=== PATIENT | female | born 1960 | race Caucasian/White ===

== ENCOUNTER 2017-11-23 16:48 | Emergency (ER) | payer MEDICAID, SELFPAY ==
[2017-11-23 17:01] VITALS: BP 103/70; PULSE 101; RESP 16; TEMP 36.7
--- NOTE | 2017-11-23 17:49 | DI.RPTCT_ITS ---
SYMPTOM/DIAGNOSIS: DIFFUSE ABDOMINAL PAIN. BRIGHT RED BLOOD PER RECTUM CT ABDOMEN AND PELVIS: Comparison is made with 29 Jan 2016. Images were performed through the lung bases through the ischial tuberosities without IV and after oral contrast. The oral contrast is seen within the stomach and small bowel. The distal ileum and colon are not opacified. There is no evidence of obstruction. Numerous diverticula are noted in the lower descending and sigmoid colon. There is no evidence of diverticulitis. There is a moderate quantity of stool. The lung bases are clear. The heart size is normal. The liver, spleen, pancreas, kidneys and adrenals are unremarkable without IV contrast. The patient is status post cholecystectomy. There is no biliary dilatation. The bladder appears normal. The patient is status post hysterectomy. Degenerative disc changes are seen greatest at L3-4 and L4-5. There is a small fatty containing umbilical hernia. The aorta is normal in diameter. IMPRESSION: Diverticulosis. No evidence of diverticulitis or other acute abnormality.
--- NOTE | 2017-11-23 17:49 | ED.GENADUL ---
Disposition Clinical Impression: Rectal bleeding Disposition: HOME Condition: Fair Instructions: Rectal Bleeding (ED) Additional Instructions: Encourage hydration. Continue with medication as previously prescribed. Please keep upcoming appointment with primary care. I have asked our home health care coordinator help facilitate follow-up with general surgery for reevaluation. If you develop increased pain, fever/chills, fainting, weakness, change in bowel habits, had increased blood per rectum or the new/worsening symptoms please seek care urgently once again. You had a palpable internal hemorrhoid, bleeding may be coming from the source. Referrals: Antonietta Fay MD [ [facility]FF [facility]YSICIAN] - Medical Decision Making - Lab Data Laboratory Tests 11/23/17 11/23/17 11/23/17 18:00 18:00 18:00 WBC 10.02 RBC 4.29 Hgb 12.5 Hct 37.1 MCV 86.5 MCH 29.1 MCHC 33.7 RDW 15.0 H Plt Count 523 H MPV 10.4 Immature Gran % 0.2 Neutrophils % 52.9 Lymphocytes % 36.3 Monocytes % 7.6 Eosinophils % 2.5 Basophils % 0.5 Absolute Neutrophils 5.30 Absolute Lymphocytes 3.64 H Absolute Monocytes 0.76 H Absolute Eosinophils 0.25 Absolute Basophils 0.05 PT 10.5 INR 1.1 APTT 23.7 Sodium 141 Potassium 3.6 Chloride 103 Carbon Dioxide 25.4 Anion Gap 12.6 H BUN 23 H Creatinine 1.02 Estimated GFR/1.73 m2 55.47 Glucose 111 H Calcium 8.4 L Magnesium 1.1 L Total Bilirubin 0.3 AST 15 ALT 17 Alkaline Phosphatase 101 Troponin I < 0.02 Total Protein 7.1 Albumin 3.5 Lipase 156 Results reviewed for labs ordered during visit: Yes - Radiology Data Radiology results: report reviewed CT reviewed by radiologist. They advised patient is status post cholecystectomy. No ductal dilation. Liver is unremarkable. Pancreas is unremarkable no ductal dilation. Spleen is unremarkable, no splenomegaly. Adrenals are unremarkable no mass. Kidneys and ureters are unremarkable, no obstructing stones, no hydronephrosis. Diverticulosis of the descending and sigmoid colon. No diverticulitis. No colitis. No obstruction. No findings to suggest acute appendicitis. Bladder is unremarkable no stones. Reproductive is unremarkable as visualized. Intraperitoneal space is unremarkable, no free air, no significant fluid collection. Degenerative spondylosis of the lumbar spine. No acute fracture. No dislocation. Soft tissues are unremarkable. No abdominal aortic aneurysm. No enlarged lymph nodes. Advise overall no acute findings. - Medical Decision Making Patient presents today with chief complaint of bright red blood per rectum. Patient does have a long history of GI upset. Had recent EGD. Reports that she has a follow-up appointment with primary care this week. Does not follow GI regularly. Abdominal pain is fairly diffuse, worse in the right lower quadrant. Patient is status post appendectomy. No palpable mass. Patient does have bright red blood per rectum on JUDD. She does have a small external hemorrhoid but is still not appear thrombosed and is not actively bleeding. Patient has a palpable small internal hemorrhoid as well. Patient is tachycardic at heart rate of 101. Will obtain laboratory evaluation as well as imaging of the abdomen. Laboratory evaluation without significant abnormality. Hemoglobin and hematocrit are stable at 12.5 and 37.1 respectively. Platelet count is elevated at 523 but this is typical for the patient. Coagulation studies are normal. Creatinine is 1.02 which is improved from patient's baseline. Lipase is within normal limits. Troponin is less than 0.02. I discussed these findings with the patient. She is feeling much improved after a liter bolus. CT pending. CT will be obtained with oral contrast is recurrent we are unable to obtain imaging with IV contrast. CT scan reviewed by radiologist. They do note diverticulosis but no signs of diverticulitis. No acute abnormalities. I discussed this with the patient. She reports that overall she is feeling much improved. Her vital signs are improved with a heart rate of 80, blood pressure is 124/79. Her pain is improved with no needed intervention. Patient appears much more calm than when she initially presented. Patient reports that she was having large amount of anxiety around her rectal bleeding. In questioning her bright red blood per rectum may be associated with internal hemorrhoids. At this point, patient appears quite stable, nontoxic, improving. She is not anemic. I do not believe that this is a brisk upper GI bleed with these symptoms. Patient was given strict return precautions but is requesting discharge at this time. I have asked that she follow up with general surgery this week. I have asked her care according to help facilitate this follow-up. Patient reports that it has been over 10 years since her last colonoscopy. She will continue with medications as previously prescribed. Please seek care urgently once again if she develops new or worsening symptoms. All other questions and concerns were addressed and she is in agreement with this plan. History of Present Illness - General Chief complaint: GI Bleed Stated complaint: GI BLEED Time Seen by Provider: 11/23/17 16:50 Source: patient, family, RN notes reviewed Mode of arrival: ambulatory Limitations: no limitations - History of Present Illness Initial comments: Patient is a 57-year-old female presenting today with chief complaint of diffuse abdominal pain and rectal bleeding. She is a history of hypertension, hypokalemia, rectocele, pancolonic diverticulitis and fibromyalgia. She underwent an EGD 1 month ago at which time she was diagnosed with chronic gastritis. EGD was completed as the patient was having chronic nausea/vomiting as well as weight loss. Patient is on daily Imodium, Zofran, simethicone. States she has chronic abdominal pain but this pain today is much worse than typical. States the pain is severe burning. States that she noted a small amount of blood on the toilet paper yesterday. However, having a bowel movement today she reports that she had a large amount of bright red blood in the toilet. 6. Unusual for her and she has not had something like this historically. Reports that she has been feeling lightheaded particularly when standing. Describes being presyncopal when standing and needing to sit down. Denies any rash. Denies any bleeding. Has not been using anti-inflammatories. Patient is not anticoagulated. Denies any external hemorrhoids. Denies any rectal pain. Patient is status post cholecystectomy, appendectomy, hysterectomy and tubal ligation. - Related Data Venlafaxine HCl [Venlafaxine HCl ER] 150 mg PO BID #90 tab-cap 06/24/12 Vitamin B Complex [B Complex] 1 each PO DAILY tab 05/12/14 Naloxone HCl [Narcan Nasal [place]] 4 mg NS PRN #2 spray 12/13/16 SUMAtriptan [Imitrex] 20 mg NS ONCE #1 box 12/13/16 Hydrochlorothiazide [Hydrodiuril] 25 mg PO DAILY #90 tab-cap 02/20/17 Omeprazole 40 mg PO BID #180 capsule. 02/21/17 Diphenoxylate HCl/Atropine [Diphenoxylate-Atrop 2.5-0.025] 1 - 2 each PO QID #30 tab-cap 03/14/17 Estrogens,Conjugated Vag. Cr. [Premarin Vaginal Cream] 0 VG weekly #30 g 03/14/17 Butalbital/Acetamin./Caffeine [Fioricet] 1 tab-cap PO Q4H PRN #50 tab-cap 03/27/17 Cholecalciferol (Vitamin D3) [Vitamin D3] 50,000 unit PO once weekly #8 cap 05/28/17 DiphenhydrAMINE [Benadryl] 25 - 50 mg PO PRN PRN 10/28/17 Loperamide [Imodium] 2 mg PO PRN PRN 10/28/17 Gabapentin 100 mg PO HS #30 cap 11/07/17 Nystatin 1 tsp PO QID #120 ml 11/07/17 Ondansetron HCl 4 mg PO Q8H PRN #30 tab-cap 11/07/17 OxyCODONE [Roxicodone] 10 mg PO TID PRN #80 tab-cap 11/07/17 Sucralfate 1 g PO QID #120 tab-cap 11/07/17 Allergies Allergy/AdvReac Type Severity Reaction Status Date / Time cephalexin monohydrate Allergy Severe Hives, Unverified 11/23/17 17:13 [From Keflex] rash and swelling Penicillins Allergy Intermediate SKIN RASH; Unverified 11/23/17 17:13 VOMITING vancomycin Allergy Intermediate Unverified 11/23/17 17:13 cyclobenzaprine AdvReac Severe Lethargy Unverified 11/23/17 17:13 and confusion fentanyl AdvReac Severe pt states Unverified 11/23/17 17:13 she passes out methadone AdvReac Severe HALLUCINATIONS Unverified 11/23/17 17:13 OUT OF LIFE promethazine AdvReac Severe dystonic Unverified 11/23/17 17:13 reaction amitriptyline AdvReac Intermediate CONFUSION Unverified 11/23/17 17:13 azithromycin AdvReac Intermediate Psychosis Unverified 11/23/17 17:13 lithium AdvReac Intermediate GI bleed Unverified 11/23/17 17:13 nortriptyline AdvReac Intermediate INSOMNIA Unverified 10/31/17 11:27 pregabalin AdvReac FACIAL Unverified 10/31/17 11:27 NUMBNESS Review of Systems Constitutional: see HPI, weakness. denies: chills, fever Eyes: denies: vision change Respiratory: no symptoms reported. denies: cough, shortness of breath Cardiovascular: denies: chest pain, palpitations, dyspnea on exertion Gastrointestinal: as per HPI Genitourinary: denies: urgency, dysuria, frequency, hematuria Musculoskeletal: denies: back pain Skin: denies: rash, lesions Neurological: denies: headache Past Medical History - Past Medical History Medical history: fibromyalgia, hypertension Hypokalemia, chronic pain, pancolonic diverticulitis, rectocele, fibromyalgia Surgical history: appendectomy, cholecystectomy, EGD, bilateral tubal ligation, hysterectomy - Social History Alcohol use: none Living Situation: lives with family General Exam - General Limitations: no limitations General appearance: alert, in no apparent distress (Patient appears slightly anxious), anxious - Eye Eye exam: Present: normal apperance (No pallor) - ENT ENT exam: Present: normal exam, mucous membranes moist - Respiratory Respiratory exam: Present: normal lung sounds bilaterally. Absent: respiratory distress - Cardiovascular Cardiovascular Exam: Present: regular rate, normal rhythm, normal heart sounds - GI/Abdominal GI/Abdominal exam: Present: soft, tenderness (Diffuse discomfort currently worse in the right lower quadrant.), normal bowel sounds. Absent: distended, guarding, rebound, rigid, organomegaly, mass, pulsatile mass, hernia - Rectal Rectal exam: Present: normal rectal tone, heme (+) stool, bloody stool, hemorrhoids (Small hemorrhoid is visualized. He does not appear thrombosed. No active bleeding from the hemorrhoid.). Absent: fecal impaction, tenderness - Back Exam Back exam: Absent: CVA tenderness (R), CVA tenderness (L) - Neurological Exam Neurological exam: Present: alert, normal gait - Psychiatric Psychiatric exam: Present: anxious, flat affect - Skin Skin exam: Present: warm, dry, normal color (Patient appears pale) Course Vital Signs - 24 hr 11/23/17 17:01 Temperature 36.7 C Pulse 101 H Respiratory 16 Rate Blood Pressure 103/70
[2017-11-23] MEDS: Breeza Beverage 473 ML BTL PO ×2 (18:11→18:12)
[2017-11-23] MEDS: Omnipaque 350 MG/ML 50 ML BTL PO (18:11)
[2017-11-23] MEDS: Ondansetron 4 MG/2 ML VIAL IVP (18:22)
[2017-11-23] MEDS: Normal Saline 1,000 ML 1000 ML IV (18:22)
[2017-11-23 18:31] LABS: Abs Immature Grans 0.02 k/cumm (0.0-0.09); Absolute Basophil Count 0.05 k/cumm (0.0-0.2); Absolute Eosinophil Count 0.25 k/cumm (0.0-0.7); Absolute Lymphocyte Count 3.64 k/cumm (1.2-3.4); Absolute Monocyte Count 0.76 k/cumm (0.11-0.7); Basophils % 0.5; Eosinophils % 2.5; HCT 37.1 % (36.0-46.0); HGB 12.5 g/dL (12.0-15.5); Immature Grans % 0.2; Lymphocytes % 36.3; Mean Corp. HGB Concentration 33.7 g/dL (32.0-36.0); Mean Corpuscular Hemoglobin 29.1 pg (27.0-33.0); Mean Corpuscular Volume 86.5 fL (80-95); Mean Platelet Volume 10.4 fL (8.0-11.0); Monocytes % 7.6; Neutrophils % 52.9; Platelet Count 523 x1000/uL (130-400); RBC 4.29 m/cumm (4.00-5.20); White Blood Cell Count 10.02 k/cumm (4.4-10.8)
[2017-11-23 18:41] LABS: INR 1.1 (1.0-3.5); PTT Activated 23.7 sec (21.0-31.4); Prothrombin Time 10.5 sec (9.3-10.8)
[2017-11-23 18:45] LABS: ALT 17 U/L (12-78); AST 15 U/L (15-37); Albumin 3.5 g/dL (3.4-5.0); Alkaline Phosphatase 101 U/L (46-116); Anion Gap 12.6 mmol/L (3-11); BUN 23 mg/dL (7-18); Bilirubin, Total 0.3 mg/dL (0.2-1.0); CO2 25.4 mmol/L (21.0-32.0); CREATININE 1.02 mg/dL (0.55-1.02); Calcium 8.4 mg/dL (8.5-10.1); Chloride 103 mmol/L (98-107); Estimated GFR 55.47 (mL/min/1.73m2); Glucose 111 mg/dL (70-100); Lipase 156 U/L (73-393); Magnesium 1.1 mg/dL (1.8-2.4); Potassium 3.6 mmol/L (3.5-5.1); Sodium 141 mmol/L (136-145); Total Protein 7.1 g/dL (6.4-8.2)
[2017-11-23 18:53] LABS: Troponin I < 0.02 ng/mL (0.00-0.06)
--- NOTE | 2017-11-23 19:23 | NUR.NOTE ---
Nursing Note: Pt to CT scan.
--- NOTE | 2017-11-23 19:43 | DI.VRAD_ITS ---
EXAM: CT Abdomen and Pelvis Without Intravenous Contrast CLINICAL HISTORY: 57 years old, female; Pain; Abdominal pain; Other: Diffuse; Patient HX: Bright red blood per rectum. ; Additional info: Prior abdominal surgeries: . Appendectomy. Cholecystectomy. Tubal ligation TECHNIQUE: Axial computed tomography images of the abdomen and pelvis without intravenous contrast. All CT scans at this facility use at least one of these dose optimization techniques: automated exposure control; mA and/or kV adjustment per patient size (includes targeted exams where dose is matched to clinical indication); or iterative reconstruction. Coronal and sagittal reformatted images were created and reviewed. COMPARISON: CT - CHEST ABD PELVIS WITH CONTRAST 2016-01-29 22:03 FINDINGS: Lung bases: Unremarkable. No mass. No consolidation. ABDOMEN: Liver: Unremarkable. Gallbladder and bile ducts: Status post cholecystectomy. No ductal dilation. Pancreas: Unremarkable. No ductal dilation. Spleen: Unremarkable. No splenomegaly. Adrenals: Unremarkable. No mass. Kidneys and ureters: Unremarkable. No obstructing stones. No hydronephrosis. Stomach and bowel: Diverticulosis of the descending and sigmoid colon. No diverticulitis. No colitis. No obstruction. PELVIS: Appendix: No findings to suggest acute appendicitis. Bladder: Unremarkable. No stones. Reproductive: Unremarkable as visualized. ABDOMEN and PELVIS: Intraperitoneal space: Unremarkable. No free air. No significant fluid collection. Bones/joints: Degenerative spondylosis of the lumbar spine. No acute fracture. No dislocation. Soft tissues: Unremarkable. Vasculature: Unremarkable. No abdominal aortic aneurysm. Lymph nodes: Unremarkable. No enlarged lymph nodes. IMPRESSION: No acute findings. Dictated and Authenticated by: Reyes Leigh MD. Ordering:KORTNEY WASHBURN MD
[2017-11-23 20:16] VITALS: BP 124/79; PULSE 80; RESP 18; TEMP 36.7; O2SAT 98
--- NOTE | 2017-11-23 20:18 | NUR.NOTE ---
Nursing Note: Pt expresses feeling grateful for her care today and that all her interactions were very positive.
--- NOTE | 2017-11-24 08:43 | CMPROGNOTE_ITS ---
Care Management Progress Note 11/24-Caridad GARCIA requested assistance with a general surgery f/u within one week for rectal bleeding. Referral faxed to [facility] surgical associates this am.
--- NOTE | 2017-11-24 08:43 | PDOC.ERCMPRO ---
Care Management Progress Note 11/24-Caridad GARCIA requested assistance with a general surgery f/u within one week for rectal bleeding. Referral faxed to [facility] surgical associates this am.
== END 2017-11-23 20:20 | disposition home or self-care (01) ==
PROVIDERS: Physician Assistant; Emergency Provider Physician Assistant; PCP Family Medicine
DX: K62.5 Hemorrhage of anus and rectum (principal); R10.9 Unspecified abdominal pain; I10 Essential (primary) hypertension
CPT/HCPCS: 80053; 83690; 96374; 99285; 74176; 83735; 84484; 85025; 85610; 85730; 99284; J2405; Q9967

== ENCOUNTER → 2017-12-07 10:51 | Outpatient (REF) | payer MEDICAID, SELFPAY ==
[2017-12-08 12:11] LABS: Campylobacter PCR SEE COMMENTS; Salmonella PCR SEE COMMENTS; Shiga Toxin PCR SEE COMMENTS; Shigella/Enteroinvasive Ecoli SEE COMMENTS
== END ==
LOC: LBN 10:51
PROVIDERS: PCP Family Medicine; Visit Provider Surgery
DX: R19.7 Diarrhea, unspecified (principal); K62.5 Hemorrhage of anus and rectum
CPT/HCPCS: 87505; 87177; 87324

== ENCOUNTER 2017-12-23 08:27 | Day surgery (SDC) | payer MEDICAID, SELFPAY ==
[2017-12-23 09:09] VITALS: BP 135/83; PULSE 98; RESP 16; TEMP 36; O2SAT 98
[2017-12-23] MEDS: Lactated Ringers 1,000 ML 30 ML IV (09:15)
--- NOTE | 2017-12-23 11:15 | W.PM.DSUDISC ---
Discharge Plan Disposition Patient Disposition: HOME Condition: Good Discharge Details Reason For Visit: RECTAL BLEEDING Attending Provider: Baron Garcia Primary Care Provider: Daniel Garber Home Meds and New Rx's Prescriptions: Continue venlafaxine 150 MG capsule,extended release 24hr 150 mg PO BID Qty: 90 RF: 4 sumatriptan [Imitrex] 20 MG spray,non-aerosol 20 mg NS ONCE Qty: 1 RF: 5 naloxone [Narcan] 4 MG spray,non-aerosol 4 mg NS PRN Qty: 2 RF: 0 hydrochlorothiazide 25 MG tablet 25 mg PO DAILY Qty: 90 RF: 4 omeprazole 40 MG capsule,delayed release(DR/EC) 40 mg PO BID Qty: 180 RF: 4 diphenoxylate-atropine 1 EACH tablet 1 - 2 ea PO QID Qty: 30 RF: 1 conjugated estrogens [Premarin] 30 GM cream VG weekly Qty: 30 RF: 3 [id number] 1 EACH tablet 1 tab-cap PO Q4H PRN Qty: 50 RF: 1 nystatin 1 EACH powder 1 tsp PO QID Qty: 120 RF: 1 ondansetron HCl 4 MG tablet 4 mg PO Q8H PRN Qty: 30 RF: 3 gabapentin 300 MG capsule 300 mg PO HS Qty: 30 RF: 3 topiramate 50 MG tablet 50 mg PO BID Qty: 60 RF: 3 oxycodone 10 MG tablet 10 mg PO TID PRNQty: 90 RF: 0 loperamide 2 MG capsule 2 mg PO PRN PRNRF: 0 diphenhydramine HCl 25 MG capsule 25 - 50 mg PO PRN PRNRF: 0 clonazepam [Klonopin] 0.5 mg Tablet 0.5 mg PO BID PRNRF: 0 Discharge Instructions Instructions: Colonoscopy (DC) Activity:: Activity as Tolerated Diet:: resume regular diet Discharge Orders Discharge Orders: Discharge Order (Routine); Ordered 12/23/17 Ordered By: Baron Garcia Discharge Data Discharge Comment: Make an appointment to discussed treatment of hemorrhoids DS: Diagnosis Discharge Diagnosis (1) Diverticulosis: Status: Chronic (2) Grade II hemorrhoids: Status: Chronic
[2017-12-23 11:46] VITALS: BP 128/63; PULSE 80; RESP 16; TEMP 36.8; O2SAT 94
--- NOTE | 2017-12-23 13:10 | W.PM.OP ---
Date of service: 12/23/17 Time of Service: 11:00 Operative Note Date of procedure: 12/23/17 Pre-op diagnosis: Rectal bleeding Post-op diagnosis: other (1. Mild sigmoid diverticulosis 2. Grade 2 hemorrhoids) Procedure: Colonoscopy to the cecum Surgeon: Baron Garcia Anesthesia: MAC (Heavy Machinery Operator: Truong Zepeda CRNA, ASA 3 Mallampati class II) Estimated blood loss (mL): 0 Pathology: none sent Patient was transported to: same day Patient's condition: stable Indications: 57 y/o female well known to me from prior encounters now presents for rectal bleeding. She started to have episode of rectal bleeding about a week ago. Sudden onset, with diarrhea. Has had continued rectal bleeding, minimal since, continues to have diarrhea. She does have some lower abdominal pain associated with this and some rectal pain. She denies any sick contacts. He was recommended she undergo colonoscopy to confirm source of bleeding is hemorrhoids, and rule out occult malignancy or diverticular bleed. The procedure is reviewed with her, and the risks discussed. All her questions were answered to her satisfaction Findings: In examining the colon from cecum to anus, the patient was noted to have some mild sigmoid diverticulosis and grade 2 hemorrhoids Procedure Description: The patient was seen in the day surgery waiting area. Her identification was confirmed, and procedure check. She was then brought to the procedure room. Monitoring for telemetry, blood pressure, oxygen saturation, and end tidal CO2 monitoring were applied. An appropriate time out was performed to confirm, identification, allergies, medication, procedure, was performed. Sedation was titrated for affect by the IMPREGNATING HELPER; Once adequate sedation was achieved, I performed a inspection of the external perineum, and a digitial rectal examination. No significant external abnormalities were noted. On digital rectal examination, there was no blood, no masses, good rectal tone. I advanced the colonoscope from the anus to the cecum under direct visualization. The cecum was identified by the ileal-cecal valve, and the appendiceal orifice. The scope was then withdrawn in circumferential manner from the cecum to the rectum. In withdrawing the scope through the colon, the patient was noted to have some mild sigmoid diverticulosis but no other abnormalities. Scope was then withdrawn in the rectum and retroflexed. No abnormalities of the rectal mucosa were noted, but the patient does have significant grade 2 hemorrhoids which are most likely cause of her rectal bleeding The scope was then withdrawn, terminating the procedure. There were no complications during the procedure, and the patient tolerated the procedure well. She was returned to the day surgery recovery area in good condition. Plan: We will discuss with patient examination under anesthesia of the anus and rectum for hemorrhoidal banding versus excision. She should have a repeat colonoscopy in 10 years for colorectal cancer screening.
--- NOTE | 2017-12-23 13:19 | ROE_ITS ---
Date of service: 12/23/17 Time of Service: 11:00 Operative Note Date of procedure: 12/23/17 Pre-op diagnosis: Rectal bleeding Post-op diagnosis: other (1. Mild sigmoid diverticulosis 2. Grade 2 hemorrhoids) Procedure: Colonoscopy to the cecum Surgeon: Baron Garcia Anesthesia: MAC (Ruling Technician: Truong Zepeda CRNA, ASA 3 Mallampati class II) Estimated blood loss (mL): 0 Pathology: none sent Patient was transported to: same day Patient's condition: stable Indications: 57 y/o female well known to me from prior encounters now presents for rectal bleeding. She started to have episode of rectal bleeding about a week ago. Sudden onset, with diarrhea. Has had continued rectal bleeding, minimal since, continues to have diarrhea. She does have some lower abdominal pain associated with this and some rectal pain. She denies any sick contacts. He was recommended she undergo colonoscopy to confirm source of bleeding is hemorrhoids, and rule out occult malignancy or diverticular bleed. The procedure is reviewed with her, and the risks discussed. All her questions were answered to her satisfaction Findings: In examining the colon from cecum to anus, the patient was noted to have some mild sigmoid diverticulosis and grade 2 hemorrhoids Procedure Description: The patient was seen in the day surgery waiting area. Her identification was confirmed, and procedure check. She was then brought to the procedure room. Monitoring for telemetry, blood pressure, oxygen saturation , and end tidal CO2 monitoring were applied. An appropriate time out was performed to confirm, identification, allergies, medication, procedure, was performed. Sedation was titrated for affect by the CLERICAL STOCK INSPECTOR; Once adequate sedation was achieved, I performed a inspection of the external perineum, and a digitial rectal examination. No significant external abnormalities were noted. On digital rectal examination, there was no blood, no masses, good rectal tone. I advanced the colonoscope from the anus to the cecum under direct visualization. The cecum was identified by the ileal-cecal valve, and the appendiceal orifice. The scope was then withdrawn in circumferential manner from the cecum to the rectum. In withdrawing the scope through the colon, the patient was noted to have some mild sigmoid diverticulosis but no other abnormalities. Scope was then withdrawn in the rectum and retroflexed. No abnormalities of the rectal mucosa were noted, but the patient does have significant grade 2 hemorrhoids which are most likely cause of her rectal bleeding The scope was then withdrawn, terminating the procedure. There were no complications during the procedure, and the patient tolerated the procedure well. She was returned to the day surgery recovery area in good condition. Plan: We will discuss with patient examination under anesthesia of the anus and rectum for hemorrhoidal banding versus excision. She should have a repeat colonoscopy in 10 years for colorectal cancer screening.
== END 2017-12-23 12:21 | disposition home or self-care (01) ==
PROVIDERS: PCP Family Medicine; Visit Provider Surgery
PROC: 0DJD8ZZ Inspection of Lower Intestinal Tract, Via Natural or Artificial Opening Endoscopic (ICD-10-PCS; CPT 45378; principal; 2017-12-23 10:30)
DX: K62.5 Hemorrhage of anus and rectum (principal); K57.30 Diverticulosis of large intestine without perforation or abscess without bleeding; K64.1 Second degree hemorrhoids; I10 Essential (primary) hypertension
CPT/HCPCS: 45378

== ENCOUNTER 2018-02-10 06:12 | Day surgery (SDC) | payer MEDICAID, SELFPAY ==
[2018-02-10 06:30] VITALS: BP 123/76; PULSE 81; RESP 16; TEMP 36; O2SAT 98
[2018-02-10] MEDS: Lactated Ringers 1,000 ML 30 ML IV (06:46)
[2018-02-10] MEDS: Bupivacaine 0.5% Pres-Free 30 ML VIAL (07:54)
[2018-02-10 08:36] VITALS: BP 118/81; PULSE 71; RESP 16; TEMP 35.4; O2SAT 100
--- NOTE | 2018-02-10 18:23 | ROE_ITS ---
Date of service: 02/10/18 Time of Service: 07:30 Operative Note DATE OF PROCEDURE: 02/10/18 PRE-OP DIAGNOSIS: 1. Bleeding hemorrhoids.2. Constipation POST-OP DIAGNOSIS: other (1. Bleeding hemorrhoids 2. Rectocele) PROCEDURE: 1. Examination under anesthesia of the vagina, rectum, anus 2. Hemorrhoid banding multiple hemorrhoidal columns SURGEON: Baron Garcia WEB ANALYTICS DEVELOPER: Lesley Wright ANESTHESIA: MAC (Timoteo Blankenship CRNA; ASA 3 Mallampati class III) and local (1.3 % Exparel, 0.5% Marcaine plain, and 20 cc of preservative-free saline, mixed) ESTIMATED BLOOD LOSS: 1 PATHOLOGY: none sent COMPLICATIONS: None Patient was transported to: same day Patient's condition: stable Indications: 57-year-old woman who presents for 2 reasons she continues to have intermittent rectal bleeding usually small amounts seen on the tissue. She also has a sensation of incomplete emptying unless she presses on the perineum to assist in evacuation of stool. She is concerned that there is a rectocele. Recent colonoscopy for rectal bleeding demonstrated mild diverticulosis and grade 2 hemorrhoids. It was felt that the hemorrhoids were the cause of her bleeding as they had stigmata of recent bleeding seen on the examination. It was recommended that she undergo examination of the vagina, rectum, and anus by speculum exam and anoscopy, to evaluate for rectocele and perform potential hemorrhoid banding. Findings: In performing the speculum exam along with digital rectal exam of the rectum, the patient was confirmed to have a rectocele present. Examination of the anus and rectum demonstrated engorgement of all 3 hemorrhoidal columns which were subsequently banded. Procedure Description: The patient was brought to the operating room, and positioned supine. Monitoring for O2 saturation, telemetry, blood pressure, and end-tidal CO2 were applied. An appropriate timeout was taken reviewing the patient's identification, allergies, medications, and procedure. Sedation was titrated for effect by the ALLYSSA, and once adequate sedation was reached the patient was positioned in dorsal lithotomy in order to perform examination of the vagina, rectum, and anus. I started with the speculum exam of the vagina. The patient is status post hysterectomy. The speculum was inserted and opened up to expose the posterior vaginal wall; meanwhile, I performed digital examination of the vaginal rectal septum through the rectum. Rectovaginal septum easily created a bulge into the vagina consistent with a rectocele. Speculum was then removed. I then performed anoscopic examination of the anus and rectum using a disposable lighted anoscope. The anus and distal rectum were inspected 360 degrees. I noted significant engorgement of all 3 hemorrhoidal columns:the left lateral, right anterior, and right posterior columns. I then proceeded to band all 3 columns using a suction banding instrument. A single para bands was placed on each column with good effect in reducing the redundant hemorrhoidal tissue. I then circumferentially injected local around the anal mucosa. There are no complications during the procedure. The patient was awakened in the operating room, and brought to the day surgery recovery area in good condition. Plan: We will discuss with patient potential rectocele repair or referral for second opinion. Patient may also need further banding if continues to have bleeding versus more formal hemorrhoidectomy.
--- NOTE | 2018-02-10 18:54 | W.PM.DSUDISC ---
Discharge Plan Disposition Patient Disposition: HOME Condition: Good Discharge Details Attending Provider: Baron Garcia Primary Care Provider: Daniel Garber Home Meds and New Rx's Prescriptions: Continue sumatriptan [Imitrex] 20 mg/actuation spray,non-aerosol 20 mg NS ONCE Qty: 1 RF: 5 hydrochlorothiazide 25 mg tablet 25 mg PO DAILY Qty: 90 RF: 4 qslqftpmoy-faikhxfydbmrk-mirx 50-325-40 mg tablet 1 tab PO Q4H PRN Qty: 50 RF: 1 ropinirole 0.25 mg tablet 0.25 mg PO TID Qty: 30 RF: 2 oxycodone 10 mg tablet 10 mg PO TID PRN (Reason: pain) Qty: 90 RF: 0 venlafaxine 150 MG capsule,extended release 24hr 150 mg PO BID Qty: 90 RF: 4 naloxone [Narcan] 4 MG spray,non-aerosol 4 mg NS PRN Qty: 2 RF: 0 diphenoxylate-atropine 1 EACH tablet 1 - 2 ea PO QID Qty: 30 RF: 1 conjugated estrogens [Premarin] 30 GM cream 1 vg VG weekly Qty: 30 RF: 3 ondansetron HCl 4 MG tablet 4 mg PO Q8H PRN Qty: 30 RF: 3 gabapentin 300 MG capsule 300 mg PO HS Qty: 30 RF: 3 omeprazole 40 mg capsule,delayed release(DR/EC) 40 mg PO DAILY Qty: 180 RF: 4 ranitidine HCl 150 mg tablet 150 mg PO DAILY Qty: 90 RF: 3 loperamide 2 MG capsule 2 mg PO PRN PRNRF: 0 diphenhydramine HCl 25 MG capsule 25 - 50 mg PO PRN PRNRF: 0 clonazepam [Klonopin] 0.5 mg Tablet 0.5 mg PO BID PRNRF: 0 topiramate 50 MG tablet 100 mg PO BID RF: 0 nystatin 1 EACH powder 1 tsp PO QID PRNRF: 0 Discharge Instructions Instructions: Rubber Band Ligation (DC) Stand Alone Forms: DSU Post op Instructions, Carmelo Gomez (DSU) Activity:: Activity as Tolerated Shower/Bathe:: 24 hours Diet:: As Tolerated Discharge Orders Discharge Orders: Discharge Order (Routine); Ordered 02/10/18 Ordered By: Baron Garcia Discharge Data Discharge Date/Time-TO BE ENTERED AT DEPARTURE: 02/10/18 09:23 Discharge Comment: NO ISSUES DS: Diagnosis Discharge Diagnosis (1) Rectocele: Status: Acute Asessment and Plan: EUA under anesthesia of vagina including rectovaginal fistula performed Operative Note DATE OF PROCEDURE: 02/10/18 PRE-OP DIAGNOSIS: 1. Bleeding hemorrhoids.2. Constipation POST-OP DIAGNOSIS: other (1. Bleeding hemorrhoids 2. Rectocele) PROCEDURE: 1. Examination under anesthesia of the vagina, rectum, anus 2. Hemorrhoid banding multiple hemorrhoidal columns SURGEON: Baron Garcia FACILITY MAINTENANCE TECHNICIAN: Lesley Wright ANESTHESIA: MAC (Timoteo Blankenship CRNA; ASA 3 Mallampati class III) and local (1.3% Exparel, 0.5% Marcaine plain, and 20 cc of preservative-free saline, mixed) ESTIMATED BLOOD LOSS: 1 PATHOLOGY: none sent COMPLICATIONS: None Patient was transported to: same day Patient's condition: stable Indications: 57-year-old woman who presents for 2 reasons she continues to have intermittent rectal bleeding usually small amounts seen on the tissue. She also has a sensation of incomplete emptying unless she presses on the perineum to assist in evacuation of stool. She is concerned that there is a rectocele. Recent colonoscopy for rectal bleeding demonstrated mild diverticulosis and grade 2 hemorrhoids. It was felt that the hemorrhoids were the cause of her bleeding as they had stigmata of recent bleeding seen on the examination. It was recommended that she undergo examination of the vagina, rectum, and anus by speculum exam and anoscopy, to evaluate for rectocele and perform potential hemorrhoid banding. Findings: In performing the speculum exam along with digital rectal exam of the rectum, the patient was confirmed to have a rectocele present. Examination of the anus and rectum demonstrated engorgement of all 3 hemorrhoidal columns which were subsequently banded. Procedure Description: The patient was brought to the operating room, and positioned supine. Monitoring for O2 saturation, telemetry, blood pressure, and end-tidal CO2 were applied. An appropriate timeout was taken reviewing the patient's identification, allergies, medications, and procedure. Sedation was titrated for effect by the INJECTION MAINTENANCE TECHNICIAN, and once adequate sedation was reached the patient was positioned in dorsal lithotomy in order to perform examination of the vagina, rectum, and anus. I started with the speculum exam of the vagina. The patient is status post hysterectomy. The speculum was inserted and opened up to expose the posterior vaginal wall; meanwhile, I performed digital examination of the vaginal rectal septum through the rectum. Rectovaginal septum easily created a bulge into the vagina consistent with a rectocele. Speculum was then removed. I then performed anoscopic examination of the anus and rectum using a disposable lighted anoscope. The anus and distal rectum were inspected 360 degrees. I noted significant engorgement of all 3 hemorrhoidal columns:the left lateral, right anterior, and right posterior columns. I then proceeded to band all 3 columns using a suction banding instrument. A single para bands was placed on each column with good effect in reducing the redundant hemorrhoidal tissue. I then circumferentially injected local around the anal mucosa. There are no complications during the procedure. The patient was awakened in the operating room, and brought to the day surgery recovery area in good condition. Plan: We will discuss with patient potential rectocele repair or referral for second opinion. Patient may also need further banding if continues to have bleeding versus more formal hemorrhoidectomy. (2) Grade II hemorrhoids: Status: Chronic Asessment and Plan: EUA under anesthesia performed of anus and rectum, with hemorrhoid banding, see rectocele for procedure findings, results.
--- NOTE | 2018-02-10 18:57 | PDOC.DSDIS_ITS ---
Discharge Plan Disposition Patient Disposition: HOME Condition: Good Discharge Details Attending Provider: Baron Garcia Primary Care Provider: Daniel Garber Home Meds and New Rx's Prescriptions: Continue sumatriptan [Imitrex] 20 mg/actuation spray,non-aerosol 20 mg NS ONCE Qty: 1 RF: 5 hydrochlorothiazide 25 mg tablet 25 mg PO DAILY Qty: 90 RF: 4 mxdwjbyzql-wipbtirvhfabm-hqaa 50-325-40 mg tablet 1 tab PO Q4H PRN Qty: 50 RF: 1 ropinirole 0.25 mg tablet 0.25 mg PO TID Qty: 30 RF: 2 oxycodone 10 mg tablet 10 mg PO TID PRN (Reason: pain) Qty: 90 RF: 0 venlafaxine 150 MG capsule,extended release 24hr 150 mg PO BID Qty: 90 RF: 4 naloxone [Narcan] 4 MG spray,non-aerosol 4 mg NS PRN Qty: 2 RF: 0 diphenoxylate-atropine 1 EACH tablet 1 - 2 ea PO QID Qty: 30 RF: 1 conjugated estrogens [Premarin] 30 GM cream 1 vg VG weekly Qty: 30 RF: 3 ondansetron HCl 4 MG tablet 4 mg PO Q8H PRN Qty: 30 RF: 3 gabapentin 300 MG capsule 300 mg PO HS Qty: 30 RF: 3 omeprazole 40 mg capsule,delayed release(DR/EC) 40 mg PO DAILY Qty: 180 RF: 4 ranitidine HCl 150 mg tablet 150 mg PO DAILY Qty: 90 RF: 3 loperamide 2 MG capsule 2 mg PO PRN PRNRF: 0 diphenhydramine HCl 25 MG capsule 25 - 50 mg PO PRN PRNRF: 0 clonazepam [Klonopin] 0.5 mg Tablet 0.5 mg PO BID PRNRF: 0 topiramate 50 MG tablet 100 mg PO BID RF: 0 nystatin 1 EACH powder 1 tsp PO QID PRNRF: 0 Discharge Instructions Instructions: Rubber Band Ligation (DC) Stand Alone Forms: DSU Post op Instructions, Carmelo Gomez (DSU) Activity:: Activity as Tolerated Shower/Bathe:: 24 hours Diet:: As Tolerated Discharge Orders Discharge Orders: Discharge Order (Routine); Ordered 02/10/18 Ordered By: Baron Garcia Discharge Data Discharge Date/Time-TO BE ENTERED AT DEPARTURE: 02/10/18 09:23 Discharge Comment: NO ISSUES DS: Diagnosis Discharge Diagnosis (1) Rectocele: Status: Acute Asessment and Plan: EUA under anesthesia of vagina including rectovaginal fistula performed Operative Note DATE OF PROCEDURE: 02/10/18 PRE-OP DIAGNOSIS: 1. Bleeding hemorrhoids.2. Constipation POST-OP DIAGNOSIS: other (1. Bleeding hemorrhoids 2. Rectocele) PROCEDURE: 1. Examination under anesthesia of the vagina, rectum, anus 2. Hemorrhoid banding multiple hemorrhoidal columns SURGEON: Baron Garcia PULP ROLLER: Lesley Wright ANESTHESIA: MAC (Timoteo Blankenship CRNA; ASA 3 Mallampati class III) and local (1.3 % Exparel, 0.5% Marcaine plain, and 20 cc of preservative-free saline, mixed) ESTIMATED BLOOD LOSS: 1 PATHOLOGY: none sent COMPLICATIONS: None Patient was transported to: same day Patient's condition: stable Indications: 57-year-old woman who presents for 2 reasons she continues to have intermittent rectal bleeding usually small amounts seen on the tissue. She also has a sensation of incomplete emptying unless she presses on the perineum to assist in evacuation of stool. She is concerned that there is a rectocele. Recent colonoscopy for rectal bleeding demonstrated mild diverticulosis and grade 2 hemorrhoids. It was felt that the hemorrhoids were the cause of her bleeding as they had stigmata of recent bleeding seen on the examination. It was recommended that she undergo examination of the vagina, rectum, and anus by speculum exam and anoscopy, to evaluate for rectocele and perform potential hemorrhoid banding. Findings: In performing the speculum exam along with digital rectal exam of the rectum, the patient was confirmed to have a rectocele present. Examination of the anus and rectum demonstrated engorgement of all 3 hemorrhoidal columns which were subsequently banded. Procedure Description: The patient was brought to the operating room, and positioned supine. Monitoring for O2 saturation, telemetry, blood pressure, and end-tidal CO2 were applied. An appropriate timeout was taken reviewing the patient's identification, allergies, medications, and procedure. Sedation was titrated for effect by the PAPER BUNDLER, and once adequate sedation was reached the patient was positioned in dorsal lithotomy in order to perform examination of the vagina, rectum, and anus. I started with the speculum exam of the vagina. The patient is status post hysterectomy. The speculum was inserted and opened up to expose the posterior vaginal wall; meanwhile, I performed digital examination of the vaginal rectal septum through the rectum. Rectovaginal septum easily created a bulge into the vagina consistent with a rectocele. Speculum was then removed. I then performed anoscopic examination of the anus and rectum using a disposable lighted anoscope. The anus and distal rectum were inspected 360 degrees. I noted significant engorgement of all 3 hemorrhoidal columns:the left lateral, right anterior, and right posterior columns. I then proceeded to band all 3 columns using a suction banding instrument. A single para bands was placed on each column with good effect in reducing the redundant hemorrhoidal tissue. I then circumferentially injected local around the anal mucosa. There are no complications during the procedure. The patient was awakened in the operating room, and brought to the day surgery recovery area in good condition. Plan: We will discuss with patient potential rectocele repair or referral for second opinion. Patient may also need further banding if continues to have bleeding versus more formal hemorrhoidectomy. (2) Grade II hemorrhoids: Status: Chronic Asessment and Plan: EUA under anesthesia performed of anus and rectum, with hemorrhoid banding, see rectocele for procedure findings, results.
== END 2018-02-10 09:23 | disposition home or self-care (01) ==
PROVIDERS: PCP Family Medicine; Visit Provider Surgery
PROC: (CPT 45990; principal; 2018-02-10 07:30)
PROC: (CPT 45990; 2018-02-10 07:30)
DX: K62.5 Hemorrhage of anus and rectum (principal); K64.1 Second degree hemorrhoids; Z90.710 Acquired absence of both cervix and uterus
CPT/HCPCS: 45990; 46221; J2405

== ENCOUNTER 2018-04-01 10:14 | Outpatient (CLI) | payer MEDICAID, SELFPAY ==
--- NOTE | 2018-04-01 14:44 | DI.CT_ITS ---
SYMPTOMS/DIAGNOSIS: HEADACHE, R51 CRANIAL CT: A noncontrast enhanced examination was performed. There is moderate cortical frontal atrophy. There is no mass, or hemorrhage or area of edema or findings to suggest an acute territorial infarct. The ventricles are normal. The slade- white matter differentiation in the frontoparietal region is well maintained. There is no evidence of a skull fracture and the bony calvarium appears normal. The paranasal sinuses as demonstrated are intact. There is no evidence of a mastoid effusion. SUMMARY: Negative noncontrast enhanced cranial CT. If there is further specific clinical question regarding the status of this patient, then further evaluation with an MRI would be appropriate.
== END 2018-04-01 10:34 ==
PROVIDERS: PCP Family Medicine; Visit Provider Family Medicine
DX: R51 Headache (principal)
CPT/HCPCS: 70450

== ENCOUNTER 2018-04-28 10:51 | Outpatient (CLI) | payer MEDICAID, SELFPAY ==
[2018-04-28 12:11] LABS: HCT 40.6 % (36.0-46.0); HGB 13.3 g/dL (12.0-15.5); Mean Corp. HGB Concentration 32.8 g/dL (32.0-36.0); Mean Corpuscular Hemoglobin 27.8 pg (27.0-33.0); Mean Corpuscular Volume 84.9 fL (80-95); Platelet Count 496 x1000/uL (130-400); RBC 4.78 m/cumm (4.00-5.20); White Blood Cell Count 9.25 k/cumm (4.4-10.8)
[2018-04-28 13:22] LABS: ALT 19 U/L (12-78); AST 16 U/L (15-37); Albumin 3.7 g/dL (3.4-5.0); Alkaline Phosphatase 125 U/L (46-116); Anion Gap 10.6 mmol/L (3-11); BUN 17 mg/dL (7-18); Bilirubin, Total 0.3 mg/dL (0.2-1.0); CO2 30.4 mmol/L (21.0-32.0); CREATININE 1.05 mg/dL (0.55-1.02); Calcium 9.2 mg/dL (8.5-10.1); Chloride 100 mmol/L (98-107); Estimated GFR 53.46 (mL/min/1.73m2); Glucose 108 mg/dL (70-100); Sodium 141 mmol/L (136-145); Total Protein 7.1 g/dL (6.4-8.2)
== END 2018-04-28 11:11 ==
PROVIDERS: PCP Family Medicine; Visit Provider Obstetrics & Gynecology Gynecology
DX: N81.6 Rectocele (principal); G89.29 Other chronic pain; I10 Essential (primary) hypertension; Z01.818 Encounter for other preprocedural examination
CPT/HCPCS: 36415; 80053; 85027; 86850; 86900; 86901

== ENCOUNTER 2018-05-06 10:40 | Inpatient (IN) | payer MEDICAID, SELFPAY ==
--- NOTE | 2018-04-28 13:27 | W.PM.HP.N ---
Assessment and Plan (1) Rectocele: Current visit: Yes Status: Acute R/B/A for treatment cystocele reviewed including observation, pessary and surgical correction patient would prefer definitive treatment rectocele repair risks surgery including bleeding infection, possible injury bowel, bladder, blood vessels, permanent nerve damage risk of general anesthesia and reviewed with the patient Plan posterior colporraphy Review of Systems Review of Systems All systems reviewed & are unremarkable except as noted in HPI and below PFSH Medical History Grade II hemorrhoids (Chronic) Diverticulosis (Chronic) Anxiety Bipolar 1 disorder Chronic pain disorder Fibromyalgia Hypertension Migraine Spinal stenosis Surgical History H/O hemorrhoidectomy (Acute 02/10/18) History of colonoscopy (Chronic 12/23/17) Abdominal hysterectomy Bilateral salpingectomy with oophorectomy Cholecystectomy (06/14/10) Colonoscopy - MAC (2013) EGD - MAC (~2013) EGD - MAC (10/31/17) Tonsillectomy and adenoidectomy Family History Mother Diabetes Personal history of malignant neoplasm Father Diabetes Essential hypertension Sister Diabetes Personal history of malignant neoplasm Grandfather Essential hypertension Heart disease Stroke Grandmother Diabetes Essential hypertension Social History Smoking/Tobacco Use Status: Never History History 5 Para 4 Hx # Term Pregnancies Multiple births Hx # Pregnancies Ectopic pregnancies AB induced Hx Number of Living Children 4 AB spontaneous 1 Meds Home Medications Medication Instructions Recorded Confirmed Type venlafaxine 150 mg PO BID #90 tab-cap 06/24/12 04/28/18 History Narcan 4 mg NS PRN #2 spray 12/13/16 04/28/18 History Premarin 1 vg VG weekly #30 g 03/14/17 04/28/18 History diphenhydramine HCl 25 - 50 mg PO PRN PRN 10/28/17 04/28/18 History loperamide 2 mg PO PRN PRN 10/28/17 04/28/18 History ondansetron HCl 4 mg PO Q8H PRN #30 tab-cap 11/07/17 04/28/18 Rx urllqcpskg-vboculenvmkzz-zatnnigx 1 tab PO Q4H PRN #50 tab-cap 01/08/18 04/28/18 Rx 50 mg-325 mg-40 mg tablet hydrochlorothiazide 25 mg tablet 25 mg PO DAILY #90 tab-cap 01/08/18 04/28/18 Rx sumatriptan 20 mg/actuation nasal 20 mg NS ONCE #1 box 01/08/18 04/28/18 Rx spray omeprazole 40 mg capsule,delayed 40 mg PO DAILY #180 cap 01/12/18 04/28/18 Rx release nystatin 1 tsp PO QID PRN 02/06/18 04/28/18 History topiramate 100 mg PO BID 02/06/18 04/28/18 History oxycodone 10 mg tablet 10 mg PO TID PRN #90 tab-cap NS 04/17/18 04/28/18 Rx MDD 30 wpfwqevsntgo-fhdqxknr-oiqnap 1 tab PO DAILY 04/28/18 04/28/18 History [Multivitamin 50 Plus] ranitidine HCl 150 mg PO HS 04/28/18 04/28/18 History Allergies Allergy/AdvReac Type Severity Reaction Status Date / Time cephalexin monohydrate Allergy Severe Hives, Verified 04/28/18 12:55 [From Keflex] rash and swelling Penicillins Allergy Intermediate SKIN RASH; Verified 04/28/18 12:55 VOMITING vancomycin Allergy Intermediate RED FACE Verified 04/28/18 12:55 cyclobenzaprine AdvReac Severe Lethargy Verified 04/28/18 12:55 and confusion fentanyl AdvReac Severe pt states Verified 04/28/18 12:55 she passes out methadone AdvReac Severe HALLUCINATIONS Verified 04/28/18 12:55 OUT OF LIFE promethazine AdvReac Severe dystonic Verified 04/28/18 12:55 reaction amitriptyline AdvReac Intermediate CONFUSION Verified 04/28/18 11:10 azithromycin AdvReac Intermediate Psychosis Verified 04/28/18 11:10 lithium AdvReac Intermediate GI bleed Verified 04/28/18 11:10 nortriptyline AdvReac Intermediate INSOMNIA Verified 04/28/18 11:10 pregabalin AdvReac FACIAL Verified 04/28/18 11:10 NUMBNESS Exam Const General: cooperative and frail appearing Nutritional Appearance: underweight Orientation: alert and awake [facility] Head: normal to inspection Ears: hearing grossly normal bilaterally Teeth and gingiva: poor dentition Chest Chest: normal inspection of the chest Resp Effort & Inspection: normal respiratory effort Auscultation: clear to auscultation bilaterally Cardio Palpation: normal PMI Rate: regular rate and bradycardic GI Inspection: normal to inspection Percussion: normal to percussion External Female Exam: external appearance normal Speculum Exam - Vagina: normal appearance of the vagina Speculum Exam - Cervix: cervix absent Bimanual Exam- Vagina & Uterus: uterus absent and other (4the degree rectocele minimal cystoele) Bimanual Exam- Adnexa, other: normal adnexae
--- NOTE | 2018-04-28 13:34 | HPE_ITS ---
Assessment and Plan (1) Rectocele: Current visit: Yes Status: Acute R/B/A for treatment cystocele reviewed including observation, pessary and surgical correction patient would prefer definitive treatment rectocele repair risks surgery including bleeding infection, possible injury bowel, bladder, blood vessels, permanent nerve damage risk of general anesthesia and reviewed with the patient Plan posterior colporraphy Review of Systems Review of Systems All systems reviewed & are unremarkable except as noted in HPI and below PFSH Medical History Grade II hemorrhoids (Chronic) Diverticulosis (Chronic) Anxiety Bipolar 1 disorder Chronic pain disorder Fibromyalgia Hypertension Migraine Spinal stenosis Surgical History H/O hemorrhoidectomy (Acute 02/10/18) History of colonoscopy (Chronic 12/23/17) Abdominal hysterectomy Bilateral salpingectomy with oophorectomy Cholecystectomy (06/14/10) Colonoscopy - MAC (2013) EGD - MAC (~2013) EGD - MAC (10/31/17) Tonsillectomy and adenoidectomy Family History Mother Diabetes Personal history of malignant neoplasm Father Diabetes Essential hypertension Sister Diabetes Personal history of malignant neoplasm Grandfather Essential hypertension Heart disease Stroke Grandmother Diabetes Essential hypertension Social History Smoking/Tobacco Use Status: Never History History 5 Para 4 Hx # Term Pregnancies Multiple births Hx # Pregnancies Ectopic pregnancies AB induced Hx Number of Living Children 4 AB spontaneous 1 Meds Home Medications Medication Instructions Recorded Confirmed Type venlafaxine 150 mg PO BID #90 tab-cap 06/24/12 04/28/18 History Narcan 4 mg NS PRN #2 spray 12/13/16 04/28/18 History Premarin 1 vg VG weekly #30 g 03/14/17 04/28/18 History diphenhydramine HCl 25 - 50 mg PO PRN PRN 10/28/17 04/28/18 History loperamide 2 mg PO PRN PRN 10/28/17 04/28/18 History ondansetron HCl 4 mg PO Q8H PRN #30 tab-cap 11/07/17 04/28/18 Rx vttcmirnlk-atwriekydupgl-movjjjdb 1 tab PO Q4H PRN #50 tab-cap 01/08/18 04/28/18 Rx 50 mg-325 mg-40 mg tablet hydrochlorothiazide 25 mg tablet 25 mg PO DAILY #90 tab-cap 01/08/18 04/28/18 Rx sumatriptan 20 mg/actuation nasal 20 mg NS ONCE #1 box 01/08/18 04/28/18 Rx spray omeprazole 40 mg capsule,delayed 40 mg PO DAILY #180 cap 01/12/18 04/28/18 Rx release nystatin 1 tsp PO QID PRN 02/06/18 04/28/18 History topiramate 100 mg PO BID 02/06/18 04/28/18 History oxycodone 10 mg tablet 10 mg PO TID PRN #90 tab-cap NS 04/17/18 04/28/18 Rx MDD 30 fyyjnmcodmrw-xmfesqem-qkypgf 1 tab PO DAILY 04/28/18 04/28/18 History [Multivitamin 50 Plus] ranitidine HCl 150 mg PO HS 04/28/18 04/28/18 History Allergies Allergy/AdvReac Type Severity Reaction Status Date / Time cephalexin monohydrate Allergy Severe Hives, Verified 04/28/18 12:55 [From Keflex] rash and swelling Penicillins Allergy Intermediate SKIN RASH; Verified 04/28/18 12:55 VOMITING vancomycin Allergy Intermediate RED FACE Verified 04/28/18 12:55 cyclobenzaprine AdvReac Severe Lethargy Verified 04/28/18 12:55 and confusion fentanyl AdvReac Severe pt states Verified 04/28/18 12:55 she passes out methadone AdvReac Severe HALLUCINATIONS Verified 04/28/18 12:55 OUT OF LIFE promethazine AdvReac Severe dystonic Verified 04/28/18 12:55 reaction amitriptyline AdvReac Intermediate CONFUSION Verified 04/28/18 11:10 azithromycin AdvReac Intermediate Psychosis Verified 04/28/18 11:10 lithium AdvReac Intermediate GI bleed Verified 04/28/18 11:10 nortriptyline AdvReac Intermediate INSOMNIA Verified 04/28/18 11:10 pregabalin AdvReac FACIAL Verified 04/28/18 11:10 NUMBNESS Exam Const General: cooperative and frail appearing Nutritional Appearance: underweight Orientation: alert and awake [facility] Head: normal to inspection Ears: hearing grossly normal bilaterally Teeth and gingiva: poor dentition Chest Chest: normal inspection of the chest Resp Effort & Inspection: normal respiratory effort Auscultation: clear to auscultation bilaterally Cardio Palpation: normal PMI Rate: regular rate and bradycardic GI Inspection: normal to inspection Percussion: normal to percussion External Female Exam: external appearance normal Speculum Exam - Vagina: normal appearance of the vagina Speculum Exam - Cervix: cervix absent Bimanual Exam- Vagina & Uterus: uterus absent and other (4the degree rectocele minimal cystoele) Bimanual Exam- Adnexa, other: normal adnexae
[2018-05-06] VITALS (17 sets, daily range): BP systolic 82–125; BP diastolic 45–89; PULSE 83–91; RESP 12–18; TEMP 35.7–37.3; O2SAT 94–98
[2018-05-06] MEDS: Lactated Ringers 1,000 ML 125 ML IV ×3 (07:12→18:40)
[2018-05-06] MEDS: Scopolamine 1 MG/3 DAYS PATCH TD (07:27)
[2018-05-06] MEDS: MetroNIDAZOLE 500 MG/100 ML BAG 100 MG IVPB (07:41)
[2018-05-06] MEDS: Bupivacaine 0.25% Pres-Free 30 ML VIAL (08:28)
--- NOTE | 2018-05-06 12:44 | ROE_ITS ---
REPORT OF OPERATIVE PROCEDURE DATE OF PROCEDURE May 06, 2018 PREOPERATIVE DIAGNOSES Cystocele second degree. Fourth degree rectocele. POSTOPERATIVE DIAGNOSES Cystocele second degree. Fourth degree rectocele. PROCEDURE Anterior and posterior colporrhaphy. SURGEON Isabel Cottrell M.D. [employer] TECHNICIAN Chelsey Walker M.D. ANESTHESIA General, plus pudendal block with Exparel and 0.25% Marcaine 20 ml with 10 ml per side. Also, 1% lido emory with Epi in the anterior and posterior vagina. COMPLICATIONS None. ESTIMATED BLOOD LOSS Less than 50 cc. FLUIDS 700 cc of LR. FINDINGS Second-degree cystocele and fourth-degree rectocele. DESCRIPTION OF PROCEDURE The patient was taken to the Operating Room, where she was then placed on the Operating Table in the dorsal supine position. A general anesthesia was induced without difficulty. She was then placed in a dorsal lithotomy position, prepped and draped in the normal sterile fashion. A formal timeout proce dure was then performed with all surgical personnel present, confirming patient and procedure. A Fole y catheter was then placed. A pudendal block was then performed by first feeling the left ischial spi ne and injecting 10 cc of the Exparel mixed with 0.25% Marcaine just medial to the ischial spine. Att ention was turned to the other side and again, the right ischial spine was palpated and the pudendal block of 10 cc of Exparel with 0.25% Marcaine was placed medial to the ischial spine. The posterior w eighted speculum was placed. A cystocele was appreciated, it was grasped at its most distal aspect wi th Allis clamps bilaterally on the lateral aspect of the posterior anterior vagina. A subcutaneous injection of 1% lidocaine with Epi was performed along the entire horizontal length of the anterior vaginal epithelium to the level of approximately 3 millimeters from the urethral openin g. A transverse incision was made along the posterior aspect horizontally. The midline vaginal epithe lium was undermined with the Metzenbaum scissors and incised vertically to the level of 3 millimeters below the urethral opening. The bladder was then dissected off the vaginal epithelium to the level o f the defect until the paravesicular fascia was identified bilaterally. The paravesicular fascia was then reapproximated with #2-0 Vicryl in interrupted fashion until the entire defect was closed. The v aginal mucosa was trimmed bilaterally, then closed with #0-Vicryl in a running fashion. Attention was then turned to the rectocele repair. The curved [place] was then placed anteriorly to ex pose the entire rectocele defect. Using Allis clamps the hymenal remnants were grasped bilaterally. A subcutaneous injection of 1% lidocaine with epinephrine was then made vertically along the entire mi dline of the posterior epithelium. The posterior fourchette was incised in a V-like fashion and the v aginal epithelium was undermined using the Metzenbaum scissors, and incised to the level above the fa scial defect. The tissue was dissected well away from the posterior vagina bilaterally, identifying t he fascial defect bilaterally, which was then reapproximated using #2-0 Vicryl in interrupted fashion , reapproximating the posterior fascial defect. There was one area of fascial defect after closing that required additional support with #2-0 Vicryl, 2 interrupted sutures. A rectal exam was then performed, and the tissue was intact. The surgeon vivek ged her gloves. The vaginal epithelium was trimmed and then closed with #0-Vicryl in a running fashio n. The perineal body was reapproximated in a similar fashion as the episiotomy. The skin was closed s ubcuticularly, and the hymenal ring was reinforced and the #0-Vicryl was tied. A second rectal exam w as performed, and all tissue was intact. The Cook was left in situ. a Kerlix vaginal pack was placed and it was impregnated with Premarin vaginal cream and left in situ. The patient was awakened and ta corrie to the Recovery in stable condition. Sponge, lap, needle and instrument counts were correct x2.
--- NOTE | 2018-05-06 13:00 | NUR.NOTE ---
Admitted to room 306 via stretcher from PACU. IV of LR infusing via L periph line in L antecubital space. Pt alert oriented, SCD's in place bilat. Cook cath patent, pt C/O sore abdomen, obey pad in place with vag. packing. IV of LR swithced to R periph site in R forearm. C/o of L antecubital site being very sore. Site without redness or selling.Nursing Note:
[2018-05-06] MEDS: Ketorolac 30 MG/ML VIAL IVP ×2 (13:38→20:04)
[2018-05-06] MEDS: oxyCODONE 5 mg/Acetaminophen 325 mg TAB 1 TAB PO (15:37)
--- NOTE | 2018-05-06 17:10 | NUR.NOTE ---
patient fitted for CPAP by Respiratory Therapy Nursing Note:
[2018-05-06] MEDS: oxyCODONE 5 MG TAB PO (17:53)
[2018-05-06] MEDS: Topiramate 100 MG TAB PO (20:05)
[2018-05-06] MEDS: Normal Saline Flush 10 ML SYR IV (20:05)
[2018-05-06] MEDS: Venlafaxine 75 MG TAB 150 MG PO (20:05)
[2018-05-06] MEDS: Docusate Sodium 100 MG CAP PO (20:05)
[2018-05-07] MEDS: Butalbital/Acetaminophen/Caffeine 50/325/40 TAB PO
[2018-05-07] MEDS: Ketorolac 30 MG/ML VIAL IVP ×3 (01:55→13:16)
[2018-05-07] MEDS: Lactated Ringers 1,000 ML 125 ML IV ×2 (01:56→11:07)
[2018-05-07] MEDS: oxyCODONE 5 MG TAB 10 MG PO ×2 (03:20→12:35)
[2018-05-07 03:29] VITALS: BP 106/61; PULSE 76; RESP 16; TEMP 36.8; O2SAT 96
[2018-05-07 07:55] VITALS: BP 105/60; PULSE 64; RESP 16; TEMP 36.8; O2SAT 94
[2018-05-07] MEDS: Docusate Sodium 100 MG CAP PO (08:03)
[2018-05-07] MEDS: Triamterene 37.5/HCTZ 25 CAP PO (08:04)
[2018-05-07] MEDS: Omeprazole 20 MG CAPCR 40 MG PO (08:04)
[2018-05-07] MEDS: Venlafaxine 75 MG TAB 150 MG PO (08:05)
[2018-05-07] MEDS: Topiramate 100 MG TAB PO (08:05)
[2018-05-07] MEDS: Normal Saline Flush 10 ML SYR IV ×2 (08:06→13:17)
[2018-05-07 08:33] VITALS: RESP 12; O2SAT 94
--- NOTE | 2018-05-07 13:01 | W.PM.DS.N ---
Date of service: 05/07/18 Time of Service: 13:01 DS: Diagnosis Discharge Diagnosis (1) Rectocele: Status: Acute (2) Cystocele and rectocele with incomplete uterovaginal prolapse: Status: Acute Discharge Plan Disposition Patient Disposition: HOME Condition: Fair Discharge Details Reason For Visit: ANTERIOR POSTERIOR COL[PORRAPHY Admit Date/Time: 05/06/18 10:40 Admit Provider: Isabel Cottrell Attending Provider: Isabel Cottrell Primary Care Provider: Daniel Garber [facility] Course Hospital Course: Patient was admitted the morning of surgery and underwent the an anterior and posterior colporrhaphy without complications. She had minimal blood loss. Her postop course was complicated by anxiety, headache and insomnia. Patient was treated with Fioricet for the headache and dosed every 6 hours with ketorolac IV. She was continued on her usual medication regime for pain. On the morning of discharge she was tolerating a regular diet Cook catheter was discontinued and the patient will void prior to discharge to home. Vaginal packing was removed was noted to have dark red blood present no bright red bleeding noted. Home Meds and New Rx's Prescriptions: No Action sumatriptan [Imitrex] 20 mg/actuation spray,non-aerosol 20 mg NS ONCE Qty: 1 RF: 5 hydrochlorothiazide 25 mg tablet 25 mg PO DAILY Qty: 90 RF: 4 oxycodone 10 mg tablet 10 mg PO TID PRN MDD 30 Qty: 90 RF: 0 venlafaxine 150 MG capsule,extended release 24hr 150 mg PO BID Qty: 90 RF: 4 Narcan 4 MG spray,non-aerosol 4 mg NS PRN Qty: 2 RF: 0 Premarin 30 GM cream 1 vg VG weekly Qty: 30 RF: 3 ondansetron HCl 4 MG tablet 4 mg PO Q8H PRN Qty: 30 RF: 3 omeprazole 40 mg capsule,delayed release(DR/EC) 40 mg PO DAILY Qty: 180 RF: 4 loperamide 2 MG capsule 2 mg PO PRN PRNRF: 0 diphenhydramine HCl 25 MG capsule 25 - 50 mg PO PRN PRNRF: 0 topiramate 50 MG tablet 100 mg PO BID RF: 0 nystatin 1 EACH powder 1 tsp PO QID PRNRF: 0 Multivitamin 50 Plus Tablet 1 tab PO DAILY RF: 0 clonazepam [Klonopin] 0.5 mg Tablet 0.5 mg PO TID RF: 0 Discharge Instructions Additional Instructions: Postoperative Instructions Outpatient Gynecology Because there will be medication in your system for the next 24 hours, you may feel a little sleepy. Your coordination will be affected. Therefore: Do not drive or operate dangerous equipment for 24 hours. Do not drink alcoholic beverages for 24 hours (not even beer). Plan to go home and rest for the day. Rest, drink liquids and eat lightly for the rest of the day. Do not plan to return to normal activity for two full days. Some women require 5-7 days to feel 100 percent. Arrange to have someone stay with you for the rest of the day. You should arrange for early childhood aide classroom on the day of surgery. If you have incisions, remove the bandage in 24 hours. You may have a sore throat or hoarseness after surgery. This usually lasts a short time and is relieved by drinking liquids. If hoarseness persists longer than 24 hours, please contact the anesthesia department by calling the hospital. Take Tylenol or Advil for cramping. If that does not work, you may be too active so try cutting back on your activities. You may use up to 3 Advil every (4) four to (6) six hours. Use the prescription medication in between doses of Advil if needed. You should be able to urinate as usual following the surgery. You may spot for a week after surgery. you need a follow-up appointment (4) four to (6) six weeks following surgery. Please call the office for an appointment. You had any vaginal procedure you may not use tampons, have intercourse or until you have seen Dr. Cottrell for a postop visit. You may take a shower but no bathing until your postop visit with Dr. Cottrell. Please report any of the following conditions or any questions regarding your condition to your doctor and the Day Surgery Unit: Increased drainage or foul smelling drainage. Temperature of 101 F or above. Excessive pain. If you are unable to contact your doctor, contact the hospital at [phone]. Continue all your regular medications unless directed otherwise. Revised 09/18/10 Activity:: Activity as Tolerated Equipment/Supplies:: No Equipment Needed Diet:: As Tolerated Discharge Orders Discharge Orders: Discharge Order (Routine); Ordered 05/07/18 Ordered By: Chelsey Walker Exam Const General: no acute distress and frail appearing Orientation: alert, awake and oriented x3 Resp Effort & Inspection: normal respiratory effort Auscultation: clear to auscultation bilaterally Cardio Palpation: normal PMI Rate: regular rate Rhythm: regular rhythm Heart Sounds: S1 normal and S2 normal GI Inspection: normal to inspection Other: Vaginal pack removed with a small amount of dark red drainage present on the gauze. Patient tolerated procedure well Extrem General: normal to inspection and full ROM Psych Mental Status: mental status grossly normal (Patient expressed strong desire to be discharged home.) Mood: congruent mood Affect: normal affect Attitude: cooperative Thought Process: normal Thought Content: normal Insight: insight good Judgment: judgment good Other: Patient will not receive additional narcotics. She was dosed with Toradol IV prior to discharge and has been given her 10 mg oxycodone dose 3 times daily while hospitalized postop. She is concerned that she to wait until tomorrow at 10:00 when she can refill her usual oxycodone prescription. I recommended that she limit her activity while at home to prevent additional discomfort. DS: Data Vitals/I&O Vitals and I&O: Vital Signs Temperature 98.2 F 05/07/18 07:55 Temperature Source Oral 05/07/18 07:55 Pulse 64 05/07/18 07:55 Pulse Rhythm Regular 05/07/18 07:55 Respiratory Rate 12 05/07/18 08:33 Respiratory Effort Non-Labored 05/07/18 07:55 Respiratory Depth Normal 05/07/18 07:55 Respiratory Pattern Normal 05/07/18 07:55 Blood Pressure 105/60 05/07/18 07:55 Pulse Oximetry 94 L 05/07/18 08:33 Respiratory End-tidal CO2 39 05/06/18 11:45 Oxygen Delivery Method Room Air 05/07/18 08:33 Oxygen Flow Rate 0 05/07/18 08:33 Pain Level 9 05/07/18 12:35 Comment 05/07/18 07:55 Intake & Output 05/06/18 05/07/18 05/07/18 23:59 11:59 23:59 Intake Total 2033.75 / 3022.931 1908.333 / 1908.333 Output Total 500 / 700 1475 / 1671 196 / 1671 Balance 1533.75 / 2322.931 433.333 / 237.333 -196 / 237.333 Intake: IV 893.75 / 1785.775 8881.333 / 1908.333 Oral 1140 / 1140 Output: Urine 500 / 700 1475 / 1671 196 / 1671 Other: Urine Color Yellow Yellow Yellow Urine Appearance Clear Clear Clear PFSH Medical History Restless leg syndrome (Chronic) Spinal stenosis (Acute) Rectocele (Acute 03/27/11) Primary fibromyalgia syndrome (Acute) Pancolonic diverticulosis (Acute 02/04/14) Migraine (Acute) Lumbago (Acute) Hypokalemia (Acute 03/11/12) Essential hypertension (Acute 02/22/13) Depressive disorder (Acute) Chronic pain syndrome (Acute 11/27/11) Anxiety (Acute) Grade II hemorrhoids (Chronic) Diverticulosis (Chronic) Anxiety Bipolar 1 disorder Chronic pain disorder Fibromyalgia Hypertension Migraine Spinal stenosis Surgical History H/O hemorrhoidectomy (Acute 02/10/18) History of colonoscopy (Chronic 12/23/17) Abdominal hysterectomy Bilateral salpingectomy with oophorectomy Cholecystectomy (06/14/10) Colonoscopy - MAC (2013) EGD - MAC (~2013) EGD - MAC (10/31/17) Tonsillectomy and adenoidectomy Family History Mother Diabetes Personal history of malignant neoplasm Father Diabetes Essential hypertension Sister Diabetes Personal history of malignant neoplasm Grandfather Essential hypertension Heart disease Stroke Grandmother Diabetes Essential hypertension Social History Smoking/Tobacco Use Status: Never History History 5 Para 4 Hx # Term Pregnancies Multiple births Hx # Pregnancies Ectopic pregnancies AB induced Hx Number of Living Children 4 AB spontaneous 1
--- NOTE | 2018-05-07 13:11 | DSE_ITS ---
Date of service: 05/07/18 Time of Service: 13:01 DS: Diagnosis Discharge Diagnosis (1) Rectocele: Status: Acute (2) Cystocele and rectocele with incomplete uterovaginal prolapse: Status: Acute Discharge Plan Disposition Patient Disposition: HOME Condition: Fair Discharge Details Reason For Visit: ANTERIOR POSTERIOR COL[PORRAPHY Admit Date/Time: 05/06/18 10:40 Admit Provider: Isabel Cottrell Attending Provider: Isabel Cottrell Primary Care Provider: Daniel Garber [facility] Course Hospital Course: Patient was admitted the morning of surgery and underwent the an anterior and posterior colporrhaphy without complications. She had minimal blood loss. Her postop course was complicated by anxiety, headache and insomnia. Patient was treated with Fioricet for the headache and dosed every 6 hours with ketorolac IV. She was continued on her usual medication regime for pain. On the morning of discharge she was tolerating a regular diet Cook catheter was discontinued and the patient will void prior to discharge to home. Vaginal packing was removed was noted to have dark red blood present no bright red bleeding noted. Home Meds and New Rx's Prescriptions: No Action sumatriptan [Imitrex] 20 mg/actuation spray,non-aerosol 20 mg NS ONCE Qty: 1 RF: 5 hydrochlorothiazide 25 mg tablet 25 mg PO DAILY Qty: 90 RF: 4 oxycodone 10 mg tablet 10 mg PO TID PRN MDD 30 Qty: 90 RF: 0 venlafaxine 150 MG capsule,extended release 24hr 150 mg PO BID Qty: 90 RF: 4 Narcan 4 MG spray,non-aerosol 4 mg NS PRN Qty: 2 RF: 0 Premarin 30 GM cream 1 vg VG weekly Qty: 30 RF: 3 ondansetron HCl 4 MG tablet 4 mg PO Q8H PRN Qty: 30 RF: 3 omeprazole 40 mg capsule,delayed release(DR/EC) 40 mg PO DAILY Qty: 180 RF: 4 loperamide 2 MG capsule 2 mg PO PRN PRNRF: 0 diphenhydramine HCl 25 MG capsule 25 - 50 mg PO PRN PRNRF: 0 topiramate 50 MG tablet 100 mg PO BID RF: 0 nystatin 1 EACH powder 1 tsp PO QID PRNRF: 0 Multivitamin 50 Plus Tablet 1 tab PO DAILY RF: 0 clonazepam [Klonopin] 0.5 mg Tablet 0.5 mg PO TID RF: 0 Discharge Instructions Additional Instructions: Postoperative Instructions Outpatient Gynecology * Because there will be medication in your system for the next 24 hours, you may feel a little sleepy. Your coordination will be affected. Therefore: Do not drive or operate dangerous equipment for 24 hours. Do not drink alcoholic beverages for 24 hours (not even beer). Plan to go home and rest for the day. * Rest, drink liquids and eat lightly for the rest of the day. Do not plan to return to normal activity for two full days. Some women require 5-7 days to feel 100 percent. * Arrange to have someone stay with you for the rest of the day. You should arrange for childcare administrator on the day of surgery. * If you have incisions, remove the bandage in 24 hours. * You may have a sore throat or hoarseness after surgery. This usually lasts a short time and is relieved by drinking liquids. If hoarseness persists longer than 24 hours, please contact the anesthesia department by calling the hospital. * Take Tylenol or Advil for cramping. If that does not work, you may be too active so try cutting back on your activities. You may use up to 3 Advil every (4) four to (6) six hours. Use the prescription medication in between doses of Advil if needed. * You should be able to urinate as usual following the surgery. * You may spot for a week after surgery. * * * * you need a follow-up appointment (4) four to (6) six weeks following surgery. Please call the office for an appointment. * You had any vaginal procedure you may not use tampons, have intercourse or until you have seen Dr. Cottrell for a postop visit. You may take a shower but no bathing until your postop visit with Dr. Cottrell. * Please report any of the following conditions or any questions regarding your condition to your doctor and the Day Surgery Unit: Increased drainage or foul smelling drainage. Temperature of 101 F or above. Excessive pain. * If you are unable to contact your doctor, contact the hospital at [phone]. * Continue all your regular medications unless directed otherwise. Revised 09/18/10 Activity:: Activity as Tolerated Equipment/Supplies:: No Equipment Needed Diet:: As Tolerated Discharge Orders Discharge Orders: Discharge Order (Routine); Ordered 05/07/18 Ordered By: Chelsey Walker Exam Const General: no acute distress and frail appearing Orientation: alert, awake and oriented x3 Resp Effort & Inspection: normal respiratory effort Auscultation: clear to auscultation bilaterally Cardio Palpation: normal PMI Rate: regular rate Rhythm: regular rhythm Heart Sounds: S1 normal and S2 normal GI Inspection: normal to inspection Other: Vaginal pack removed with a small amount of dark red drainage present on the gauze. Patient tolerated procedure well Extrem General: normal to inspection and full ROM Psych Mental Status: mental status grossly normal (Patient expressed strong desire to be discharged home.) Mood: congruent mood Affect: normal affect Attitude: cooperative Thought Process: normal Thought Content: normal Insight: insight good Judgment: judgment good Other: Patient will not receive additional narcotics. She was dosed with Toradol IV prior to discharge and has been given her 10 mg oxycodone dose 3 times daily while hospitalized postop. She is concerned that she to wait until tomorrow at 10:00 when she can refill her usual oxycodone prescription. I recommended that she limit her activity while at home to prevent additional discomfort. DS: Data Vitals/I&O Vitals and I&O: Vital Signs Temperature 98.2 F 05/07/18 07:55 Temperature Source Oral 05/07/18 07:55 Pulse 64 05/07/18 07:55 Pulse Rhythm Regular 05/07/18 07:55 Respiratory Rate 12 05/07/18 08:33 Respiratory Effort Non-Labored 05/07/18 07:55 Respiratory Depth Normal 05/07/18 07:55 Respiratory Pattern Normal 05/07/18 07:55 Blood Pressure 105/60 05/07/18 07:55 Pulse Oximetry 94 L 05/07/18 08:33 Respiratory End-tidal CO2 39 05/06/18 11:45 Oxygen Delivery Method Room Air 05/07/18 08:33 Oxygen Flow Rate 0 05/07/18 08:33 Pain Level 9 05/07/18 12:35 Comment 05/07/18 07:55 Intake & Output 05/06/18 05/07/18 05/07/18 23:59 11:59 23:59 Intake Total 2033.75 / 3022.931 1908.333 / 1908.333 Output Total 500 / 700 1475 / 1671 196 / 1671 Balance 1533.75 / 2322.931 433.333 / 237.333 -196 / 237.333 Intake: IV 893.75 / 0486.754 2183.333 / 1908.333 Oral 1140 / 1140 Output: Urine 500 / 700 1475 / 1671 196 / 1671 Other: Urine Color Yellow Yellow Yellow Urine Appearance Clear Clear Clear PFSH Medical History Restless leg syndrome (Chronic) Spinal stenosis (Acute) Rectocele (Acute 03/27/11) Primary fibromyalgia syndrome (Acute) Pancolonic diverticulosis (Acute 02/04/14) Migraine (Acute) Lumbago (Acute) Hypokalemia (Acute 03/11/12) Essential hypertension (Acute 02/22/13) Depressive disorder (Acute) Chronic pain syndrome (Acute 11/27/11) Anxiety (Acute) Grade II hemorrhoids (Chronic) Diverticulosis (Chronic) Anxiety Bipolar 1 disorder Chronic pain disorder Fibromyalgia Hypertension Migraine Spinal stenosis Surgical History H/O hemorrhoidectomy (Acute 02/10/18) History of colonoscopy (Chronic 12/23/17) Abdominal hysterectomy Bilateral salpingectomy with oophorectomy Cholecystectomy (06/14/10) Colonoscopy - MAC (2013) EGD - MAC (~2013) EGD - MAC (10/31/17) Tonsillectomy and adenoidectomy Family History Mother Diabetes Personal history of malignant neoplasm Father Diabetes Essential hypertension Sister Diabetes Personal history of malignant neoplasm Grandfather Essential hypertension Heart disease Stroke Grandmother Diabetes Essential hypertension Social History Smoking/Tobacco Use Status: Never History History 5 Para 4 Hx # Term Pregnancies Multiple births Hx # Pregnancies Ectopic pregnancies AB induced Hx Number of Living Children 4 AB spontaneous 1
[2018-05-07 13:45] VITALS: BP 109/64; PULSE 83; RESP 16; TEMP 36.7; O2SAT 95
--- NOTE | 2018-05-07 17:55 | W.PM.PROGNOT ---
Date of Service Date of service: 05/07/18 Time of Service: 17:55 Assessment and Plan (1) Cystocele and rectocele with incomplete uterovaginal prolapse: Current visit: No Status: Chronic Subjective Patient reports: still having pain (Has generalized discomfort no pain in the vagina. Headache has improved), tolerating a regular diet, flatus, afebrile and other (Cook catheter remains in place) Exam Const General: cooperative, no acute distress, ill appearing (Chronically ill) and well hydrated Nutritional Appearance: overweight Orientation: alert, awake and oriented x3 Resp Effort & Inspection: normal respiratory effort Auscultation: clear to auscultation bilaterally Cardio Rate: regular rate Rhythm: regular rhythm External Female Exam: external appearance normal and other Speculum Exam - Vagina: other (Vaginal packing removed without difficulty. Dark red blood on packing) Skin General skin exam: other (Pale) Rashes: no rashes Neuro Cognition: normal cognition Gait: normal gait Objective Objective Clinical Data: Vital Signs Temperature 98.1 F 05/07/18 13:45 Temperature Source Oral 05/07/18 13:45 Pulse 83 05/07/18 13:45 Pulse Rhythm Regular 05/07/18 07:55 Respiratory Rate 16 05/07/18 13:45 Respiratory Effort Non-Labored 05/07/18 07:55 Respiratory Depth Normal 05/07/18 07:55 Respiratory Pattern Normal 05/07/18 07:55 Blood Pressure 109/64 05/07/18 13:45 Pulse Oximetry 95 05/07/18 13:45 Respiratory End-tidal CO2 39 05/06/18 11:45 Oxygen Delivery Method Room Air 05/07/18 13:45 Oxygen Flow Rate 0 05/07/18 13:45 Pain Level 8 05/07/18 13:45 Comment 05/07/18 13:45 Intake & Output 05/06/18 05/07/18 05/07/18 23:59 11:59 23:59 Intake Total 2033.75 / 3022.931 1908.333 / 2104.333 196 / 2103.333 Output Total 500 / 700 1475 / 1771 296 / 1771 Balance 1533.75 / 2322.931 433.333 / 333.333 -100 / 333.333 Intake: IV 893.75 / 9443.352 6361.333 / 2104.333 196 / 2103.333 Oral 1140 / 1140 Output: Urine 500 / 700 1475 / 1771 296 / 1771 Other: Urine Color Yellow Yellow Yellow Urine Appearance Clear Clear Clear Urine Odor None Voiding Methods Toilet Procedures Abscess I/D Site: other (Vagina anterior and posterior colporrhaphy)
--- NOTE | 2018-05-07 18:01 | PGE_ITS ---
Date of Service Date of service: 05/07/18 Time of Service: 17:55 Assessment and Plan (1) Cystocele and rectocele with incomplete uterovaginal prolapse: Current visit: No Status: Chronic Subjective Patient reports: still having pain (Has generalized discomfort no pain in the vagina. Headache has improved), tolerating a regular diet, flatus, afebrile and other (Cook catheter remains in place) Exam Const General: cooperative, no acute distress, ill appearing (Chronically ill) and w ell hydrated Nutritional Appearance: overweight Orientation: alert, awake and oriented x3 Resp Effort & Inspection: normal respiratory effort Auscultation: clear to auscultation bilaterally Cardio Rate: regular rate Rhythm: regular rhythm External Female Exam: external appearance normal and other Speculum Exam - Vagina: other (Vaginal packing removed without difficulty. Dark red blood on packing) Skin General skin exam: other (Pale) Rashes: no rashes Neuro Cognition: normal cognition Gait: normal gait Objective Objective Clinical Data: Vital Signs Temperature 98.1 F 05/07/18 13:45 Temperature Source Oral 05/07/18 13:45 Pulse 83 05/07/18 13:45 Pulse Rhythm Regular 05/07/18 07:55 Respiratory Rate 16 05/07/18 13:45 Respiratory Effort Non-Labored 05/07/18 07:55 Respiratory Depth Normal 05/07/18 07:55 Respiratory Pattern Normal 05/07/18 07:55 Blood Pressure 109/64 05/07/18 13:45 Pulse Oximetry 95 05/07/18 13:45 Respiratory End-tidal CO2 39 05/06/18 11:45 Oxygen Delivery Method Room Air 05/07/18 13:45 Oxygen Flow Rate 0 05/07/18 13:45 Pain Level 8 05/07/18 13:45 Comment 05/07/18 13:45 Intake & Output 05/06/18 05/07/18 05/07/18 23:59 11:59 23:59 Intake Total 2033.75 / 3022.931 1908.333 / 2104.333 196 / 2103.333 Output Total 500 / 700 1475 / 1771 296 / 1771 Balance 1533.75 / 2322.931 433.333 / 333.333 -100 / 333.333 Intake: IV 893.75 / 8378.421 0031.333 / 2104.333 196 / 2103.333 Oral 1140 / 1140 Output: Urine 500 / 700 1475 / 1771 296 / 1771 Other: Urine Color Yellow Yellow Yellow Urine Appearance Clear Clear Clear Urine Odor None Voiding Methods Toilet Procedures Abscess I/D Site: other (Vagina anterior and posterior colporrhaphy)
== END 2018-05-07 13:55 | disposition home or self-care (01) | DRG 748 ==
LOC: OBS 11:33
PROVIDERS: Admitting Provider Obstetrics & Gynecology; PCP Family Medicine; Visit Provider Obstetrics & Gynecology
PROC: 0JQC0ZZ Repair Pelvic Region Subcutaneous Tissue and Fascia, Open Approach (ICD-10-PCS; CPT 57260; principal; 2018-05-06 07:30)
DX: N81.10 Cystocele, unspecified (principal); N81.6 Rectocele; I10 Essential (primary) hypertension; F31.9 Bipolar disorder, unspecified; R51 Headache; G47.00 Insomnia, unspecified; F41.9 Anxiety disorder, unspecified
CPT/HCPCS: 57260; 99231; NC; J1100; J1885; J2250; J2370; J2405

== ENCOUNTER 2018-06-09 09:00 | Outpatient (CLI) | payer MEDICAID, SELFPAY ==
--- NOTE | 2018-06-09 06:00 | DI.RAD_ITS ---
SYMPTOMS/DIAGNOSIS: LUMBAR SPONDYLOSIS, LUMBAR RADIOFREQUENCY ABLATION PAIN CLINIC: Fluoroscopy Time: 59 Fluoroscopy was utilized by Dr. Flanagan during the performance of a lumbar radiofrequency ablation. Please refer to the procedure report for complete details.
[2018-06-09 09:27] VITALS: BP 110/74; PULSE 92; RESP 24; TEMP 37.1; O2SAT 95
[2018-06-09] MEDS: Midazolam 2 MG/2 ML VIAL IVP ×2 (09:56→10:11)
[2018-06-09] MEDS: Lactated Ringers 1,000 ML 80 ML IV (09:58)
[2018-06-09 10:27] VITALS: BP 121/83; PULSE 88; RESP 22; O2SAT 96
[2018-06-09] MEDS: Lidocaine 2% Pres-Free 5 ML VIAL IJ (10:34)
[2018-06-09] MEDS: methylPREDNISolone ACETATE 40 MG/ML VIAL IJ (10:34)
[2018-06-09] MEDS: Bupivacaine 0.5% Pres-Free 30 ML VIAL IJ (10:35)
--- NOTE | 2018-06-09 10:36 | PDOC.PAIN_ITS ---
Pain Clinic Procedure Note Current Active Problems Problem Status Onset Spondylosis of lumbar region without myelopathy or radiculopathy Acute LUMBAR/SACRAL MEDIAL BRANCH RADIOFREQUENCY WITH THE [employer] MACHINE QUAN MURPHY has been referred to the Pain Management Center for radiofrequency treatment of chronic axial back pain. QUAN has had long standing back pain thought to be facet joint generated and which has been refractory to other therapies. Local anesthetic medial branch blocks or intra-articular facet joint injections resulted in QUAN reporting reduction of the usual axial component of pain for at least the duration of the local anesthetic effect. COMMENTS: >6 months of relief with her last RFA from October 2017 Patient was interviewed and the medical record reviewed. There were no medical, pharmacologic, radiographic or other structural contraindications to attempting fluoroscopically guided radiofrequency treatment. Risks and expected side effects as well as potential benefit of the procedure were reviewed and voiced concerns addressed. The printed consent form was signed and witnessed. Standard time-out procedure was performed. Patient was placed in the prone position on the fluoroscopy table and automated blood pressure cuff and pulse oximeter applied. The skin entry points for approaching the anatomic target points of the segmental medial branches of bilateral were identified with fluoroscopy and marked. Following thorough Chlorhexadine preparation of the skin and draping and 1% lidocaine infiltration of the skin entry points and subcutaneous tissues, a single 18 guage curved 10 cm 10mm active tip radiofrequency cannula was placed under fluoroscopic guidance along or across the anatomic course of each respective segmental medial branch. Each placement was stimulated at 50Hz and les then 0.5V for medial branch sensory localization and the at 2Hz and up to 3 times the sensory voltage without any evidence of distal myotomal stimulation. 1cc of 1% ;idocaine was injected at each site. At each placement a continuous mode radiofrequency treatment was done at 80 degrees C for 90secs. This radiofrequency treatment should result in the denervation of the bilateral L4-L5 and L5-S1 FACET JOINTS.~ A total of 4 facets were expected to be denervated from today's treatment. Vital signs were stable throughout the procedure and were as recorded in the docflowsheet by the nursing staff. If given, dosages of intravenous drugs for anxiolysis and analgesia were documented in the Medication Administration Record (MAR). Follow up plans and appointments were discussed. Post procedure instruction was given as documented in the nursing documentation and having met discharge criteria, QUAN was discharged from the Pain Management Center. COMMENTS: If she achieves at least 6 months of relief from this procedure and her pain returns, she can have it repeated without repeating the LMBBs. CC: Daniel Garber MD
== END 2018-06-09 09:20 ==
PROVIDERS: PCP Family Medicine; Visit Provider Preventive Medicine Occupational Medicine
DX: M47.816 Spondylosis without myelopathy or radiculopathy, lumbar region (principal)
CPT/HCPCS: 64635 ×2; 64636 ×2; 72100; J1030; J2250

== ENCOUNTER 2018-07-16 16:47 | Outpatient (REF) | payer MEDICAID, SELFPAY | END 2018-07-16 17:07 | LOC: NCHCN 16:47 | PROVIDERS: PCP Family Medicine; Visit Provider Obstetrics & Gynecology | DX: R30.0 Dysuria (principal) | CPT/HCPCS: 87086 ==

== ENCOUNTER 2018-09-24 11:22 | Outpatient (CLI) | payer MEDICAID, SELFPAY ==
--- NOTE | 2018-09-24 11:25 | DI.RAD_ITS ---
SYMPTOM/DIAGNOSIS: KNEE PAIN BILATERAL MERCHANT: Bilateral Merchant projections are provided and when compared with the previous study of 08/28/2016 again demonstrate a bilateral patellar tilt in this patient who is status post bilateral TKA.
== END 2018-09-24 11:42 ==
PROVIDERS: PCP Family Medicine; Visit Provider Physician Assistant
DX: M25.561 Pain in right knee (principal); M25.562 Pain in left knee; Z96.653 Presence of artificial knee joint, bilateral
CPT/HCPCS: 73565

== ENCOUNTER 2018-11-23 08:47 | Day surgery (SDC) | payer MEDICAID, SELFPAY ==
--- NOTE | 2018-11-20 10:23 | SUR.PREOP ---
11/19/18 1015 MD called to report patient allergy to PCN, Cephalexin as Ancef 2gm ordered for upcoming surgical procedure. Per MD will stay with Ancef 2gm do a trial dose in OR.
[2018-11-23] VITALS (11 sets, daily range): BP systolic 89–111; BP diastolic 45–77; PULSE 82–89; RESP 12–18; TEMP 36.2–37; O2SAT 93–99
[2018-11-23] MEDS: Lactated Ringers 1,000 ML 80 ML IV ×2 (09:32→13:05)
[2018-11-23] MEDS: ceFAZolin 2 GM/50 ML BAG IVPB (10:44)
--- NOTE | 2018-11-23 12:17 | W.PM.DSUDISC ---
Discharge Plan Disposition Patient Disposition: HOME Condition: Good Discharge Details Reason For Visit: Realign maltracking R patella Admit Date/Time: 11/23/18 08:47 Admit Provider: Humberto Bradshaw Attending Provider: Humberto Bradshaw Primary Care Provider: Daniel Garber Home Meds and New Rx's Prescriptions: New ibuprofen [IBU-200] 200 mg tablet 600 mg PO TID Qty: 90 RF: 2 oxycodone-acetaminophen 5-325 mg tablet 1 tab PO Q6H PRN (Reason: pain) Qty: 20 RF: 0 Continued sumatriptan [Imitrex] 20 mg/actuation spray,non-aerosol 20 mg NS ONCE Qty: 1 RF: 5 hydrochlorothiazide 25 mg tablet 25 mg PO DAILY Qty: 90 RF: 4 [id number] [Butalbital Compound W/Codeine] 40-58-216-40 mg capsule 1 cap PO Q4H PRN (Reason: headache) Qty: 50 RF: 2 Narcan 4 mg/actuation spray,non-aerosol 4 mg NS PRN Qty: 2 RF: 0 oxycodone 10 mg tablet 10 mg PO TID MDD 30 mg PRN (Reason: pain) Qty: 90 RF: 0 lorazepam 2 mg tablet 2 mg PO BID Qty: 14 RF: 0 tramadol 50 mg tablet 50 mg PO QID PRN (Reason: pain) Qty: 120 RF: 1 ondansetron HCl 4 MG tablet 4 mg PO Q8H PRN Qty: 30 RF: 3 omeprazole 40 mg capsule,delayed release(DR/EC) 40 mg PO DAILY Qty: 180 RF: 4 venlafaxine 150 mg capsule,extended release 24hr 150 mg PO TID Qty: 90 RF: 4 loperamide 2 MG capsule 2 mg PO PRN PRNRF: 0 diphenhydramine HCl 25 MG capsule 25 - 50 mg PO PRN PRNRF: 0 docusate sodium [Colace] 100 mg Capsule 100 mg PO DAILY RF: 0 Multivitamin 50 Plus Tablet 1 tab PO DAILY RF: 0 Discharge Instructions Additional Instructions: Crutches to walk. Only put as much weight on R leg as your pain allows. Elevate R leg when sitting. Use cryocuff on R knee 4 times/day for 1 hour each time. May remove dressings and knee immobilizer splint to shower after 72 hours. Outpatient physical therapy at [facility] on or Friday.(for rehab R knee post-patellar revision) Follow up with in 2 weeks. Take ibuprofen 600 mg 3 times/day as prescribed to reduce swelling and inflammation. Take oxycodone for breakthru pain, if needed. Referrals: Humberto Bradshaw MD [ [facility]FF [facility]YSICIAN] - (f/u in 2 weeks.) Activity:: Activity as Tolerated Equipment/Supplies:: Crutches Diet:: As Tolerated Discharge Orders Discharge Orders: Discharge Order (Routine); Ordered 11/23/18 Ordered By: Humberto Bradshaw DS: Diagnosis Discharge Diagnosis (1) Maltracking of right patella: Status: Chronic
[2018-11-23] MEDS: Bupivacaine LIPOSOME/PF 133 MG/10 ML VIAL IJ (12:36)
[2018-11-23] MEDS: HYDROmorphone 2 MG/ML VIAL IVP (13:30)
--- NOTE | 2018-11-23 15:47 | CMPROGNOTE_ITS ---
- If Service Date Differs Date of service: 11/23/18 Time of Service: 15:47 Care Management Progress Note CM met with patient at the request of day surgery to complete intake for a FWW. Pt agrees to obtain a walker through [facility] all paperwork was faxed to [employer] and the patient was provided a FWW.
--- NOTE | 2018-11-23 16:17 | ROE_ITS ---
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 POSTOPERATIVE DIAGNOSIS: Same. PROCEDURE: Revision of patellar component, right knee, and soft tissue realignment of the patella to correct maltracking. ANESTHESIA: General, plus a femoral nerve block, Timoteo Davis CRNA SURGEON: Humberto Bradshaw M.D. SUGAR PRESSER: Joanne Pereyra INDICATIONS: This is a 58-year-old white female who is status post previous right total knee replace ment in 2005. She has developed painful lateral tilt of her patella on her right total knee. She duncan d previously had lateral maltracking, which was corrected with soft tissue realignment in the past. This knee however has been very painful. It has not responded to conservative treatment, including b racing and injection. Patellar realignment was recommended with possible patellectomy or patellar co mponent revision, depending on the clinical situation at the time of surgery. The patient wished to proceed as soon as possible to alleviate her pain. PROCEDURE: The patient was taken to the Operating Room on 11/23/18. She was placed supine on the ope rating table and a general anesthetic was administered. A proximal tourniquet was applied to the rig ht upper thigh and the right lower extremity was prepped from toes to tourniquet and draped free in t he usual sterile fashion. Under proximal tourniquet control, an incision was made in line with her old anterior incisional scar from her total knee replacement. Full-thickness flaps were developed. I found visible, non-absorba ble FiberWire sutures from her previous soft tissue realignment of the patella. These sutures were c ut and removed. An incision was made medial parapatellar to about mid patellar tendon and distally a nd proximally I incised into the midline of the quad tendon approximately 3 to 4 cm. I was able to e vert the patella. The patellar component was definitely abnormal. After I debrided the soft tissue covering the component, it appeared to be loose. I then was easily able to remove the patellar compo nent with an osteotome and a mallet. Loose cement was then removed with curettes and a rongeur. The re was enough patellar bone so I could replant another patella. And I thought that I could actually change the rotation of the patellar component to help with patellar realignment. I cut the patella f reehand. I used the drill guide for the tri-pronged patella and drilled three new holes in the cheng la, avoiding two of the old holes from her previous tri-pronged patella. This allowed me to change t he old rotation of the patella into a more anatomic transverse orientation. I then performed a later al release off the patella with electrocautery. Peripheral osteophytes around the patella were excis ed with a rongeur. I was able to inspect the knee replacement and the tibial and femoral components appeared in good condition without loosening. I irrigated the knee with Betadine and saline solutio n. I then irrigated the patella with saline solution and mixed one batch of Gentamycin-impregnated m ethylmethacrylate in the vacuum mixer. The cement was then packed into the prepared patella. I didn 't attempt to fill the previous peg holes with anything other than methylmethacrylate. A new tri-pro nged patella, 32 mm, was then inserted and pressurized by using the patellar clamp. Excess cement wa s trimmed from the margins of the patellar component while the cement was still soft. Prior to beginning the cementation, I placed two drill holes in the proximal medial patella. They we re by at least a centimeter, and the drill holes went from into the inside, that is the art icular side of the patella, to the dorsal surface of the patella. I passed a #5 Fiber Tape starting from inside out and then from outside in on the second drill hole. This was then covered with cement and the patellar component once it was cemented in place. This Fiber Tape was then passed through t he medial capsule in a horizontal mattress fashion. I put those sutures fairly medial and this corre cted the patellar tilt nicely. I then put the knee through a range of motion and up to 90 degrees th ere was no sign of any patellar tilting through patellar tracking. The knee was flexed over soft goo ds. I completed the closure of the medial arthrotomy and incision in the quad tendon with interrupte d vdiqpv-cv-xpdwe sutures of #2 Fiber Wire. I then sutured the overlapping tissue from the medial ca psule and retinaculum to the dorsum of the patella in a odkvk-rhku-upvh fashion, reinforcing my media l suture line. I did this using interrupted jwprxl-bn-vvjir sutures of #1 Vicryl suture material. T he wound margins were infiltrated with 0.5% Marcaine with an epinephrine solution. There was an appr oximately 2-inch rent in the lateral capsule secondary to the lateral release, and I repaired this wi a running, interlocked #1 Vicryl suture. The subcu was approximated with interrupted #2-0 Vicryl sutures. The skin edges were approximated with skin gavi. Sterile dressings were applied of Xero form gauze, sterile gauze 4x4's, ABD pad and wrapped with 6-inch GLENN bandages. The patient's anesthe kendall was reversed without complications. At this point a femoral nerve block was performed to decrease postop pain. A knee immobilizer splint was placed over the dressings and the patient was discharged to the recovery room in good condition. The patient was later discharged home from the Day Surgery Unit when fully recovered from her general anesthesia. At that point she had excellent relief of pain from the femoral nerve block. She was g iven instructions to use a walker, weightbearing as tolerated to the right leg with the knee immobili zer in place. She is to elevate her right leg when sitting. She may remove her dressings and immobi lizer after 72 hours to shower. After showering she is to pat the gavi dry and place a light gauz e dressing over the gavi so they don't catch on her clothing. She is to continue to use the knee immobilizer to walk until she follows up with me in 2 weeks. She is to start outpatient physical the rapy on either 11/26 or 11/27/18 to begin range of motion of her right knee. She should go to [facility] for this. She was given a prescription for swelling and inflammation of ibuprofe n 600 mg p.o. t.i.d. for 30 days. She was given a prescription for breakthrough pain of Oxycodone APAP 5/325, one tablet every six hours, as needed, 20 tabs.
== END 2018-11-23 16:04 | disposition home or self-care (01) | DRG 488 ==
LOC: PDS 12:18 → MS 13:50 → PDS 11-25 11:20 → SUR 11-25 11:20
PROVIDERS: PCP Family Medicine; Visit Provider Orthopaedic Surgery
PROC: 0QRD0JZ Replacement of Right Patella with Synthetic Substitute, Open Approach (ICD-10-PCS; CPT 27422; principal; 2018-11-23 10:30)
DX: M22.8X1 Other disorders of patella, right knee (principal); T84.032A Mechanical loosening of internal right knee prosthetic joint, initial encounter; Z96.651 Presence of right artificial knee joint; M25.551 Pain in right hip; G89.18 Other acute postprocedural pain; I10 Essential (primary) hypertension
CPT/HCPCS: 27438; 76942; J0690; J1100; J1885; J2250; J2405; L1830

== ENCOUNTER 2018-12-31 10:17 | Outpatient (CLI) | payer MEDICAID, SELFPAY ==
[2018-12-31 12:14] VITALS: BP 119/81; PULSE 91; RESP 17; TEMP 37; O2SAT 95
[2018-12-31] MEDS: Midazolam 2 MG/2 ML VIAL IVP ×2 (12:42→12:48)
[2018-12-31] MEDS: Bupivacaine 0.5% Pres-Free 10 ML VIAL IJ (13:13)
[2018-12-31] MEDS: methylPREDNISolone ACETATE 40 MG/ML VIAL IJ (13:13)
[2018-12-31] MEDS: Lidocaine 2% Pres-Free 5 ML VIAL IJ (13:14)
[2018-12-31 13:15] VITALS: BP 132/90; PULSE 82; RESP 18; O2SAT 97
--- NOTE | 2018-12-31 13:18 | DI.RAD_ITS ---
EXAM: XR PAIN CLINIC LUMBAR SP 2V CLINICAL HISTORY: dx: Lumbar Spondylosis TECHNIQUE: Realtime digital imaging was performed. COMPARISON: None. FINDINGS: C-ARM FLUOROSCOPY WAS UTILIZED BY DR. KEITH. PLEASE SEE DR. KEITH'S PROCEDURE NOTE. HARD COPY SHOW NE EDLE PLACEMENT ADJACENT TO THE PEDICLES OF WHAT APPEAR TO BE L4, L5 AND S1 ON THE LEFT.
--- NOTE | 2018-12-31 13:20 | PDOC.PAIN ---
Pain Clinic Procedure Note Procedure Note Procedure Note: LUMBAR/SACRAL MEDIAL BRANCH RADIOFREQUENCY WITH THE COOLIEF MACHINE QUAN MURPHY has been referred to the [facility] for radiofrequency treatment of chronic axial back pain. QUAN has had long standing back pain thought to be facet joint generated and which has been refractory to other therapies. Local anesthetic medial branch blocks or intra-articular facet joint injections resulted in QUAN reporting reduction of the usual axial component of pain for at least the duration of the local anesthetic effect. COMMENTS: She had >6 months of relief with the last RFA. DX: Lumbosacral spondylosis without myelopathy Patient was interviewed and the medical record reviewed. There were no medical, pharmacologic, radiographic or other structural contraindications to attempting fluoroscopically guided radiofrequency treatment. Risks and expected side effects as well as potential benefit of the procedure were reviewed and voiced concerns addressed. The printed consent form was signed and witnessed. Standard time-out procedure was performed. Patient was placed in the prone position on the fluoroscopy table and automated blood pressure cuff and pulse oximeter applied. The skin entry points for approaching the anatomic target points of the segmental medial branches of bilateral L3-L5DR were identified with fluoroscopy and marked. Following thorough Chlorhexadine preparation of the skin and draping and 1% lidocaine infiltration of the skin entry points and subcutaneous tissues, a single 18 guage curved 10 cm 10mm active tip radiofrequency cannula was placed under fluoroscopic guidance along or across the anatomic course of each respective segmental medial branch. Each placement was stimulated at 50Hz and les then 0.5V for medial branch sensory localization. 1cc of 1% ;idocaine was injected at each site. At each placement a continuous mode radiofrequency treatment was done at 80 degrees C for 90secs. This radiofrequency treatment should result in the denervation of the bilateral L4-L5 and L5-S1 FACET JOINTS. A total of 4 facets were expected to be denervated from today's treatment. Vital signs were stable throughout the procedure and were as recorded in the docflowsheet by the nursing staff. If given, dosages of intravenous drugs for anxiolysis and analgesia were documented in the Medication Administration Record (MAR). Follow up plans and appointments were discussed. Post procedure instruction was given as documented in the nursing documentation and having met discharge criteria, QUAN was discharged from the Pain Management Center. COMMENTS: If she gets at least 6 months of relief, she can have this repeated without repeating the LMBBs. CC: Daniel Garber MD
== END 2018-12-31 10:37 ==
PROVIDERS: PCP Family Medicine; Visit Provider Preventive Medicine Occupational Medicine
DX: M47.817 Spondylosis without myelopathy or radiculopathy, lumbosacral region (principal)
CPT/HCPCS: 64635 ×2; 64636 ×2; 72100; J1030; J2250

== ENCOUNTER 2019-01-04 12:21 | Outpatient (CLI) | payer MEDICAID, SELFPAY ==
--- NOTE | 2019-01-04 11:30 | DI.RAD_ITS ---
EXAM: XR CHEST 2V PA LATERAL INDICATION: Rales right lower lobe R09.89. COMPARISON: LEFT RIBS TO INCLUDE CXR from 02/08/2014 TECHNIQUE: 2D digital imaging was performed. FINDINGS: The lungs are well expanded and free of infiltrate. There is no pleural effusion. The cardiovascular structures are intact. IMPRESSION: No evidence of acute cardiopulmonary disease.
== END 2019-01-04 12:41 ==
PROVIDERS: PCP Family Medicine; Visit Provider Family Medicine
DX: R09.89 Other specified symptoms and signs involving the circulatory and respiratory systems (principal)
CPT/HCPCS: 71046

== ENCOUNTER 2019-01-16 19:12 | Emergency (ER) | payer MEDICAID, SELFPAY ==
[2019-01-16 19:27] VITALS: BP 115/88; RESP 114; TEMP 36.3; O2SAT 97
--- NOTE | 2019-01-16 19:36 | DI.CT_ITS ---
EXAM: CT CHEST PE CTA CLINICAL HISTORY: Right-sided chest pain pleuritic, tachycardia. TECHNIQUE: CT angiography of the chest performed with 100 cc of Omnipaque 350 COMPARISON: ABD PELVIS WO CONTRAST from 11/23/2017 FINDINGS: No evidence of pulmonary embolic disease. Thoracic aorta is unremarkable. Lungs are hypoinflated but clear. Probable nondisplaced right 3rd rib fracture anteriorly. No evidence of pneumothorax or pleura l effusion. No mediastinal adenopathy or hematoma. Tracheobronchial tree appears intact. IMPRESSION: No evidence of pulmonary embolic disease. Probable nondisplaced right 3rd rib fracture anteriorly.
--- NOTE | 2019-01-16 19:37 | ED.GENADUL_ITS ---
Discharge Plan Disposition Patient Disposition: HOME Condition: Improving Discharge Details Chief Complaint: Chest Pain Clinical Impression: Right rib fracture Primary Care Provider: Daniel Garber ED Provider: Humberto Silva Home Meds and New Rx's Prescriptions: Continued sumatriptan [Imitrex] 20 mg/actuation spray,non-aerosol 20 mg NS ONCE Qty: 1 RF: 5 hydrochlorothiazide 25 mg tablet 25 mg PO DAILY Qty: 90 RF: 4 Narcan 4 mg/actuation spray,non-aerosol 4 mg NS PRN Qty: 2 RF: 0 oxycodone 10 mg tablet 10 mg PO TID MDD 30 mg PRN (Reason: pain) Qty: 90 RF: 0 ondansetron HCl 4 MG tablet 4 mg PO Q8H PRN Qty: 30 RF: 3 omeprazole 40 mg capsule,delayed release(DR/EC) 40 mg PO DAILY Qty: 180 RF: 4 venlafaxine 150 mg capsule,extended release 24hr 150 mg PO TID Qty: 90 RF: 4 loperamide 2 MG capsule 2 mg PO PRN PRNRF: 0 diphenhydramine HCl 25 MG capsule 25 - 50 mg PO PRN PRNRF: 0 docusate sodium [Colace] 100 mg Capsule 100 mg PO DAILY RF: 0 ibuprofen [IBU-200] 200 mg tablet 600 mg PO TID PRN (Reason: Pain) RF: 0 Multivitamin 50 Plus Tablet 1 tab PO DAILY RF: 0 No Action valacyclovir [Valtrex] 1 gram tablet 1,000 mg PO Q8H PRNRF: 0 czlupkc-spgeecpefh-PFG-caff [Butalbital Compound W/Codeine] 22-89-002-40 mg capsule 1 cap PO Q4H PRN (Reason: headache) Qty: 50 RF: 2 potassium chloride 10 mEq capsule, extended release 10 meq PO DAILY Qty: 90 RF: 3 tramadol 50 mg tablet 50 mg PO QID PRN (Reason: pain) Qty: 120 RF: 1 magnesium oxide 500 mg tablet 500 mg PO BID Qty: 180 RF: 0 lorazepam 2 mg tablet 2 mg PO BID PRN (Reason: Anxiety) RF: 0 Discharge Instructions Instructions: Rib Fracture (ED) Additional Instructions: Continue your regularly prescribed medications. May apply ice to area to reduce discomfort. Your potassium was low today and you may continue to supplement through increase potassium in the diet with leafy green vegetables, tree nuts such as cashews or almonds, strawberries and bananas. Return if you develop a fever, shortness of breath, or any other acute concerns Discharge Data Discharge Date/Time-TO BE ENTERED AT DEPARTURE: 01/17/19 00:50 Medical Decision Making <Ishan Noguera MD - Last Filed: 02/09/19 01:45> 19:40 --58-year-old female here with sudden onset of right-sided pleuritic chest pain about 2 hours prior to arrival. Patient tachycardic. Patient saturating well in no respiratory distress. Concern for pulmonary embolism versus muscular skeletal versus pneumothorax versus less likely ACS. ECG was reviewed and interpreted by me: Sinus rhythm, 98 bpm, normal axis, no STEMI, ST depressions noted V3 to V6 --these findings were present on prior EKG from 11/2015. Plan to obtain CT of the chest to assess for pulmonary embolism. Will check troponin. <Humberto Silva MD - Last Filed: 01/17/19 00:22> Received signout from Dr. Noguera, please see his note regarding details of the initial history, exam, plan of care. Patient more comfortable lying in bed, she does have right anterior proximal chest wall pain on palpation. CT scan of her chest revealed step-off of the right anterior third rib and she states that her 40 pound dog often jumps on her chest and she at home question whether if I broke a rib. Labs notable for normal troponin. Potassium low 2.7. Patient observed on a monitor, potassium supplemented, repeat troponin and potassium obtained. Potassium improved to 3.3. She may continue to supplement through her diet. Second troponin unremarkable. Her pain is reproducible at the site of the right third rib fracture. She is stable for discharge to home with outpatient management. HPI <Ishan Noguera MD - Last Filed: 02/09/19 01:45> General Mode of arrival: ambulatory . Date/Time Provider Initiated Documentation: 01/16/19 19:30 . Limitations to Documentation: no limitations . Information obtained by: patient . HPI Narrative: 58-year-old female with multiple medical problems presents with chief complaint of chest pain. Patient notes about 2 hours ago she had sudden onset of right-sided chest pain. Pain is worse with deep inspiration. Pain is severe. She has no associated shortness of breath. She does note some intermittent right leg pain and states that she had a revision of total knee replacement about 2 months ago. Patient denies recent long distance travel. No recent trauma. Related Data Home Medications Medication Instructions Recorded Confirmed diphenhydramine HCl 25 - 50 mg PO PRN PRN 10/28/17 01/20/19 loperamide 2 mg PO PRN PRN 10/28/17 01/20/19 ondansetron HCl 4 mg PO Q8H PRN #30 tab-cap 11/07/17 01/20/19 hydrochlorothiazide 25 mg tablet 25 mg PO DAILY #90 tab-cap 01/08/18 01/20/19 sumatriptan 20 mg/actuation nasal 20 mg NS ONCE #1 box 01/08/18 01/20/19 spray omeprazole 40 mg capsule,delayed 40 mg PO DAILY #180 cap 01/12/18 01/20/19 release Multivitamin 50 Plus 1 tab PO DAILY 04/28/18 01/20/19 naloxone 4 mg/actuation nasal spray 4 mg NS PRN #2 spray 11/03/18 01/20/19 venlafaxine 150 mg 150 mg PO TID #90 tab-cap 11/18/18 01/20/19 capsule,extended release 24 hr docusate sodium [Colace] 100 mg PO DAILY 11/20/18 01/20/19 oxycodone 10 mg tablet 10 mg PO TID PRN #90 tab MDD 30 mg 12/04/18 01/20/19 ibuprofen [IBU-200] 600 mg PO TID PRN 01/16/19 01/20/19 lorazepam 2 mg PO BID PRN 01/16/19 01/20/19 pjjyjkt-tojsqrqlgg-SKY-caffeine 30 1 cap PO Q4H PRN #50 cap 01/19/19 01/20/19 mg-50 mg-325 mg-40 mg capsule potassium chloride 10 mEq 10 meq PO DAILY #90 cap 01/19/19 capsule,extended release tramadol 50 mg tablet 50 mg PO QID PRN #120 tab 01/19/19 01/20/19 valacyclovir 1 gram tablet 1,000 mg PO Q8H PRN tab 01/20/19 magnesium oxide 500 mg tablet 500 mg PO BID #180 tab 01/22/19 Previous Rx's Medication Instructions Recorded ondansetron HCl 4 mg PO Q8H PRN #30 tab-cap 11/07/17 hydrochlorothiazide 25 mg tablet 25 mg PO DAILY #90 tab-cap 01/08/18 sumatriptan 20 mg/actuation nasal 20 mg NS ONCE #1 box 01/08/18 spray omeprazole 40 mg capsule,delayed 40 mg PO DAILY #180 cap 01/12/18 release naloxone 4 mg/actuation nasal spray 4 mg NS PRN #2 spray 11/03/18 oxycodone 10 mg tablet 10 mg PO TID PRN #90 tab MDD 30 mg 12/04/18 eaonaed-ughikxttfl-STP-caffeine 30 1 cap PO Q4H PRN #50 cap 01/19/19 mg-50 mg-325 mg-40 mg capsule potassium chloride 10 mEq 10 meq PO DAILY #90 cap 01/19/19 capsule,extended release tramadol 50 mg tablet 50 mg PO QID PRN #120 tab 01/19/19 magnesium oxide 500 mg tablet 500 mg PO BID #180 tab 01/22/19 Allergies Allergy/AdvReac Type Severity Reaction Status Date / Time cephalexin monohydrate Allergy Severe Hives, Verified 01/20/19 13:23 [From Keflex] rash and swelling Penicillins Allergy Intermediate SKIN RASH; Verified 01/20/19 13:23 VOMITING vancomycin Allergy Intermediate RED FACE Verified 01/20/19 13:23 cyclobenzaprine AdvReac Severe Lethargy Verified 01/20/19 13:23 and confusion fentanyl AdvReac Severe pt states Verified 01/20/19 13:23 she passes out methadone AdvReac Severe HALLUCINATIONS Verified 01/20/19 13:23 OUT OF LIFE promethazine AdvReac Severe dystonic Verified 01/20/19 13:23 reaction amitriptyline AdvReac Intermediate CONFUSION Verified 01/20/19 13:23 azithromycin AdvReac Intermediate Psychosis Verified 01/20/19 13:23 lithium AdvReac Intermediate GI bleed Verified 01/20/19 13:23 nortriptyline AdvReac Intermediate INSOMNIA Verified 01/20/19 13:23 pregabalin AdvReac FACIAL Verified 01/20/19 13:23 NUMBNESS General Stated Complaint: Chest Pain SETH: 2 Review of Systems <Ishan Noguera MD - Last Filed: 02/09/19 01:45> Review of Systems ROS Unobtainable: All systems reviewed & are unremarkable except as noted in HPI and below Constitutional Constitutional: Denies fever(s) Cardiovascular Cardiovascular: Reports chest pain and Denies dyspnea Respiratory Respiratory: Denies dyspnea PFS <Ishan Noguera MD - Last Filed: 02/09/19 01:45> Medical History Anxiety Anxiety (Chronic) Bipolar 1 disorder Chronic pain disorder Chronic pain syndrome (Chronic 11/27/11) 06/01/15~CONTROLLED SUBSTANCE AGREEMENT Cystocele and rectocele with incomplete uterovaginal prolapse (Chronic) 05/06/2018. A&P repair hysterectomy postop recovery going well advised to increase activity slowly small granuloma at vaginal cuff cauterized with silver nitrite Depressive disorder (Chronic) Essential hypertension (Chronic 02/22/13) Fibromyalgia Grade II hemorrhoids (Chronic) Hypertension Hypokalemia (Chronic 03/11/12) Lumbago (Chronic) Migraine Migraine (Chronic) Pancolonic diverticulosis (Chronic 02/04/14) Primary fibromyalgia syndrome (Chronic) Restless leg syndrome (Chronic) Spinal stenosis Spinal stenosis (Chronic) L4-5 Surgical History Abdominal hysterectomy Bilateral salpingectomy with oophorectomy Cholecystectomy (06/14/10) Colonoscopy - MAC (2013) EGD - MAC (~2013) EGD - MAC (10/31/17) H/O hemorrhoidectomy (Acute 02/10/18) Banding, Dr Garcia History of bilateral salpingo-oophorectomy (Inactive) History of colonoscopy (Chronic 12/23/17) Dr Garcia History of esophagogastroduodenoscopy (Inactive) History of knee replacement (Chronic) Bilateral History of repair of rectocele (Acute) Status post abdominal hysterectomy (Inactive) Status post adenoidectomy (Inactive) Status post cholecystectomy (Inactive) Status post tonsillectomy (Inactive) Tonsillectomy and adenoidectomy Family History Mother , 51 Diabetes Breast cancer Heart disease Father , 77 Diabetes Essential hypertension Alcohol abuse Heart disease Hyperlipidemia Sister Diabetes Cancer of neck Depression Paternal Grandfather , 85 Essential hypertension Heart disease Stroke Paternal Grandmother , 62 Diabetes Essential hypertension Stroke Maternal Grandfather , 82 No problems noted. Maternal Grandmother , 34 No problems noted. Sister Ovarian cancer Sister Alcohol abuse Depression Substance abuse Sister Throat cancer Depression Sister Alcohol abuse Depression Substance abuse Sister No problems noted. Son Alcohol abuse Substance abuse Daughter Depression Substance abuse Daughter Throat cancer Daughter Depression Substance abuse Social History Smoking/Tobacco Use Status: Never Alcohol Intake: never Drug use: Never Substance use type: does not use Caregiver/Support person: No Household members: significant other Housing: house Do you need help understanding health information?: Never Pets and animals: Yes Pets and animals: dog(s) Sexually active: Yes Do you think of yourself as: straight/heterosexual Current gender identity: female What is your relationship status?: living with partner How often do you talk on the phone with friends or family?: three or more times per week How often do you get together with friends or relatives?: once per week How often do you attend advent or sabianist services?: 4 or more times per year Do you belong to any clubs or organized social groups?: no Panel score (0-1 are the most socially isolated patients): 3 What type of physical activity do you participate in: walking and other Details: Eliptical, exercise bike Duration: 30-45 minutes/day Frequency: 3-4 times per week Catalina/Confucianist: Taoist Special catalina needs: No Seatbelt use: always Helmet use: Yes Drive intox or ride w/intox service parts driver: No Do you feel safe at home: Yes Do you feel safe in your relationship?: Yes History History 5 Para 4 Hx # Term Pregnancies Multiple births Hx # Pregnancies Ectopic pregnancies AB induced Hx Number of Living Children 4 AB spontaneous 1 Exam <Ishan Noguera MD - Last Filed: 02/09/19 01:45> Const General: cooperative and no acute distress HENMT Head: normocephalic Mouth: moist mucous membranes Eyes Conjunctivae: normal conjunctivae Sclera: normal sclerae Neck Neck: trachea midline and supple Resp Auscultation: clear to auscultation bilaterally, no rales, no rhonchi and no wheezes Cardio Jugular venous pressure: no JVD Rate: tachycardic Rhythm: regular rhythm GI Palpation: soft, not firm, no guarding, no masses, not rigid and nontender Skin General skin exam: no rashes or lesions noted Neuro General: alert, awake, oriented x3 and tone normal Extrem General: no calf tenderness and no edema Psych Appearance: grossly normal Mental Status: mental status grossly normal Course <Ishan Noguera MD - Last Filed: 02/09/19 01:45> Vital Signs Vital signs: Vital Signs Temperature 36.3 C L 01/16/19 19:27 Respiratory Rate 114 H 01/16/19 19:27 Blood Pressure 115/88 01/16/19 19:27 Pulse Oximetry 97 01/16/19 19:27 Temperature 36.3 C L 01/16/19 19:27 Temperature Source Skin 01/16/19 19:27 Respiratory Rate 114 H 01/16/19 19:27 Blood Pressure 115/88 01/16/19 19:27 Blood Pressure Position Sitting 01/16/19 19:27 Pulse Oximetry 97 01/16/19 19:27 Oxygen Delivery Method Room Air 01/16/19 19:27 Oxygen Flow Rate 0 01/16/19 19:27 Sign Out <Ishan Noguera MD - Last Filed: 02/09/19 01:45> Sign Out Data: Sign Out Comment: Follow-up CT chest and labs. Reassess patient for disposition. Last updated by Ishan Noguera MD at 01/16/19 20:20
[2019-01-16 19:56] VITALS: RESP 16
[2019-01-16 19:56] LABS: Abs Immature Grans 0.01 k/cumm (0.0-0.09); Absolute Basophil Count 0.03 k/cumm (0.0-0.2); Absolute Eosinophil Count 0.15 k/cumm (0.0-0.7); Absolute Lymphocyte Count 2.57 k/cumm (1.2-3.4); Absolute Monocyte Count 0.92 k/cumm (0.11-0.7); Absolute Neutrophil Count 6.57 k/cumm (1.2-6.7); Basophils % 0.3; Eosinophils % 1.5; HCT 45.1 % (36.0-46.0); HGB 15.1 g/dL (12.0-15.5); Immature Grans % 0.1; Lymphocytes % 25.1; Mean Corp. HGB Concentration 33.5 g/dL (32.0-36.0); Mean Corpuscular Volume 83.5 fL (80-95); Mean Platelet Volume 10.5 fL (8.0-11.0); Platelet Count 487 x1000/uL (130-400); RBC Distribution Width 15.4 % (11.7-14.6); White Blood Cell Count 10.25 k/cumm (4.4-10.8)
--- NOTE | 2019-01-16 20:02 | NUR.NOTE ---
Nursing Note: Reports several hours of sudden onset right sided chest pain with associated SOB, worse when lying down. LS diminished. Painful to touch. SR on monitor. #18 to RAC, labs drawn.
[2019-01-16 20:21] LABS: ALT 25 U/L (14-59); AST 25 U/L (15-37); Albumin 4.1 g/dL (3.4-5.0); Alkaline Phosphatase 110 U/L (46-116); Anion Gap 12.6 mmol/L (3-11); BUN 22 mg/dL (7-18); Bilirubin, Total 0.3 mg/dL (0.2-1.0); CO2 30.4 mmol/L (21.0-32.0); Calcium 9.4 mg/dL (8.5-10.1); Chloride 98 mmol/L (98-107); Estimated GFR 41.78 (mL/min/1.73m2); Glucose 125 mg/dL (70-100); Magnesium 1.5 mg/dL (1.8-2.4); Sodium 141 mmol/L (136-145); Total Protein 7.9 g/dL (6.4-8.2)
[2019-01-16 20:32] LABS: Potassium 2.7 mmol/L (3.5-5.1); Troponin I < 0.05 ng/mL (0.00-0.06)
[2019-01-16] MEDS: Omnipaque 350 MG/ML 100 ML BTL IJ (21:00)
[2019-01-16] MEDS: POTASSIUM CHLORIDE 20 MEQ/100 ML BAG 50 MEQ IVPB (21:01)
[2019-01-16] MEDS: Normal Saline 250 ML 500 ML IV (21:06)
--- NOTE | 2019-01-16 21:08 | DI.VRAD_ITS ---
PROCEDURE INFORMATION: Exam: CT Angiography Chest With Contrast Exam date and time: 01/16/2019 20:50 Clinical history: 58 years old, female; Pleuordynia; Patient HX: Right-sided chest pain pleuritic, tachycardia TECHNIQUE: Imaging protocol: Computed tomographic angiography of the chest with intravenous contrast. 3D rendering: MIP reconstructed images were created and reviewed. COMPARISON: CT CHEST ABD PELVIS WITH CONTRAST 01/29/2016 22:03 FINDINGS: Pulmonary arteries: No pulmonary emboli. Aorta: No aortic aneurysm. No aortic dissection. Thyroid: A left thyroid nodule may be present, partially seen. Follow-up as per institutional protocol. Lungs: Mild motion artifact in the lungs. No airspace consolidation. Scattered areas of microatelectasis are suggested. Pleural space: No pneumothorax. No pleural effusion. Heart: No cardiomegaly. No pericardial effusion. Lymph nodes: No enlarged lymph nodes. Bones/joints: Chronic left lateral rib fracture. Slight step-off in the anterior right third rib appears new. Chronic right lateral rib fracture. Soft tissues: No suspicious lesions. IMPRESSION: 1. No pulmonary emboli are seen. 2. Slight step-off in the anterior right third rib appears new, could reflect an acute nondisplaced fracture, please correlate with the location of tenderness. 3. Incidental findings as described. Dictated and Authenticated by: Misty Conley MD. Ordering:BRODERICK Olmstead MD
[2019-01-16 21:11] VITALS: BP 124/69; PULSE 84; RESP 16; O2SAT 98
[2019-01-16] MEDS: Potassium Chloride 20 MEQ TABCR PO (21:17)
[2019-01-16] MEDS: MAGNESIUM SULFATE 2 GM/50 ML BAG IVPB (23:05)
[2019-01-16 23:39] LABS: Potassium 3.3 mmol/L (3.5-5.1)
[2019-01-16 23:40] LABS: Troponin I < 0.05 ng/mL (0.00-0.06)
[2019-01-17 00:40] VITALS: BP 133/80; PULSE 95; RESP 16; TEMP 36.6; O2SAT 96
--- NOTE | 2019-01-17 00:48 | NUR.NOTE ---
Nursing Note: IV removed. discharge instructions reviewed with verbal understanding. aware to f/u with pcp as needed. ambulated to exit with steady gait.
== END 2019-01-17 00:50 | disposition home or self-care (01) ==
PROVIDERS: Student in an Organized Health Care Education/Training Program; Emergency Provider Emergency Medicine; PCP Family Medicine
DX: S22.31XA Fracture of one rib, right side, initial encounter for closed fracture (principal); X58.XXXA Exposure to other specified factors, initial encounter; I10 Essential (primary) hypertension
CPT/HCPCS: 36415; 71275; 80053; 93005; 96361; 96365; 96366; 96368; 99285; 83735; 84132; 84484; 85025; 93010; J3480; J3490

== ENCOUNTER 2019-01-20 14:22 | Outpatient (CLI) | payer MEDICAID, SELFPAY ==
[2019-01-20 14:53] LABS: Ammonia < 10 umol/L (11-32)
[2019-01-20 15:11] LABS: ALT 17 U/L (14-59); AST 16 U/L (15-37); Albumin 3.7 g/dL (3.4-5.0); Alkaline Phosphatase 104 U/L (46-116); Anion Gap 9.8 mmol/L (3-11); BUN 15 mg/dL (7-18); Bilirubin, Total 0.4 mg/dL (0.2-1.0); CO2 29.2 mmol/L (21.0-32.0); CREATININE 1.14 mg/dL (0.55-1.02); Calcium 8.7 mg/dL (8.5-10.1); Chloride 101 mmol/L (98-107); Estimated GFR 48.62 (mL/min/1.73m2); Glucose 109 mg/dL (70-100); Potassium 3.5 mmol/L (3.5-5.1); Sodium 140 mmol/L (136-145); Total Protein 7.3 g/dL (6.4-8.2)
[2019-01-20 16:26] LABS: Magnesium 1.5 mg/dL (1.8-2.4)
== END 2019-01-20 14:42 ==
PROVIDERS: PCP Family Medicine; Visit Provider Nurse Practitioner Family
DX: R41.9 Unspecified symptoms and signs involving cognitive functions and awareness (principal); E83.42 Hypomagnesemia
CPT/HCPCS: 36415; 80053; 82140; 83735

== ENCOUNTER 2019-03-16 10:27 | Outpatient (CLI) | payer MEDICAID, SELFPAY ==
--- NOTE | 2019-03-16 10:45 | DI.RAD_ITS ---
EXAM: XR KNEES MERCHANT ONLY INDICATION: pain. COMPARISON: XR KNEES MERCHANT ONLY from 09/24/2018 TECHNIQUE: 2D digital imaging was performed. FINDINGS: There is again seen bilateral patellar tilt. The findings appear stable on the right compared to the prior examination. On the left, there appears to be a more pronounced tilt. Note is again made of bilateral total knee replacements.
== END 2019-03-16 10:47 ==
PROVIDERS: PCP Family Medicine; Visit Provider Orthopaedic Surgery
DX: M22.8X1 Other disorders of patella, right knee (principal); M22.8X2 Other disorders of patella, left knee; Z96.653 Presence of artificial knee joint, bilateral
CPT/HCPCS: 73565

== ENCOUNTER 2019-05-18 11:47 | Outpatient (CLI) | payer MEDICAID, SELFPAY ==
[2019-05-18 13:28] LABS: TSH 3.22 uIU/mL (0.36-3.74)
== END 2019-05-18 12:07 ==
PROVIDERS: PCP Family Medicine; Visit Provider Nurse Practitioner
DX: E04.1 Nontoxic single thyroid nodule (principal); R22.9 Localized swelling, mass and lump, unspecified
CPT/HCPCS: 36415; 84443

== ENCOUNTER 2019-05-24 01:20 | Outpatient (CLI) | payer MEDICAID, SELFPAY ==
--- NOTE | 2019-05-24 14:26 | DI.US_ITS ---
EXAM: US THYROID CLINICAL HISTORY: THYROID NODULE/NECK MASS e04.1, r22.9 swelliing TECHNIQUE: Ultrasound performed using standard protocol. COMPARISON: HEAD AND CSPINE W/O CONTRAST from 12/11/2015 HEAD AND CSPINE W/O CONTRAST from 01/29/2016 FINDINGS: The palpable abnormality corresponds to a circumscribed, smoothly marginated nodule measuring 2.0 x 1 .4 x 2.2 cm toward the left side of the isthmus. It is partially cystic and partially solid. No ech ogenic foci are seen. A few scattered small colloid cysts are seen in each lobe. There is a 2.2 cent imeter lymph node in the left side of the neck, which maintains a central fatty hilum. IMPRESSION: Smoothly marginated nodule in the isthmus of the thyroid corresponds to the palpable abnormality. Th e lesion appears to be stable compared with a CT from 2016. The lesion is consistent with a TI-RADS category 2 lesion.
== END 2019-05-24 01:40 ==
PROVIDERS: PCP Family Medicine; Visit Provider Nurse Practitioner
DX: E04.1 Nontoxic single thyroid nodule (principal); R22.1 Localized swelling, mass and lump, neck; R59.0 Localized enlarged lymph nodes
CPT/HCPCS: 76536

== ENCOUNTER 2019-07-05 01:52 | Outpatient (CLI) | payer MEDICAID, SELFPAY ==
--- NOTE | 2019-07-05 | DI.US_ITS ---
EXAM: US NEEDLE LOCAL OTHER WO RAD CLINICAL HISTORY: THYROID NODULE, E04.1, FINE NEEDLE ASPIRATION TECHNIQUE: Ultrasound performed using standard protocol. COMPARISON: US THYROID from 05/24/2019 FINDINGS: Ultrasound guidance was provided for fine-needle aspiration of left thyroid mass, performed by RADHA Gonzalez. Hard copies confirm needle placement in the lesion in question. DATA REPOSITORY:
--- NOTE | 2019-07-05 07:45 | PAPNONF_PTH ---
PATIENT: Olamide Gillespie LOC: [facility] U#:[id number] AGE/SX: 59/F ROOM: RE07/05/[address]: RADHA Gonzalez : 1960 BED: DIS: 07/05/2019 SPEC #: [id number] RECD: 07/05/19 12:37 STATUS: MATTY REOrtiz #: [id number] BEBE: 07/05/19 07:[address]: Almas Araujo DEPT: [facility] Cytology RECD BY: Daniela Alex ENTERED: 07/05/19 12:38 SP TYPE: CLIFFORD RODRIGUEZ DR: Daniel Garber MD Tissues: 1 - BODY FLUID CYTO-FINE NEEDLE ASPIRATE-[facility] Procedures: BODY FLUID CYTO-FINE NEEDLE ASPIRATE-[facility] Comments: [id number]
== END 2019-07-05 02:12 ==
PROVIDERS: PCP Family Medicine; Visit Provider Physician Assistant
DX: D34 Benign neoplasm of thyroid gland (principal)
CPT/HCPCS: 10022; 76942; 88104

== ENCOUNTER 2019-08-06 03:08 | Outpatient (CLI) | payer MEDICAID, SELFPAY ==
--- NOTE | 2019-08-06 | DI.US_ITS ---
EXAM: US THYROID CLINICAL HISTORY: ? INCREASE IN SIZE OF THYROID NODULE, E04.1. TECHNIQUE: Ultrasound thyroid performed using standard protocol. COMPARISON: US THYROID from 05/24/2019 FINDINGS: ISTHMUS: 3 mm. To the left side of the isthmus, there is a circumscribed transversely oriented mixed cystic and solid lesion. There are no echogenic foci. It measures 2 x 1.3 x 2 cm, unchanged from t he previous exam. The appearance is unchanged. RIGHT LOBE: Size: 4.4 x 1.3 x 1.2 cm Echogenicity: Mildly heterogeneous. Vascularity: Normal. Nodules: 2 tiny cysts. LEFT LOBE: Size: 3.2 x 1.0 x 1.4 cm Echogenicity: Mildly heterogeneous. Vascularity: Normal. Nodules: 3 millimeter cyst IMPRESSION: Stable appearance of circumscribed nodule at the left side of the isthmus. TI-RADS category 2.. DATA REPOSITORY:
== END 2019-08-06 03:28 ==
PROVIDERS: PCP Family Medicine; Visit Provider Otolaryngology Otolaryngology/Facial Plastic Surgery
DX: E04.1 Nontoxic single thyroid nodule (principal)
CPT/HCPCS: 76536

== ENCOUNTER 2019-09-07 09:00 | Outpatient (CLI) | payer MEDICAID, SELFPAY ==
--- NOTE | 2019-09-07 09:19 | PDOC.PAIN_ITS ---
Pain Clinic Procedure Note Procedure Note Procedure Note: LUMBAR/SACRAL MEDIAL BRANCH RADIOFREQUENCY WITH THE COOLIEF MACHINE QUAN MURPHY has been referred to the [facility] for radiofrequency treatment of chronic axial back pain. QUAN has had long standing back pain thought to be facet joint generated and which has been refractory to other therapies. Local anesthetic medial branch blocks or intra- articular facet joint injections resulted in QUAN reporting reduction of the usual axial component of pain for at least the duration of the local anesthetic effect. COMMENTS: She achieved ~9 months of relief with the prior lumbar RFA. Last RFA was done by Dr Flanagan on 12/2018. Of note, patient has an allergy to Fentanyl which causes her to pass out. She tolerated previous lumbar RFAs with IV anxiolytic of 1mg of Versed. Pre-operative diagnosis: Lumbosacral spondylosis without myelopathy Post-operative diagnosis: same as above Patient was interviewed and the medical record reviewed. There were no medical, pharmacologic, radiographic or other structural contraindications to attempting fluoroscopically guided radiofrequency treatment. Risks and expected side effects as well as potential benefit of the procedure were reviewed and voiced concerns addressed. The printed consent form was signed and witnessed. Standard time-out procedure was performed. Patient was placed in the prone position on the fluoroscopy table and automated blood pressure cuff and pulse oximeter applied. The skin entry points for approaching the anatomic target points of the segmental medial branches of bilateral L3, L4, L5-DR, S1 were identified with fluoroscopy and marked. Following thorough Chlorhexadine preparation of the skin and draping and 1% lidocaine infiltration of the skin entry points and subcutaneous tissues, a single 17G, 100mm with 4mm active tip Coolief radiofrequency cannula was placed under fluoroscopic guidance along or across the anatomic course of each respective segmental medial branch. Each placement was stimulated at 50Hz and les then 0.5V for medial branch sensory localization. 1cc of 2% lidocaine was injected at each site prior to lesioning. At each placement a continuous mode radiofrequency treatment was done at 80 degrees C for 180secs. This radiofrequency treatment should result in the denervation of the bilateral L4-L5 and L5-S1 FACET JOINTS. A total of 4 facets were expected to be denervated from today's treatment. Vital signs were stable throughout the procedure and were as recorded in the docflowsheet by the nursing staff. If given, dosages of intravenous drugs for anxiolysis and analgesia were documented in the Medication Administration Record (MAR). Follow up plans and appointments were discussed. Post procedure instruction was given as documented in the nursing documentation and having met discharge criteria, QUAN was discharged from the [facility]. COMMENTS: If she gets at least 6 months of relief, she can have this repeated without repeating the LMBBs. Prior to today's procedure, patient stated that she forgot to take her prescribed Xanax and was feeling a bit more anxious this morning. patient received total of 1.5 mg of IV versed, tolerated procedure well, however, at the end of the procedure, she was observed to be sleepy. No lightheadedness, nausea upon completion of procedure. She was transferred to post-procedure area in a wheelchair. I personally performed the entire procedure. Esau Og MD Pain Management CC: Daniel Garber MD
[2019-09-07 09:20] VITALS: BP 98/67; PULSE 81; RESP 16; TEMP 36.6; O2SAT 97
[2019-09-07] MEDS: Lactated Ringers 1,000 ML 80 ML IV (09:43)
[2019-09-07] MEDS: Midazolam 2 MG/2 ML VIAL IVP ×2 (09:51→10:00)
[2019-09-07] MEDS: Lidocaine 1% Pres-Free 30 ML VIAL IJ (10:28)
[2019-09-07] MEDS: Bupivacaine 0.5% Pres-Free 10 ML VIAL IJ (10:28)
[2019-09-07] MEDS: Lidocaine 2% Pres-Free 5 ML VIAL IJ (10:29)
[2019-09-07 10:30] VITALS: BP 120/75; PULSE 78; RESP 17; O2SAT 97
[2019-09-07] MEDS: methylPREDNISolone ACETATE 40 MG/ML VIAL (10:30)
--- NOTE | 2019-09-07 10:30 | DI.RAD_ITS ---
EXAM: XR PAIN CLINIC LUMBAR SP 2V CLINICAL HISTORY: dx: Lumbar Spondylosis,LUMBAR RADIOFREQUENCY ABLATION TECHNIQUE: Fluoroscopy was provided for the referring physician for guidance with performing injecti on procedure. COMPARISON: No exams were available for comparison FINDINGS: Please see procedure note for details. FLUORO TIME: 70.4 seconds RADIATION DOSE DELIVERED:
== END 2019-09-07 09:20 ==
PROVIDERS: PCP Family Medicine; Visit Provider Internal Medicine
DX: M47.817 Spondylosis without myelopathy or radiculopathy, lumbosacral region (principal)
CPT/HCPCS: 64635; 64636; 72100; J1030; J2250

== ENCOUNTER 2019-11-02 07:38 | Outpatient (CLI) | payer MEDICAID, SELFPAY ==
[2019-11-07 09:55] LABS: SARS-CoV-2 RNA Undetected (Undetected); SARS-CoV-2 Specimen Source Nasopharynx
== END 2019-11-02 07:58 ==
PROVIDERS: PCP Family Medicine; Visit Provider Family Medicine
DX: R05 Cough (principal)
CPT/HCPCS: U0003

== ENCOUNTER 2019-11-29 00:42 | Outpatient (CLI) | payer MEDICAID, SELFPAY ==
--- NOTE | 2019-11-29 14:00 | DI.MRI_ITS ---
EXAM: MR LUMBAR SPINE WO CLINICAL HISTORY: LT LUMBAR RADICULOPATHY,LOW BACK PAIN RADIATING TO LT ANTEROLATERAL THIGH,. TECHNIQUE: Multiplanar multisequence MRI was performed. COMPARISON: MR MRI - LUMBAR SPINE WO CONTRAST from 09/03/2016 CR XR KNEES MERCHANT ONLY from 03/16/2019 FINDINGS: A hemangioma is seen in the L1 vertebral body. There is slight bulging of the L1 2 and L2-3 discs. At L3-4, there is loss of disc height, endplate osteophytes and broad-based disc bulging. Facet de generative changes and ligamentous hypertrophy are also seen. The findings are greater on the right side causing a mild degenerative scoliosis. There is a moderate degree of central canal stenosis as well as severe right neural foraminal narrowing. At L4-5, there is marked loss of disc height, endpl ate osteophytes and broad-based disc bulging. There is a general degenerative signal changes in the endplates. There are facet degenerative changes and ligamentous hypertrophy which combine to produce a moderate degree of central canal stenosis. There is moderate right and mild left neural foraminal narrowing. The L5-S1 disc is unremarkable. The conus medullaris appears normal. The aorta is norm al in diameter. IMPRESSION: Degenerative disc changes and facet degenerative changes cause moderate central canal stenosis at L3- 4 and L4-5 as well as bilateral neural foraminal narrowing, greater on the right. DATA REPOSITORY:
== END 2019-11-29 01:02 ==
PROVIDERS: PCP Family Medicine; Visit Provider Nurse Practitioner Family
DX: M47.26 Other spondylosis with radiculopathy, lumbar region (principal); M48.061 Spinal stenosis, lumbar region without neurogenic claudication
CPT/HCPCS: 72148

== ENCOUNTER 2020-01-07 12:52 | Emergency (ER) | payer MEDICAID, SELFPAY ==
[2020-01-07 12:56] VITALS: BP 152/100; PULSE 86; RESP 18; TEMP 37; O2SAT 98
[2020-01-07 13:05] VITALS: BP 134/90; PULSE 83; RESP 18; O2SAT 99
--- NOTE | 2020-01-07 13:15 | DI.CT_ITS ---
EXAM: CT CHEST/ABD/PEL W and CT lumbar spine recons CLINICAL HISTORY: trauma, fall from 6ft yesterday, bruising rt flank TECHNIQUE: Imaging Protocol: Axial computed tomography images with coronal and sagittal reformatted images were created and reviewed CONTRAST MATERIAL: Intravenous: Omnipaque 350 Contrast volume:100 mL Oral: No COMPARISON: CT CT CHEST PE CTA from 01/16/2019 FINDINGS: CHEST: Tracheobronchial tree: Patent where visualized. 1.6 cm cystic and solid mass in the midline anterior to the trachea at the level of the thyroid isthmus. Nonemergent thyroid ultrasound should be obtained for further evaluation. Mediastinum and Katt: No dominant adenopathy or fluid collection. Pulmonary parenchyma: Infiltrate in the right lung base posteriorly. Lungs are otherwise clear. No ar chitectural distortion. Pleura: No effusion or pneumothorax. Heart: The heart is not dilated. No coronary artery calcifications are seen. No significant pericardi al effusion. Aorta: Thoracic aorta non-dilated. Minimal atherosclerosis. Lymph nodes: Within normal limits. Bones:Acute mildly displaced fracture of the posterior right 11th rib. Degenerative changes in the sp ine. Soft tissues: Mild infiltration of the soft tissues of the posterior right back consistent with contu samuel. ABDOMEN: Liver: Fatty infiltration. No measurable mass. Portal, Superior Mesenteric, and Splenic Veins: Unremarkable. Gallbladder and Biliary Tract: Status post cholecystectomy. Pancreas: Normal density, no abnormal calcifications or inflammatory process. Spleen: Normal. Adrenals: No masses seen. Kidneys: Normal size, contour and axis. No radiodense stones or obstructive uropathy. No masses seen. Abdominal Aorta: Abdominal portion non-dilated. Bowel: No obstruction or bowel wall thickening. No evidence of appendicitis. Colonic diverticulosis b ut no evidence of acute diverticulitis. Peritoneal Cavity: No ascites, collection or mesenteric inflammatory response. Lymph Nodes: Within normal limits. Bones: Degenerative changes in the spine. Soft Tissues: Small fat containing umbilical hernia. PELVIS: Bladder: Symmetric distention, no gross wall thickening. Reproductive Organs: Status post hysterectomy. Lymph Nodes: Within normal limits. Bones: Degenerative changes in the spine. CT Recons lumbar spine: No acute fractures or subluxations. IMPRESSION: 1. No acute abnormality in the abdomen and pelvis. 2. Mildly displaced fracture involving the posterior aspect of the right 11th rib with contusion invo lving the posterior soft tissues. 3. A small infiltrate in the right lower lobe which may represent a pulmonary contusion. No evidence of pneumothorax or pleural effusion. 4. Findings were discussed with the emergency department on the date of the examination. 5. Unremarkable CT scan of the chest. RADIATION DOSE DELIVERED: Total DLP DATA REPOSITORY: All CT scans at this facility are submitted to the National Radiology Data Registry (NRDR) Dose Index Registry (DIR) with the [employer] ([employer]). RADIATION OPTIMIZATION: All CT scans at this facility use at least one of these dose optimization te chniques: automated exposure control; mA and/or kV adjustment per patient size (includes targeted exa ms where dose is matched to clinical indication); or iterative reconstruction.
--- NOTE | 2020-01-07 13:31 | W.ED.GENAD ---
Discharge Plan Disposition Patient Disposition: HOME Discharge Details Clinical Impression: Closed rib fracture, Contusion of right lung Primary Care Provider: Keshawn Pineda ED Provider: Ishan Noguera Home Meds and New Rx's Prescriptions: Continued tramadol 50 mg tablet 50 mg PO QID PRN (Reason: pain) Qty: 90 RF: 2 venlafaxine 150 mg capsule,extended release 24hr 150 mg PO TID Qty: 90 RF: 4 ondansetron HCl 4 mg tablet 4 mg PO Q8H PRN Qty: 30 RF: 3 sumatriptan [Imitrex] 20 mg/actuation spray,non-aerosol 20 mg NS ONCE Qty: 1 RF: 5 omeprazole 40 mg capsule,delayed release(DR/EC) 40 mg PO DAILY Qty: 180 RF: 4 hydrochlorothiazide 25 mg tablet 25 mg PO DAILY Qty: 90 RF: 4 magnesium oxide 500 mg tablet 500 mg PO BID Qty: 180 RF: 0 potassium chloride 10 mEq capsule, extended release 10 meq PO DAILY Qty: 90 RF: 3 isqefjb-lqjcckfjrw-TPQ-caff [Butalbital Compound W/Codeine] [id number] mg capsule 1 cap PO Q4H PRN (Reason: headache) Qty: 50 RF: 2 baclofen 10 mg tablet 10 mg PO TID PRN (Reason: muscle spasm) Qty: 30 RF: 1 loperamide 2 MG capsule 2 mg PO PRN PRNRF: 0 diphenhydramine HCl 25 MG capsule 25 - 50 mg PO PRN PRNRF: 0 docusate sodium [Colace] 100 mg Capsule 100 mg PO DAILY RF: 0 Multivitamin 50 Plus Tablet 1 tab PO DAILY RF: 0 Discharge Instructions Instructions: Rib Fracture (ED), Pulmonary Contusion (ED) Additional Instructions: Please use incentive spirometer every 2 hours while awake for the next 1 week. Use lidocaine patches -these are [id number]-mdzaohg, dose according to label. Please take ibuprofen over the counter. Take 600mg by mouth every 6 hours as needed for pain. Please take acetaminophen (tylenol) - 650mg every 6 hours by mouth as needed for pain. Please contact your primary care physician to arrange follow-up. Return to the ER for any worsening or new concerning symptoms. Referrals: Keshawn Pineda [Primary Care Provider] - Discharge Data Discharge Date/Time-TO BE ENTERED AT DEPARTURE: 01/07/20 16:01 Medical Decision Making 59-year-old female presents 1 day status post fall from 6 feet stepladder landing directly on a tub injuring her right flank. Patient has ecchymosis right lateral flank and is quite tender in the area. She also has some tenderness in her right lower abdomen. Consider acute traumatic intra-abdominal surgical process versus rib fracture. CT of the chest abdomen pelvis with lumbar spine reconstruction was interpreted by radiology: 1. No acute abnormality in the abdomen and pelvis. 2. Mildly displaced fracture involving the posterior aspect of the right 11th rib with contusion involving the posterior soft tissues. 3. A small infiltrate in the right lower lobe which may represent a pulmonary contusion. No evidence of pneumothorax or pleural effusion. 4. Findings were discussed with the emergency department on the date of the examination. 5. Unremarkable CT scan of the chest. Patient is saturating well no respiratory distress. Plan to optimize analgesia with lidocaine patch, ibuprofen and Tylenol. Will provide incentive spirometer. We will have her follow-up with her primary care physician. HPI General Mode of arrival: ambulatory. Date/Time Provider Initiated Documentation: 01/07/20 13:17. Limitations to Documentation: no limitations. Information obtained by: patient. HPI Narrative: 59-year-old female presents 1 day status post fall from 6 feet stepladder landing directly on a tub injuring her right flank with cc right flank pain. Pain is moderate and worse with movement and with deep inspiration. She has associated pain in her right lower abdomen. No fevers. No shortness of breath. Patient did not hit her head and did not lose consciousness. She has no neck pain. Related Data Home Medications Medication Instructions Recorded Confirmed diphenhydramine HCl 25 - 50 mg PO PRN PRN 10/28/17 01/07/20 loperamide 2 mg PO PRN PRN 10/28/17 01/07/20 Multivitamin 50 Plus 1 tab PO DAILY 04/28/18 01/07/20 venlafaxine 150 mg 150 mg PO TID #90 tab-cap 11/18/18 01/07/20 capsule,extended release 24 hr docusate sodium [Colace] 100 mg PO DAILY 11/20/18 01/07/20 ondansetron HCl 4 mg tablet 4 mg PO Q8H PRN #30 tab-cap 03/02/19 01/07/20 sumatriptan 20 mg/actuation nasal 20 mg NS ONCE #1 box 04/29/19 01/07/20 spray omeprazole 40 mg capsule,delayed 40 mg PO DAILY #180 cap 05/21/19 01/07/20 release hydrochlorothiazide 25 mg tablet 25 mg PO DAILY #90 tab-cap 09/20/19 01/07/20 magnesium oxide 500 mg tablet 500 mg PO BID #180 tab 09/28/19 01/07/20 potassium chloride 10 mEq 10 meq PO DAILY #90 cap 09/28/19 01/07/20 capsule,extended release cnamoaq-wtsawxxqed-HGW-caffeine 30 1 cap PO Q4H PRN #50 cap 10/04/19 01/07/20 mg-50 mg-325 mg-40 mg capsule baclofen 10 mg tablet 10 mg PO TID PRN #30 tab 10/29/19 01/07/20 tramadol 50 mg tablet 50 mg PO QID PRN #90 tab 12/10/19 01/07/20 Previous Rx's Medication Instructions Recorded ondansetron HCl 4 mg tablet 4 mg PO Q8H PRN #30 tab-cap 03/02/19 sumatriptan 20 mg/actuation nasal 20 mg NS ONCE #1 box 04/29/19 spray omeprazole 40 mg capsule,delayed 40 mg PO DAILY #180 cap 05/21/19 release hydrochlorothiazide 25 mg tablet 25 mg PO DAILY #90 tab-cap 09/20/19 magnesium oxide 500 mg tablet 500 mg PO BID #180 tab 09/28/19 potassium chloride 10 mEq 10 meq PO DAILY #90 cap 09/28/19 capsule,extended release zsttzgj-wnzxjofkmw-OXE-caffeine 30 1 cap PO Q4H PRN #50 cap 10/04/19 mg-50 mg-325 mg-40 mg capsule baclofen 10 mg tablet 10 mg PO TID PRN #30 tab 10/29/19 tramadol 50 mg tablet 50 mg PO QID PRN #90 tab 12/10/19 Allergies Allergy/AdvReac Type Severity Reaction Status Date / Time cephalexin monohydrate Allergy Severe Hives, Verified 01/07/20 13:06 [From Keflex] rash and swelling Penicillins Allergy Intermediate SKIN RASH; Verified 01/07/20 13:06 VOMITING vancomycin Allergy Intermediate RED FACE Verified 01/07/20 13:06 cyclobenzaprine AdvReac Severe Lethargy Verified 01/07/20 13:06 and confusion fentanyl AdvReac Severe pt states Verified 01/07/20 13:06 she passes out methadone AdvReac Severe HALLUCINATIONS Verified 01/07/20 13:06 OUT OF LIFE promethazine AdvReac Severe dystonic Verified 01/07/20 13:06 reaction amitriptyline AdvReac Intermediate CONFUSION Verified 01/07/20 13:06 azithromycin AdvReac Intermediate Psychosis Verified 01/07/20 13:06 lithium AdvReac Intermediate GI bleed Verified 01/07/20 13:06 nortriptyline AdvReac Intermediate INSOMNIA Verified 01/07/20 13:06 pregabalin AdvReac FACIAL Verified 01/07/20 13:06 NUMBNESS General Stated Complaint: FlankPain SETH: 3 Review of Systems All systems reviewed & are unremarkable except as noted in HPI and below Cardiovascular Cardiovascular: Denies chest pain Gastrointestinal Gastrointestinal: Reports abdominal pain (low right) [facility] Medical History Anxiety Anxiety Bipolar 1 disorder Chronic pain disorder Chronic pain syndrome (11/27/11) Cystocele and rectocele with incomplete uterovaginal prolapse 05/06/2018. A&P repair hysterectomy postop recovery going well advised to increase activity slowly small granuloma at vaginal cuff cauterized with silver nitrite Depressive disorder Essential hypertension (02/22/13) Fibromyalgia Grade II hemorrhoids Hypertension Hypokalemia (03/11/12) Lumbago Migraine Migraine Pancolonic diverticulosis (02/04/14) Primary fibromyalgia syndrome Restless leg syndrome Spinal stenosis Spinal stenosis L4-5 Surgical History Abdominal hysterectomy Bilateral salpingectomy with oophorectomy Cholecystectomy (06/14/10) Colonoscopy - MAC (2013) EGD - MAC (~2013) EGD - MAC (10/31/17) H/O hemorrhoidectomy (02/10/18) Banding, Dr Garcia History of bilateral salpingo-oophorectomy History of colonoscopy (12/23/17) Dr Garcia History of esophagogastroduodenoscopy History of knee replacement Bilateral History of repair of rectocele Status post abdominal hysterectomy Status post adenoidectomy Status post cholecystectomy Status post tonsillectomy Tonsillectomy and adenoidectomy Family History Mother , 51 Diabetes Breast cancer Heart disease Father , 77 Diabetes Essential hypertension Alcohol abuse Heart disease Hyperlipidemia Sister Diabetes Cancer of neck Depression Paternal Grandfather , 85 Essential hypertension Heart disease Stroke Paternal Grandmother , 62 Diabetes Essential hypertension Stroke Maternal Grandfather , 82 No problems noted. Maternal Grandmother , 34 No problems noted. Sister Ovarian cancer Sister Alcohol abuse Depression Substance abuse Sister Throat cancer Depression Sister Alcohol abuse Depression Substance abuse Sister No problems noted. Son Alcohol abuse Substance abuse Daughter Depression Substance abuse Daughter Throat cancer Daughter Depression Substance abuse Social History Smoking/Tobacco Use Status: Never Alcohol Intake: never Drug use: Never Substance use type: does not use Caregiver/Support person: No Household members: significant other Housing: house Do you need help understanding health information?: Never Pets and animals: Yes Pets and animals: dog(s) Sexually active: Yes Do you think of yourself as: straight/heterosexual Current gender identity: female What is your relationship status?: living with partner How often do you talk on the phone with friends or family?: three or more times per week How often do you get together with friends or relatives?: once per week How often do you attend synagogue or worship services?: 4 or more times per year Do you belong to any clubs or organized social groups?: no Panel score (0-1 are the most socially isolated patients): 3 What type of physical activity do you participate in: walking and other Details: Eliptical, exercise bike Duration: 30-45 minutes/day Frequency: 3-4 times per week Catalina/Sabianism: Yazidism Special catalina needs: No Seatbelt use: always Helmet use: Yes Drive intox or ride w/intox taxicab driver: No Do you feel safe at home: Yes Do you feel safe in your relationship?: Yes History History 5 Para 4 Hx # Term Pregnancies Multiple births Hx # Pregnancies Ectopic pregnancies AB induced Hx Number of Living Children 4 AB spontaneous 1 Exam Const General: cooperative and no acute distress HENMT Head: normocephalic and atraumatic Mouth: moist mucous membranes Eyes EOM: EOM intact bilaterally Neck Neck: trachea midline and supple Resp Auscultation: clear to auscultation bilaterally, no rales, no rhonchi and no wheezes Cardio Rate: regular rate and not tachycardic Rhythm: regular rhythm GI Palpation: soft, not firm, no guarding, no masses and not rigid Back/Spine/Pelvis Back: ecchymosis (right flank and low back) Cervical Spine: collar present and No cervical spinal tenderness Thoracic/Lumbar Spine: No thoracic spinal tenderness and lumbar spinal tenderness Skin General skin exam: no rashes or lesions noted Neuro General: patient alert, patient awake, patient oriented x3 and tone normal Extrem General: no edema Psych Appearance: grossly normal Mental Status: mental status grossly normal Speech and Movement: speech and movement normal Course Vital Signs Vital signs: Vital Signs Temperature 37 C 01/07/20 12:56 Pulse 86 01/07/20 12:56 Respiratory Rate 18 01/07/20 12:56 Blood Pressure 152/100 H 01/07/20 12:56 Pulse Oximetry 98 01/07/20 12:56 Temperature 37 C 01/07/20 12:56 Temperature Source Skin 01/07/20 12:56 Pulse 83 01/07/20 13:05 Respiratory Rate 18 01/07/20 13:05 Blood Pressure 134/90 01/07/20 13:05 Pulse Oximetry 99 01/07/20 13:05 Oxygen Delivery Method Room Air 01/07/20 13:05 Oxygen Flow Rate 0 01/07/20 13:05 Pain Level 9 01/07/20 12:56
[2020-01-07] MEDS: Lactated Ringers 1,000 ML 125 ML IV (13:45)
[2020-01-07] MEDS: Normal Saline Flush 10 ML SYR IVP (13:45)
[2020-01-07 14:00] LABS: Abs Immature Grans 0.04 10^3/uL (0.0-0.06); Absolute Basophil Count 0.05 10^3/uL (0.0-0.2); Absolute Eosinophil Count 0.01 10^3/uL (0.0-0.7); Absolute Lymphocyte Count 2.39 10^3/uL (1.2-3.4); Absolute Monocyte Count 0.68 10^3/uL (0.1-0.8); Absolute Neutrophil Count 5.17 10^3/uL (1.2-6.7); Basophils % 0.6; Eosinophils % 0.1; HCT 38.9 % (36.0-46.0); HGB 12.5 g/dL (11.2-15.7); Immature Grans % 0.5; Lymphocytes % 28.7; MCH 27.8 pg (27.0-33.0); MCHC 32.1 % (32.0-36.0); MCV 86.4 fL (80-95); MPV 9.5 fL (8.0-11.0); Monocytes % 8.2; Neutrophils % 61.9; Nucleated RBC 0 %; Platelet Count 377 10^3/uL (130-400); RDW 15.1 % (11.7-14.6); RDW-SD 47.8 fL; WBC 8.34 10^3/uL (4.4-10.8)
[2020-01-07 14:12] LABS: ALT 16 U/L (14-59); AST 14 U/L (15-37); Albumin 3.4 g/dL (3.4-5.0); Alkaline Phosphatase 111 U/L (46-116); Anion Gap 5.8 mmol/L (3-11); BUN 21 mg/dL (7-18); Bilirubin, Total 0.3 mg/dL (0.2-1.0); CO2 33.2 mmol/L (21.0-32.0); CREATININE 1.12 mg/dL (0.55-1.02); Calcium 8.7 mg/dL (8.5-10.1); Chloride 102 mmol/L (98-107); Estimated GFR 49.46 (mL/min/1.73m2); Glucose 76 mg/dL (74-106); Potassium 3.7 mmol/L (3.5-5.1); Sodium 141 mmol/L (136-145)
[2020-01-07] MEDS: Omnipaque 350 MG/ML 100 ML BTL IV (14:21)
[2020-01-07 15:08] VITALS: BP 110/67; PULSE 81; RESP 18; TEMP 36.9; O2SAT 98
[2020-01-07] MEDS: Lidocaine 5% Patch 1 PATCH TP (15:55)
== END 2020-01-07 16:01 | disposition home or self-care (01) ==
PROVIDERS: Emergency Provider Student in an Organized Health Care Education/Training Program; PCP Family Medicine
DX: S22.31XA Fracture of one rib, right side, initial encounter for closed fracture (principal); S27.321A Contusion of lung, unilateral, initial encounter; R10.31 Right lower quadrant pain; W10.8XXA Fall (on) (from) other stairs and steps, initial encounter; I10 Essential (primary) hypertension
CPT/HCPCS: 36415; 74177; 80053; 86850; 86900; 86901; 96360; 96361; 99285; 71260; 85025; J3490

== ENCOUNTER 2020-01-13 19:23 | Outpatient (CLI) | payer MEDICAID, SELFPAY ==
--- NOTE | 2020-01-13 19:42 | DI.RAD_ITS ---
EXAM: XR CHEST 2V PA LATERAL CLINICAL HISTORY: pain, fatigue TECHNIQUE: 2D digital imaging was performed. COMPARISON: CR XR CHEST 2V PA LATERAL from 01/04/2019 FINDINGS: MEDIASTINUM: Normal. HEART: Normal. PULMONARY VASCULATURE: Normal. LUNGS: Clear. PLEURAL SPACE: No pleural effusion or pneumothorax. BONE:Normal. OTHER FINDINGS:Normal. IMPRESSION: No acute pulmonary findings. DATA REPOSITORY: RADIATION DOSE DELIVERED:
== END 2020-01-13 19:43 ==
PROVIDERS: PCP Family Medicine; Visit Provider Physician Assistant
DX: R53.83 Other fatigue (principal); R07.89 Other chest pain; S27.321A Contusion of lung, unilateral, initial encounter; S22.31XA Fracture of one rib, right side, initial encounter for closed fracture
CPT/HCPCS: 71046

== ENCOUNTER 2020-02-23 11:19 | Outpatient (CLI) | payer MEDICAID, SELFPAY ==
--- NOTE | 2020-02-23 10:15 | DI.RAD_ITS ---
EXAM: XR KNEE LT 3V AP,LAT,BRENDA CLINICAL HISTORY: left knee pain. TECHNIQUE: 2D digital imaging was performed. COMPARISON: CR KNEES BILAT MERCHANT VIEW from 05/25/2015 CR XR KNEES MERCHANT ONLY from 09/24/2018 CR XR KNEES MERCHANT ONLY from 03/16/2019 CR XR KNEES MERCHANT ONLY from 03/16/2019 CR XR CHEST 2V PA LATERAL from 01/13/2020 FINDINGS: BONES: There are stable post operative changes present. No fracture or dislocation. There is persist ent lateral tilt of the patella. JOINTS: The joint spaces are well maintained. No joint effusion is present. SOFT TISSUE: Normal. IMPRESSION: Stable postoperative changes. DATA REPOSITORY: RADIATION DOSE DELIVERED:
== END 2020-02-23 11:39 ==
PROVIDERS: PCP Family Medicine; Referring Provider Family Medicine; Visit Provider Orthopaedic Surgery
DX: M25.562 Pain in left knee (principal)
CPT/HCPCS: 73562

== ENCOUNTER 2020-03-01 09:05 | Emergency (ER) | payer MEDICAID, SELFPAY ==
[2020-03-01] VITALS (43 sets, daily range): BP systolic 90–144; BP diastolic 55–87; PULSE 77–90; RESP 12–18; TEMP 36.6; O2SAT 94–99
--- NOTE | 2020-03-01 09:00 | RT.EKG_ITS ---
APPROVED REPORT Exam: Resting ECG Patient Location: E HR:83 bpm ECG Measurements Heart Rate 83 AXIS SD 165 P 52 QRSd 102 QRS -8 QT 395 T 71 QTc 464 Conclusion Sinus rhythm...normal P axis, V-rate 60- 99 no major change from prior 2018, no STEMI, non-diagnostic EKG
--- NOTE | 2020-03-01 09:00 | DI.CT_ITS ---
EXAM: CT HEAD WO CLINICAL HISTORY: Fall, Closed head injury. TECHNIQUE: Imaging Protocol: Axial computed tomography images with coronal and sagittal reformatted images were created and reviewed FINDINGS: Ventricles and Extra axial spaces: Normal in size and morphology for the patient's age. Hemorrhage: None. Cerebral parenchyma: No evidence of an acute territorial infarct. Midline shift: None. Brainstem/Cerebellum: Normal. Calvarium: Normal. Visualized Paranasal sinuses/Mastoids: Clear. Soft Tissues: Unremarkable. IMPRESSION: No acute intracranial process. Findings were discussed with the emergency department on the date of the examination. RADIATION DOSE DELIVERED: 722.15mGy.cm Total DLP DATA REPOSITORY: All CT scans at this facility are submitted to the National Radiology Data Registry (NRDR) Dose Index Registry (DIR) with the [employer] (A[employer]). RADIATION OPTIMIZATION: All CT scans at this facility use at least one of these dose optimization te chniques: automated exposure control; mA and/or kV adjustment per patient size (includes targeted exa ms where dose is matched to clinical indication); or iterative reconstruction.
--- NOTE | 2020-03-01 09:09 | W.ED.GENAD ---
Discharge Plan Disposition Patient Disposition: HOME Condition: Stable Discharge Details Clinical Impression: Dizziness, Fall Primary Care Provider: Keshawn Pineda ED Provider: Blank Paige Home Meds and New Rx's Prescriptions: Continued prednisone 5 mg tablet 5 mg PO BID Qty: 30 RF: 1 baclofen 10 mg tablet 5 - 10 mg PO TID Qty: 30 RF: 0 tramadol 50 mg tablet 50 mg PO QID PRN (Reason: pain) Qty: 90 RF: 5 alprazolam [Xanax] 2 mg tablet 2 mg PO BID RF: 0 alprazolam [Xanax] 0.5 mg tablet 0.5 mg PO DAILY RF: 0 venlafaxine 150 mg capsule,extended release 24hr 150 mg PO TID Qty: 90 RF: 4 ondansetron HCl 4 mg tablet 4 mg PO Q8H PRN Qty: 30 RF: 3 sumatriptan [Imitrex] 20 mg/actuation spray,non-aerosol 20 mg NS ONCE Qty: 1 RF: 5 omeprazole 40 mg capsule,delayed release(DR/EC) 40 mg PO DAILY Qty: 180 RF: 4 hydrochlorothiazide 25 mg tablet 25 mg PO DAILY Qty: 90 RF: 4 magnesium oxide 500 mg tablet 500 mg PO BID Qty: 180 RF: 0 potassium chloride 10 mEq capsule, extended release 10 meq PO DAILY Qty: 90 RF: 3 oiqfwzh-wsxxrtfawd-KQT-caff [Butalbital Compound W/Codeine] [id number] mg capsule 1 cap PO Q4H PRN (Reason: headache) Qty: 50 RF: 2 loperamide 2 MG capsule 2 mg PO PRN PRNRF: 0 diphenhydramine HCl 25 MG capsule 25 - 50 mg PO PRN PRNRF: 0 docusate sodium [Colace] 100 mg Capsule 100 mg PO DAILY RF: 0 Multivitamin 50 Plus Tablet 1 tab PO DAILY RF: 0 Discharge Instructions Instructions: Dizziness (ED), Fall Prevention (ED) Additional Instructions: Follow up with primary care provider in 3-5 days. Return to ED sooner if any worsening or concerns. Increase oral fluids. Please take Tylenol or Ibuprofen with food every 4-6 hours as needed for pain and swelling. Return for any worsening confusion, dizziness, falls. Today had a CT of your head, x-ray of your knee, and lab work which were all within normal limits. Referrals: Keshawn Pineda [Primary Care Provider] - Discharge Data Discharge Date/Time-TO BE ENTERED AT DEPARTURE: 03/01/20 14:14 Medical Decision Making 59-year-old female presents to the ER from the pain clinic after becoming dizzy, falling forward onto knees and hitting her head on the wall, No LOC. Patient is very disoriented upon arrival, slurred speech, appears very sleepy. When asked what happened this morning patient states that she could not reach the [place], and has been dizzy throughout the night. When asked if she remembers falling here she states that she does not remember. She reports that she thought she had to go to [facility] this morning. She did take her normal a.m. meds, did not eat breakfast which she states she never eats breakfast. Patient is a poor historian. BGL upon arrival is 155. 0924: Spoke with patient's Javan on the phone who states that she has not slept more than 2 hours in the last 72 hours due to being up all night with anxiety and worrying. Discussed plan of care and estimated length of stay with who verbalized understanding. EXAM: CT HEAD WO CLINICAL HISTORY: Fall, Closed head injury. TECHNIQUE: Imaging Protocol: Axial computed tomography images with coronal and sagittal reformatted images were created and reviewed FINDINGS: Ventricles and Extra axial spaces: Normal in size and morphology for the patient's age. Hemorrhage: None. Cerebral parenchyma: No evidence of an acute territorial infarct. Midline shift: None. Brainstem/Cerebellum: Normal. Calvarium: Normal. Visualized Paranasal sinuses/Mastoids: Clear. Soft Tissues: Unremarkable. IMPRESSION: No acute intracranial process. Findings were discussed with the emergency department on the date of the examination. EXAM: XR KNEE LT 3V AP,LAT,BRENDA CLINICAL HISTORY: Fall, R/O fracture. TECHNIQUE: 2D digital imaging was performed. COMPARISON: CR XR KNEE LT 3V AP,LAT,BRENDA from 02/23/2020 FINDINGS: BONES: There are stable post operative changes present. No fracture or dislocation. JOINTS: The joint spaces are well maintained. No joint effusion is present. SOFT TISSUE: Normal. IMPRESSION: Stable postoperative changes. 1208: Patient assisted up to the bedside commode for urine sample by balance staff staker, patient reported to get dizzy, and was noted to be very unsteady on her feet. When asked about the dizziness patient states that the room was spinning, she sitting there she states that it has stopped. She denies being lightheaded. 1226: Spoke again with Javan, patient's who states that she does get dizzy like this approximately 1 time a month. He does feel safe taking her home at this time. Patient was able to get dressed on her own prior to discharge patient discharged in the care of her . HPI General Mode of arrival: wheelchair (Stretcher). Date/Time Provider Initiated Documentation: 03/01/20 09:07. Limitations to Documentation: altered mental status. Information obtained by: patient and RN/MD. HPI Narrative: 59-year-old female presents to the ER from the pain clinic after becoming dizzy, falling forward onto knees and hitting her head on the wall, No LOC. Patient is very disoriented upon arrival, slurred speech, appears very sleepy. When asked what happened this morning patient states that she could not reach the [place], and has been dizzy throughout the night. When asked if she remembers falling here she states that she does not remember. She reports that she thought she had to go to [facility] this morning. She did take her normal a.m. meds, did not eat breakfast which she states she never eats breakfast. Patient is a poor historian. BGL upon arrival is 155. Related Data Home Medications Medication Instructions Recorded Confirmed diphenhydramine HCl 25 - 50 mg PO PRN PRN 10/28/17 03/01/20 loperamide 2 mg PO PRN PRN 10/28/17 03/01/20 Multivitamin 50 Plus 1 tab PO DAILY 04/28/18 03/01/20 venlafaxine 150 mg 150 mg PO TID #90 tab-cap 11/18/18 03/01/20 capsule,extended release 24 hr docusate sodium [Colace] 100 mg PO DAILY 11/20/18 03/01/20 ondansetron HCl 4 mg tablet 4 mg PO Q8H PRN #30 tab-cap 03/02/19 03/01/20 sumatriptan 20 mg/actuation nasal 20 mg NS ONCE #1 box 04/29/19 03/01/20 spray omeprazole 40 mg capsule,delayed 40 mg PO DAILY #180 cap 02/07/20 11/18/20 release hydrochlorothiazide 25 mg tablet 25 mg PO DAILY #90 tab-cap 09/20/19 03/01/20 magnesium oxide 500 mg tablet 500 mg PO BID #180 tab 09/28/19 03/01/20 potassium chloride 10 mEq 10 meq PO DAILY #90 cap 09/28/19 03/01/20 capsule,extended release xltdkvn-cbhiegcnok-KMJ-caffeine 30 1 cap PO Q4H PRN #50 cap 10/04/19 03/01/20 mg-50 mg-325 mg-40 mg capsule alprazolam 0.5 mg tablet 0.5 mg PO DAILY 01/10/20 03/01/20 alprazolam 2 mg tablet 2 mg PO BID 01/10/20 03/01/20 baclofen 10 mg tablet 5 - 10 mg PO TID #30 tab 02/22/20 03/01/20 tramadol 50 mg tablet 50 mg PO QID PRN #90 tab 02/22/20 03/01/20 prednisone 5 mg tablet 5 mg PO BID #30 tab 02/23/20 03/01/20 Previous Rx's Medication Instructions Recorded ondansetron HCl 4 mg tablet 4 mg PO Q8H PRN #30 tab-cap 03/02/19 sumatriptan 20 mg/actuation nasal 20 mg NS ONCE #1 box 04/29/19 spray omeprazole 40 mg capsule,delayed 40 mg PO DAILY #180 cap 05/21/19 release hydrochlorothiazide 25 mg tablet 25 mg PO DAILY #90 tab-cap 09/20/19 magnesium oxide 500 mg tablet 500 mg PO BID #180 tab 09/28/19 potassium chloride 10 mEq 10 meq PO DAILY #90 cap 09/28/19 capsule,extended release cfhlqnh-xuvuirnmhn-YKA-caffeine 30 1 cap PO Q4H PRN #50 cap 10/04/19 mg-50 mg-325 mg-40 mg capsule baclofen 10 mg tablet 5 - 10 mg PO TID #30 tab 02/22/20 tramadol 50 mg tablet 50 mg PO QID PRN #90 tab 02/22/20 prednisone 5 mg tablet 5 mg PO BID #30 tab 02/23/20 Allergies Allergy/AdvReac Type Severity Reaction Status Date / Time cephalexin monohydrate Allergy Severe Hives, Verified 03/01/20 09:20 [From Keflex] rash and swelling Penicillins Allergy Intermediate SKIN RASH; Verified 03/01/20 09:20 VOMITING vancomycin Allergy Intermediate RED FACE Verified 03/01/20 09:20 cyclobenzaprine AdvReac Severe Lethargy Verified 03/01/20 09:20 and confusion fentanyl AdvReac Severe pt states Verified 03/01/20 09:20 she passes out methadone AdvReac Severe HALLUCINATIONS Verified 03/01/20 09:20 OUT OF LIFE promethazine AdvReac Severe dystonic Verified 03/01/20 09:20 reaction amitriptyline AdvReac Intermediate CONFUSION Verified 03/01/20 09:20 azithromycin AdvReac Intermediate Psychosis Verified 03/01/20 09:20 lithium AdvReac Intermediate GI bleed Verified 03/01/20 09:20 nortriptyline AdvReac Intermediate INSOMNIA Verified 03/01/20 09:20 pregabalin AdvReac FACIAL Verified 03/01/20 09:20 NUMBNESS General SETH: 3 Review of Systems Narrative: Unobtainable due to mental status Constitutional Constitutional: Reports difficulty sleeping and Denies headache(s) Eyes Eyes: Denies change in vision and Denies diplopia ENT Ears, Nose, Mouth, and Throat: Reports vertigo, Reports dizziness, Denies headache(s) and Denies neck pain Cardiovascular Cardiovascular: Denies chest pain at rest, Denies chest pain with activity, Denies dyspnea and Denies orthopnea Respiratory Respiratory: Reports system reviewed and no additional complaints, except as documented and Denies dyspnea Gastrointestinal Gastrointestinal: Reports system reviewed and no additional complaints, except as documented Musculoskeletal Musculoskeletal: Denies neck pain Neurologic Neurologic: Reports vertigo, Reports dizziness and Denies headache(s) [facility] Medical History (Updated 03/01/20 @ 13:48 by Blank Paige) Anxiety Anxiety Bipolar 1 disorder Chronic pain disorder Chronic pain syndrome (11/27/11) Cystocele and rectocele with incomplete uterovaginal prolapse 05/06/2018. A&P repair hysterectomy postop recovery going well advised to increase activity slowly small granuloma at vaginal cuff cauterized with silver nitrite Depressive disorder Essential hypertension (02/22/13) Fibromyalgia Grade II hemorrhoids Hypertension Hypokalemia (03/11/12) Lumbago Migraine Migraine Pancolonic diverticulosis (02/04/14) Primary fibromyalgia syndrome Restless leg syndrome Spinal stenosis Spinal stenosis L4-5 Surgical History Abdominal hysterectomy Bilateral salpingectomy with oophorectomy Cholecystectomy (06/14/10) Colonoscopy - MAC (2013) EGD - MAC () EGD - MAC (10/31/17) H/O hemorrhoidectomy (02/10/18) Banding, Dr Garcia History of bilateral salpingo-oophorectomy History of colonoscopy (12/23/17) Dr Garcia History of esophagogastroduodenoscopy History of knee replacement Bilateral History of repair of rectocele Status post abdominal hysterectomy Status post adenoidectomy Status post cholecystectomy Status post tonsillectomy Tonsillectomy and adenoidectomy Family History Mother , 51 Diabetes Breast cancer Heart disease Father , 77 Diabetes Essential hypertension Alcohol abuse Heart disease Hyperlipidemia Sister Diabetes Cancer of neck Depression Paternal Grandfather , 85 Essential hypertension Heart disease Stroke Paternal Grandmother , 62 Diabetes Essential hypertension Stroke Maternal Grandfather , 82 No problems noted. Maternal Grandmother , 34 No problems noted. Sister Ovarian cancer Sister Alcohol abuse Depression Substance abuse Sister Throat cancer Depression Sister Alcohol abuse Depression Substance abuse Sister No problems noted. Son Alcohol abuse Substance abuse Daughter Depression Substance abuse Daughter Throat cancer Daughter Depression Substance abuse Social History Smoking/Tobacco Use Status: Never Smoking risk assessment performed?: Yes Alcohol Intake: never Drug use: Never Substance use type: does not use Caregiver/Support person: No Household members: significant other Housing: house Do you need help understanding health information?: Never Pets and animals: Yes Pets and animals: dog(s) Sexually active: Yes Do you think of yourself as: straight/heterosexual Current gender identity: female What is your relationship status?: living with partner How often do you talk on the phone with friends or family?: three or more times per week How often do you get together with friends or relatives?: once per week How often do you attend taoist or jewish services?: 4 or more times per year Do you belong to any clubs or organized social groups?: no Panel score (0-1 are the most socially isolated patients): 3 What type of physical activity do you participate in: walking and other Details: Eliptical, exercise bike Duration: 30-45 minutes/day Frequency: 3-4 times per week [place]/Mormon: Christian Special catalina needs: No Seatbelt use: always Helmet use: Yes Drive intox or ride w/intox otr company driver: No Do you feel safe at home: Yes Do you feel safe in your relationship?: Yes History History 5 Para 4 Hx # Term Pregnancies Multiple births Hx # Pregnancies Ectopic pregnancies AB induced Hx Number of Living Children 4 AB spontaneous 1 Exam Narrative Exam Narrative: Constitutional: Alert and oriented x3. Appears stated age. Normal body habitus. Head: Normocephalic, no trauma. Eyes: Pupils TODD, Red reflex noted, pupils equal bilaterally and sluggish, EOM's intact. Eyelids symmetrical without lesions, discharge, or swelling. ENT: Bilateral TM's WNL, External ear normal to inspection, no mastoid TTP, swelling, or erythema, Nasal turbinates WNL, no nasal discharge. Normal dentition, Posterior pharynx WNL, no exudate. Chest: RRR, Normal S1, S2, distal pulses intact. Resp: Lungs clear to auscultation bilaterally, no wheezes, rales, or rhonchi. Musculoskeletal: Normal gait, 2 out of 5 strength to all 4 extremities. Skin: No suspicious rashes or lesions. Capillary refill less than 2 sec. Neurologic: Cranial nerves II-XII intact. DTR's intact. No arm droop. No facial droop Hematologic/Lymphatic: No ecchymosis, no lymphadenopathy.
--- NOTE | 2020-03-01 09:15 | DI.RAD_ITS ---
EXAM: XR KNEE LT 3V AP,LAT,BRENDA CLINICAL HISTORY: Fall, R/O fracture. TECHNIQUE: 2D digital imaging was performed. COMPARISON: CR XR KNEE LT 3V AP,LAT,BRENDA from 02/23/2020 FINDINGS: BONES: There are stable post operative changes present. No fracture or dislocation. JOINTS: The joint spaces are well maintained. No joint effusion is present. SOFT TISSUE: Normal. IMPRESSION: Stable postoperative changes. DATA REPOSITORY: RADIATION DOSE DELIVERED:
[2020-03-01] MEDS: Normal Saline 1,000 ML 1000 ML IV (09:33)
[2020-03-01 09:34] LABS: Abs Immature Grans 0.02 10^3/uL (0.0-0.06); Absolute Basophil Count 0.05 10^3/uL (0.0-0.2); Absolute Eosinophil Count 0.03 10^3/uL (0.0-0.7); Absolute Lymphocyte Count 1.97 10^3/uL (1.2-3.4); Absolute Monocyte Count 0.61 10^3/uL (0.1-0.8); Absolute Neutrophil Count 4.66 10^3/uL (1.2-6.7); Basophils % 0.7; Eosinophils % 0.4; HCT 38.9 % (36.0-46.0); HGB 12.7 g/dL (11.2-15.7); Immature Grans % 0.3; Lactate 1.4 mmol/L (0.6-1.4); Lymphocytes % 26.8; MCH 27.9 pg (27.0-33.0); MCHC 32.6 % (32.0-36.0); MCV 85.5 fL (80-95); MPV 10.2 fL (8.0-11.0); Monocytes % 8.3; Neutrophils % 63.5; Nucleated RBC 0 %; Platelet Count 403 10^3/uL (130-400); RBC 4.55 10^6/uL (3.93-5.22); RDW-SD 46.9 fL; WBC 7.34 10^3/uL (4.4-10.8)
[2020-03-01 09:53] LABS: ALT 20 U/L (14-59); AST 18 U/L (15-37); Albumin 3.8 g/dL (3.4-5.0); Alkaline Phosphatase 123 U/L (46-116); Anion Gap 9.5 mmol/L (3-11); BUN 15 mg/dL (7-18); Bilirubin, Total 0.3 mg/dL (0.2-1.0); CO2 31.5 mmol/L (21.0-32.0); CREATININE 1.25 mg/dL (0.55-1.02); Calcium 8.6 mg/dL (8.5-10.1); Chloride 99 mmol/L (98-107); Estimated GFR 43.57 (mL/min/1.73m2); Glucose 94 mg/dL (74-106); Magnesium 1.7 mg/dL (1.8-2.4); Potassium 3.3 mmol/L (3.5-5.1); Sodium 140 mmol/L (136-145); Total Protein 7.5 g/dL (6.4-8.2)
[2020-03-01 09:54] LABS: Troponin I < 0.05 ng/mL (<0.06)
[2020-03-01] MEDS: MAGNESIUM SULFATE 1 GM/100 ML BAG IVPB (11:04)
[2020-03-01] MEDS: Normal Saline 250 ML IV (11:05)
[2020-03-01] MEDS: Potassium Chloride Liquid 20 MEQ PKT 40 MEQ PO (11:05)
[2020-03-01 13:24] LABS: Bilirubin Negative (Negative); Blood Negative (Negative); Clarity Clear (Clear); Glucose Negative (Negative); Ketones Negative (Negative); Leukocyte Esterase Negative (Negative); Nitrite Negative (Negative); Specific Gravity >= 1.030 (1.005-1.025); Urobilinogen 0.2 EU/dL (Up TO 0.2); pH 5.5 (5-8)
[2020-03-01 13:32] LABS: Troponin I < 0.05 ng/mL (<0.06)
[2020-03-01 13:39] LABS: *AMPHETAMINES SCREEN URINE Negative (Negative); *BARBITURATES SCREEN URINE Negative (Negative); *BENZODIAZEPINES SCREEN URINE Negative (Negative); Cannabinoids THC Negative (Negative); Cocaine Screen,Urine Negative (Negative); METHADONE URINE SCREEN Negative (Negative); OPIATES URINE SCREEN Negative (Negative)
[2020-03-01 13:40] LABS: Tricyclic Antidepressants POSITIVE (Negative)
== END 2020-03-01 14:14 | disposition home or self-care (01) ==
PROVIDERS: Emergency Provider Registered Nurse Emergency; PCP Family Medicine
DX: R42 Dizziness and giddiness (principal); R41.0 Disorientation, unspecified; R47.81 Slurred speech; R51.9 Headache, unspecified; W01.198A Fall on same level from slipping, tripping and stumbling with subsequent striking against other object, initial encounter; F41.8 Other specified anxiety disorders; Z72.820 Sleep deprivation; I10 Essential (primary) hypertension
CPT/HCPCS: 36415; 36416; 73562; 80053; 80307; 82962; 93005; 96361; 96365; 99285; 70450; 81003; 83605; 83735; 84484; 85025; 93010; J3475

== ENCOUNTER 2020-04-05 07:43 | Outpatient (CLI) | payer MEDICAID, SELFPAY ==
[2020-04-05 12:38] LABS: Abs Immature Grans 0.01 10^3/uL (0.0-0.06); Absolute Basophil Count 0.05 10^3/uL (0.0-0.2); Absolute Eosinophil Count 0.04 10^3/uL (0.0-0.7); Absolute Lymphocyte Count 1.99 10^3/uL (1.2-3.4); Absolute Monocyte Count 0.44 10^3/uL (0.1-0.8); Absolute Neutrophil Count 4.31 10^3/uL (1.2-6.7); Basophils % 0.7; Eosinophils % 0.6; HCT 43.8 % (36.0-46.0); HGB 14.2 g/dL (11.2-15.7); Immature Grans % 0.1; Lymphocytes % 29.1; MCH 27.8 pg (27.0-33.0); MCHC 32.4 % (32.0-36.0); MCV 85.9 fL (80-95); MPV 10.2 fL (8.0-11.0); Monocytes % 6.4; Neutrophils % 63.1; Nucleated RBC 0 %; Platelet Count 501 10^3/uL (130-400); RDW 14.3 % (11.7-14.6); RDW-SD 45.2 fL; WBC 6.84 10^3/uL (4.4-10.8)
[2020-04-05 13:23] LABS: ALT 32 U/L (14-59); AST 34 U/L (15-37); Albumin 3.9 g/dL (3.4-5.0); Alkaline Phosphatase 132 U/L (46-116); Anion Gap 8.1 mmol/L (3-11); BUN 18 mg/dL (7-18); Bilirubin, Total 0.3 mg/dL (0.2-1.0); CO2 28.9 mmol/L (21.0-32.0); CREATININE 1.25 mg/dL (0.55-1.02); Chloride 101 mmol/L (98-107); Estimated GFR 43.43 (mL/min/1.73m2); Glucose 129 mg/dL (74-106); Magnesium 1.7 mg/dL (1.8-2.4); Potassium 4.1 mmol/L (3.5-5.1); Sodium 138 mmol/L (136-145); TSH (W/Ref FT4) 2.21 uIU/mL (0.36-3.74); Total Protein 7.8 g/dL (6.4-8.2); Vitamin B12 348 pg/mL (193-986)
[2020-04-05 13:34] LABS: ESR 16 mm/hr (0-30)
== END 2020-04-05 08:03 ==
PROVIDERS: PCP Family Medicine; Visit Provider Family Medicine
DX: G62.9 Polyneuropathy, unspecified (principal); R27.0 Ataxia, unspecified; I10 Essential (primary) hypertension; R73.09 Other abnormal glucose
CPT/HCPCS: 36415; 80053; 85652; 70450; 82607; 83036; 83735; 84443; 85025

== ENCOUNTER 2020-04-05 07:58 | Outpatient (CLI) | payer MEDICAID, SELFPAY ==
--- NOTE | 2020-04-05 10:30 | DI.CT_ITS ---
EXAM: CT HEAD WO CLINICAL HISTORY: Ataxia, R27.0. TECHNIQUE: Imaging Protocol: Axial computed tomography images with coronal and sagittal reformatted images were created and reviewed COMPARISON: CT CT HEAD WO from 03/01/2020 FINDINGS: Ventricles and Extra axial spaces: Normal in size and morphology for the patient's age. Hemorrhage: None. Cerebral parenchyma: Normal. No acute territorial infarct. Midline shift: None. Brainstem/Cerebellum: Normal. Calvarium: Normal. Visualized Paranasal sinuses/Mastoids: Clear. Soft Tissues: Unremarkable. IMPRESSION: No acute intracranial process. RADIATION DOSE DELIVERED: 659.37mGy.cm Total DLP DATA REPOSITORY: All CT scans at this facility are submitted to the National Radiology Data Registry (NRDR) Dose Index Registry (DIR) with the [employer] (ACR). RADIATION OPTIMIZATION: All CT scans at this facility use at least one of these dose optimization te chniques: automated exposure control; mA and/or kV adjustment per patient size (includes targeted exa ms where dose is matched to clinical indication); or iterative reconstruction.
== END 2020-04-05 08:18 ==
PROVIDERS: PCP Family Medicine; Visit Provider Family Medicine
DX: R27.0 Ataxia, unspecified (principal)
CPT/HCPCS: 70450

== ENCOUNTER 2020-04-25 08:45 | Outpatient (CLI) | payer MEDICAID, SELFPAY ==
--- NOTE | 2020-04-25 06:00 | DI.RAD_ITS ---
EXAM: XR PAIN CLINIC SACRIOILIAC 2V CLINICAL HISTORY: DX: Sacroilliac Joint Dysfunction. TECHNIQUE: Fluoroscopy was provided for the referring physician for guidance with performing injecti on procedure. COMPARISON: No exams were available for comparison FINDINGS: Please see procedure note for details. Fluoro time: 28.4 sec, 8.75 mGy RADIATION DOSE DELIVERED:
[2020-04-25 09:04] VITALS: BP 116/84; PULSE 91; RESP 18; TEMP 36.5; O2SAT 97
[2020-04-25 09:34] VITALS: BP 132/92; PULSE 93; RESP 18; O2SAT 99
[2020-04-25] MEDS: Omnipaque 240 MG/ML 50 ML BTL IJ (09:43)
[2020-04-25] MEDS: methylPREDNISolone ACETATE 40 MG/ML VIAL IJ (09:43)
--- NOTE | 2020-04-25 10:31 | PDOC.PAIN_ITS ---
Pain Clinic Procedure Note Procedure Note Procedure Note: Date of procedure: April 25, 2020 INTRA-ARTICULAR RIGHT SI JOINT INJECTION QUAN MURPHY has been referred to the [facility] for intra- articular SI joint injection. COMMENTS: She was evaluated in our office on 03/22/20 DX: Sacroiliac joint dysfunction Patient was interviewed and the medical record reviewed. There were no medical, pharmacologic, radiographic or other structural contraindications to attempting fluoroscopically guided intra-articular SI joint injection. Risks and expected side effects as well as potential benefit of the procedure were reviewed and voiced concerns addressed. The printed consent form was signed and witnessed. Standard time-out procedure was performed. Patient was placed in the prone position on the fluoroscopy table and automated blood pressure cuff and pulse oximeter applied. The skin entry point for approaching right SI joint was identified under the most advantageous fluoroscopic view and marked. Following thorough Chlorhexadine preparation of the skin and draping and 1% lidocaine infiltration of the skin entry point and subcutaneous tissues, a 22 gauge spinal needle was placed under fluoroscopic guidance into right SI joint was identified under the most advantageous fluoroscopic view and marked. Intra-articular placement was confirmed by a clear arthrogram resulting from the injection of 0.5ml Omnipaque 240, 1ml 1% lidocaine, and 40mg Depomedrol were injected intra-articularily with an initial reproduction of a significant component of the usual pain. Vital signs were stable throughout the procedure and were as recorded in the docflowsheet by the nursing staff. If given, dosages of intravenous drugs for anxiolysis and analgesia were documented in MAR. Follow up plans and appointments were discussed with the patient. Post procedure instruction was given as documented in nursing documentation and having met discharge criteria, and was discharged from the [facility]. COMMENTS: If this procedure is found to be effective, she can have this up to 3 times per 12 months. If it is not effective, I would suggest repeating the lumbar RFA as she has had good success with this procedure in the past. Kike Flanagan DO, MPH Pain Management CC: Keshawn Pineda MD
== END 2020-04-25 09:05 ==
PROVIDERS: PCP Family Medicine; Visit Provider Preventive Medicine Occupational Medicine
DX: M53.3 Sacrococcygeal disorders, not elsewhere classified (principal)
CPT/HCPCS: 27096; 72200; J1030; Q9967

== ENCOUNTER 2020-06-09 17:48 | Outpatient (REF) | payer MEDICAID, SELFPAY ==
[2020-06-11 16:34] LABS: COVID-19 RT-PCR UVMMC Result Negative (Negative)
== END 2020-06-09 17:49 | disposition home or self-care (01) ==
LOC: LBN 17:48
PROVIDERS: PCP Family Medicine; Visit Provider Family Medicine
DX: Z20.822 Contact with and (suspected) exposure to COVID-19 (principal); J06.9 Acute upper respiratory infection, unspecified
CPT/HCPCS: U0003

== ENCOUNTER 2020-06-22 04:13 | Observation (INO) | payer MEDICAID, SELFPAY ==
[2020-06-22] VITALS (122 sets, daily range): BP systolic 46–126; BP diastolic 30–98; PULSE 66–143; RESP 10–25; TEMP 36.3–36.6; O2SAT 87–100
--- NOTE | 2020-06-22 04:15 | RT.EKG_ITS ---
APPROVED REPORT Exam: Resting ECG Patient Location: E HR:74 bpm ECG Measurements Heart Rate 74 AXIS OR 197 P 29 QRSd 114 QRS -10 QT 427 T 48 QTc 475 Conclusion Sinus rhythm...normal P axis, V-rate 60- 99 Nonspecific repol abnormality, diffuse leads...ST dep, T flat/neg, ant/lat/inf Physician: No stemi, minimal depressions in ant/lat leads, unchanged from prior ekg on 03/01/20
--- NOTE | 2020-06-22 04:23 | W.ED.GENAD ---
Discharge Plan Disposition Patient Disposition: STILL A PATIENT Condition: Stable Discharge Details Clinical Impression: AMS (altered mental status), Alkalosis, metabolic, Polypharmacy Primary Care Provider: Keshawn Pineda ED Provider: Paula Bonilla Home Meds and New Rx's Prescriptions: No Action tramadol 50 mg tablet 50 mg PO QID PRN (Reason: pain) Qty: 90 RF: 5 alprazolam [Xanax] 0.5 mg tablet 0.5 mg PO DAILY RF: 0 alprazolam [Xanax] 2 mg tablet 2 mg PO BID PRNRF: 0 venlafaxine 150 mg capsule,extended release 24hr 150 mg PO TID Qty: 90 RF: 4 sumatriptan [Imitrex] 20 mg/actuation spray,non-aerosol 20 mg NS ONCE Qty: 1 RF: 5 hydrochlorothiazide 25 mg tablet 25 mg PO DAILY Qty: 90 RF: 4 magnesium oxide 500 mg tablet 500 mg PO BID Qty: 180 RF: 0 potassium chloride 10 mEq capsule, extended release 10 meq PO DAILY Qty: 90 RF: 3 baclofen 10 mg tablet 5 - 10 mg PO TID Qty: 30 RF: 0 ondansetron HCl 4 mg tablet 4 mg PO Q8H PRN Qty: 30 RF: 3 qkeyybf-zpegopryoq-HFY-caff [Butalbital Compound W/Codeine] [id number] mg capsule 1 cap PO Q4H PRN (Reason: headache) Qty: 50 RF: 2 omeprazole 40 mg capsule,delayed release(DR/EC) 40 mg PO DAILY Qty: 90 RF: 4 loperamide 2 MG capsule 2 mg PO PRN PRNRF: 0 diphenhydramine HCl 25 MG capsule 25 - 50 mg PO PRN PRNRF: 0 docusate sodium [Colace] 100 mg Capsule 100 mg PO DAILY RF: 0 Multivitamin 50 Plus Tablet 1 tab PO DAILY RF: 0 zolpidem [Ambien] 10 mg Tablet 10 HS RF: 0 Medical Decision Making <Alex Dobbins DO - Last Filed: 06/22/20 07:43> This is a 60-year-old female with a past medical history of anxiety, bipolar, depression, chronic pain syndrome, fibromyalgia, hypertension, restless leg syndrome who presents this evening from the care bed for fall/confusion. Care rubbing bed operator states that for the last few days patient has been slightly more confused than baseline. This evening the patient fell out of bed however when EMS arrived the patient was able to get up off the floor without any difficulty. Currently the patient complains of pain in her right hip. She does know the year but does not know the month. Aside for this she has no other complaints. The care bed coordinator is concerned that perhaps she is getting medications during the evening which could be inhibiting her confusion. No other history at this time. No other modifying factors. Uncertain from both staff and patient whether or not she hit her head this evening when she fell. Exam demonstrates a slightly muted and slightly altered patient, no signs of significant trauma. Mild pain in the right greater trochanter and with logroll of the right leg. No evidence of trauma otherwise. Neurologic exam is limited secondary to noncompliance. No severe focal deficits are appreciated currently. Differential includes iatrogenic secondary to her medications, dehydration, mild infection, or intracranial etiology. Will evaluate for these life-threatening etiologies, monitor closely and reassess. 5:50 AM Laboratory work-up has returned and is certainly atypical. Patient has no white count bandemia or left shift. Platelets are slightly elevated. Electrolytes demonstrated a potassium of 3.1, and elevated bicarb, but no anion gap. Troponin normal, TSH normal, salicylates acetaminophen negative, alcohol unremarkable. Patient's VBG is unexpected. She demonstrates a respiratory acidosis with a metabolic alkalosis with an overall picture of an alkalotic state with a pH of 7.42. Uncertain as to the reason. She has no history of lung disease, her lung sounds demonstrate no wheezes rales or rhonchi. She has no history of asthma or COPD. I doubt a chronic retainer. I am concerned for an acute etiology causing the elevated bicarb level, additionally the elevated PCO2 clinically would appear more acute given her more somnolent and altered status. We will start BiPAP to drive the PCO2 down, will continue to monitor closely. Review of the patient's medical list looks like she is recently been started on Ambien, as well as currently being on tramadol, and alprazolam. Am concerned that perhaps polypharmacy may be a component of her symptoms. No beds are currently available at [facility] right now but may open up later in this morning. CT scan of the head is negative, CT of the hips is negative, we will continue to monitor. 6:17 AM Upon review of the patient's med list it does appear that for nighttime she is scheduled for alprazolam, Flexeril, Ambien, Effexor, baclofen, and codeine. I do suspect there is a component of polypharmacy that is causing her current symptoms. Patient remained stable here in the ED. 7:41 AM Chest x-ray results demonstrate vascular shadow versus infiltrate, however she has no cough, no shortness of breath, no white count no fever no chills. Symptoms appearing consistent with pneumonia. No indication for antibiotics at this time as I suspect this is actually an overcall and more of a vascular shadow as she does not demonstrate clinical evidence of pneumonia. Her PCO2 has notably decreased with the BiPAP, but her mental status is not changed. Thus I do not feel that hypercarbia is the cause of her altered mental status. I suspect it is still polypharmacy. Case will be signed out to my colleague Dr. Bonilla for continued observation here in the ER to see if she has improvement of her mental status versus potential admission if she does not have improvement. No beds are currently available at [facility] right now, but some should open up later today. FINDINGS: Bones/joints: AP and lateral views of the right femur are submitted. No acute femur fracture is seen. There is no dislocation of the hip joint. There is a right knee arthroplasty prosthesis. The patella is only demonstrated by a lateral view but appears grossly heterogeneous. Fragmentation of the patella is not confidently excluded although this may represent the postsurgical appearance. Soft tissues: No gross soft tissue abnormality is demonstrated. IMPRESSION: 1. No acute femur fracture demonstrated. No dislocation at the hip joint. 2. Patella only demonstrated by the lateral view but with a heterogeneous appearance. Fragmentation of the patella is not confidently excluded although this may represent the postprocedural appearance. Comparison with a prior lateral knee radiograph is recommended. Thank you for allowing us to participate in the care of your patient. Dictated and Authenticated by: Horace Maria MD 06/22/2020 5:57 AM Eastern Time ([place] & [place]) FINDINGS: Brain: No acute intracranial hemorrhage, mass-effect, midline shift, or extra-axial collection is seen. The slade white matter differentiation appears preserved. Cerebral ventricles: The ventricular system and basilar cisterns appear appropriate in size and configuration. Bones/joints: The bony calvarium appears intact. No depressed skull fracture is seen. There is hyperostosis frontalis interna. Paranasal sinuses: The paranasal sinuses appear well aerated. No air-fluid levels are seen. Mastoid air cells: The mastoid air cells appear well-aerated. Auditory system: The middle ear cavities appear clear. Orbital cavity: The globes and intraorbital structures appear grossly intact. Soft tissues: No gross focal scalp hematoma is seen. IMPRESSION: No acute intracranial hemorrhage or depressed skull fracture. Thank you for allowing us to participate in the care of your patient. Dictated and Authenticated by: Horace Maria MD 06/22/2020 5:42 AM Eastern Time ([place] & [place]) FINDINGS: Bones/joints: A single AP view of the pelvis reveals no acute fracture or dislocation. Within the limits of the exam, the proximal femurs appear intact bilaterally. Degenerative changes are noted at the pubic symphysis. Soft tissues: No gross soft tissue abnormality is demonstrated. Gastrointestinal tract: There is a small amount of retained fecal material in the right colon. The rectum is moderately distended with gas. IMPRESSION: No acute fracture or dislocation seen in the pelvis. Thank you for allowing us to participate in the care of your patient. Dictated and Authenticated by: Horace Maria MD 06/22/2020 5:48 AM Eastern Time ([place] & [place]) FINDINGS: Mildly limited due to positioning Lungs: Mild chronic interstitial prominence. Right infrahilar opacity versus overlying shadow Pleural spaces: No pleural effusion. No pneumothorax. Heart/Mediastinum: Grossly stable. Bones/joints: Grossly stable IMPRESSION: Right infrahilar opacity versus overlying vascular shadow. Correlate for right lower lobe pneumonia. Continued radiographic follow-up as clinically indicated Thank you for allowing us to participate in the care of your patient. Dictated and Authenticated by: Nolan Murphy MD 06/22/2020 6:40 AM Eastern Time ([place] & [place]) <Paula Bonilla DO - Last Filed: 06/22/20 15:24> 0800 --please see Dr. Dobbins's note for initial presentation, exam and plan. Case endorsed to continue to monitor patient mental status and if continues to improve, can discharged back to the care bed. Patient's ABG shows a mixed respiratory acidosis and metabolic alkalosis with a pH which is up trending from 7.42 to 7.47. Patient sleeping at bedside but arousable. She is oriented to person and place but not time. When asked about year she states May. She continues to fall asleep during evaluation but is able to be aroused. She does endorse that she fell last night and initially says she hit her head but then states she hit her hip. She still appears confused and somnolent. We will continue to monitor. Will give a bolus of IV fluids. Case discussed with Delilah and at the care bed. Patient was admitted there on June 16 from home for management of her depression. Discussed that patient is on multiple sedating medications. She has an appointment with the psych SAS ADMINISTRATOR today at 11:30 AM through zoom. If patient's mental status improves, can consider this zoom appointment at bedside here. Patient also has an appointment with her primary care provider at 3 PM today. If patient's mental status does not continue to improve, will admit for observation. 1100 --patient now more awake and alert. She spoke to her boyfriend over the phone here. We will plan for her to meet with her SAS ADMINISTRATOR over Zoom at 1130. Obtained a repeat VBG which appears much improved. pH, PCO2 and bicarb trending toward normal. She has no fever, normal white blood cell count, is hemodynamically stable, no meningeal signs and presentation not consistent with meningitis or other acute infectious process at this time. Patient reassessed and still very sleepy. Attempted to have her to eat a meal but she was unable to stay awake to eat this. We will plan for admission for observation. Case also discussed with patient's SAS ADMINISTRATOR Nicolasa. We were unable to make this zoom meeting happen due to technical issues. She was informed that we suspect her current condition may be due to polypharmacy. She will plan to speak to patient's primary care doctor to manage her medications and possibly make some changes. Case discussed with hospitalist accepts patient for admission. Medical Records Medical records reviewed: Yes I reviewed the patient's medical records. Imaging Data Radiologic Study: Radiologist's impression: XR LUMBAR SPINE COMPLETE CLINICAL HISTORY: s/p fall, midline tenderness, r/o fx. TECHNIQUE: 2D digital imaging was performed. COMPARISON: No exams were available for comparison FINDINGS: There is no acute fracture or subluxation in the lumbar spine. Moderate degenerative changes are present in the spine. No spondylolysis or spondylolisthesis is present. Surgical clips are seen in the right upper quadrant of the abdomen likely reflecting prior cholecystectomy. IMPRESSION: No acute fracture or subluxation in the lumbar spine. Lab Data Lab results reviewed: Yes I reviewed the patient's lab results. Labs: Laboratory Tests Range/Units 06/22/20 06/22/20 06/22/20 04:30 04:30 04:30 WBC (4.4-10.8) 10^3/uL RBC (3.93-5.22) 10^6/uL Hgb (11.2-15.7) g/dL Hct (36.0-46.0) % MCV (80-95) fL MCH (27.0-33.0) pg MCHC (32.0-36.0) % RDW (11.7-14.6) % Plt Count (130-400) 10^3/uL MPV (8.0-11.0) fL Immature Gran % Neutrophils % Lymphocytes % Monocytes % Eosinophils % Basophils % Nucleated RBC % % Absolute Neutrophils (1.2-6.7) 10^3/uL Absolute Lymphocytes (1.2-3.4) 10^3/uL Absolute Monocytes (0.1-0.8) 10^3/uL Absolute Eosinophils (0.0-0.7) 10^3/uL Absolute Basophils (0.0-0.2) 10^3/uL PT (9.3-11.0) sec INR (0.9-1.1) APTT (21.0-27.5) sec VBG pH (7.31-7.41) VBG pCO2 (41-51) mmHg VBG pO2 mmHg VBG HCO3 (23-28) mmol/L VBG Total CO2 (24-29) mmol/L VBG O2 Saturation % VBG Base Excess (-2-3) mmol/L Sodium (136-145) mmol/L 139 Potassium (3.5-5.1) mmol/L 3.1 L Chloride (98-107) mmol/L 95 L Carbon Dioxide (21.0-32.0) mmol/L 36.7 H Anion Gap (3-11) mmol/L 7.3 BUN (7-18) mg/dL 14 Creatinine (0.55-1.02) mg/dL 1.1 H Estimated GFR/1.73 m2 (mL/min/1.73m2) 50.33 Glucose (74-106) mg/dL 130 H Calcium (8.5-10.1) mg/dL 9.5 Magnesium (1.8-2.4) mg/dL Total Bilirubin (0.2-1.0) mg/dL 0.5 AST (15-37) U/L 28 ALT (14-59) U/L 34 Alkaline Phosphatase (46-116) U/L 120 H Ammonia (11-32) umol/L 11 Troponin I (<0.06) ng/mL < 0.05 Total Protein (6.4-8.2) g/dL 7.6 Albumin (3.4-5.0) g/dL 4.0 TSH (0.36-3.74) uIU/mL 3.54 Urine Color (Yellow) Urine Clarity (Clear) Urine pH (5-8) Ur Specific [place] (1.005-1.025) Urine Protein (Negative) mg/dL Urine Ketones (Negative) mg/dL Urine Blood (Negative) Urine Nitrite (Negative) Urine Bilirubin (Negative) Urine Urobilinogen (Up TO 0.2) EU/dL Ur Leukocyte Esterase (Negative) Urine Glucose (Negative) mg/dL Salicylates (<2.8) mg/dL < 2.8 Urine Opiates Screen (Negative) Urine Methadone Screen (Negative) Acetaminophen (10-30) ug/mL < 2 Ur Barbiturates Screen (Negative) Ur Tricyclics Screen (Negative) Ur Amphetamines Screen (Negative) U Benzodiazepines Scrn (Negative) Urine Cocaine Screen (Negative) Ur THC Screen (Negative) Ethyl Alcohol (<3) mg/dL < 3.0 COVID-19 Source SARS-CoV-2 (PCR) (Negative) Influenza Type A (PCR) (Negative) Influenza Type B (PCR) (Negative) RSV (PCR) (Negative) Range/Units 06/22/20 06/22/20 06/22/20 04:30 04:30 04:30 WBC (4.4-10.8) 10^3/uL 9.40 RBC (3.93-5.22) 10^6/uL 5.16 Hgb (11.2-15.7) g/dL 14.5 Hct (36.0-46.0) % 44.1 MCV (80-95) fL 85.5 MCH (27.0-33.0) pg 28.1 MCHC (32.0-36.0) % 32.9 RDW (11.7-14.6) % 15.1 H Plt Count (130-400) 10^3/uL 483 H MPV (8.0-11.0) fL 10.3 Immature Gran % 0.2 Neutrophils % 54.2 Lymphocytes % 34.1 Monocytes % 7.8 Eosinophils % 3.1 Basophils % 0.6 Nucleated RBC % % 0 Absolute Neutrophils (1.2-6.7) 10^3/uL 5.09 Absolute Lymphocytes (1.2-3.4) 10^3/uL 3.21 Absolute Monocytes (0.1-0.8) 10^3/uL 0.73 Absolute Eosinophils (0.0-0.7) 10^3/uL 0.29 Absolute Basophils (0.0-0.2) 10^3/uL 0.06 PT (9.3-11.0) sec 10.7 INR (0.9-1.1) 1.1 APTT (21.0-27.5) sec 25.4 VBG pH (7.31-7.41) 7.42 H VBG pCO2 (41-51) mmHg 61 H* VBG pO2 mmHg 28 VBG HCO3 (23-28) mmol/L 40 H VBG Total CO2 (24-29) mmol/L 36 H VBG O2 Saturation % 53 VBG Base Excess (-2-3) mmol/L > 15 H Sodium (136-145) mmol/L Potassium (3.5-5.1) mmol/L Chloride (98-107) mmol/L Carbon Dioxide (21.0-32.0) mmol/L Anion Gap (3-11) mmol/L BUN (7-18) mg/dL Creatinine (0.55-1.02) mg/dL Estimated GFR/1.73 m2 (mL/min/1.73m2) Glucose (74-106) mg/dL Calcium (8.5-10.1) mg/dL Magnesium (1.8-2.4) mg/dL Total Bilirubin (0.2-1.0) mg/dL AST (15-37) U/L ALT (14-59) U/L Alkaline Phosphatase (46-116) U/L Ammonia (11-32) umol/L Troponin I (<0.06) ng/mL Total Protein (6.4-8.2) g/dL Albumin (3.4-5.0) g/dL TSH (0.36-3.74) uIU/mL Urine Color (Yellow) Urine Clarity (Clear) Urine pH (5-8) Ur Specific [place] (1.005-1.025) Urine Protein (Negative) mg/dL Urine Ketones (Negative) mg/dL Urine Blood (Negative) Urine Nitrite (Negative) Urine Bilirubin (Negative) Urine Urobilinogen (Up TO 0.2) EU/dL Ur Leukocyte Esterase (Negative) Urine Glucose (Negative) mg/dL Salicylates (<2.8) mg/dL Urine Opiates Screen (Negative) Urine Methadone Screen (Negative) Acetaminophen (10-30) ug/mL Ur Barbiturates Screen (Negative) Ur Tricyclics Screen (Negative) Ur Amphetamines Screen (Negative) U Benzodiazepines Scrn (Negative) Urine Cocaine Screen (Negative) Ur THC Screen (Negative) Ethyl Alcohol (<3) mg/dL COVID-19 Source SARS-CoV-2 (PCR) (Negative) Influenza Type A (PCR) (Negative) Influenza Type B (PCR) (Negative) RSV (PCR) (Negative) Range/Units 06/22/20 06/22/20 06/22/20 04:30 05:55 06:30 WBC (4.4-10.8) 10^3/uL RBC (3.93-5.22) 10^6/uL Hgb (11.2-15.7) g/dL Hct (36.0-46.0) % MCV (80-95) fL MCH (27.0-33.0) pg MCHC (32.0-36.0) % RDW (11.7-14.6) % Plt Count (130-400) 10^3/uL MPV (8.0-11.0) fL Immature Gran % Neutrophils % Lymphocytes % Monocytes % Eosinophils % Basophils % Nucleated RBC % % Absolute Neutrophils (1.2-6.7) 10^3/uL Absolute Lymphocytes (1.2-3.4) 10^3/uL Absolute Monocytes (0.1-0.8) 10^3/uL Absolute Eosinophils (0.0-0.7) 10^3/uL Absolute Basophils (0.0-0.2) 10^3/uL PT (9.3-11.0) sec INR (0.9-1.1) APTT (21.0-27.5) sec VBG pH (7.31-7.41) VBG pCO2 (41-51) mmHg VBG pO2 mmHg VBG HCO3 (23-28) mmol/L VBG Total CO2 (24-29) mmol/L VBG O2 Saturation % VBG Base Excess (-2-3) mmol/L Sodium (136-145) mmol/L Potassium (3.5-5.1) mmol/L Chloride (98-107) mmol/L Carbon Dioxide (21.0-32.0) mmol/L Anion Gap (3-11) mmol/L BUN (7-18) mg/dL Creatinine (0.55-1.02) mg/dL Estimated GFR/1.73 m2 (mL/min/1.73m2) Glucose (74-106) mg/dL Calcium (8.5-10.1) mg/dL Magnesium (1.8-2.4) mg/dL 2.8 H Total Bilirubin (0.2-1.0) mg/dL AST (15-37) U/L ALT (14-59) U/L Alkaline Phosphatase (46-116) U/L Ammonia (11-32) umol/L Troponin I (<0.06) ng/mL Total Protein (6.4-8.2) g/dL Albumin (3.4-5.0) g/dL TSH (0.36-3.74) uIU/mL Urine Color (Yellow) Yellow Urine Clarity (Clear) Clear Urine pH (5-8) 7.5 Ur Specific [place] (1.005-1.025) 1.020 Urine Protein (Negative) mg/dL Negative Urine Ketones (Negative) mg/dL Negative Urine Blood (Negative) Negative Urine Nitrite (Negative) Negative Urine Bilirubin (Negative) Negative Urine Urobilinogen (Up TO 0.2) EU/dL 0.2 Ur Leukocyte Esterase (Negative) Negative Urine Glucose (Negative) mg/dL Negative Salicylates (<2.8) mg/dL Urine Opiates Screen (Negative) Urine Methadone Screen (Negative) Acetaminophen (10-30) ug/mL Ur Barbiturates Screen (Negative) Ur Tricyclics Screen (Negative) Ur Amphetamines Screen (Negative) U Benzodiazepines Scrn (Negative) Urine Cocaine Screen (Negative) Ur THC Screen (Negative) Ethyl Alcohol (<3) mg/dL COVID-19 Source Nasopharyx SARS-CoV-2 (PCR) (Negative) Negative Influenza Type A (PCR) (Negative) Negative Influenza Type B (PCR) (Negative) Negative RSV (PCR) (Negative) Negative Range/Units 06/22/20 06/22/20 06/22/20 06:30 06:45 11:02 WBC (4.4-10.8) 10^3/uL RBC (3.93-5.22) 10^6/uL Hgb (11.2-15.7) g/dL Hct (36.0-46.0) % MCV (80-95) fL MCH (27.0-33.0) pg MCHC (32.0-36.0) % RDW (11.7-14.6) % Plt Count (130-400) 10^3/uL MPV (8.0-11.0) fL Immature Gran % Neutrophils % Lymphocytes % Monocytes % Eosinophils % Basophils % Nucleated RBC % % Absolute Neutrophils (1.2-6.7) 10^3/uL Absolute Lymphocytes (1.2-3.4) 10^3/uL Absolute Monocytes (0.1-0.8) 10^3/uL Absolute Eosinophils (0.0-0.7) 10^3/uL Absolute Basophils (0.0-0.2) 10^3/uL PT (9.3-11.0) sec INR (0.9-1.1) APTT (21.0-27.5) sec VBG pH (7.31-7.41) 7.47 H 7.45 H VBG pCO2 (41-51) mmHg 56 H 53 H VBG pO2 mmHg 33 32 VBG HCO3 (23-28) mmol/L 41 H 37 H VBG Total CO2 (24-29) mmol/L 36 H 33 H VBG O2 Saturation % 64 63 VBG Base Excess (-2-3) mmol/L > 15 H 13 H Sodium (136-145) mmol/L Potassium (3.5-5.1) mmol/L Chloride (98-107) mmol/L Carbon Dioxide (21.0-32.0) mmol/L Anion Gap (3-11) mmol/L BUN (7-18) mg/dL Creatinine (0.55-1.02) mg/dL Estimated GFR/1.73 m2 (mL/min/1.73m2) Glucose (74-106) mg/dL Calcium (8.5-10.1) mg/dL Magnesium (1.8-2.4) mg/dL Total Bilirubin (0.2-1.0) mg/dL AST (15-37) U/L ALT (14-59) U/L Alkaline Phosphatase (46-116) U/L Ammonia (11-32) umol/L Troponin I (<0.06) ng/mL Total Protein (6.4-8.2) g/dL Albumin (3.4-5.0) g/dL TSH (0.36-3.74) uIU/mL Urine Color (Yellow) Urine Clarity (Clear) Urine pH (5-8) Ur Specific [place] (1.005-1.025) Urine Protein (Negative) mg/dL Urine Ketones (Negative) mg/dL Urine Blood (Negative) Urine Nitrite (Negative) Urine Bilirubin (Negative) Urine Urobilinogen (Up TO 0.2) EU/dL Ur Leukocyte Esterase (Negative) Urine Glucose (Negative) mg/dL Salicylates (<2.8) mg/dL Urine Opiates Screen (Negative) Negative Urine Methadone Screen (Negative) Negative Acetaminophen (10-30) ug/mL Ur Barbiturates Screen (Negative) Negative Ur Tricyclics Screen (Negative) Negative Ur Amphetamines Screen (Negative) Negative U Benzodiazepines Scrn (Negative) Positive A Urine Cocaine Screen (Negative) Negative Ur THC Screen (Negative) Negative Ethyl Alcohol (<3) mg/dL COVID-19 Source SARS-CoV-2 (PCR) (Negative) Influenza Type A (PCR) (Negative) Influenza Type B (PCR) (Negative) RSV (PCR) (Negative) HPI <Alex Dobbins DO - Last Filed: 06/22/20 07:43> General Date/Time Provider Initiated Documentation: 06/22/20 05:35. HPI Narrative: This is a 60-year-old female with a past medical history of anxiety, bipolar, depression, chronic pain syndrome, fibromyalgia, hypertension, restless leg syndrome who presents this evening from the care bed for fall/confusion. Care rubbing bed operator states that for the last few days patient has been slightly more confused than baseline. This evening the patient fell out of bed however when EMS arrived the patient was able to get up off the floor without any difficulty. Currently the patient complains of pain in her right hip. She does know the year but does not know the month. Aside for this she has no other complaints. The care bed coordinator is concerned that perhaps she is getting medications during the evening which could be inhibiting her confusion. No other history at this time. No other modifying factors. Uncertain from both staff and patient whether or not she hit her head this evening when she fell. Related Data Home Medications Medication Instructions Recorded Confirmed diphenhydramine HCl 25 - 50 mg PO PRN PRN 10/28/17 04/25/20 loperamide 2 mg PO PRN PRN 10/28/17 04/25/20 Multivitamin 50 Plus 1 tab PO DAILY 04/28/18 04/25/20 venlafaxine 150 mg 150 mg PO TID #90 tab-cap 11/18/18 04/25/20 capsule,extended release 24 hr docusate sodium [Colace] 100 mg PO DAILY 11/20/18 04/25/20 sumatriptan 20 mg/actuation nasal 20 mg NS ONCE #1 box 04/29/19 04/25/20 spray alprazolam 0.5 mg tablet 0.5 mg PO DAILY 01/10/20 04/25/20 tramadol 50 mg tablet 50 mg PO QID PRN #90 tab 02/22/20 04/25/20 hydrochlorothiazide 25 mg tablet 25 mg PO DAILY #90 tab-cap 05/22/20 magnesium oxide 500 mg tablet 500 mg PO BID #180 tab 05/22/20 potassium chloride 10 mEq 10 meq PO DAILY #90 cap 05/22/20 capsule,extended release baclofen 10 mg tablet 5 - 10 mg PO TID #30 tab 05/24/20 ondansetron HCl 4 mg tablet 4 mg PO Q8H PRN #30 tab-cap 05/24/20 twnnzoe-spfwoiqhwr-WBD-caffeine 30 1 cap PO Q4H PRN #50 cap 05/26/20 mg-50 mg-325 mg-40 mg capsule omeprazole 40 mg capsule,delayed 40 mg PO DAILY #90 cap 05/31/20 release alprazolam 2 mg tablet 2 mg PO BID PRN 06/09/20 zolpidem [Ambien] 10 HS 06/22/20 Previous Rx's Medication Instructions Recorded sumatriptan 20 mg/actuation nasal 20 mg NS ONCE #1 box 04/29/19 spray tramadol 50 mg tablet 50 mg PO QID PRN #90 tab 02/22/20 hydrochlorothiazide 25 mg tablet 25 mg PO DAILY #90 tab-cap 05/22/20 magnesium oxide 500 mg tablet 500 mg PO BID #180 tab 05/22/20 potassium chloride 10 mEq 10 meq PO DAILY #90 cap 05/22/20 capsule,extended release baclofen 10 mg tablet 5 - 10 mg PO TID #30 tab 05/24/20 ondansetron HCl 4 mg tablet 4 mg PO Q8H PRN #30 tab-cap 05/24/20 yjzlese-zuyjlaoutu-BOG-caffeine 30 1 cap PO Q4H PRN #50 cap 05/26/20 mg-50 mg-325 mg-40 mg capsule omeprazole 40 mg capsule,delayed 40 mg PO DAILY #90 cap 05/31/20 release Allergies Allergy/AdvReac Type Severity Reaction Status Date / Time cephalexin monohydrate Allergy Severe Hives, Verified 06/22/20 04:27 [From Keflex] rash and swelling Penicillins Allergy Intermediate SKIN RASH; Verified 06/22/20 04:27 VOMITING vancomycin Allergy Intermediate RED FACE Verified 06/22/20 04:27 cyclobenzaprine AdvReac Severe Lethargy Verified 06/22/20 04:27 and confusion fentanyl AdvReac Severe pt states Verified 06/22/20 04:27 she passes out methadone AdvReac Severe HALLUCINATIONS Verified 06/22/20 04:27 OUT OF LIFE promethazine AdvReac Severe dystonic Verified 06/22/20 04:27 reaction amitriptyline AdvReac Intermediate CONFUSION Verified 06/22/20 04:27 azithromycin AdvReac Intermediate Psychosis Verified 06/22/20 04:27 lithium AdvReac Intermediate GI bleed Verified 06/22/20 04:27 nortriptyline AdvReac Intermediate INSOMNIA Verified 06/22/20 04:27 imipramine AdvReac Verified 06/22/20 04:27 pregabalin AdvReac FACIAL Verified 06/22/20 04:27 NUMBNESS General SETH: 3 Review of Systems <Alex Dobbins DO - Last Filed: 06/22/20 07:43> All systems reviewed & are unremarkable except as noted in HPI and below PFSH <Alex Dobbins DO - Last Filed: 06/22/20 07:43> Medical History (Updated 06/22/20 @ 07:43 by Alex Dobbins DO) Anxiety Anxiety Bipolar 1 disorder Chronic pain disorder Chronic pain syndrome (11/27/11) Cystocele and rectocele with incomplete uterovaginal prolapse 05/06/2018. A&P repair hysterectomy postop recovery going well advised to increase activity slowly small granuloma at vaginal cuff cauterized with silver nitrite Depressive disorder Essential hypertension (02/22/13) Fibromyalgia Grade II hemorrhoids Hypertension Hypokalemia (03/11/12) Lumbago Migraine Migraine Pancolonic diverticulosis (02/04/14) Primary fibromyalgia syndrome Restless leg syndrome Spinal stenosis Spinal stenosis L4-5 Surgical History Abdominal hysterectomy Bilateral salpingectomy with oophorectomy Cholecystectomy (06/14/10) Colonoscopy - MAC (2013) EGD - MAC (~2013) EGD - MAC (10/31/17) H/O hemorrhoidectomy (02/10/18) Banding, Dr Garcia History of bilateral salpingo-oophorectomy History of colonoscopy (12/23/17) Dr Garcia History of esophagogastroduodenoscopy History of knee replacement Bilateral History of repair of rectocele Status post abdominal hysterectomy Status post adenoidectomy Status post cholecystectomy Status post tonsillectomy Tonsillectomy and adenoidectomy Family History Mother , 51 Diabetes Breast cancer Heart disease Father , 77 Diabetes Essential hypertension Alcohol abuse Heart disease Hyperlipidemia Sister Diabetes Cancer of neck Depression Paternal Grandfather , 85 Essential hypertension Heart disease Stroke Paternal Grandmother , 62 Diabetes Essential hypertension Stroke Maternal Grandfather , 82 No problems noted. Maternal Grandmother , 34 No problems noted. Sister Ovarian cancer Sister Alcohol abuse Depression Substance abuse Sister Throat cancer Depression Sister Alcohol abuse Depression Substance abuse Sister No problems noted. Son Alcohol abuse Substance abuse Daughter Depression Substance abuse Daughter Throat cancer Daughter Depression Substance abuse Social History Smoking/Tobacco Use Status: Never Smoking risk assessment performed?: Yes Alcohol Intake: never Drug use: Never Substance use type: does not use Caregiver/Support person: No Household members: significant other Housing: house Do you need help understanding health information?: Never Pets and animals: Yes Pets and animals: dog(s) Sexually active: Yes Do you think of yourself as: straight/heterosexual Current gender identity: female What is your relationship status?: living with partner How often do you talk on the phone with friends or family?: three or more times per week How often do you get together with friends or relatives?: once per week How often do you attend quaker or latter-day services?: 4 or more times per year Do you belong to any clubs or organized social groups?: no Panel score (0-1 are the most socially isolated patients): 3 What type of physical activity do you participate in: walking and other Details: Eliptical, exercise bike Duration: 30-45 minutes/day Frequency: 3-4 times per week Catalina/Oriental Orthodox: Faith Special catalina needs: No Seatbelt use: always Helmet use: Yes Drive intox or ride w/intox auto carrier driver: No Do you feel safe at home: Yes Do you feel safe in your relationship?: Yes History History 5 Para 4 Hx # Term Pregnancies Multiple births Hx # Pregnancies Ectopic pregnancies AB induced Hx Number of Living Children 4 AB spontaneous 1 Exam <Alex Dobbins DO - Last Filed: 06/22/20 07:43> Narrative Exam Narrative: 1.Const: Well-nourished, Well-developed, appearing stated age 2.Eyes: PERRL, no conjunctival injection, and symmetrical lids. 3.ENT: Atraumatic external nose and ears. Moist MM. Neck: Symmetric, trachea midline, No thyromegaly. There is no evidence of raccoon eyes, ruiz sign, CSF rhinorrhea, mastoid tenderness, cranial crepitus, hemotympanum, exophthalmos, or hyphema. Patient demonstrates intact dentition with no signs of tooth avulsion or fracture, no signs of jaw deformity, no evidence of a LeFort's fracture, with an intact palate, nose and orbital region. There is no evidence of a nasal septal hematoma. No proptosis. Jaw closes symmetrically. Airway is clear. 4.CVS: +S1/S2, No murmurs or gallops. Peripheral pulses 2+ and equal in all extremities. Brisk capillary refill in all extremities. 5.RESP: Unlabored respiratory effort. Clear to auscultation bilaterally. No wheezes rales or rhonchi 6.GI: Soft, Nontender/Nondistended, No hepatosplenomegaly. No guarding or rebound. 7.MSK: Normocephalic/Atraumatic, Extremities w/o deformity. No cyanosis or clubbing, Normal movement of all extremities, mild pain in the right hip is present with palpation over the greater trochanter. Mild pain with logroll. The patient is able to get up and pivot from the stretcher without difficulty though. No midline cervical lumbar thoracic tenderness. No evidence of trauma. 8.Skin: Warm, Dry. No rashes or lesions. 9.Neuro: sonoscope operator II-XII grossly intact. Sensation grossly intact,. Patient demonstrates good [id number] on the right, but does not respond to commands for the left. She moves all extremities well without difficulty. She is unwilling to cooperate with the rest of the neurologic assessment. 10.Psych: (AAO) x2. Slightly confused, she is aware of the year, but does not get the month correct. No slurring of speech but she does appear slightly muted. Sign Out <Alex Dobbins DO - Last Filed: 06/22/20 07:43> Sign Out Data: Sign Out Comment: Altered mental status, CT head negative. VBG demonstrates respiratory acidosis and metabolic alkalosis with an overall alkalotic picture. Suspect polypharmacy as the cause of her symptoms. Remaining in the ED for mentation improvement and/or admission bed availability. Last updated by Alex Dobbins DO at 06/22/20 06:24
[2020-06-22 04:40] LABS: HCO3 (Venous) 40 mmol/L (23-28); O2 Sat (Venous) 53 %; TCO2 (Venous) 36 mmol/L (24-29); pH (Venous) 7.42 (7.31-7.41); pO2 (Venous) 28 mmHg
[2020-06-22 04:42] LABS: Abs Immature Grans 0.02 10^3/uL (0.0-0.06); Absolute Basophil Count 0.06 10^3/uL (0.0-0.2); Absolute Eosinophil Count 0.29 10^3/uL (0.0-0.7); Absolute Lymphocyte Count 3.21 10^3/uL (1.2-3.4); Absolute Monocyte Count 0.73 10^3/uL (0.1-0.8); Absolute Neutrophil Count 5.09 10^3/uL (1.2-6.7); Basophils % 0.6; Eosinophils % 3.1; HCT 44.1 % (36.0-46.0); HGB 14.5 g/dL (11.2-15.7); Immature Grans % 0.2; Lymphocytes % 34.1; MCH 28.1 pg (27.0-33.0); MCHC 32.9 % (32.0-36.0); MCV 85.5 fL (80-95); MPV 10.3 fL (8.0-11.0); Monocytes % 7.8; Neutrophils % 54.2; Nucleated RBC 0 %; Platelet Count 483 10^3/uL (130-400); RBC 5.16 10^6/uL (3.93-5.22); RDW 15.1 % (11.7-14.6)
[2020-06-22 04:44] LABS: BE (Venous) > 15 mmol/L (-2-3)
[2020-06-22 04:46] LABS: pCO2 (Venous) 61 mmHg (41-51)
[2020-06-22 04:59] LABS: Ammonia 11 umol/L (11-32)
[2020-06-22 05:04] LABS: Salicylate < 2.8 mg/dL (<2.8)
[2020-06-22 05:05] LABS: Acetaminophen < 2 ug/mL (10-30)
[2020-06-22 05:17] LABS: INR 1.1 (0.9-1.1); PTT Activated 25.4 sec (21.0-27.5); Prothrombin Time 10.7 sec (9.3-11.0)
[2020-06-22 05:26] LABS: ALT 34 U/L (14-59); AST 28 U/L (15-37); Alkaline Phosphatase 120 U/L (46-116); Anion Gap 7.3 mmol/L (3-11); BUN 14 mg/dL (7-18); Bilirubin, Total 0.5 mg/dL (0.2-1.0); CO2 36.7 mmol/L (21.0-32.0); CREATININE 1.1 mg/dL (0.55-1.02); Calcium 9.5 mg/dL (8.5-10.1); Chloride 95 mmol/L (98-107); Estimated GFR 50.33 (mL/min/1.73m2); Glucose 130 mg/dL (74-106); Potassium 3.1 mmol/L (3.5-5.1); Sodium 139 mmol/L (136-145); TSH (W/Ref FT4) 3.54 uIU/mL (0.36-3.74); Total Protein 7.6 g/dL (6.4-8.2)
[2020-06-22 05:27] LABS: ETHANOL BLOOD < 3.0 mg/dL (<3); Troponin I < 0.05 ng/mL (<0.06)
--- NOTE | 2020-06-22 05:33 | DI.RAD_ITS ---
EXAM: XR PELVIS AP CLINICAL HISTORY: fall, right hip pain, r/o fx. TECHNIQUE: 2D digital imaging was performed. COMPARISON: No exams were available for comparison FINDINGS: BONES: No acute fracture is present. No bony destructive lesion is seen. JOINTS: No dislocation present. Mild degenerative changes are seen in the lower lumbar spine. Mild d egenerative changes are also seen in the hips bilaterally. SOFT TISSUE: Normal. IMPRESSION: No acute fracture or dislocation. DATA REPOSITORY: RADIATION DOSE DELIVERED:
--- NOTE | 2020-06-22 05:34 | DI.RAD_ITS ---
EXAM: XR FEMUR RT CLINICAL HISTORY: FALL, RIGHT HIP PAIN, R.O FX. TECHNIQUE: 2D digital imaging was performed. COMPARISON: No exams were available for comparison FINDINGS: BONES: No acute fracture is present. No bony destructive lesion is seen. The patient has a right tota l knee replacement which is incompletely imaged. There is some irregularity of the patella which may be postsurgical. If there is concern for patellar fracture, x-ray of the knee should be considered. SOFT TISSUE: Normal. IMPRESSION: No acute fracture of the right femur. Please see the above discussion for complete details. DATA REPOSITORY: RADIATION DOSE DELIVERED:
--- NOTE | 2020-06-22 05:35 | DI.CT_ITS ---
EXAM: CT HEAD WO CLINICAL HISTORY: altered, confused. TECHNIQUE: Imaging Protocol: Axial computed tomography images with coronal and sagittal reformatted images were created and reviewed COMPARISON: CT CT HEAD WO from 04/05/2020 FINDINGS: Ventricles and Extra axial spaces: Normal in size and morphology for the patient's age. Hemorrhage: None. Cerebral parenchyma: Normal. No acute territorial infarct. Midline shift: None. Brainstem/Cerebellum: Normal. Calvarium: Normal. Visualized Paranasal sinuses/Mastoids: Clear. Soft Tissues: Unremarkable. IMPRESSION: No acute intracranial process. RADIATION DOSE DELIVERED: 702.49mGy.cm Total DLP DATA REPOSITORY: All CT scans at this facility are submitted to the National Radiology Data Registry (NRDR) Dose Index Registry (DIR) with the [employer] (ACR). RADIATION OPTIMIZATION: All CT scans at this facility use at least one of these dose optimization te chniques: automated exposure control; mA and/or kV adjustment per patient size (includes targeted exa ms where dose is matched to clinical indication); or iterative reconstruction.
--- NOTE | 2020-06-22 05:42 | DI.VRAD_ITS ---
PROCEDURE INFORMATION: Exam: CT Head Without Contrast Exam date and time: 06/22/2020 4:21 AM Age: 60 years old Clinical indication: Injury or trauma; Fall; Blunt trauma (contusions or hematomas); Consciousness not specified; Injury date: 06/22/20; Injury details: Fell out of bed TECHNIQUE: Imaging protocol: Computed tomography of the head without contrast. Radiation optimization: All CT scans at this facility use at least one of these dose optimization techniques: automated exposure control; mA and/or kV adjustment per patient size (includes targeted exams where dose is matched to clinical indication); or iterative reconstruction. COMPARISON: CT HEAD WO 04/05/2020 11:55 AM FINDINGS: Brain: No acute intracranial hemorrhage, mass-effect, midline shift, or extra-axial collection is seen. The slade white matter differentiation appears preserved. Cerebral ventricles: The ventricular system and basilar cisterns appear appropriate in size and configuration. Bones/joints: The bony calvarium appears intact. No depressed skull fracture is seen. There is hyperostosis frontalis interna. Paranasal sinuses: The paranasal sinuses appear well aerated. No air-fluid levels are seen. Mastoid air cells: The mastoid air cells appear well-aerated. Auditory system: The middle ear cavities appear clear. Orbital cavity: The globes and intraorbital structures appear grossly intact. Soft tissues: No gross focal scalp hematoma is seen. IMPRESSION: No acute intracranial hemorrhage or depressed skull fracture. Dictated and Authenticated by: Horace Maria MD. Ordering:ADONIS Johnson MD
--- NOTE | 2020-06-22 05:48 | DI.VRAD_ITS ---
PROCEDURE INFORMATION: Exam: XR Pelvis Exam date and time: 06/22/2020 5:34 AM Age: 60 years old Clinical indication: Injury or trauma; Fall; Blunt trauma (contusions or hematomas); Injury date: 06/22/20; Injury details: Fell out of bed, right hip pain TECHNIQUE: Imaging protocol: XR pelvis. Views: 1 or 2 view. COMPARISON: CT CHEST/ABD/PEL W 01/07/2020 2:16 PM FINDINGS: Bones/joints: A single AP view of the pelvis reveals no acute fracture or dislocation. Within the limits of the exam, the proximal femurs appear intact bilaterally. Degenerative changes are noted at the pubic symphysis. Soft tissues: No gross soft tissue abnormality is demonstrated. Gastrointestinal tract: There is a small amount of retained fecal material in the right colon. The rectum is moderately distended with gas. IMPRESSION: No acute fracture or dislocation seen in the pelvis. Dictated and Authenticated by: Horace Maria MD. Ordering:ADONIS Johnson MD
[2020-06-22] MEDS: POTASSIUM CHLORIDE 20 MEQ/100 ML BAG 50 MEQ IVPB (05:57)
--- NOTE | 2020-06-22 05:57 | DI.VRAD_ITS ---
PROCEDURE INFORMATION: Exam: XR Right Femur Exam date and time: 06/22/2020 5:34 AM Age: 60 years old Clinical indication: Injury or trauma; Fall; Blunt trauma; Injury date: 06/22/20; Injury details: Fell out of bed, right hip pain; Prior surgery; Surgery type: Knee replacement TECHNIQUE: Imaging protocol: XR Right femur. Views: 2 views. COMPARISON: CR XR KNEES MERCHANT ONLY 03/16/2019 10:45 AM FINDINGS: Bones/joints: AP and lateral views of the right femur are submitted. No acute femur fracture is seen. There is no dislocation of the hip joint. There is a right knee arthroplasty prosthesis. The patella is only demonstrated by a lateral view but appears grossly heterogeneous. Fragmentation of the patella is not confidently excluded although this may represent the postsurgical appearance. Soft tissues: No gross soft tissue abnormality is demonstrated. IMPRESSION: 1. No acute femur fracture demonstrated. No dislocation at the hip joint. 2. Patella only demonstrated by the lateral view but with a heterogeneous appearance. Fragmentation of the patella is not confidently excluded although this may represent the postprocedural appearance. Comparison with a prior lateral knee radiograph is recommended. Dictated and Authenticated by: Horace Maria MD. Ordering:ADONIS Johnson MD
--- NOTE | 2020-06-22 06:15 | DI.RAD_ITS ---
EXAM: XR PORTABLE CHEST AP CLINICAL HISTORY: altered TECHNIQUE: 2D digital imaging was performed. COMPARISON: CR XR CHEST 2V PA LATERAL from 01/13/2020 FINDINGS: MEDIASTINUM: Normal. HEART: Normal. PULMONARY VASCULATURE: Normal. LUNGS: There is a right infrahilar opacity. This may represent superimposition of structures. Mass or infiltrate cannot be entirely excluded. PLEURAL SPACE: No pleural effusion or pneumothorax. BONE:Within normal limits for the patient's age. OTHER FINDINGS:Examination limited by patient positioning poor inspiration. IMPRESSION: 1. Limited examination due to patient positioning poor inspiration. 2. Question of a right infrahilar opacity versus artifact. A follow-up x-ray of the chest should be considered for re-evaluation. DATA REPOSITORY: RADIATION DOSE DELIVERED:
[2020-06-22 06:37] LABS: Bilirubin Negative (Negative); Blood Negative (Negative); Clarity Clear (Clear); Glucose Negative (Negative); Ketones Negative (Negative); Leukocyte Esterase Negative (Negative); Nitrite Negative (Negative); Urobilinogen 0.2 EU/dL (Up TO 0.2); pH 7.5 (5-8)
[2020-06-22 06:39] LABS: COVID-19 PCR Negative (Negative); Influenza A PCR Negative (Negative); Influenza B PCR Negative (Negative); RSV PCR Negative (Negative)
[2020-06-22 06:40] LABS: Magnesium 2.8 mg/dL (1.8-2.4)
--- NOTE | 2020-06-22 06:40 | DI.VRAD_ITS ---
PROCEDURE INFORMATION: Exam: XR Chest Exam date and time: 06/22/2020 5:49 AM Age: 60 years old Clinical indication: Other: Altered mental status TECHNIQUE: Imaging protocol: XR of the chest Views: 1 view. COMPARISON: CR XR CHEST 2V PA LATERAL 01/13/2020 7:35 PM FINDINGS: Mildly limited due to positioning Lungs: Mild chronic interstitial prominence. Right infrahilar opacity versus overlying shadow Pleural spaces: No pleural effusion. No pneumothorax. Heart/Mediastinum: Grossly stable. Bones/joints: Grossly stable IMPRESSION: Right infrahilar opacity versus overlying vascular shadow. Correlate for right lower lobe pneumonia. Continued radiographic follow-up as clinically indicated Dictated and Authenticated by: Nolan Murphy MD. Ordering:ADONIS Johnson MD
[2020-06-22 06:50] LABS: *AMPHETAMINES SCREEN URINE Negative (Negative); *BARBITURATES SCREEN URINE Negative (Negative); *BENZODIAZEPINES SCREEN URINE POSITIVE (Negative); Cannabinoids THC Negative (Negative); Cocaine Screen,Urine Negative (Negative); METHADONE URINE SCREEN Negative (Negative); OPIATES URINE SCREEN Negative (Negative)
[2020-06-22 06:51] LABS: Tricyclic Antidepressants Negative (Negative)
[2020-06-22 06:52] LABS: BE (Venous) > 15 mmol/L (-2-3); HCO3 (Venous) 41 mmol/L (23-28); O2 Sat (Venous) 64 %; TCO2 (Venous) 36 mmol/L (24-29); pCO2 (Venous) 56 mmHg (41-51); pH (Venous) 7.47 (7.31-7.41); pO2 (Venous) 33 mmHg
--- NOTE | 2020-06-22 07:34 | NUR.NOTE ---
taken boff bipap. is on room air.Nursing Note:
[2020-06-22] MEDS: Normal Saline 1,000 ML 1000 ML IV (09:25)
--- NOTE | 2020-06-22 09:30 | DI.RAD_ITS ---
EXAM: XR LUMBAR SPINE COMPLETE CLINICAL HISTORY: s/p fall, midline tenderness, r/o fx. TECHNIQUE: 2D digital imaging was performed. COMPARISON: No exams were available for comparison FINDINGS: There is no acute fracture or subluxation in the lumbar spine. Moderate degenerative changes are pre sent in the spine. No spondylolysis or spondylolisthesis is present. Surgical clips are seen in the right upper quadrant of the abdomen likely reflecting prior cholecystectomy. IMPRESSION: No acute fracture or subluxation in the lumbar spine. DATA REPOSITORY: RADIATION DOSE DELIVERED:
[2020-06-22 11:07] LABS: BE (Venous) 13 mmol/L (-2-3); HCO3 (Venous) 37 mmol/L (23-28); O2 Sat (Venous) 63 %; TCO2 (Venous) 33 mmol/L (24-29); pCO2 (Venous) 53 mmHg (41-51); pH (Venous) 7.45 (7.31-7.41); pO2 (Venous) 32 mmHg
--- NOTE | 2020-06-22 16:56 | W.PM.HP.N ---
Date of service: 06/22/20 Time of Service: 16:56 Assessment and Plan Assessment and plan (1) Metabolic encephalopathy: Status: Acute Assessment and plan: Most likely polypharmacy induced encephalopathy. It appears that she is progressively improving over the course of the day. Will observe overnight and plan for discharge to care [facility]. She needs a reduction in her sedating medications including elimination of benzodiazepines and Ambien and an adjustment in her antidepressants. Also she should not be on two different muscle relaxants. Furthermore she should not be taking tramadol for pain control along with SSRI medications and Imitrex. (2) Polypharmacy: Status: Acute Assessment and plan: As above (3) Status post fall: Status: Acute Assessment and plan: Pelvic and femur x-ray were negative. CT of her head was negative. We will monitor her for postconcussion. If her encephalopathy does not improve consider repeat CT scan in the a.m. If her mental status worsens during the night she should have another CT scan to rule out a subdural bleed. (4) Essential hypertension: Status: Chronic Assessment and plan: The only antihypertensive I can see she is taking his hydrochlorothiazide. At present time I am going to withhold her hydrochlorothiazide due to her metabolic alkalosis. (5) Depressive disorder: Status: Chronic Assessment and plan: Hold her antidepressants to her mental status clears up. (6) Chronic pain syndrome: Status: Chronic Assessment and plan: Hold any analgesics other than Tylenol (7) Restless leg syndrome: Status: Chronic Assessment and plan: Hold muscle relaxants History of Present Illness History of Present Illness Chief Complaint: Encephalopathy Narrative: 60-year-old female with past medical history of anxiety disorder, bipolar disorder, depression, chronic pain syndrome, fibromyalgia, hypertension, restless leg syndrome who presented to the [facility] because of confusion and a fall. 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 Upon presentation the ER she complained of right hip pain. Subsequent work-up showed that she had a respiratory acidosis with metabolic alkalosis. She has no history of chronic lung disease. She was maintained in the emergency department on BiPAP overnight to try and track down her PCO2. Review of her medications shows that she has multiple sedating medications that could have contributed to her confusional state. She had recently been prescribed Ambien but she was also receiving tramadol and alprazolam as well Flexeril and baclofen and codeine and Effexor. Chest x-ray was obtained as well as a CT scan of the head and pelvic x-ray and right femur x-ray. She was found to have no right femoral fracture and no dislocation of the hip. CT of the brain showed no acute intracranial hemorrhage or skull fracture. Pelvic x-ray showed no fracture. Chest x-ray showed right infrahilar opacity versus overlying shadow no pleural effusions no pneumothorax. ER staff and hope to allow enough time to her sedating medications wear off and she could go back to the care bed at [facility]. Patient was endorsed from the night ER staff to the day ER staff with patient was monitored down the ER because of lack of inpatient beds. Reportedly the patient was awake and more alert this morning and spoke with her boyfriend over the phone and she was supposed to meet with her advanced practice psychiatric nurse at 1130 this morning but that Zoom meeting was never able to be accomplished. She was also supposed to meet with her primary care provider at 3 PM. When she was reassessed this afternoon she was still found to be very sleepy therefore she was admitted overnight on observation status. Toxicology screen was negative for drugs of abuse with the exception of benzodiazepines which she is known to take. CBC was unremarkable. CMP demonstrated a low potassium level 3.1 with normal magnesium at 2.8 and normal renal and liver function tests. TSH was normal troponin was normal. Urinalysis was unremarkable. Patient did get a bolus of potassium 20 mEq IV to correct her hypokalemia. Patient is now admitted for observation overnight for resolution of her metabolic encephalopathy. Review of Systems Unobtainable due to mental status REPLACED BY [facility] Medical History (Updated 06/22/20 @ 18:23 by Castillo Wilcox) Anxiety Anxiety Bipolar 1 disorder Chronic pain disorder Chronic pain syndrome (11/27/11) Cystocele and rectocele with incomplete uterovaginal prolapse 05/06/2018. A&P repair hysterectomy postop recovery going well advised to increase activity slowly small granuloma at vaginal cuff cauterized with silver nitrite Depressive disorder Essential hypertension (11/11/13) Fibromyalgia Grade II hemorrhoids Hypertension Hypokalemia (03/11/12) Lumbago Migraine Migraine Pancolonic diverticulosis (02/04/14) Primary fibromyalgia syndrome Restless leg syndrome Spinal stenosis Spinal stenosis L4-5 Surgical History Abdominal hysterectomy Bilateral salpingectomy with oophorectomy Cholecystectomy (06/14/10) Colonoscopy - MAC (2013) EGD - MAC () EGD - MAC (10/31/17) H/O hemorrhoidectomy (02/10/18) Banding, Dr Garcia History of bilateral salpingo-oophorectomy History of colonoscopy (12/23/17) Dr Garcia History of esophagogastroduodenoscopy History of knee replacement Bilateral History of repair of rectocele Status post abdominal hysterectomy Status post adenoidectomy Status post cholecystectomy Status post tonsillectomy Tonsillectomy and adenoidectomy Family History Mother , 51 Diabetes Breast cancer Heart disease Father , 77 Diabetes Essential hypertension Alcohol abuse Heart disease Hyperlipidemia Sister Diabetes Cancer of neck Depression Paternal Grandfather , 85 Essential hypertension Heart disease Stroke Paternal Grandmother , 62 Diabetes Essential hypertension Stroke Maternal Grandfather , 82 No problems noted. Maternal Grandmother , 34 No problems noted. Sister Ovarian cancer Sister Alcohol abuse Depression Substance abuse Sister Throat cancer Depression Sister Alcohol abuse Depression Substance abuse Sister No problems noted. Son Alcohol abuse Substance abuse Daughter Depression Substance abuse Daughter Throat cancer Daughter Depression Substance abuse Social History Smoking/Tobacco Use Status: Never Smoking risk assessment performed?: Yes Alcohol Intake: never Drug use: Never Substance use type: does not use Caregiver/Support person: No Household members: significant other Housing: house Do you need help understanding health information?: Never Pets and animals: Yes Pets and animals: dog(s) Sexually active: Yes Do you think of yourself as: straight/heterosexual Current gender identity: female What is your relationship status?: living with partner How often do you talk on the phone with friends or family?: three or more times per week How often do you get together with friends or relatives?: once per week How often do you attend muslim or jewish services?: 4 or more times per year Do you belong to any clubs or organized social groups?: no Panel score (0-1 are the most socially isolated patients): 3 What type of physical activity do you participate in: walking and other Details: Eliptical, exercise bike Duration: 30-45 minutes/day Frequency: 3-4 times per week Catalina/Baptism: Roman Catholic Special catalina needs: No Seatbelt use: always Helmet use: Yes Drive intox or ride w/intox operator and truck driver: No Do you feel safe at home: Yes Do you feel safe in your relationship?: Yes History History 5 Para 4 Hx # Term Pregnancies Multiple births Hx # Pregnancies Ectopic pregnancies AB induced Hx Number of Living Children 4 AB spontaneous 1 Meds Home Medications and Allergies Allergies Allergy/AdvReac Type Severity Reaction Status Date / Time cephalexin monohydrate Allergy Severe Hives, Verified 06/22/20 04:27 [From Keflex] rash and swelling Penicillins Allergy Intermediate SKIN RASH; Verified 06/22/20 04:27 VOMITING vancomycin Allergy Intermediate RED FACE Verified 06/22/20 04:27 cyclobenzaprine AdvReac Severe Lethargy Verified 06/22/20 04:27 and confusion fentanyl AdvReac Severe pt states Verified 06/22/20 04:27 she passes out methadone AdvReac Severe HALLUCINATIONS Verified 06/22/20 04:27 OUT OF LIFE promethazine AdvReac Severe dystonic Verified 06/22/20 04:27 reaction amitriptyline AdvReac Intermediate CONFUSION Verified 06/22/20 04:27 azithromycin AdvReac Intermediate Psychosis Verified 06/22/20 04:27 lithium AdvReac Intermediate GI bleed Verified 06/22/20 04:27 nortriptyline AdvReac Intermediate INSOMNIA Verified 06/22/20 04:27 imipramine AdvReac Verified 06/22/20 04:27 pregabalin AdvReac FACIAL Verified 06/22/20 04:27 NUMBNESS Home Medications Medication Instructions Recorded Confirmed Type diphenhydramine HCl 25 - 50 mg PO PRN PRN 10/28/17 04/25/20 History loperamide 2 mg PO PRN PRN 10/28/17 04/25/20 History Multivitamin 50 Plus 1 tab PO DAILY 04/28/18 04/25/20 History venlafaxine 150 mg 150 mg PO TID #90 tab-cap 11/18/18 04/25/20 History capsule,extended release 24 hr docusate sodium [Colace] 100 mg PO DAILY 11/20/18 04/25/20 History sumatriptan 20 mg/actuation nasal 20 mg NS ONCE #1 box 04/29/19 04/25/20 Rx spray alprazolam 0.5 mg tablet 0.5 mg PO DAILY 01/10/20 04/25/20 History tramadol 50 mg tablet 50 mg PO QID PRN #90 tab 02/22/20 04/25/20 Rx hydrochlorothiazide 25 mg tablet 25 mg PO DAILY #90 tab-cap 05/22/20 Rx magnesium oxide 500 mg tablet 500 mg PO BID #180 tab 05/22/20 Rx potassium chloride 10 mEq 10 meq PO DAILY #90 cap 05/22/20 Rx capsule,extended release baclofen 10 mg tablet 5 - 10 mg PO TID #30 tab 05/24/20 Rx ondansetron HCl 4 mg tablet 4 mg PO Q8H PRN #30 tab-cap 05/24/20 Rx hxhxhaz-lkuraumkmo-QWY-caffeine 30 1 cap PO Q4H PRN #50 cap 05/26/20 Rx mg-50 mg-325 mg-40 mg capsule omeprazole 40 mg capsule,delayed 40 mg PO DAILY #90 cap 05/31/20 Rx release alprazolam 2 mg tablet 2 mg PO BID PRN 06/09/20 History zolpidem [Ambien] 10 HS 06/22/20 History Exam Narrative Exam Narrative: Middle-age female who is awake and answering questions but remains confused. When I asked her where we are at she recognize she is in the hospital but thinks it is [place]. When I asked her the month she initially said May but then corrected herself and said June. However when I asked her what year this is she again said May despite being given multiple chances to answer correctly. I asked her if she lives alone she says no she lives with her fianc? Jerome but she could not tell me his last name. HEENT I cannot find any evidence of scalp hematoma nor any step-off or soft tissue swelling. TMs are intact without signs of bleeding or posterior hematoma. Nares is moist no epistaxis. Oropharynx noninjected no exudates she is edentulous. Neck is supple normal range of motion and strength. No JVD. Normal carotid pulses. No bruits. No thyromegaly. No cervical adenopathy. Lungs with fine cellophane rales no rhonchi nor wheezing. Heart is regular rate and rhythm without appreciable murmur rub. Abdomen soft nontender no palpable masses no bruits Lower extremities reveal scars over both knees consistent with history of prior bilateral TKA. There is no calf tenderness or swelling or bruising. Pedal pulses are intact. Neuro exam grossly intact other than mild confusion. Fundi within normal limits pupils are dilated but respond to direct and consensual light. No facial asymmetry. Normal facial mimetic muscle movement. Normal range of motion in both upper and lower extremities. Sensory exam grossly intact to light touch. Babinski reflexes absent bilaterally. Toes were downgoing. DTRs grossly normal. Breast exam and genitalia and rectal exam deferred. Not clinically indicated. Results Labs Result diagrams: 06/22/20 04:30 06/22/20 04:30 Labs: Laboratory Results - last 24 hr 06/22/20 06/22/20 06/22/20 04:30 04:30 04:30 WBC RBC Hgb Hct MCV MCH MCHC RDW Plt Count MPV Immature Gran % Neutrophils % Lymphocytes % Monocytes % Eosinophils % Basophils % Nucleated RBC % Absolute Neutrophils Absolute Lymphocytes Absolute Monocytes Absolute Eosinophils Absolute Basophils PT INR APTT VBG pH VBG pCO2 VBG pO2 VBG HCO3 VBG Total CO2 VBG O2 Saturation VBG Base Excess Sodium 139 Potassium 3.1 L Chloride 95 L Carbon Dioxide 36.7 H Anion Gap 7.3 BUN 14 Creatinine 1.1 H Estimated GFR/1.73 m2 50.33 Glucose 130 H Calcium 9.5 Magnesium Total Bilirubin 0.5 AST 28 ALT 34 Alkaline Phosphatase 120 H Ammonia 11 Troponin I < 0.05 Total Protein 7.6 Albumin 4.0 TSH 3.54 Urine Color Urine Clarity Urine pH Ur Specific [place] Urine Protein Urine Ketones Urine Blood Urine Nitrite Urine Bilirubin Urine Urobilinogen Ur Leukocyte Esterase Urine Glucose Salicylates < 2.8 Urine Opiates Screen Urine Methadone Screen Acetaminophen < 2 Ur Barbiturates Screen Ur Tricyclics Screen Ur Amphetamines Screen U Benzodiazepines Scrn Urine Cocaine Screen Ur THC Screen Ethyl Alcohol < 3.0 COVID-19 Source SARS-CoV-2 (PCR) Influenza Type A (PCR) Influenza Type B (PCR) RSV (PCR) 06/22/20 06/22/20 06/22/20 04:30 04:30 04:30 WBC 9.40 RBC 5.16 Hgb 14.5 Hct 44.1 MCV 85.5 MCH 28.1 MCHC 32.9 RDW 15.1 H Plt Count 483 H MPV 10.3 Immature Gran % 0.2 Neutrophils % 54.2 Lymphocytes % 34.1 Monocytes % 7.8 Eosinophils % 3.1 Basophils % 0.6 Nucleated RBC % 0 Absolute Neutrophils 5.09 Absolute Lymphocytes 3.21 Absolute Monocytes 0.73 Absolute Eosinophils 0.29 Absolute Basophils 0.06 PT 10.7 INR 1.1 APTT 25.4 VBG pH 7.42 H VBG pCO2 61 H* VBG pO2 28 VBG HCO3 40 H VBG Total CO2 36 H VBG O2 Saturation 53 VBG Base Excess > 15 H Sodium Potassium Chloride Carbon Dioxide Anion Gap BUN Creatinine Estimated GFR/1.73 m2 Glucose Calcium Magnesium Total Bilirubin AST ALT Alkaline Phosphatase Ammonia Troponin I Total Protein Albumin TSH Urine Color Urine Clarity Urine pH Ur Specific [place] Urine Protein Urine Ketones Urine Blood Urine Nitrite Urine Bilirubin Urine Urobilinogen Ur Leukocyte Esterase Urine Glucose Salicylates Urine Opiates Screen Urine Methadone Screen Acetaminophen Ur Barbiturates Screen Ur Tricyclics Screen Ur Amphetamines Screen U Benzodiazepines Scrn Urine Cocaine Screen Ur THC Screen Ethyl Alcohol COVID-19 Source SARS-CoV-2 (PCR) Influenza Type A (PCR) Influenza Type B (PCR) RSV (PCR) 06/22/20 06/22/20 06/22/20 04:30 05:55 06:30 WBC RBC Hgb Hct MCV MCH MCHC RDW Plt Count MPV Immature Gran % Neutrophils % Lymphocytes % Monocytes % Eosinophils % Basophils % Nucleated RBC % Absolute Neutrophils Absolute Lymphocytes Absolute Monocytes Absolute Eosinophils Absolute Basophils PT INR APTT VBG pH VBG pCO2 VBG pO2 VBG HCO3 VBG Total CO2 VBG O2 Saturation VBG Base Excess Sodium Potassium Chloride Carbon Dioxide Anion Gap BUN Creatinine Estimated GFR/1.73 m2 Glucose Calcium Magnesium 2.8 H Total Bilirubin AST ALT Alkaline Phosphatase Ammonia Troponin I Total Protein Albumin TSH Urine Color Yellow Urine Clarity Clear Urine pH 7.5 Ur Specific [place] 1.020 Urine Protein Negative Urine Ketones Negative Urine Blood Negative Urine Nitrite Negative Urine Bilirubin Negative Urine Urobilinogen 0.2 Ur Leukocyte Esterase Negative Urine Glucose Negative Salicylates Urine Opiates Screen Urine Methadone Screen Acetaminophen Ur Barbiturates Screen Ur Tricyclics Screen Ur Amphetamines Screen U Benzodiazepines Scrn Urine Cocaine Screen Ur THC Screen Ethyl Alcohol COVID-19 Source Nasopharyx SARS-CoV-2 (PCR) Negative Influenza Type A (PCR) Negative Influenza Type B (PCR) Negative RSV (PCR) Negative 06/22/20 06/22/20 06/22/20 06:30 06:45 11:02 WBC RBC Hgb Hct MCV MCH MCHC RDW Plt Count MPV Immature Gran % Neutrophils % Lymphocytes % Monocytes % Eosinophils % Basophils % Nucleated RBC % Absolute Neutrophils Absolute Lymphocytes Absolute Monocytes Absolute Eosinophils Absolute Basophils PT INR APTT VBG pH 7.47 H 7.45 H VBG pCO2 56 H 53 H VBG pO2 33 32 VBG HCO3 41 H 37 H VBG Total CO2 36 H 33 H VBG O2 Saturation 64 63 VBG Base Excess > 15 H 13 H Sodium Potassium Chloride Carbon Dioxide Anion Gap BUN Creatinine Estimated GFR/1.73 m2 Glucose Calcium Magnesium Total Bilirubin AST ALT Alkaline Phosphatase Ammonia Troponin I Total Protein Albumin TSH Urine Color Urine Clarity Urine pH Ur Specific [place] Urine Protein Urine Ketones Urine Blood Urine Nitrite Urine Bilirubin Urine Urobilinogen Ur Leukocyte Esterase Urine Glucose Salicylates Urine Opiates Screen Negative Urine Methadone Screen Negative Acetaminophen Ur Barbiturates Screen Negative Ur Tricyclics Screen Negative Ur Amphetamines Screen Negative U Benzodiazepines Scrn Positive A Urine Cocaine Screen Negative Ur THC Screen Negative Ethyl Alcohol COVID-19 Source SARS-CoV-2 (PCR) Influenza Type A (PCR) Influenza Type B (PCR) RSV (PCR) Last Vital Signs Temp 36.3 C L 06/22/20 16:41 Pulse 77 06/22/20 16:41 Resp 16 06/22/20 16:41 BP 101/56 L 06/22/20 16:35 Pulse Ox 91 L 06/22/20 16:41 COVID-19 Screening Have you, or household traveled for leisure in last 14 days?: No Had IN PERSON contact w/suspected or confirmed C-19 person: No
[2020-06-22 18:26] LABS: BE (Venous) 12 mmol/L (-2-3); HCO3 (Venous) 35 mmol/L (23-28); O2 Sat (Venous) 96 %; TCO2 (Venous) 31 mmol/L (24-29); pCO2 (Venous) 43 mmHg (41-51); pH (Venous) 7.52 (7.31-7.41); pO2 (Venous) 79 mmHg
[2020-06-22 18:40] LABS: Anion Gap 6.9 mmol/L (3-11); BUN 13 mg/dL (7-18); CO2 33.1 mmol/L (21.0-32.0); Calcium 8.7 mg/dL (8.5-10.1); Chloride 100 mmol/L (98-107); Estimated GFR 56.18 (mL/min/1.73m2); Glucose 92 mg/dL (74-106); Sodium 140 mmol/L (136-145)
[2020-06-22 18:46] LABS: Potassium 2.8 mmol/L (3.5-5.1)
[2020-06-23] VITALS (19 sets, daily range): BP systolic 90–121; BP diastolic 57–79; PULSE 73–96; RESP 12–19; TEMP 36.3–36.7; O2SAT 88–100
[2020-06-23] MEDS: Potassium Chloride 20 MEQ TABCR 40 MEQ PO (01:14)
[2020-06-23] MEDS: Lactated Ringers 1,000 ML 333 ML IV (01:15)
[2020-06-23 06:59] LABS: Anion Gap 6.2 mmol/L (3-11); BUN 11 mg/dL (7-18); CO2 32.8 mmol/L (21.0-32.0); Calcium 8.6 mg/dL (8.5-10.1); Chloride 101 mmol/L (98-107); Estimated GFR 56.18 (mL/min/1.73m2); Glucose 91 mg/dL (74-106); Sodium 140 mmol/L (136-145)
[2020-06-23 07:08] LABS: Potassium 2.9 mmol/L (3.5-5.1)
--- NOTE | 2020-06-23 09:19 | INITIAL_ITS ---
- If Service Date Differs Date of service: 06/23/20 Time of Service: 09:19 Care Management Initial Assess REASON FOR HOSPITALIZATION:: Altered MS, somnolence, metabolic alkalosis, resp A PAST MEDICAL HISTORY/PAST SURGICAL HISTORY:: Anxiety. Anxiety. Bipolar 1 disorder. Chronic pain disorder. Chronic pain syndrome (11/27/11). Cystocele and rectocele with incomplete uterovaginal prolapse. 05/06/2018. A&P repair hysterectomy. postop recovery going well. advised to increase activity slowly. small granuloma at vaginal cuff cauterized with silver nitrite. Depressive disorder. Essential hypertension (02/22/13). Fibromyalgia. Grade II hemorrhoids. Hypertension. Hypokalemia (03/11/12). Lumbago. Migraine. Migraine. Pancolonic diverticulosis (02/04/14). Primary fibromyalgia syndrome. Restless leg syndrome. Spinal stenosis. Spinal stenosis. L4-5. Abdominal hysterectomy. Bilateral salpingectomy with oophorectomy. Cholecystectomy (06/14/10). Colonoscopy - MAC (2013). EGD - MAC (). EGD - MAC (10/31/17). H/O hemorrhoidectomy (02/10/18). Banding, Dr Garcia. History of bilateral salpingo-oophorectomy. History of colonoscopy (12/23/17). Dr Garcia. History of esophagogastroduodenoscopy. History of knee replacement. Bilateral. History of repair of rectocele. Status post abdominal hysterectomy. Status post adenoidectomy. Status post cholecystectomy. Status post tonsillectomy. Tonsillectomy and adenoidectomy PREVIOUS FUNCTIONAL STATUS/SOCIAL/FAMILY SUPPORTS:: Olamide resides in [place], [place] with her significant other, Javan. She reports relocating from the [facility] to be with Javan fifteen years ago. She reports Javan is ten years older than her and retired but unwilling to relocate. She would like to be closer to her family and grandchildren in the [facility], but enjoys facetiming with them. She is independent at baseline though shares she has been struggling recently and is currently staying at the [facility] care bed at her [facility] provider's recommendation. CURRENT FUNCTIONAL STATUS:: Olamide is weepy when first engages her; she quickly becomes more animated, and forthcoming with information. She reports wanting to return to the care bed when medically ready. ADVANCE DIRECTIVES:: None on file at [facility]. Has patient been provided with info about the portal/API?: Yes Did the patient sign up for the portal?: Yes (Previously ) CODE STATUS:: Full Code INSURANCE COVERAGE / FINANCIAL ISSUES:: Medicaid CURRENT HOME/COMMUNITY SERVICES/EQUIPMENT:: None currently. PRIMARY CARE PHYSICIAN:: Keshawn Pineda POTENTIAL DISCHARGE NEEDS:: Coordinated return to Care Bed-in care of [facility]. PATIENT/FAMILY EDUCATION NEEDS:: Review discharge instructions, discuss Ask Me Three. ANTICIPATED BARRIERS TO DISCHARGE:: None identified. TRANSPORTATION:: Via private vehicle with Care Bed staff. PLAN:: Olamide will return to the [facility] care bed when ready per MD. She will transport with Care Bed staff via private vehicle.
[2020-06-23] MEDS: Potassium Chloride Liquid 20 MEQ PKT 40 MEQ PO (09:40)
[2020-06-23] MEDS: POTASSIUM CHLORIDE 20 MEQ/100 ML BAG 50 MEQ IVPB ×2 (09:41→11:56)
--- NOTE | 2020-06-23 11:38 | NUR.NOTE ---
Pt. is refusing teds and SCD's because she is wanting to leave. Mary Note:
--- NOTE | 2020-06-23 11:47 | W.PM.PROGNOT ---
Date of Service Date of service: 06/23/20 Time of Service: 11:47 Assessment and Plan Assessment and plan (1) Metabolic encephalopathy: Status: Resolved Assessment and plan: Acute metabolic encephalopathy secondary to polypharmacy use. Now resolved. Her psychiatric nurse practitioner needs to coordinate with the patient's PCP so that the patient does not receive an overlap in medications. I think benzodiazepine should be used sparingly or not on this patient. And while the patient is on SSRI for depression she should not receive tramadol nor should she receive Imitrex. (2) Polypharmacy: Status: Acute Assessment and plan: As above (3) Status post fall: Status: Acute Assessment and plan: Pelvic and femur x-ray were negative. CT of her head was negative. Upon discharge patient will be given instructions regarding closed head injury. 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 Her encephalopathy is resolved. If she has signs of nausea or vomiting or severe headaches she should get a follow-up CT scan to rule out a subdural bleed. (4) Essential hypertension: Status: Chronic Assessment and plan: The only antihypertensive I can see she is taking his hydrochlorothiazide. At present time I am going to withhold her hydrochlorothiazide due to her metabolic alkalosis. (5) Depressive disorder: Status: Chronic Assessment and plan: Hold her antidepressants to her mental status clears up. Mental status is cleared up. I think before she returns home she should follow-up with her psychiatric nurse practitioner to have her medication list cleaned up and streamline. (6) Chronic pain syndrome: Status: Chronic Assessment and plan: Hold any analgesics other than Tylenol (7) Restless leg syndrome: Status: Chronic Assessment and plan: Hold muscle relaxants Subjective Subjective Interval history since last seen: Patient is back to her baseline she is awake alert answering questions appropriately. She is oriented to person place time and circumstance. She knows she is in the hospital in [facility] and knows the month and the year she was only off by the date by 1 day thinking it was June 24 rather June 23, 2020. She has no acute complaints no headaches no nausea or vomiting. Concern is her potassium was low this morning of 2.9. Rest of her electrolytes were okay renal function was normal. We are giving her some oral and IV supplementation recheck her potassium. Also recheck her magnesium level. I think once her potassium is up to a reasonable level she can be safely discharged back to the care bed at [facility] today. She wanted know if there is any way she could just go straight home I said no I would like mental health to reevaluate her medications and try to streamline them and get rid of some of her sedating medications. Furthermore she should not take any tramadol for pain because of her chronic use of SSRI medicines. Exam Narrative Exam Narrative: Middle-age female lying in bed. She is alert and oriented to person place time circumstance. HEENT is unremarkable. No focal neurologic deficits normal speech pattern appropriate answers to my questions. Lungs are clear to auscultation Heart regular rate and rhythm Objective Last Vital Signs Temp 36.3 C L 06/23/20 07:35 Pulse 89 06/23/20 10:02 Resp 13 06/23/20 10:02 BP 116/77 06/23/20 10:02 Pulse Ox 95 06/23/20 07:25 Laboratory Results - last 24 hr 06/22/20 06/22/20 06/23/20 18:15 18:15 06:20 VBG pH 7.52 H VBG pCO2 43 VBG pO2 79 VBG HCO3 35 H VBG Total CO2 31 H VBG O2 Saturation 96 VBG Base Excess 12 H Sodium 140 140 Potassium 2.8 L* 2.9 L Chloride 100 101 Carbon Dioxide 33.1 H 32.8 H Anion Gap 6.9 6.2 BUN 13 11 Creatinine 1.0 1.0 Estimated GFR/1.73 m2 56.18 56.18 Glucose 92 91 Calcium 8.7 8.6
[2020-06-23 12:03] LABS: Magnesium 2.3 mg/dL (1.8-2.4)
[2020-06-23 14:29] LABS: Potassium 4.2 mmol/L (3.5-5.1)
--- NOTE | 2020-06-23 14:49 | W.PM.DS.N ---
Date of service: 06/23/20 Time of Service: 14:50 DS: Diagnosis Discharge Diagnosis (1) Metabolic encephalopathy: Status: Resolved (2) Polypharmacy: Status: Resolved (3) Status post fall: Status: Resolved (4) Essential hypertension: Status: Chronic (5) Depressive disorder: Status: Chronic Discharge Plan Disposition [facility]: [facility] Condition: Good Discharge Details Reason For Visit: ALTERED MS, SOMNOLENCE, METABOLIC ALKALOSIS/RESP A Admit Date/Time: 06/22/20 13:21 Admit Provider: Castillo Wilcox Attending Provider: Castillo Wilcox [facility] Hospital Course Hospital Course: 60-year-old female with past medical history of anxiety disorder, bipolar disorder, depression, chronic pain syndrome, fibromyalgia, hypertension, restless leg syndrome who presented emergency department at [facility] from [facility] because of acute confusion and fall. Care with care manager indicated the ER staff that for the last few days patient's become more confused than her baseline on the evening of June 21, 2020 had a fall out of bed. But when EMS arrived to get her up off the floor she was able to get up without difficulty. Upon presentation the ER she complained of right hip pain. Subsequent work-up included a CT scan of her head and pelvic x-ray and right femur x-ray. She was found to have no fractures and no acute intracranial injury or skull fracture. Chest x-ray showed right infrahilar opacity versus overlying shadow but no pleural effusions no pneumothorax. There is felt that she was suffering from acute mental status change from polypharmacy including benzodiazepines muscle relaxants and narcotic analgesics. Despite a prolonged stay in the emergency department although she began to become more alert and awake she was still very confused. ABG showed metabolic alkalosis and respiratory acidosis. Toxicology screen was negative for drugs of abuse except for benzodiazepines which is one of her known medications. CMP was remarkable for low potassium of 3.1 with normal BUN and creatinine normal LFTs and normal TSH. CBC was unremarkable. She was admitted overnight to the intensive care unit for close monitoring. She was given additional potassium supplementation. On the morning of discharge her potassium had dropped back down to 2.9 and she was given both oral and IV supplementation at the time of discharge her potassium normalized to 4.2. Nasopharyngeal swab for PCR testing was done and she was found to be negative for SARS-CoV-2 as well as influenza and RSV. She is now discharged back to the community under the care of [facility] services. Is recommended that her psychiatric advanced nurse practitioner coordinate with a psychiatrist as well as the patient's primary care provider to try to reduce the number of medications she is on and prevent overlap of medications. Specifically the patient should not be on SSRI as well as Imitrex and tramadol. There is an increased risk for serotonin syndrome. Although the patient presented with acute confusion she had no hyperpyrexia or tachycardia nor hypertensive crisis and therefore was not in acute serotonin syndrome. At the time of discharge patient was alert oriented answering questions appropriately she knew the month of the year and the name of the hospital. It was felt that she is now back to her baseline and can be safely discharged to the community. Home Meds and New Rx's Prescriptions: Continued venlafaxine 150 mg capsule,extended release 24hr 150 mg PO TID Qty: 90 RF: 4 magnesium oxide 500 mg tablet 500 mg PO BID Qty: 180 RF: 0 potassium chloride 10 mEq capsule, extended release 10 meq PO DAILY Qty: 90 RF: 3 ondansetron HCl 4 mg tablet 4 mg PO Q8H PRN Qty: 30 RF: 3 omeprazole 40 mg capsule,delayed release(DR/EC) 40 mg PO DAILY Qty: 90 RF: 4 loperamide 2 MG capsule 2 mg PO PRN PRNRF: 0 docusate sodium [Colace] 100 mg Capsule 100 mg PO DAILY RF: 0 Multivitamin 50 Plus Tablet 1 tab PO DAILY RF: 0 Discontinued tramadol 50 mg tablet 50 mg PO QID PRN (Reason: pain) Qty: 90 RF: 5 alprazolam [Xanax] 0.5 mg tablet 0.5 mg PO DAILY RF: 0 alprazolam [Xanax] 2 mg tablet 2 mg PO BID PRNRF: 0 sumatriptan [Imitrex] 20 mg/actuation spray,non-aerosol 20 mg NS ONCE Qty: 1 RF: 5 hydrochlorothiazide 25 mg tablet 25 mg PO DAILY Qty: 90 RF: 4 baclofen 10 mg tablet 5 - 10 mg PO TID Qty: 30 RF: 0 [id number] [Butalbital Compound W/Codeine] [id number] mg capsule 1 cap PO Q4H PRN (Reason: headache) Qty: 50 RF: 2 diphenhydramine HCl 25 MG capsule 25 - 50 mg PO PRN PRNRF: 0 zolpidem [Ambien] 10 mg Tablet 10 HS RF: 0 Discharge Instructions Instructions: Hypokalemia (DC), Encephalopathy (DC) Additional Instructions: Get a follow-up BMP in 1 week to assess your kidney function and electrolytes. You should not take tramadol while also taking an antidepressant or while using Imitrex. I have discontinued your benzodiazepines and muscle relaxers as well as her Imitrex and tramadol and Ambien. Her psychiatric nurse practitioner should coordinate with a psychiatrist medical doctor along with your primary care doctor to prevent future drug interactions and excess sedation. Follow-up with the care bed in [facility] for further psychiatric services. See Dr. Pineda within 2 weeks. Referrals: Keshawn Pineda [Primary Care Provider] - (Call the office for follow-up visit within 2 weeks) Activity:: Activity as Tolerated Equipment/Supplies:: No Equipment Needed Diet:: Normal Diet Discharge Orders Discharge Orders: Discharge Order (Routine); Ordered 06/23/20 Ordered By: Castillo Wilcox Other Ambulatory Orders: Basic Metabolic Panel (Routine) Timeframe: 1 Week Facility: [facility] - Location: Laboratory Outpatient Ordered By: Castillo Wilcox Discharge Data Discharge Date/Time-TO BE ENTERED AT DEPARTURE: 06/23/20 16:00 [facility] Summary Time Spent with Patient providing and/or coordinating discharge services: Less than 30 minutes Status at Discharge Functional status at discharge: independent ambulation Overall status at discharge: patient is back to baseline Mental Status: mental status grossly normal Speech and Movement: speech and movement normal Mood: congruent mood Affect: normal affect Exam Psych Mental Status: mental status grossly normal Speech and Movement: speech and movement normal Mood: congruent mood Affect: normal affect DS: Data Vitals/I&O Vitals and I&O: Vital Signs Temperature 36.7 C 06/23/20 12:20 Temperature Source Temporal Artery Scan 06/23/20 12:20 Pulse 86 06/23/20 12:01 Pulse 87 06/23/20 12:01 Respiratory Rate 14 06/23/20 12:01 Respiratory Effort Non-Labored 06/23/20 12:20 Respiratory Depth Normal 06/23/20 12:20 Respiratory Pattern Normal 06/23/20 12:20 Blood Pressure 105/71 06/23/20 12:01 Blood Pressure Mean 80 06/23/20 12:01 Blood Pressure Position Sitting 06/23/20 12:20 Pulse Oximetry 95 06/23/20 12:01 Oxygen Delivery Method Room Air 06/23/20 12:20 Oxygen Flow Rate 0 06/23/20 12:20 Fraction of Inspired Oxygen (FIO2) 06/22/20 06:00 Pain Level 0 06/23/20 12:20 Intake & Output 06/22/20 06/23/20 06/23/20 23:59 11:59 23:59 Intake Total 1400 / 1500 100 / 1500 Output Total 650 / 750 100 / 750 Balance 750 / 750 0 / 750 Weight 82.2 kg 85.4 kg Intake: IV 1100 / 1200 100 / 1200 Oral 300 / 300 Output: Urine 650 / 750 100 / 750 Other: Urine Color Yellow Yellow Straw Urine Appearance Clear Clear Urine Odor Strong Comment No void since admission to ICU approx 1630. Encouraged PO intake up to bsc for approx 20 mins in attempt to void, MD rodrigo notified RN notified. Stool Occult Blood Negative Negative Stool Size Moderate Moderate Stool Characteristics Soft Soft Liquid Formed Voiding Methods Bedside Commode Data Completed and Pending Labs on day of discharge: Labs from last 24 hours 06/23/20 06/23/20 06/23/20 14:15 06:20 06:20 VBG pH VBG pCO2 VBG pO2 VBG HCO3 VBG Total CO2 VBG O2 Saturation VBG Base Excess Sodium 140 Potassium 4.2 D 2.9 L Chloride 101 Carbon Dioxide 32.8 H Anion Gap 6.2 BUN 11 Creatinine 1.0 Estimated GFR/1.73 m2 56.18 Glucose 91 Calcium 8.6 Magnesium 2.3 06/22/20 06/22/20 18:15 18:15 VBG pH 7.52 H VBG pCO2 43 VBG pO2 79 VBG HCO3 35 H VBG Total CO2 31 H VBG O2 Saturation 96 VBG Base Excess 12 H Sodium 140 Potassium 2.8 L* Chloride 100 Carbon Dioxide 33.1 H Anion Gap 6.9 BUN 13 Creatinine 1.0 Estimated GFR/1.73 m2 56.18 Glucose 92 Calcium 8.7 Magnesium [facility] Medical History (Updated 06/26/20 @ 07:51 by Castillo Wilcox) Anxiety Anxiety Bipolar 1 disorder Chronic pain disorder Chronic pain syndrome (11/27/11) Cystocele and rectocele with incomplete uterovaginal prolapse 05/06/2018. A&P repair hysterectomy postop recovery going well advised to increase activity slowly small granuloma at vaginal cuff cauterized with silver nitrite Depressive disorder Essential hypertension (02/22/13) Fibromyalgia Grade II hemorrhoids Hypertension Hypokalemia (03/11/12) Lumbago Migraine Migraine Pancolonic diverticulosis (02/04/14) Primary fibromyalgia syndrome Restless leg syndrome Spinal stenosis Spinal stenosis L4-5 Surgical History Abdominal hysterectomy Bilateral salpingectomy with oophorectomy Cholecystectomy (06/14/10) Colonoscopy - MAC (2013) EGD - MAC () EGD - MAC (10/31/17) H/O hemorrhoidectomy (02/10/18) Banding, Dr Garcia History of bilateral salpingo-oophorectomy History of colonoscopy (12/23/17) Dr Garcia History of esophagogastroduodenoscopy History of knee replacement Bilateral History of repair of rectocele Status post abdominal hysterectomy Status post adenoidectomy Status post cholecystectomy Status post tonsillectomy Tonsillectomy and adenoidectomy Family History Mother , 51 Diabetes Breast cancer Heart disease Father , 77 Diabetes Essential hypertension Alcohol abuse Heart disease Hyperlipidemia Sister Diabetes Cancer of neck Depression Paternal Grandfather , 85 Essential hypertension Heart disease Stroke Paternal Grandmother , 62 Diabetes Essential hypertension Stroke Maternal Grandfather , 82 No problems noted. Maternal Grandmother , 34 No problems noted. Sister Ovarian cancer Sister Alcohol abuse Depression Substance abuse Sister Throat cancer Depression Sister Alcohol abuse Depression Substance abuse Sister No problems noted. Son Alcohol abuse Substance abuse Daughter Depression Substance abuse Daughter Throat cancer Daughter Depression Substance abuse Social History Smoking/Tobacco Use Status: Never Smoking risk assessment performed?: Yes Alcohol Intake: never Drug use: Never Substance use type: does not use Caregiver/Support person: No Household members: significant other Housing: house Do you need help understanding health information?: Never Pets and animals: Yes Pets and animals: dog(s) Sexually active: Yes Do you think of yourself as: straight/heterosexual Current gender identity: female What is your relationship status?: living with partner How often do you talk on the phone with friends or family?: three or more times per week How often do you get together with friends or relatives?: once per week How often do you attend congregational or restorationist services?: 4 or more times per year Do you belong to any clubs or organized social groups?: no Panel score (0-1 are the most socially isolated patients): 3 What type of physical activity do you participate in: walking and other Details: Eliptical, exercise bike Duration: 30-45 minutes/day Frequency: 3-4 times per week Catalina/Mosque: Congregation Special catalina needs: No Seatbelt use: always Helmet use: Yes Drive intox or ride w/intox dedicated truck driver: No Do you feel safe at home: Yes Do you feel safe in your relationship?: Yes History History 5 Para 4 Hx # Term Pregnancies Multiple births Hx # Pregnancies Ectopic pregnancies AB induced Hx Number of Living Children 4 AB spontaneous 1
--- NOTE | 2020-06-23 18:19 | PDOC.CMDIS ---
LACE Index Scoring Tool - Questions: Length of Stay (in days): 1 Acuity (Admit via E.D.?): Yes Comorbidities: Connective Tissue Disease E.D. Visits: 2 - Answers: Total Score: 9 Risk of Readmission: Low Risk Care Management Discharge Reason for Hospitalization: Altered MS, somnolence, metabolic alkalosis, resp A Discharge Plan: Olamide will return to the [facility] care bed when ready per MD. She will transport with Care Bed staff via private vehicle. Patient/Family Education Needs: Review of discharge instructions, self care needs upon discharge. Services Needed at Discharge: Psychiatric Facility (Community based crisis care bed-[facility] ) - MH Services (Omit if N/A) Current MH Services: Internal [facility] (Attached to services, previously placed at [facility] Care Bed)
== END 2020-06-23 16:00 | disposition designated cancer center or children's hospital (05) ==
LOC: ER 14:16 → ICU 21:15
PROVIDERS: Student in an Organized Health Care Education/Training Program; Admitting Provider Internal Medicine; Emergency Provider Physician Assistant; PCP Family Medicine; Visit Provider Internal Medicine
DX: G92 Toxic encephalopathy (principal); T50.995A Adverse effect of other drugs, medicaments and biological substances, initial encounter; E87.4 Mixed disorder of acid-base balance; F41.9 Anxiety disorder, unspecified; F31.9 Bipolar disorder, unspecified; G89.4 Chronic pain syndrome; I10 Essential (primary) hypertension; G25.81 Restless legs syndrome; E87.6 Hypokalemia; Z91.81 History of falling; W06.XXXA Fall from bed, initial encounter
CPT/HCPCS: 36415; 51701; 73552; 80048; 80053; 80307; 82805; 87637; 93005; 96361; 96365; 96366; 99220; 99226; 99238; 99285; 70450; 71045; 72110; 72170; 80320; 80329; 81003; 82140; 83735; 84132; 84443; 84484; 85025; 85610; 85730; 93010; G0378; J3480

== ENCOUNTER 2020-08-10 09:43 | Outpatient (CLI) | payer MEDICAID, SELFPAY ==
--- NOTE | 2020-08-10 09:42 | DI.RAD_ITS ---
EXAM: XR KNEE LT 2V AP,LAT CLINICAL HISTORY: instability. TECHNIQUE: 2D digital imaging was performed. COMPARISON: CR XR KNEE LT 3V AP,LAT,BRENDA from 02/23/2020 FINDINGS: There is continued satisfactory position alignment of the components of the prosthesis. No fracture or loosening evident. IMPRESSION: DATA REPOSITORY: RADIATION DOSE DELIVERED:
== END 2020-08-10 09:44 | disposition home or self-care (01) ==
LOC: DIORS 09:44
PROVIDERS: PCP Family Medicine; Referring Provider Family Medicine; Visit Provider Physician Assistant Surgical
DX: M25.362 Other instability, left knee (principal); Z96.652 Presence of left artificial knee joint; Z47.1 Aftercare following joint replacement surgery
CPT/HCPCS: 73560

== ENCOUNTER 2020-09-18 04:38 | Outpatient (CLI) | payer MEDICAID, SELFPAY ==
[2020-09-18 10:08] LABS: HCT 41.8 % (36.0-46.0); HGB 13.8 g/dL (11.2-15.7); MCH 28.3 pg (27.0-33.0); MCV 85.7 fL (80-95); MPV 10.3 fL (8.0-11.0); Platelet Count 489 10^3/uL (130-400); RBC 4.88 10^6/uL (3.93-5.22); RDW-SD 43.4 fL; WBC 8.78 10^3/uL (4.4-10.8)
[2020-09-18 10:33] LABS: Hemoglobin A1C 6.4 % (<5.7)
[2020-09-18 11:01] LABS: Anion Gap 10.1 mmol/L (3-11); BUN 24 mg/dL (7-18); CO2 29.9 mmol/L (21.0-32.0); CREATININE 1.1 mg/dL (0.55-1.02); Calcium 9.2 mg/dL (8.5-10.1); Chloride 102 mmol/L (98-107); Estimated GFR 50.33 (mL/min/1.73m2); Glucose 164 mg/dL (74-106); Potassium 3.8 mmol/L (3.5-5.1); Sodium 142 mmol/L (136-145)
[2020-09-18 11:04] LABS: Source Nasal/Nares
[2020-09-18 15:09] LABS: COVID-19 PCR Negative (Negative)
== END 2020-09-18 04:39 | disposition home or self-care (01) ==
LOC: LBO 04:38
PROVIDERS: PCP Nurse Practitioner Family; Visit Provider Student in an Organized Health Care Education/Training Program
DX: T84.023A Instability of internal left knee prosthesis, initial encounter (principal); Z96.652 Presence of left artificial knee joint; I10 Essential (primary) hypertension; R73.09 Other abnormal glucose; Z20.822 Contact with and (suspected) exposure to COVID-19; Z01.818 Encounter for other preprocedural examination; Z01.812 Encounter for preprocedural laboratory examination
CPT/HCPCS: 36415; 80048; 85027; 86850; 86900; 86901; 87635; 83036

== ENCOUNTER 2020-09-19 05:59 | Inpatient (IN) | payer MEDICAID, SELFPAY ==
[2020-09-19] VITALS (12 sets, daily range): BP systolic 106–176; BP diastolic 64–105; PULSE 78–96; RESP 10–20; TEMP 36–36.7; O2SAT 94–100; BMI 34.4
[2020-09-19] MEDS: Celecoxib 200 MG CAP 400 MG PO (06:39)
[2020-09-19] MEDS: Acetaminophen 500 MG TAB 1000 MG PO ×4 (06:40→19:48)
[2020-09-19] MEDS: Gabapentin 300 MG CAP PO ×2 (06:44→22:17)
--- NOTE | 2020-09-19 06:59 | W.ANESPRE ---
General Info Date of Service Date Performed: 09/19/20 Height: 5 ft 2.5 in Weight: 86.7 kg Body Mass Index (BMI): 34.4 Surgical Procedure: Operation Date: 09/19/20 07:40 Proposed Procedures Side Surgeon p Knee Total Revision Left Milton Esquivel MD Meds Allergies and Home Medications Allergies Allergy/AdvReac Type Severity Reaction Status Date / Time cephalexin monohydrate Allergy Severe Hives, Verified 09/19/20 06:15 [From Keflex] rash and swelling Penicillins Allergy Intermediate SKIN RASH; Verified 09/19/20 06:15 VOMITING vancomycin Allergy Intermediate RED FACE Verified 09/19/20 06:15 cyclobenzaprine AdvReac Severe Lethargy Verified 09/19/20 06:15 and confusion fentanyl AdvReac Severe pt states Verified 09/19/20 06:15 she passes out methadone AdvReac Severe HALLUCINATIONS Verified 09/19/20 06:15 OUT OF LIFE promethazine AdvReac Severe dystonic Verified 09/19/20 06:15 reaction amitriptyline AdvReac Intermediate CONFUSION Verified 09/19/20 06:15 azithromycin AdvReac Intermediate Psychosis Verified 09/19/20 06:15 lithium AdvReac Intermediate GI bleed Verified 09/19/20 06:15 nortriptyline AdvReac Intermediate INSOMNIA Verified 09/19/20 06:15 imipramine AdvReac Verified 09/19/20 06:15 pregabalin AdvReac FACIAL Verified 09/19/20 06:15 NUMBNESS Home Medication Medication Instructions Recorded Multivitamin 50 Plus 1 tab PO DAILY 04/28/18 magnesium oxide 500 mg tablet 500 mg PO BID #180 tab 05/22/20 potassium chloride 10 mEq 10 meq PO DAILY #90 cap 05/22/20 capsule,extended release ondansetron HCl 4 mg tablet 4 mg PO Q8H PRN #30 tab-cap 05/24/20 omeprazole 40 mg capsule,delayed 40 mg PO DAILY #90 cap 05/31/20 release alprazolam 1 mg tablet 0.5 mg PO DAILY tab 08/10/20 duloxetine 30 mg capsule,delayed 30 mg PO BID 08/24/20 release baclofen 10 mg tablet 5 - 10 mg PO TID PRN #60 tab 08/25/20 hydrochlorothiazide 25 mg tablet 25 mg PO DAILY #90 tab-cap 08/25/20 Current Visit Medications: Current Medications Generic Name Dose Route Start Last Admin Trade Name Davonte PRN Reason Stop Dose Admin Acetaminophen 1,000 mg 09/19/20 06:00 09/19/20 06:40 Acetaminophen 500 Mg Tab PO 09/19/20 16:00 1,000 mg PREOP BRYAN Administration Celecoxib 400 mg 09/19/20 06:00 09/19/20 06:39 Celecoxib 200 Mg Cap PO 09/19/20 16:00 400 mg PREOP BRYAN Administration Gabapentin 300 mg 09/19/20 06:00 09/19/20 06:44 Gabapentin 300 Mg Cap PO 09/19/20 16:00 300 mg PREOP BRYAN Administration Tranexamic Acid 1,000 mg/ 60 mls @ 360 mls/hr 09/19/20 06:00 Sodium Chloride IVPB 09/19/20 16:00 PREOP BRYAN Tranexamic Acid 1,000 mg/ 60 mls @ 360 mls/hr 09/19/20 06:00 Sodium Chloride IVPB 09/19/20 16:00 DIRECTED BRYAN Clindamycin Phosphate/Dextrose 900 mg in 50 mls @ 50 mls/hr 09/19/20 06:00 Cleocin In D5w IVPB 09/19/20 23:59 PREOP BRYAN Ringer's Solution 1,000 mls @ 80 mls/hr 09/19/20 06:00 IV 10/18/20 23:59 INFUSION BRYAN IV Miscellaneous Supplies 1 each 09/19/20 06:00 Iv Access IV 10/18/20 23:59 DIRECTED BRYAN Sodium Chloride 0 ml 09/19/20 06:00 Normal Saline Flush 10 Ml Syr IV 10/18/20 23:59 PRN PRN Sodium Chloride 0 ml 09/19/20 06:00 Normal Saline 10 Ml Vial IJ 10/18/20 23:59 DIRECTED PRN Sterile Water 0 ml 09/19/20 06:00 Water,Injection,Sterile 10 Ml Vial IJ 10/18/20 23:59 DIRECTED PRN PFSH Active Problems Active Problems: Problem Status Onset Code Knee pain M25.569 Edema of both lower extremities R60.0 Instability of internal left knee prosthesis, initial encounter T84.023A History of arthroplasty of left knee Z96.652 AMS (altered mental status) R41.82 Alkalosis, metabolic E87.3 Bilateral shoulder bursitis M75.51, M75.52 Iliotibial band syndrome, right leg M76.31 Somatic dysfunction of cervical region M99.01 Musculoskeletal neck pain M54.2 Lymphadenopathy R59.1 Thyroid nodule E04.1 Right rib fracture S22.31XA Bursitis of both shoulders 12/20/14 M75.51, M75.52 Spondylosis of lumbar region without myelopathy or radiculopathy M47.816 Essential tremor G25.0 Maltracking of left patella M22.8X2 Maltracking of right patella M22.8X1 Right carpal tunnel syndrome G56.01 Cystocele and rectocele with incomplete uterovaginal prolapse N81.2 Restless leg syndrome G25.81 Spinal stenosis M48.00 Primary fibromyalgia syndrome M79.7 Pancolonic diverticulosis 02/04/14 K57.30 Migraine G43.909 Lumbago M54.5 Hypokalemia 03/11/12 E87.6 Essential hypertension 02/22/13 I10 Depressive disorder F32.9 Chronic pain syndrome 11/27/11 G89.4 Anxiety F41.9 Grade II hemorrhoids K64.1 Medical History Medical History Anxiety Anxiety Bipolar 1 disorder Chronic pain disorder Chronic pain syndrome (11/27/11) Cystocele and rectocele with incomplete uterovaginal prolapse 05/06/2018. A&P repair hysterectomy postop recovery going well advised to increase activity slowly small granuloma at vaginal cuff cauterized with silver nitrite Depressive disorder Essential hypertension (02/22/13) Fibromyalgia Grade II hemorrhoids Hypertension Hypokalemia (03/11/12) Lumbago Migraine Migraine Pancolonic diverticulosis (02/04/14) Primary fibromyalgia syndrome Restless leg syndrome Spinal stenosis Spinal stenosis L4-5 Surgical History Surgical History Abdominal hysterectomy Bilateral salpingectomy with oophorectomy Cholecystectomy (06/14/10) Colonoscopy - MAC (2013) EGD - MAC (~2013) EGD - MAC (10/31/17) H/O hemorrhoidectomy (02/10/18) Dr Jose Mcgarry History of colonoscopy (12/23/17) Dr Garcia History of esophagogastroduodenoscopy History of knee replacement Bilateral History of repair of rectocele Tonsillectomy and adenoidectomy Tobacco Smoking/Tobacco Use Status: Never Alcohol Alcohol Intake: never Substance Use Substance use: Never Substance use type: does not use Prental History History 5 Para 4 Hx # Term Pregnancies Multiple births Hx # Pregnancies Ectopic pregnancies AB induced Hx Number of Living Children 4 AB spontaneous 1 Vital Signs and Lab Results Vital Signs Most Recent Vital Signs in EMR: Most Recent Vital Signs Temp Pulse Resp BP Pulse Ox 36.3 C L 84 16 135/81 96 09/19/20 06:18 09/19/20 06:18 09/19/20 06:18 09/19/20 06:18 09/19/20 06:18 Lab Results Blood Type / Crossmatch: Patient ABO/Rh O Negative 09/18/20 10:00 09/18/20 Antibody Screen Negative 09/18/20 10:00 09/18/20 Complete Blood Count: White Blood Count 8.78 10^3/uL (4.4-10.8) 09/18/20 10:00 09/18/20 Red Blood Count 4.88 10^6/uL (3.93-5.22) 09/18/20 10:00 09/18/20 Hemoglobin 13.8 g/dL (11.2-15.7) 09/18/20 10:00 09/18/20 Hematocrit 41.8 % (36.0-46.0) 09/18/20 10:00 09/18/20 Platelet Count 489 10^3/uL (130-400) H 09/18/20 10:00 09/18/20 Complete Metabolic Panel: Sodium Level 142 mmol/L (136-145) 09/18/20 10:00 09/18/20 Potassium Level 3.8 mmol/L (3.5-5.1) 09/18/20 10:00 09/18/20 Chloride Level 102 mmol/L (98-107) 09/18/20 10:00 09/18/20 Carbon Dioxide Level 29.9 mmol/L (21.0-32.0) 09/18/20 10:00 09/18/20 Blood Urea Nitrogen 24 mg/dL (7-18) H 09/18/20 10:00 09/18/20 Creatinine 1.1 mg/dL (0.55-1.02) H 09/18/20 10:00 09/18/20 Calcium Level 9.2 mg/dL (8.5-10.1) 09/18/20 10:00 09/18/20 Glucose Level 164 mg/dL (74-106) H 09/18/20 10:00 09/18/20 Hemoglobin A1c 6.4 % (<5.7) H 09/18/20 10:00 09/18/20 Liver Function Panel: No Data to Display Coagulation Panel: No Data to Display Cardiac Panel: No Data to Display Arterial Blood Gas: No Data to Display Venous Blood Gas: No Data to Display Pancreas Panel: No Data to Display Thyroid Panel: No Data to Display Infectious Disease: Coronavirus (COVID-19)(PCR) Negative (Negative) 09/18/20 10:11 09/18/20 Coronavirus 2019 Source Nasal/nares 09/18/20 10:11 09/18/20 Blood Cultures: No Data to Display Toxicology Panel: No Data to Display Anesthesia Assessment and Plan Anesthesia History Personal History: No History of Anesthesia Complications Family History: No Family History of Anesthesia Complications Exercise Tolerance Exercise Tolerance: Metabolic Equivalents>4 Pertinent Negatives Pertinent Negatives: No Symptoms of GERD (Well controlled with medication), No Major Cardiovascular Symptoms or Complaints, No Major Pulmonary Symptoms or Complaints and No History of CVA/TIA Cardiac & Pulmonary Exam Cardiac Exam: Normal S1/S2 Heart Sounds Pulmonary Exam: Clear Bilateral Breath Sounds Airway Exam Known Difficult Airway: No Mallampati Class: 2 Mouth Opening: Narrow (< 3cm) Thyromental Distance: Greater than 3 cm Neck Range of Motion: Full ROM and Limited ROM Neck Circumference: Thick Teeth Condition: Edentulous ASA Classification ASA Score: ASA 3 Emergency Case?: No NPO Status NPO Status: NPO Clears >2 hours, Solids >8 hours Anesthesia Plan Resuscitation Status: Full Code Anesthesia Technique: General Anesthesia Airway Planned: LMA Pain Management: Surgeon and patient request nerve block Monitors Used: Standard Monitors
[2020-09-19] MEDS: Lactated Ringers 1,000 ML 80 ML IV ×2 (07:03→10:39)
[2020-09-19] MEDS: Bupivacaine 0.25% Pres-Free 30 ML VIAL ×2 (07:27→08:43)
[2020-09-19] MEDS: Lidocaine 1% Pres-Free 5 ML VIAL (07:27)
[2020-09-19] MEDS: CLINDAMYCIN 900 MG/50 ML BAG 50 MG IVPB ×4 (07:47→22:17)
--- NOTE | 2020-09-19 08:11 | W.ANESNERVE ---
Nerve Block Single Injection Procedure Date and Time Date Performed: 09/19/20 Procedure Start: 07:27 Location Where Procedure Performed Procedure Location: PACU Reason Performed: Postoperative Analgesia Requesting Provider: Milton Esquivel Timeout Performed Timeout Performed: Yes Monitoring Used ECG, Blood Pressure and SpO2 Sterility Sterility: Hand Hygiene, Surgical Cap, Surgical Mask, Sterile Gloves, Sterile Drape/Sheet and Chlorhexidine Sedation Given During Procedure Sedation Given (Indicate Dose Given): Versed IV Dose:: 2 mg Patient Mental Status Patient Mental Status: Sedate with meaningful communication Nerve Block 1st Nerve Block: Laterality: Left Block Type: Adductor Canal Needle / Catheter Used: 100mm SonoPlex II Local Anesthetic Bolus (Indicate Dose Given): Lidocaine used for local infiltration of skin and Bupivacaine 0.25% Dose:: 20 cc Additives (Indicate Dose Given): None Ultrasound: Sterile probe cover and gel used Ultrasound Image Saved?: Yes Nerve Stimulator: Not Used Paresthesia: None Procedure Tolerated: No Complications and Patient tolerated well Procedure Outcome: Successful Performed By: Kike Chase
--- NOTE | 2020-09-19 08:36 | W.PM.DS.N ---
Documented by User: Brianda Foote 09/19/20 08:53 DS: Diagnosis Discharge Diagnosis (1) Instability of internal left knee prosthesis, initial encounter: Status: Acute (2) History of arthroplasty of left knee: Status: Acute Discharge Plan Disposition Patient Disposition: HOME Condition: Good Discharge Details Reason For Visit: LEFT PROSTHETIC KNEE INSTABILITY Admit Date/Time: 09/19/20 05:59 Admit Provider: Milton Esquivel Attending Provider: Milton Esquivel Primary Care Provider: [facility] Course Hospital Course: Patient was admitted to the medical/surgical floor following the procedure. The surgery was tolerated well without any notable medical, surgical, or anesthetic complications. Mobilization began postoperatively. She was voiding spontaneously. Vitals were stable. Physical therapy worked with the patient and was cleared for discharge home. No acute medical issues. Pain was controlled on oral regimen. Home Meds and New Rx's Prescriptions: New acetaminophen 500 mg tablet 500 mg PO Q6H PRN (Reason: pain) Qty: 60 RF: 2 celecoxib [Celebrex] 200 mg capsule 200 mg PO BID Qty: 30 RF: 0 gabapentin 300 mg capsule 300 mg PO QHS Qty: 14 RF: 0 aspirin 81 mg tablet,delayed release (DR/EC) 81 mg PO BID 30 Days Qty: 60 RF: 0 oxycodone 5 mg tablet 5 mg PO Q4H PRN (Reason: severe post-operative pain) Qty: 18 RF: 0 pantoprazole 40 mg tablet,delayed release (DR/EC) 40 mg PO DAILY Qty: 30 RF: 0 docusate sodium [Colace] 100 mg capsule 100 mg PO BID Qty: 30 RF: 0 Continued alprazolam [Xanax] 1 mg tablet 0.5 mg PO DAILY RF: 0 duloxetine 30 mg capsule,delayed release(DR/EC) 30 mg PO BID RF: 0 hydrochlorothiazide 25 mg tablet 25 mg PO DAILY Qty: 90 RF: 4 baclofen 10 mg tablet 5 - 10 mg PO TID PRN (Reason: muscle spasm) Qty: 60 RF: 0 magnesium oxide 500 mg tablet 500 mg PO BID Qty: 180 RF: 0 potassium chloride 10 mEq capsule, extended release 10 meq PO DAILY Qty: 90 RF: 3 ondansetron HCl 4 mg tablet 4 mg PO Q8H PRN Qty: 30 RF: 3 omeprazole 40 mg capsule,delayed release(DR/EC) 40 mg PO DAILY Qty: 90 RF: 4 Multivitamin 50 Plus Tablet 1 tab PO DAILY RF: 0 Discharge Instructions Additional Instructions: Total Knee Revision Discharge Instructions Activity: The most important activity is to walk. You should try to take short walks a few times a day. It is important that when resting you work on keeping the knee straight. Avoid putting a pillow behind the knee as this will encourage flexion. Work on range of motion exercises as provided by Physical Therapy. - Start outpatient physical therapy within 2 weeks. - You should wear the LYNN hose on both legs for 2 weeks. You may remove these at night. You may also use any compression sock in place of the LYNN hose. Dressing: Keep the surgical dressing in place for at least one week. After the first week it may be removed and replaced with light gauze and tape or nothing. The wound and dressing may get wet after 3 days but avoid soaking the dressing or otherwise it will need to be changed. Many people prefer covering the dressing with cling wrap (saran wrap) to minimize it from getting soaked. If it gets wet, just pat dry. If it starts to peel off then it will need to be changed. Medications: - You should take Tylenol and anti-inflammatory Celebrex as your primary pain control medications. If the Celebrex is too expensive or not covered, please call the office for another alternative (Advil/Ibuprofen or Naproxen/Aleve) - You have been prescribed a stronger pain medication Oxycodone for breakthrough pain, take as needed as prescribed. - You have also been prescribed a stomach acid reduction agent Pantoprozole to help reduce stomach acid and reflux. - You have been prescribed Gabapentin to take at night for restlessness and nerve pain. - You will be taking Aspirin 81mg twice a day for DVT prevention unless instructed otherwise. - If you have constipation you should take Colace (which has been prescribed) or Miralax (which you may purchase [id number]). It takes most people 3-4 days to have a bowel movement. Follow-up: 2 weeks If you have any acute concerns or questions, please do not hesitate to contact the office at [phone]. You may contact Dr. Esquivel with any questions after hours through the hospital at [phone] or on his cell phone at [phone]. Referrals: Milton Esquivel MD [ [facility] STAFF PHYSICIAN] - Activity:: Activity as Tolerated Equipment/Supplies:: Walker Diet:: As Tolerated Discharge Orders Discharge Orders: Discharge Order (Routine); Ordered 09/20/20 Ordered By: Milton Esquivel DS: Data Vitals/I&O Vitals and I&O: Vital Signs Temperature 36.3 C L 09/19/20 06:18 Pulse 84 09/19/20 06:18 Pulse Rhythm Regular 09/19/20 06:18 Respiratory Rate 16 09/19/20 06:18 Respiratory Depth Normal 09/19/20 06:18 Blood Pressure 135/81 09/19/20 06:18 Pulse Oximetry 96 09/19/20 06:18 Oxygen Delivery Method Room Air 09/19/20 06:18 Oxygen Flow Rate 0 09/19/20 06:18 Pain Level 8 09/19/20 06:18 Intake & Output 09/18/20 09/18/20 09/19/20 11:59 23:59 11:59 Weight 81.647 kg 86.7 kg [facility] Medical History Anxiety Anxiety Bipolar 1 disorder Chronic pain disorder Chronic pain syndrome (11/27/11) Cystocele and rectocele with incomplete uterovaginal prolapse 05/06/2018. A&P repair hysterectomy postop recovery going well advised to increase activity slowly small granuloma at vaginal cuff cauterized with silver nitrite Depressive disorder Essential hypertension (02/22/13) Fibromyalgia Grade II hemorrhoids Hypertension Hypokalemia (03/11/12) Lumbago Migraine Migraine Pancolonic diverticulosis (02/04/14) Primary fibromyalgia syndrome Restless leg syndrome Spinal stenosis Spinal stenosis L4-5 Surgical History Abdominal hysterectomy Bilateral salpingectomy with oophorectomy Cholecystectomy (06/14/10) Colonoscopy - MAC (2013) EGD - MAC (~2013) EGD - MAC (10/31/17) H/O hemorrhoidectomy (02/10/18) Dr Jose Mcgarry History of colonoscopy (12/23/17) Dr Garcia History of esophagogastroduodenoscopy History of knee replacement Bilateral History of repair of rectocele Tonsillectomy and adenoidectomy Family History Mother , 51 Diabetes Breast cancer Heart disease Father , 77 Diabetes Essential hypertension Alcohol abuse Heart disease Hyperlipidemia Sister Diabetes Cancer of neck Depression Paternal Grandfather , 85 Essential hypertension Heart disease Stroke Paternal Grandmother , 62 Diabetes Essential hypertension Stroke Maternal Grandfather , 82 No problems noted. Maternal Grandmother , 34 No problems noted. Sister Ovarian cancer Sister Alcohol abuse Depression Substance abuse Sister Throat cancer Depression Sister Alcohol abuse Depression Substance abuse Sister No problems noted. 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 Pets and animals: Yes Pets and animals: dog(s) Sexually active: Yes Do you think of yourself as: straight/heterosexual Current gender identity: female What is your relationship status?: living with partner How often do you talk on the phone with friends or family?: three or more times per week How often do you get together with friends or relatives?: once per week How often do you attend orthodoxy or tenriism services?: 4 or more times per year Do you belong to any clubs or organized social groups?: no Panel score (0-1 are the most socially isolated patients): 3 What type of physical activity do you participate in: walking and other Details: Eliptical, exercise bike Duration: 30-45 minutes/day Frequency: 3-4 times per week [place] Special catal[place] needs: No Seatbelt use: always Helmet use: Yes Drive intox or ride w/intox boat driver: No Do you feel safe at home: Yes Do you feel safe in your relationship?: Yes History History 5 Para 4 Hx # Term Pregnancies Multiple births Hx # Pregnancies Ectopic pregnancies AB induced Hx Number of Living Children 4 AB spontaneous 1 Documented by User: Milton Esquivel MD 09/20/20 10:24 Date of service: 09/20/20 Time of Service: 10:23 Discharge Plan Disposition Patient Disposition: HOME Condition: Good Discharge Details Reason For Visit: LEFT PROSTHETIC KNEE INSTABILITY Admit Date/Time: 09/19/20 05:59 Admit Provider: Milton Esquivel Attending Provider: Milton Esquivel Primary Care Provider: [facility] Course Hospital Course: Patient was admitted to the medical/surgical floor following the procedure. The surgery was tolerated well without any notable medical, surgical, or anesthetic complications. Mobilization began postoperatively. She was voiding spontaneously. Vitals were stable. Physical therapy worked with the patient and was cleared for discharge home. No acute medical issues. Pain was controlled on oral regimen. Home Meds and New Rx's Prescriptions: New acetaminophen 500 mg tablet 500 mg PO Q6H PRN (Reason: pain) Qty: 60 RF: 2 celecoxib [Celebrex] 200 mg capsule 200 mg PO BID Qty: 30 RF: 0 gabapentin 300 mg capsule 300 mg PO QHS Qty: 14 RF: 0 aspirin 81 mg tablet,delayed release (DR/EC) 81 mg PO BID 30 Days Qty: 60 RF: 0 oxycodone 5 mg tablet 5 mg PO Q4H PRN (Reason: severe post-operative pain) Qty: 18 RF: 0 pantoprazole 40 mg tablet,delayed release (DR/EC) 40 mg PO DAILY Qty: 30 RF: 0 docusate sodium [Colace] 100 mg capsule 100 mg PO BID Qty: 30 RF: 0 Continued alprazolam [Xanax] 1 mg tablet 0.5 mg PO DAILY RF: 0 duloxetine 30 mg capsule,delayed release(DR/EC) 30 mg PO BID RF: 0 hydrochlorothiazide 25 mg tablet 25 mg PO DAILY Qty: 90 RF: 4 baclofen 10 mg tablet 5 - 10 mg PO TID PRN (Reason: muscle spasm) Qty: 60 RF: 0 magnesium oxide 500 mg tablet 500 mg PO BID Qty: 180 RF: 0 potassium chloride 10 mEq capsule, extended release 10 meq PO DAILY Qty: 90 RF: 3 ondansetron HCl 4 mg tablet 4 mg PO Q8H PRN Qty: 30 RF: 3 omeprazole 40 mg capsule,delayed release(DR/EC) 40 mg PO DAILY Qty: 90 RF: 4 Multivitamin 50 Plus Tablet 1 tab PO DAILY RF: 0 Discharge Instructions Additional Instructions: Total Knee Revision Discharge Instructions Activity: The most important activity is to walk. You should try to take short walks a few times a day. It is important that when resting you work on keeping the knee straight. Avoid putting a pillow behind the knee as this will encourage flexion. Work on range of motion exercises as provided by Physical Therapy. - Start outpatient physical therapy within 2 weeks. - You should wear the LYNN hose on both legs for 2 weeks. You may remove these at night. You may also use any compression sock in place of the LYNN hose. Dressing: Keep the surgical dressing in place for at least one week. After the first week it may be removed and replaced with light gauze and tape or nothing. The wound and dressing may get wet after 3 days but avoid soaking the dressing or otherwise it will need to be changed. Many people prefer covering the dressing with cling wrap (saran wrap) to minimize it from getting soaked. If it gets wet, just pat dry. If it starts to peel off then it will need to be changed. Medications: - You should take Tylenol and anti-inflammatory Celebrex as your primary pain control medications. If the Celebrex is too expensive or not covered, please call the office for another alternative (Advil/Ibuprofen or Naproxen/Aleve) - You have been prescribed a stronger pain medication Oxycodone for breakthrough pain, take as needed as prescribed. - You have also been prescribed a stomach acid reduction agent Pantoprozole to help reduce stomach acid and reflux. - You have been prescribed Gabapentin to take at night for restlessness and nerve pain. - You will be taking Aspirin 81mg twice a day for DVT prevention unless instructed otherwise. - If you have constipation you should take Colace (which has been prescribed) or Miralax (which you may purchase [id number]). It takes most people 3-4 days to have a bowel movement. Follow-up: 2 weeks If you have any acute concerns or questions, please do not hesitate to contact the office at [phone]. You may contact Dr. Esquivel with any questions after hours through the hospital at [phone] or on his cell phone at [phone]. Referrals: Milton Esquivel MD [ [facility] STAFF PHYSICIAN] - Activity:: Activity as Tolerated Equipment/Supplies:: Walker Diet:: As Tolerated Discharge Orders Discharge Orders: Discharge Order (Routine); Ordered 09/20/20 Ordered By: Milton Esquivel DS: Summary Time Spent with Patient providing and/or coordinating discharge services: Less than 30 minutes Status at Discharge Functional status at discharge: uses cane/walker Overall status at discharge: patient is progressing back to baseline Mental Status: mental status grossly normal Speech and Movement: speech and movement normal Mood: congruent mood Affect: normal affect Exam Psych Mental Status: mental status grossly normal Speech and Movement: speech and movement normal Mood: congruent mood Affect: normal affect [facility] Medical History Anxiety Anxiety Bipolar 1 disorder Chronic pain disorder Chronic pain syndrome (11/27/11) Cystocele and rectocele with incomplete uterovaginal prolapse 05/06/2018. A&P repair hysterectomy postop recovery going well advised to increase activity slowly small granuloma at vaginal cuff cauterized with silver nitrite Depressive disorder Essential hypertension (02/22/13) Fibromyalgia Grade II hemorrhoids Hypertension Hypokalemia (03/11/12) Lumbago Migraine Migraine Pancolonic diverticulosis (02/04/14) Primary fibromyalgia syndrome Restless leg syndrome Spinal stenosis Spinal stenosis L4-5 Surgical History Abdominal hysterectomy Bilateral salpingectomy with oophorectomy Cholecystectomy (06/14/10) Colonoscopy - MAC (2013) EGD - MAC (~2013) EGD - MAC (10/31/17) H/O hemorrhoidectomy (02/10/18) Banding, Dr Garcia History of colonoscopy (12/23/17) Dr Garcia History of esophagogastroduodenoscopy History of knee replacement Bilateral History of repair of rectocele Tonsillectomy and adenoidectomy Family History Mother , 51 Diabetes Breast cancer Heart disease Father , 77 Diabetes Essential hypertension Alcohol abuse Heart disease Hyperlipidemia Sister Diabetes Cancer of neck Depression Paternal Grandfather , 85 Essential hypertension Heart disease Stroke Paternal Grandmother , 62 Diabetes Essential hypertension Stroke Maternal Grandfather , 82 No problems noted. Maternal Grandmother , 34 No problems noted. Sister Ovarian cancer Sister Alcohol abuse Depression Substance abuse Sister Throat cancer Depression Sister Alcohol abuse Depression Substance abuse Sister No problems noted. 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 Pets and animals: Yes Pets and animals: dog(s) Sexually active: Yes Do you think of yourself as: straight/heterosexual Current gender identity: female What is your relationship status?: living with partner How often do you talk on the phone with friends or family?: three or more times per week How often do you get together with friends or relatives?: once per week How often do you attend orthodoxy or tenriism services?: 4 or more times per year Do you belong to any clubs or organized social groups?: no Panel score (0-1 are the most socially isolated patients): 3 What type of physical activity do you participate in: walking and other Details: Eliptical, exercise bike Duration: 30-45 minutes/day Frequency: 3-4 times per week [place] Special catal[place] needs: No Seatbelt use: always Helmet use: Yes Drive intox or ride w/intox boat driver: No Do you feel safe at home: Yes Do you feel safe in your relationship?: Yes History History 5 Para 4 Hx # Term Pregnancies Multiple births Hx # Pregnancies Ectopic pregnancies AB induced Hx Number of Living Children 4 AB spontaneous 1
[2020-09-19] MEDS: Ketorolac 30 MG/ML VIAL (08:43)
[2020-09-19] MEDS: Normal Saline 20 ML VIAL (08:43)
--- NOTE | 2020-09-19 10:58 | W.PM.OP ---
Date of service: 09/19/20 Time of Service: 09:58 Operative Note Operative Note DATE OF PROCEDURE: 09/19/20 PRE-OP DIAGNOSIS: Right Prosthetic Knee Instability POST-OP DIAGNOSIS: same PROCEDURE: Right Femoral Revision Arthroplasty SURGEON: Milton Esquivel CURRENCY EXCHANGE SPECIALIST: Juany Chamberlain ANESTHESIA TYPE: General LMA/ETT Refer to Anesthesia Record ESTIMATED BLOOD LOSS: 150 PATHOLOGY: none sent TOURNIQUET TIME: 30 COMPLICATIONS: None Patient was transported to: PACU Patient's condition: stable Implants: 1. Depuy Sigma Posterior Stabilized Revision Femoral Component, Size 2, with 4mm posterolateral augment 2. Depuy Sigma Size [id number] femoral stem with posteriorizing bolt 3. Depuy Attune 2x17.5 RP/PS Poly Indications: I have seen Olamide in clinic for symptoms of RIGHT knee pain and laxity, confirmed with radiographic findings and clinical exam. She has exhausted nonoperative methods and was having significant limitations in daily function and desired better function and less pain. I discussed the technical details of a revision knee replacement. I explained the risks of the procedure to include, but not limited to, bleeding, infection, pain, stiffness, fracture, damage to nerves and vessels, damage to muscles and tendons, loosening, need for repeat procedure, blood clot and cardiopulmonary demise. Despite these risks, Olamide elected to proceed. Findings: There was no loosening of either femur or tibia. There was notable laxity laterally in flexion, with global laxity of 4-5mm Procedure Description: Olamide was greeted in the preoperative holding area where the correct side was identified and marked. The consent was reviewed with the patient and signed. The history and physical was updated. All questions were answered. Preoperative mediacations were administered: Acetaminophen 1000mg, Celebrex 400mg, and Gabapentin 300mg. An adductor canal block was then administered by the anesthesia team in the PACU. Olamide was taken back to the operating room. A general anesthetic was administered. The patient was placed into the supine position on the operating room table. A nonsterile tourniquet was placed high onto the leg but only used for cementing. Posts were placed for positioning during the procedure. All bony prominences were well padded. Prophylactic antibiotics in the form of Cefazolin were administered. 1g of Tranxemic Acid was given intravenously within 30 minutes of incision. The right leg was then prepped with Chloraprep and draped in a standard fashion with impervious stockinette. A second prep with Chloraprep was performed prior to application of Iodine impregnated skin protection. A timeout to confirm correct identity, side and site, procedure, allergies, anesthesia, and medical concerns was performed. With the knee in some flexion, a midline incision was made overlying the knee. Full thickness skin flaps were raised once the extensor mechanism was encountered. These were raised medially and laterally. Any bleeding was controlled with electrocautery. Once the extensor mechanism was fully exposed, a medial parapatellar arthrotomy was performed in a flexed position. The extensor mechanism was very thinned and only a portion of the previous arthrotomy was identifiable. All bleeding from the arthrotomy and the geniculate arteries was coagulated. A medial subperiosteal peel was performed with electrocautery to the midcoronal plane. The fat pad was removed while keeping the patellar tendon protected. The anterior distal femur synovium was removed for visualization. The polyethylene was removed. The contents of the notch were removed with electrocautery and a rongeur. The tibia was inspected and showed no signs of loosening. I used a bone tamp to tap on the anterior rim of the tibial component and there is no gross signs of loosening. With the cement and component interface established I used a series of osteotomes and flexible chisels to break the interface between the metal component and the cement. This was taken around the entire knee working all areas of the component interface. Once this was completed I used a bone tamp over the anterior flange to tap off the femoral component. There is noted be some bone loss right around the PEG on the medial side and there is also some loss of the chamfer. Otherwise no significant bone loss posteriorly or distally. Excess cement was removed although the majority the cement came off with the implant. Using a step drill, the femoral canal was entered. This was done without any difficulty. The femur was then reamed until cortical contact was made, 60 mm. The intramedullary drill was left in place and used as a reference for distal femoral preparation. The distal femoral cut guide was then placed onto the stem of the drill. The femoral component was posterior eyes such that the anterior flange was in plane with the previous anterior flange. A spacer block was placed onto the tibia and the knee was brought in 90 degrees of flexion to establish rotational axis. The intramedullary distal femoral cut guide was set to a 5 degree valgus cut. The distal femoral cut guide was then held in position and pinned. With the soft tissues protected, the distal cut was performed. The femoral component cut guide was moved 2 mm proximally in order to get better bony contact. The posterior cuts were then made. The 0 mm cut on the medial side was able to take off just a little bit of bone in plane with the previous cut. The lateral femur was noted to be more deficient and therefore was cut off the +4 mm augment slot. The chamfers were then cut. The cutting block was removed and the notch-cutting guide was placed. A reciprocating saw was used to make the notch cut in the posterior stabilized slot. A rasp smoothed the cut surfaces. A trial posterior stabilized revision femoral component, posteriorized 2 mm and with a 2 mm posterior lateral augment, was then inserted, impacted down to the cut surfaces. A provisional trial 17.5mm poly was placed. There was noted to be excellent extension and flexion. There was no significant instability. The patella was tracking without thumbs although with slight lateral tilt. The trial components were removed. The final components, except for the polyethylene were opened on the back table. The periosteal and capsular tissues, especially posteriorly, around the knee were then systematically injected with a periarticular cocktail consisting of 50cc 0.25% Marcaine, 30mg Ketorolac, 20cc of Exparal and 50cc of injectable saline. The tourniquet was then inflated to 275mmHg. The knee was thoroughly irrigated with a pulse lavage and dried. On the back table, the implants opened were opened. The femoral component was assembled. The cement was mixed. One batche of medium viscosity cement were prepared with vacuum assistance. After the cement was ready, a small amount was placed onto the posterior flange of the femur. The femoral cut surface was once again dried and cement was manually impacted into the cut surface. The femoral component was lined and inserted and then impacted. Excess cement was removed. It was ensured to be down against the cut surface. The trial polyethylene was then inserted and the leg was brought out into full extension for the duration of the cement curing process, approximately 18min. While the cement was hardening, the knee was irrigated with Irrisept chlorhexadine solution. This was allowed to sit in the knee for 3 minutes. The knee was then taken through range of motion and the 17.5 mm polyethylene provided excellent stability and great range of motion. There is minimal gapping at both zero, thirty, and 90 degrees. A size 17.5mm polyethylene component provided the best range of motion and stability with less than 2mm gapping with medial and lateral stress and full extension without significant hyperextension. The patella was tracking with a no-thumbs technique although there was some slight lateral tilt. The trial poly was removed and once again the knee was checked for any loose, excess, or errant cement. The poly component was then inserted and impacted into position after cleaning and drying the tibial tray. The capsule was then reapproximated with a No. 1 Vicryl in an interrupted fashion. The tourniquet was then released and the arthrotomy appeared watertight without significant bleeding. The second dose of 1g TXA was started. Deep tissues were then reapproximated with 0 Vicryl and 2-0 Monocryl. The skin was closed with a running 3-0 Monocryl in a subcuticular fashion. This was reinforced with skin glue. A Mepilex silver dressing was applied along with a [id number] GLENN wrap. A CryoCuff was applied. Olamide was transferred to the hospital bed without difficulty an suffering no apparent complication. Olamide has a good prognosis. Physical therapy will start today and without restrictions, weight-bearing as tolerated. Aspirin 81mg BID will be used for DVT prophylaxis.
[2020-09-19] MEDS: HYDROmorphone 2 MG/ML VIAL IVP (11:08)
[2020-09-19] MEDS: Normal Saline Flush 10 ML SYR IV (11:08)
--- NOTE | 2020-09-19 15:34 | W.ANESPOSTOP ---
Postoperative Evaluation Date, Time and Location Date Performed: 09/19/20 Time Performed: 15:38 Patient Location: Med/Surg (215) Vital Signs Most Recent Imported Vital Signs: Most Recent Vital Signs Temp Pulse Resp BP Pulse Ox 36.7 C 90 16 106/69 95 09/19/20 15:15 09/19/20 15:15 09/19/20 15:15 09/19/20 15:15 09/19/20 15:15 Pain Score Most Recent Pain Score: Most Recent Pain Score Pain Level [Left Knee] 7 09/19/20 11:45 Pain Level 8 09/19/20 15:15 Assessment Mental Status: Awake (Alert & Oriented to Patient Baseline) Airway and Respiratory Function: Patent airway with normal (patient baseline) respiratory exam Cardiovascular Function: Hemodynamically Stable Hydration Status: Adequately Hydrated Nausea & Vomiting: No Nausea or Vomiting Pain: Pt. Denies Any Pain Peripheral Nerve Block: Patient did not receive a nerve block
[2020-09-19] MEDS: oxyCODONE 5 MG TAB PO (15:40)
--- NOTE | 2020-09-19 15:40 | IN_ITS ---
Date of service: 09/19/20 Time of Service: 15:40 PT Notes Visit Reasons: LEFT PROSTHETIC KNEE INSTABILITY Physical Therapy Inpatient Initial Evaluation Date: 09/19/2020 Referring Doctor: Milton Esquivel MD PT Orders: PT CONSULT: Status post Ortho surgery. Status post revision left TKA Precautions: Fall. Standard. WBAT on left LE. Patient Profile/Admitting Diagnosis: Olamide is a 60-year-old female with right prosthetic knee instability and is status post right total knee arthroplasty revision on postoperative day 0. PMHX: Medical History Anxiety Bipolar 1 disorder Chronic pain disorder Chronic pain syndrome (11/27/11) Cystocele and rectocele with incomplete uterovaginal prolapse 05/06/2018. A&P repair hysterectomy postop recovery going well advised to increase activity slowly small granuloma at vaginal cuff cauterized with silver nitrite Depressive disorder Essential hypertension (02/22/13) Fibromyalgia Grade II hemorrhoids Hypertension Hypokalemia (03/11/12) Lumbago Migraine Migraine Pancolonic diverticulosis (02/04/14) Primary fibromyalgia syndrome Restless leg syndrome Spinal stenosis Spinal stenosis L4-5 Surgical History (Updated 08/24/20 @ 11:21 by Brianda Foote) Abdominal hysterectomy Bilateral salpingectomy with oophorectomy Cholecystectomy (06/14/10) Colonoscopy - MAC (2013) EGD - MAC (~2013) EGD - MAC (10/31/17) H/O hemorrhoidectomy (02/10/18) Banding, Dr Garcia History of colonoscopy (12/23/17) Dr Garcia History of esophagogastroduodenoscopy History of knee replacement Bilateral History of repair of rectocele Tonsillectomy and adenoidectomy Social History/Home Situation: Lives with in a private home with 3 steps to enter with 1 rail. No indoor steps. Independent with use of front wheeled walker per prior level of function. Equipment Owned/DME: [id number] walker Subjective: Pleasant and cooperative. Did demonstrate some signs of drowsiness. Reported 5-6/10 pain on the left knee at the outset however complained of 10/10 pain and was tearful when she was placed back in bed after deferring further ambulation due to increased shakiness, limited ability to follow instruction for limb advancement, and increasing signs of drowsiness. She also reported a pounding headache at the end of session. Nurse Ghada aware. Objective: General Observation: IV in right UEs. Cryo/Cuff on left knee. SCD pump on her right leg. Appeared mildly drowsy at the start. Oxygen supplementation via NC. Mental Status: Alert but limited awareneas. Able to follow single step commands with seemed to have beginning difficulty with advancing left leg once in standing position. Pain: 5?6/10 in left knee at rest, 10/10 pain after weight bearing Vital Signs: Oxygen saturation stayed above 90% throughout. Vital signs remained within normal limits despite increase symptoms of dizziness. ROM: Right Upper Extremity: Shoulder Flexion WFL. Shoulder abduction WFL. Shoulder ER/IR WFL. Elbow flexion WFL. Forearm pronation/supination WFL. Wrist flexion WFL. Opening and closing of hand WFL. Left Upper Extremity: Shoulder Flexion WFL. Shoulder abduction WFL. Shoulder ER/IR WFL. Elbow flexion WFL. Forearm pronation/supination WFL. Wrist flexion WFL. Opening and closing of hand WFL. Right Lower Extremity: Hip flexion WFL. Hip abduction WFL. Hip ER/IR WFL. Knee flexion WFL. Knee extension. Ankle dorsiflexion/eversion WFL. Ankle plantarflexion/inversion WFL. Left Lower Extremity: Hip flexion WFL. Hip abduction WFL. Hip ER/IR WFL. Knee flexion 30 degrees to 90 degrees with pain at end of range. Knee extension -30 degrees. Ankle dorsiflexion WFL. Ankle plantarflexion WFL. Strength: Right Upper Extremity: Shoulder flexors 4/5. Shoulder abductors 4/5. Shoulder ER 4/5. Shoulder IR 4/5. Forearm pronators 4/5. Forearm supinators 4/5. Elbow flexors 4/5. Elbow extensors 4/5. Cullet Crusher And Washer strong. Left Upper Extremity: Shoulder flexors 4/5. Shoulder abductors 4/5. Shoulder ER 4/5. Shoulder IR 4/5. Forearm pronators 4/5. Forearm supinators 4/5. Elbow flexors 4/5. Elbow extensors 4/5. Cullet Crusher And Washer strong. Right Lower Extremity: Hip flexors 4-/5. Hip abductors 4/5. Hip external rotators 4/5. Hip internal rotators 4/5. Knee flexors 4/5. Knee extensors 4-/5. Ankle dorsiflexors/evertors 4-/5. Ankle plantarflexors/invertors 4-/5. Left Lower Extremity: Hip flexors 4-/5. Hip abductors 4/5. Hip external rotators 4/5. Hip internal rotators 4/5. Knee flexors 3-/5. Knee extensors 3-/5. Ankle dorsiflexors/evertors 4-/5. Ankle plantarflexors/invertors 4-/5. Sensation: Light pressure sensation on the left side from the left gluteal area down to the foot. Bed Mobility/Transfers: Supine to sit contact-guard assist with HOB at 45 degrees Sit to supine contact-guard assist with HOB at 45 degrees Sit to stand minimal assist plus CGA of Nurse Ghada Stand to sit minimal assist plus CGA of Nurse Ghada Bed to bedside commode unable due to safety concerns Bedside commode to bed unable due to safety concerns Bed to chair unable unable due to safety concerns Chair to bed unable unable due to safety concerns Gait: Patient had difficulty advancing her left foot forward. Deferred further ambulation assessment due to considerable increase in patient shakiness, limited ability to advance left foot, report of increasing dizziness, and with signs of increasing drowsiness. Balance: Static Sitting: Good Dynamic Sitting: Fair Static Standing: Poor Dynamic Standing: Unable Special Tests: Mobility Limitations Standardized Measure [facility] AM-PAC 6 clicks Basic Mobility Inpatient Short Form: Raw Score: 11 CMS Score: 73% deficit Informed Consent/Education: Patient instructed in purpose of PT consult and plan of care. Agreeable to proceed with established PT POC to achieve personal goals. Assessment: Unable to complete mobility assessment due to safety issues with patient demonstrating increasing shakiness in standing, inability to advance left foot report of increasing dizziness, and increasing signs of drowsiness. Olamide demonstrates significant functional mobility decline requiring assistance of 2 people for transfer task performance. Will hold off on any ambulation activity by nursing staff until patient is seen again the following day by physical therapy staff. Patient will benefit from [facility] facility placement for continued skilled physical therapy services in order to progress mobility level, strength, and balance in preparation for a safe discharge to home. Patient presents with clinical signs and symptoms consistent with current/admitt ing diagnoses that have resulted to mobility limitations, gait instability, generalized weakness, and impairment of motor control as demonstrated by the following impairment level findings: 1. Decreased strength to left knee major muscle groups 2. Significantly impaired sitting/standing balance 3. Significantly impaired activity tolerance 4. Limitation of joint range of motion in left knee 5. Fearfulness of falling Impairments are contributing to the following functional limitations: 1. Increased dependence with transfers 2. Inability to safely ambulate without assistive device and physical assistance 3. Increase completion time for mobility ADL performance 4. Increased fall risk 5. Inability to negotiate steps alone safely 7. Inability to return to prior living environment at this time Patient is assessed as a 98084 moderate complexity based on the following: History: 60-year-old female with past medical history as indicated above Examination: Demonstrable impairment in strength, balance, and mobility level with underlying impairments and functional limitations as exhibited above as well as deficit score of 73% utilizing the [facility] Mobility Inpatient Short Form Presentation: Evolving Decision Makin moderate complexity Goals: Goals X1 week 1. Supine-Sit independent 2. Sit-Supine independent 3. Sit-Stand independent 4. Stand-Sit independent 5. Bed-Chair independent 6. Chair-Bed independent 7. Independent gait on level surface with use of front wheeled walker for at least 101 feet without report of pain nor dyspnea 8. Fair static and dynamic standing balance/tolerance Plan of Care/Treatment Plan: 1-2x/day, 7 days/week x 1 week. Plan of care has been reviewed with the SALES FLOOR ASSOCIATE providing the service under Physical Therapy direction. Initiate Physical Therapy intervention for pain management as needed, strengthening, bed mobility, transfers, gait, stairs, balance training, and use of assistive device. DISCHARGE RECOMMENDATIONS: Patient will benefit from [facility] facility placement for continued skilled physical therapy services in order to progress mobility level, strength, and balance in preparation for a safe discharge to home. TREATMENT CODE/TIME: 37604 x 20 minutes, 16780 x 10 minutes beginning at 15:40 PM. Thank you for the opportunity to participate in the care of this patient. Kimberly Rosa PT, DPT, CLT [facility] [place], [place]
[2020-09-19] MEDS: DULoxetine 30 MG CAP PO (19:49)
[2020-09-19] MEDS: Celecoxib 200 MG CAP PO (19:49)
[2020-09-20] MEDS: oxyCODONE 5 MG TAB PO ×3 (00:12→13:07)
[2020-09-20] MEDS: Lactated Ringers 1,000 ML 80 ML IV (00:13)
[2020-09-20 03:40] VITALS: BP 123/73; PULSE 94; RESP 17; TEMP 36.4; O2SAT 98
[2020-09-20] MEDS: Normal Saline Flush 10 ML SYR IV (05:59)
[2020-09-20] MEDS: HYDROmorphone 2 MG/ML VIAL 1 MG IVP (05:59)
[2020-09-20] MEDS: CLINDAMYCIN 900 MG/50 ML BAG 50 MG IVPB (06:00)
[2020-09-20 07:22] VITALS: BP 107/72; PULSE 90; RESP 18; TEMP 36.1; O2SAT 98
--- NOTE | 2020-09-20 07:26 | W.PM.PROGNOT ---
Date of Service Date of service: 09/20/20 Time of Service: 07:27 Assessment and Plan Assessment and plan (1) Instability of internal left knee prosthesis, initial encounter: Status: Acute Assessment and plan: Olamide is a 60-year-old status post revision of her left knee arthroplasty for instability. She seems to be doing well. I think she needs to be slightly more aggressive on treating pain prior to it peaking. She relied on IV dose of narcotics yesterday. We will try to be more aggressive with the oral oxycodone today and continue to work with physical therapy. I expect that she could discharge later today or tomorrow at the latest. An intact straight leg raise is a good sign for her ability to ambulate in the home setting. Weightbearing as tolerated left lower extremity with the assistance of a walker. Aspirin 81 mg twice daily for DVT prophylaxis. Subjective Subjective Interval history since last seen: Olamide is post-op day #1 status post revision left knee arthroplasty for prosthetic knee instability. She has been able to ambulate overnight with nursing. She does report pain mostly in the back of the knee. She has been taking the pain medication with some success. She had some nausea and a headache yesterday which seems to be better. No chest pain or shortness of breath. Exam Narrative Exam Narrative: Resting on the hospital bed. She is able to awaken easily. She is alert and oriented x3. No acute distress. The left leg dressing is clean dry and intact. The Burton wrap is tighter on the ankle so I removed it. She does feel this relieves some of the pain in her leg. She was able to demonstrate an intact straight leg raise multiple times. She has intact ankle dorsiflexion and plantarflexion as well as great toe extension and flexion. Sensation intact light touch over the deep and superficial peroneal nerve and tibial nerve. Foot is warm and well-perfused. Objective Last Vital Signs Temp 36.1 C L 09/20/20 07:22 Pulse 90 09/20/20 07:22 Resp 18 09/20/20 07:22 BP 107/72 09/20/20 07:22 Pulse Ox 98 09/20/20 07:22
[2020-09-20] MEDS: Acetaminophen 500 MG TAB 1000 MG PO ×2 (07:43→13:06)
[2020-09-20] MEDS: DULoxetine 30 MG CAP PO (07:44)
[2020-09-20] MEDS: Multivitamin w/Minerals TAB 1 TAB PO (07:44)
[2020-09-20] MEDS: Omeprazole 20 MG CAPCR 40 MG PO (07:44)
[2020-09-20] MEDS: hydroCHLOROthiazide 25 MG TAB PO (07:44)
[2020-09-20] MEDS: Docusate Sodium 100 MG CAP PO (07:44)
[2020-09-20] MEDS: ALPRAZolam 0.5 MG TAB PO (07:44)
[2020-09-20] MEDS: Aspirin E.C. 81 MG TABEC PO (07:45)
[2020-09-20] MEDS: Potassium Chloride 10 MEQ CAPCR PO (07:45)
[2020-09-20] MEDS: Celecoxib 200 MG CAP PO (07:45)
--- NOTE | 2020-09-20 09:22 | PTTR_ITS ---
Date of service: 09/20/20 Time of Service: 08:30 PT Notes Visit Reasons: LEFT PROSTHETIC KNEE INSTABILITY Inpatient Physical Therapy Treatment Note [facility] Date: 09/20/2020 PRECAUTIONS: Fall, WBAT R SUBJECTIVE: Olamide is pleasant and agreeable to participating in PT. She states that she feels that she is ready to discharge to home today. She reports that she has help at home. OBJECTIVE: PAIN: Patient reports her R knee pain as a comfortable 6/10, increasing with participation in PT. BED MOBILITY/TRANSFERS Supine-sit: I with HOB flat Sit-supine: I with HOB flat Sit-stand: S Stand-sit: S Bed-Chair: S Chair-bed: S GAIT Assistive Device: FWW Weight bearing: WBAT R Assist: S Distance: 75' x2 THEREX: Patient was instructed in a LE strengthening and stabilization program, performed in a long sitting position, as per flow sheet. She refuses ice/Cryocuff at end of session. STAIRS: Up/down 3x4 and 2x6 using B rails and a step to pattern with super vision; up/down 3x4 and 2x6 using U rail step to pattern with supervision ASSESSMENT: Patient tolerated session well, although with complaints of increased right knee pain with participation in PT activities. She demonstrates independence with bed mobility and requires supervision only with gait training, stair negotiation, and transfers at this time. PLAN: Patient to discharge to home later today, per surgeon. Recommend follow- up with PT versus outpatient PT. TREATMENT CODE/TIME: 25 minutes; 09517, [id number] (08:30)
[2020-09-20 11:09] VITALS: BP 110/70; PULSE 92; RESP 17; TEMP 36.3; O2SAT 97
--- NOTE | 2020-09-22 13:01 | PT.INDS ---
Date of service: 09/22/20 Time of Service: 13:02 PT Notes Visit Reasons: LEFT PROSTHETIC KNEE INSTABILITY Physical Therapy Inpatient Discharge Summary Date: 09/22/2020 Dates of service: 09/19/2020 through 09/20/2020 This is a clinical summary of care provided for the duration of dates listed above. No charge was made in the completion of this documentation. Referring Doctor: Milton Esquivel MD PT Orders: PT CONSULT: Status post Ortho surgery. Status post revision left TKA Precautions: Fall. Standard. WBAT on left LE. Patient Profile/Admitting Diagnosis: Olamide is a 60-year-old female with right prosthetic knee instability and is status post right total knee arthroplasty revision on postoperative day 0. PMHX: Medical History Anxiety Bipolar 1 disorder Chronic pain disorder Chronic pain syndrome (11/27/11) Cystocele and rectocele with incomplete uterovaginal prolapse 05/06/2018. A&P repair hysterectomy postop recovery going well advised to increase activity slowly small granuloma at vaginal cuff cauterized with silver nitrite Depressive disorder Essential hypertension (02/22/13) Fibromyalgia Grade II hemorrhoids Hypertension Hypokalemia (03/11/12) Lumbago Migraine Migraine Pancolonic diverticulosis (02/04/14) Primary fibromyalgia syndrome Restless leg syndrome Spinal stenosis Spinal stenosis L4-5 Surgical History (Updated 08/24/20 @ 11:21 by Brianda Foote) Abdominal hysterectomy Bilateral salpingectomy with oophorectomy Cholecystectomy (06/14/10) Colonoscopy - MAC (2013) EGD - MAC (~2013) EGD - MAC (10/31/17) H/O hemorrhoidectomy (02/10/18) Banding, Dr Garcia History of colonoscopy (12/23/17) Dr Garcia History of esophagogastroduodenoscopy History of knee replacement Bilateral History of repair of rectocele Tonsillectomy and adenoidectomy Social History/Home Situation: Lives with in a private home with 3 steps to enter with 1 rail. No indoor steps. Independent with use of front wheeled walker per prior level of function. Equipment Owned/DME: [id number] walker Subjective: NT. See most recent VENDING MACHINE REFILLER notes. Objective: General Observation: NT. See most recent VENDING MACHINE REFILLER notes. Mental Status: NT. See most recent VENDING MACHINE REFILLER notes. Pain: NT. See most recent VENDING MACHINE REFILLER notes. Vital Signs: NT. See most recent VENDING MACHINE REFILLER notes. S. ROM: Right Upper Extremity: Shoulder Flexion WFL. Shoulder abduction WFL. Shoulder ER/IR WFL. Elbow flexion WFL. Forearm pronation/supination WFL. Wrist flexion WFL. Opening and closing of hand WFL. Left Upper Extremity: Shoulder Flexion WFL. Shoulder abduction WFL. Shoulder ER/IR WFL. Elbow flexion WFL. Forearm pronation/supination WFL. Wrist flexion WFL. Opening and closing of hand WFL. Right Lower Extremity: Hip flexion WFL. Hip abduction WFL. Hip ER/IR WFL. Knee flexion WFL. Knee extension. Ankle dorsiflexion/eversion WFL. Ankle plantarflexion/inversion WFL. Left Lower Extremity: Hip flexion WFL. Hip abduction WFL. Hip ER/IR WFL. Knee flexion 30 degrees to 90 degrees with pain at end of range. Knee extension -30 degrees. Ankle dorsiflexion WFL. Ankle plantarflexion WFL. Strength: Right Upper Extremity: Shoulder flexors 4/5. Shoulder abductors 4/5. Shoulder ER 4/5. Shoulder IR 4/5. Forearm pronators 4/5. Forearm supinators 4/5. Elbow flexors 4/5. Elbow extensors 4/5. Cloud Operations Engineer strong. Left Upper Extremity: Shoulder flexors 4/5. Shoulder abductors 4/5. Shoulder ER 4/5. Shoulder IR 4/5. Forearm pronators 4/5. Forearm supinators 4/5. Elbow flexors 4/5. Elbow extensors 4/5. Cloud Operations Engineer strong. Right Lower Extremity: Hip flexors 4-/5. Hip abductors 4/5. Hip external rotators 4/5. Hip internal rotators 4/5. Knee flexors 4/5. Knee extensors 4-/5. Ankle dorsiflexors/evertors 4-/5. Ankle plantarflexors/invertors 4-/5. Left Lower Extremity: Hip flexors 4-/5. Hip abductors 4/5. Hip external rotators 4/5. Hip internal rotators 4/5. Knee flexors 3-/5. Knee extensors 3-/5. Ankle dorsiflexors/evertors 4-/5. Ankle plantarflexors/invertors 4-/5. Sensation: Light pressure sensation on the left side from the left gluteal area down to the foot. Bed Mobility/Transfers: Supine to sit independent Sit to supine independent Sit to stand dependent Stand to sit independent Bed to bedside commode supervision independent Bedside commode to bed supervision Bed to chair unable unable supervision Chair to bed unable unable supervision Gait: Up to 75 feet x 2 of level surface ambulation using front wheeled walker with WBAT on the right requiring only supervision. Stairs: Able to tolerate up-and-down three 4 inch steps into 6 inch steps while holding onto bilateral rails with step to gait pattern requiring supervision. Balance: Static Sitting: Normal Dynamic Sitting: Normal Static Standing: Fair Dynamic Standing: Fair Assessment: Patient demonstrates improvement in functional mobility level during this episode of care as evidenced by mobility level above and goal status below. Goals: Goals X1 week 1. Supine-Sit independent MET 2. Sit-Supine independent MET 3. Sit-Stand independent NOT MET 4. Stand-Sit independent NOT MET 5. Bed-Chair independent NOT MET 6. Chair-Bed independent NOT MET 7. Independent gait on level surface with use of front wheeled walker for at least 101 feet without report of pain nor dyspnea NOT MET 8. Fair static and dynamic standing balance/tolerance NOT MET DISCHARGE RECOMMENDATIONS: Patient will benefit from [facility] facility placement for continued skilled physical therapy services in order to progress mobility level, strength, and balance in preparation for a safe discharge to home. TREATMENT CODE/TIME: TN Thank you for the opportunity to participate in the care of this patient. Kimberly Rosa PT, DPT, CLT [facility] [place], [place]
== END 2020-09-20 13:16 | disposition home or self-care (01) | DRG 465 ==
LOC: PDS 08:39 → MS 10:49
PROVIDERS: Admitting Provider Student in an Organized Health Care Education/Training Program; PCP Nurse Practitioner Family; Visit Provider Student in an Organized Health Care Education/Training Program
PROC: 0SPC0NZ Removal of Patellofemoral Synthetic Substitute from Right Knee Joint, Open Approach (ICD-10-PCS; CPT 27487; principal; 2020-09-19 07:30)
DX: T84.023A Instability of internal left knee prosthesis, initial encounter (principal); Z96.652 Presence of left artificial knee joint; F41.9 Anxiety disorder, unspecified; F31.9 Bipolar disorder, unspecified; I10 Essential (primary) hypertension; M54.5 Low back pain; G43.909 Migraine, unspecified, not intractable, without status migrainosus; K57.30 Diverticulosis of large intestine without perforation or abscess without bleeding; G25.81 Restless legs syndrome; M48.061 Spinal stenosis, lumbar region without neurogenic claudication; M79.7 Fibromyalgia
CPT/HCPCS: 27486; 76942; 97110; 97162; 97530; J1100; J1885; J2001; J2250; J2405

== ENCOUNTER 2020-10-02 15:56 | Outpatient (CLI) | payer MEDICAID, SELFPAY ==
--- NOTE | 2020-10-02 13:00 | DI.RAD_ITS ---
Exam(s) XR STANDING ALIGNMENT EXAM: XR STANDING ALIGNMENT CLINICAL HISTORY: L TKA revision. TECHNIQUE: 2D digital imaging was performed. COMPARISON: CR,XR XR FEMUR RT from 06/22/2020 FINDINGS: There are bilateral knee prostheses. The femoral component of the left knee prosthesis exhibits a lo ng stem. No fractures nor obvious loosening evident. No prominent degenerative changes in the hips although the right hip is located higher than the left. Ankles appear unremarkable. No osseous lesi ons. IMPRESSION: DATA REPOSITORY: RADIATION DOSE DELIVERED:
--- NOTE | 2020-10-02 13:00 | DI.RAD_ITS ---
Exam(s) XR KNEE LT 1V EXAM: XR KNEE LT 1V CLINICAL HISTORY: L TKA revision. TECHNIQUE: 2D digital imaging was performed. COMPARISON: CR XR KNEE LT 2V AP,LAT from 08/10/2020 CR XR STANDING ALIGNMENT from 10/02/2020 CR XR STANDING ALIGNMENT from 10/02/2020 FINDINGS: Single lateral view of the left knee reveals long stem femoral component of the prosthesis. No fract ure or loosening evident. No radiographic evidence of osteomyelitis. IMPRESSION: DATA REPOSITORY: RADIATION DOSE DELIVERED:
== END 2020-10-02 15:57 | disposition home or self-care (01) ==
LOC: DIORS 15:57
PROVIDERS: PCP Nurse Practitioner Family; Referring Provider Nurse Practitioner Family; Visit Provider Physician Assistant
DX: Z96.652 Presence of left artificial knee joint (principal); Z47.1 Aftercare following joint replacement surgery
CPT/HCPCS: 73560; 77073

== ENCOUNTER 2020-10-12 14:14 | Outpatient (CLI) | payer MEDICAID, SELFPAY ==
--- NOTE | 2020-10-12 12:15 | DI.RAD_ITS ---
Exam(s) XR KNEE LT 2V AP,LAT EXAM: XR KNEE LT 2V AP,LAT CLINICAL HISTORY: eval continued left kne epain. TECHNIQUE: 2D digital imaging was performed. COMPARISON: CR XR KNEE LT 1V from 10/02/2020 FINDINGS: AP and lateral views again reveal a prosthesis with long stem femoral component and conventional appe aring tibial component. No fractures or loosening. No radiographic evidence of osteomyelitis. IMPRESSION: DATA REPOSITORY: RADIATION DOSE DELIVERED:
== END 2020-10-12 14:15 | disposition home or self-care (01) ==
LOC: DIORS 14:14
PROVIDERS: PCP Nurse Practitioner Family; Visit Provider Student in an Organized Health Care Education/Training Program
DX: M25.562 Pain in left knee (principal); Z96.652 Presence of left artificial knee joint
CPT/HCPCS: 73560

== ENCOUNTER 2020-10-25 10:37 | Emergency (ER) | payer MEDICAID, SELFPAY ==
[2020-10-25] VITALS (10 sets, daily range): BP systolic 108–145; BP diastolic 60–73; PULSE 78–92; RESP 12–18; TEMP 36.7; O2SAT 91–98
--- NOTE | 2020-10-25 | DI.CT_ITS ---
Exam(s) CT LOWER EXTREMITY LT WO EXAM: CT LOWER EXTREMITY LT WO CLINICAL HISTORY: continued postoperative revision TKA pain. TECHNIQUE: Imaging Protocol: Axial computed tomography images with coronal and sagittal reformatted images were created and reviewed. CONTRAST MATERIAL: None COMPARISON: CR XR KNEE LT 2V AP,LAT from 10/12/2020 CR XR KNEE LT 2V AP,LAT from 10/12/2020 FINDINGS: OSSEOUS: There is a left knee prosthesis with long femoral stem component. There is no obvious fracture. No obvious loosening. No osseous lesions. The patella is tilted laterally but without an obvious cheng lar fracture. No obvious evidence of osteomyelitis SOFT TISSUES: There is scarring in what appears to be the quadriceps tendon area. Also in the region of the patell ar ligament. IMPRESSION: Findings as above but with no evidence of fracture, obvious loosening, or obvious osteomyelitis. Soft tissue findings as described above but no obvious drainable fluid collection RADIATION DOSE DELIVERED: 317.35mGy.cm Total DLP DATA REPOSITORY: All CT scans at this facility are submitted to the National Radiology Data Registry (NRDR) Dose Index Registry (DIR) with the [employer] ([employer]). RADIATION OPTIMIZATION: All CT scans at this facility use at least one of these dose optimization te chniques: automated exposure control; mA and/or kV adjustment per patient size (includes targeted exa ms where dose is matched to clinical indication); or iterative reconstruction.
--- NOTE | 2020-10-25 11:09 | W.ED.GENAD ---
Discharge Plan Disposition Patient Disposition: HOME Condition: Stable Discharge Details Clinical Impression: Acute knee pain, Acute hypokalemia Primary Care Provider: Cheryl Gordillo ED Provider: Daniela Bowens Home Meds and New Rx's Prescriptions: No Action alprazolam [Xanax] 1 mg tablet 0.5 mg PO DAILY RF: 0 duloxetine 30 mg capsule,delayed release(DR/EC) 30 mg PO BID RF: 0 hydrochlorothiazide 25 mg tablet 25 mg PO DAILY Qty: 90 RF: 4 methocarbamol 750 mg tablet 750 mg PO Q8H Qty: 15 RF: 0 ibuprofen 600 mg tablet 600 mg PO Q8H PRN (Reason: pain) Qty: 90 RF: 0 magnesium oxide 500 mg tablet 500 mg PO BID Qty: 180 RF: 0 potassium chloride 10 mEq capsule, extended release 10 meq PO DAILY Qty: 90 RF: 3 ondansetron HCl 4 mg tablet 4 mg PO Q8H PRN Qty: 30 RF: 3 omeprazole 40 mg capsule,delayed release(DR/EC) 40 mg PO DAILY Qty: 90 RF: 4 Narcan 4 mg/actuation spray,non-aerosol 4 mg intranasal Q2-3M PRN (Reason: opioid overdose) Qty: 2 RF: 0 Multivitamin 50 Plus Tablet 1 tab PO DAILY RF: 0 acetaminophen 500 mg tablet 500 mg PO Q6H PRN (Reason: pain) Qty: 60 RF: 2 docusate sodium [Colace] 100 mg capsule 100 mg PO BID Qty: 30 RF: 0 Discharge Instructions Instructions: Hypokalemia (ED), Knee Pain (ED) Additional Instructions: Stop taking your hydrochlorothiazide Take 40 mEq of your potassium or 4 pills daily for the next days, then continue on your 10 mEq daily Have your potassium level rechecked by your doctor next week Stay hydrated, drink regular fluids Take Zofran as needed for nausea and vomiting Let your doctor know that you have been feeling unwell for the past several months although your tests today are reassuring, there does not appear to be infection in your knee Use your knee immobilizer during the day, make sure you take it off at night and follow-up with Dr. Esquivel scheduled I recommend you see your doctor tomorrow or at least call to schedule appointment Medical Decision Making Dr. Esquivel actually came down to the emergency room to evaluate the patient and perform arthrocentesis No evidence of acute infection per synovial fluid interpretation CT was ordered by Dr. Esquivel without acute abnormality Hypokalemia 2.7 without hypomagnesemia, EKG does not show any changes consistent with hypokalemia with compared to prior, please see my PCP interpretation Remainder of diagnostic are stable for patient I did give patient supplementary potassium in the emergency room and she will be discharged on potassium, she will discontinue her hydrochlorothiazide and see her primary care physician in the outpatient setting, she did have an elevated CRP Patient does appear well, she is instructed to follow-up with her doctor, she is ambulating safely with her walker and a splint and she will need close outpatient follow-up Return precautions discussed and patient understanding She is aware that the hydrochlorothiazide is likely precipitating her hypokalemia and she will take 240 mEq doses of potassium followed by 10 mEq and will see her doctor this week She is alert, oriented, of decisional capacity There is no evidence of acute infectious etiology to patient's joint, there is no clinical evidence of DVT She has not not been nauseated or vomited throughout this encounter and was able to tolerate p.o. She has Zofran at home should she need it Medical Records Medical records reviewed: Yes I reviewed the patient's medical records. HPI General Mode of arrival: ambulatory. Date/Time Provider Initiated Documentation: 10/25/20 10:39. Limitations to Documentation: no limitations. Information obtained by: patient. HPI Narrative: This 60-year-old female with past medical history of revision of total knee replacement left knee on 09/19/2020, metabolic alkalosis, ideation syndrome, migraine headache, fibromyalgia presents with report of persistent left knee pain. She states is been going on since 3 days after surgery. She states that the pain have worsened in the past 3 days. She states T-max at home 100.2. She denies any chills. She states that her knee feels warm. She states is mildly increased swelling. She denies any drainage from the site. She denies any calf pain or swelling. She denies any chest pain or shortness of breath. Pain is exacerbated with movement of her left knee. She called orthopedic prior to arrival and they asked that she be evaluated in the emergency room reportedly. She describes the pain as sharp. Denies nausea or vomiting. States that she is experiencing anorexia. Decreased interest in feeding.. Denies nausea. Related Data Home Medications Medication Instructions Recorded Confirmed Multivitamin 50 Plus 1 tab PO DAILY 04/28/18 10/25/20 magnesium oxide 500 mg tablet 500 mg PO BID #180 tab 05/22/20 10/25/20 potassium chloride 10 mEq 10 meq PO DAILY #90 cap 05/22/20 10/25/20 capsule,extended release ondansetron HCl 4 mg tablet 4 mg PO Q8H PRN #30 tab-cap 05/24/20 10/25/20 omeprazole 40 mg capsule,delayed 40 mg PO DAILY #90 cap 05/31/20 10/25/20 release alprazolam 1 mg tablet 0.5 mg PO DAILY tab 08/10/20 10/25/20 duloxetine 30 mg capsule,delayed 30 mg PO BID 08/24/20 10/25/20 release hydrochlorothiazide 25 mg tablet 25 mg PO DAILY #90 tab-cap 08/25/20 10/25/20 acetaminophen 500 mg PO Q6H PRN #60 tab 09/19/20 10/25/20 docusate sodium [Colace] 100 mg PO BID #30 cap 09/19/20 10/25/20 naloxone 4 mg/actuation nasal spray 4 mg INTRANASAL Q2-3M PRN #2 ea 09/20/20 10/15/20 ibuprofen 600 mg tablet 600 mg PO Q8H PRN #90 tab 10/12/20 10/25/20 methocarbamol 750 mg tablet 750 mg PO Q8H #15 tab 10/12/20 10/25/20 Previous Rx's Medication Instructions Recorded magnesium oxide 500 mg tablet 500 mg PO BID #180 tab 05/22/20 potassium chloride 10 mEq 10 meq PO DAILY #90 cap 05/22/20 capsule,extended release ondansetron HCl 4 mg tablet 4 mg PO Q8H PRN #30 tab-cap 05/24/20 omeprazole 40 mg capsule,delayed 40 mg PO DAILY #90 cap 05/31/20 release hydrochlorothiazide 25 mg tablet 25 mg PO DAILY #90 tab-cap 08/25/20 acetaminophen 500 mg PO Q6H PRN #60 tab 09/19/20 docusate sodium [Colace] 100 mg PO BID #30 cap 09/19/20 naloxone 4 mg/actuation nasal spray 4 mg INTRANASAL Q2-3M PRN #2 ea 09/20/20 ibuprofen 600 mg tablet 600 mg PO Q8H PRN #90 tab 10/12/20 methocarbamol 750 mg tablet 750 mg PO Q8H #15 tab 10/12/20 Allergies Allergy/AdvReac Type Severity Reaction Status Date / Time cephalexin monohydrate Allergy Severe Hives, Verified 10/25/20 10:47 [From Keflex] rash and swelling Penicillins Allergy Intermediate SKIN RASH; Verified 10/25/20 10:47 VOMITING cyclobenzaprine AdvReac Severe Lethargy Verified 10/25/20 10:47 and confusion fentanyl AdvReac Severe pt states Verified 10/25/20 10:47 she passes out methadone AdvReac Severe HALLUCINATIONS Verified 10/25/20 10:47 OUT OF LIFE promethazine AdvReac Severe dystonic Verified 10/25/20 10:47 reaction amitriptyline AdvReac Intermediate CONFUSION Verified 10/25/20 10:47 azithromycin AdvReac Intermediate Psychosis Verified 10/25/20 10:47 lithium AdvReac Intermediate GI bleed Verified 10/25/20 10:47 nortriptyline AdvReac Intermediate INSOMNIA Verified 10/25/20 10:47 vancomycin AdvReac Intermediate RED FACE Verified 10/25/20 10:47 imipramine AdvReac pt. states Verified 10/25/20 10:47 i pass out and loose all control pregabalin AdvReac FACIAL Verified 10/25/20 10:47 NUMBNESS General Stated Complaint: Cellulitis SETH: 3 Review of Systems All systems reviewed & are unremarkable except as noted in HPI and below PFSH Medical History Anxiety Anxiety Bipolar 1 disorder Chronic pain disorder Chronic pain syndrome (11/27/11) Cystocele and rectocele with incomplete uterovaginal prolapse 05/06/2018. A&P repair hysterectomy postop recovery going well advised to increase activity slowly small granuloma at vaginal cuff cauterized with silver nitrite Depressive disorder Essential hypertension (02/22/13) Fibromyalgia Grade II hemorrhoids History of revision of total replacement of left knee joint (09/19/20) Hypertension Hypokalemia (03/11/12) Lumbago Migraine Migraine Pancolonic diverticulosis (02/04/14) Primary fibromyalgia syndrome Restless leg syndrome Spinal stenosis Spinal stenosis L4-5 Surgical History Abdominal hysterectomy Bilateral salpingectomy with oophorectomy Cholecystectomy (06/14/10) Colonoscopy - MAC (2013) EGD - MAC (~2013) EGD - MAC (10/31/17) H/O hemorrhoidectomy (02/10/18) Banding, Dr Garcia History of colonoscopy (12/23/17) Dr Garcia History of esophagogastroduodenoscopy History of knee replacement Bilateral History of repair of rectocele Tonsillectomy and adenoidectomy Family History Mother , 51 Diabetes Breast cancer Heart disease Father , 77 Diabetes Essential hypertension Alcohol abuse Heart disease Hyperlipidemia Sister Diabetes Cancer of neck Depression Paternal Grandfather , 85 Essential hypertension Heart disease Stroke Paternal Grandmother , 62 Diabetes Essential hypertension Stroke Maternal Grandfather , 82 No problems noted. Maternal Grandmother , 34 No problems noted. Sister Ovarian cancer Sister Alcohol abuse Depression Substance abuse Sister Throat cancer Depression Sister Alcohol abuse Depression Substance abuse Sister No problems noted. 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 Pets and animals: Yes Pets and animals: dog(s) Sexually active: Yes Do you think of yourself as: straight/heterosexual Current gender identity: female What is your relationship status?: living with partner How often do you talk on the phone with friends or family?: three or more times per week How often do you get together with friends or relatives?: once per week How often do you attend druze or congregation services?: 4 or more times per year Do you belong to any clubs or organized social groups?: no Panel score (0-1 are the most socially isolated patients): 3 What type of physical activity do you participate in: walking and other Details: Eliptical, exercise bike Duration: 30-45 minutes/day Frequency: 3-4 times per week Catalina/Tenriism: Catholic Special catalina needs: No Seatbelt use: always Helmet use: Yes Drive intox or ride w/intox pile driver engineer: No Do you feel safe at home: Yes Do you feel safe in your relationship?: Yes History History 5 Para 4 Hx # Term Pregnancies Multiple births Hx # Pregnancies Ectopic pregnancies AB induced Hx Number of Living Children 4 AB spontaneous 1 Exam Const Orientation: alert and oriented x3 HENMT Mouth: oral mucosae normal Other: moist mucous membranes Eyes Pupils: PERRL Resp Effort & Inspection: normal respiratory effort Auscultation: clear to auscultation bilaterally Cardio Rate: regular rate Rhythm: regular rhythm Skin General skin exam: no rashes or lesions noted Neuro General: patient alert and patient oriented x3 Extrem Other: Left knee appears mildly swollen, mildly warm to touch with no erythema or dehiscence, site overall appears well in his current postoperative state, there is no calf swelling or tenderness There is no tenderness to patient hip or ankle There is no significant peripheral edema, range of motion is mildly decreased from recent surgery Neurovascularly intact Course Vital Signs Vital signs: Vital Signs Temperature 36.7 C 10/25/20 10:44 Pulse 92 H 10/25/20 10:44 Respiratory Rate 18 10/25/20 10:44 Blood Pressure 145/64 H 10/25/20 10:44 Pulse Oximetry 97 10/25/20 10:44 Temperature 36.7 C 10/25/20 10:44 Temperature Source Oral 10/25/20 10:44 Pulse 92 H 10/25/20 10:44 Respiratory Rate 18 10/25/20 10:44 Blood Pressure 145/64 H 10/25/20 10:44 Pulse Oximetry 97 10/25/20 10:44 Oxygen Delivery Method Room Air 10/25/20 10:44 Oxygen Flow Rate 0 10/25/20 10:44
[2020-10-25 11:12] LABS: Abs Immature Grans 0.03 10^3/uL (0.0-0.06); Absolute Basophil Count 0.06 10^3/uL (0.0-0.2); Absolute Eosinophil Count 0.16 10^3/uL (0.0-0.7); Absolute Lymphocyte Count 2.09 10^3/uL (1.2-3.4); Absolute Monocyte Count 1.03 10^3/uL (0.1-0.8); Absolute Neutrophil Count 5.95 10^3/uL (1.2-6.7); Basophils % 0.6; Eosinophils % 1.7; HCT 39.1 % (36.0-46.0); HGB 12.6 g/dL (11.2-15.7); Immature Grans % 0.3; Lymphocytes % 22.4; MCH 27.2 pg (27.0-33.0); MCHC 32.2 % (32.0-36.0); MCV 84.4 fL (80-95); MPV 10.3 fL (8.0-11.0); Monocytes % 11.1; Neutrophils % 63.9; Nucleated RBC 0 %; Platelet Count 434 10^3/uL (130-400); RBC 4.63 10^6/uL (3.93-5.22); RDW 13.6 % (11.7-14.6); RDW-SD 42.2 fL; WBC 9.32 10^3/uL (4.4-10.8)
[2020-10-25 11:13] LABS: ESR 36 mm/hr (0-30)
[2020-10-25] MEDS: ACETAMINOPHEN 1,000 MG/100 ML BTL 400 MG IVPB (11:22)
--- NOTE | 2020-10-25 11:26 | W.ORTHOCONSU ---
Date of service: 10/25/20 Time of Service: 11:27 History of Present Illness History of Present Illness Chief Complaint: Left knee pain Narrative: Olamide is a 60-year-old who is status post revision left knee arthroplasty on September 19. This revision surgery was performed for notable laxity and pain about the left knee. She was able to be discharged home on her first postoperative day. She reported to be doing well within the first week but at the 2-week visit she had notable pain. She was treated pain medications and did not have any significant changes. However, over the last 2 weeks she is complained of increasing pain of the left knee. She has been brought into the office for an evaluation where there is no significant fluid no issues with the wound but I did offer aspiration at that time. She refused the aspiration I wanted to give this more time. She has not been taking any pain medications. She has since called the office on at least 2 occasions. She was offered an appointment which she was unable to get a ride for and then the appointment on Friday she canceled because she said I am doing much better. However, last night she started having recurring pain of the left knee such that she found it difficult to move the knee or walk. She denies any other wound issues about her leg. She has had no significant issues with the left knee wound except for some mild redness. She has reported mild fevers at home. During previous office appointment she has reported difficulties with her GI system with diarrhea and constipation and overall feeling of fatigue and malaise. Consults Consult date: 10/25/20 Requesting physician: Daniela Bowens Consult Reason Postsurgical left knee pain Assessment and Plan Assessment and plan (1) History of revision of total replacement of left knee joint: Status: Acute (2) Painful total knee replacement, left: Status: Acute Assessment and plan: Olamide is a 60-year-old who is 5 weeks status post revision left knee arthroplasty for periprosthetic laxity with likely PCL rupture. She was seen in the office on multiple occasions with a very benign clinical exam. However, pain has persisted and she presents today to the emergency department for this increasing pain. Her clinical exam is relatively benign as well again today. She does have some pain about the left knee and therefore it is imperative that we consider infection at this time. I recommend we proceed with basic laboratory profile including CBC, CRP and sed rate. I performed an aspiration of the knee fluid. It was not grossly purulent but was cloudy with a very small particulate which should be evaluated by the lab both in cell count and culture. Additionally, she has very little quad activation. At the time of the surgery she was found to have a very deficient quadriceps tendon that was quite thin, potentially related to her previous surgeries. I do not palpate any defect of the quadriceps or the medial retinaculum but this is also on the differential. Her results do show an elevated CRP of over 8 with a slightly elevated ESR of 32. However, her fluid analysis from the left knee does not indicate infection with only 1300 cells of which only 25% are PMNs. This cell count with a low percentage PMNs is extremely unlikely to represent infection, especially in the acute postoperative phase. At this point, I cannot explain why she has the elevated CRP. However, it could be related to these other symptoms that she is complaining about such as fatigue, malaise, GI upset, diet intolerability, and diarrhea. I was very honest with Olamide after obtaining these labs that she may be having pain from the knee which is amplified because of something else going on but I do not believe the knee is the primary cause. I am concerned about her lack of quadricep activation and the pain that she has around the knee but I expect that this pain is actually made worse by her overall fatigue and malaise, leaving her little energy to cope or deal with the left knee. I have asked Daniela to take another look at some these other symptoms to make sure were not missing something. Otherwise, from the orthopedic perspective we may give her a knee immobilizer support the knee with mobilization and continue with close follow-up including physical therapy. I think it is imperative that no matter what we see today, that she follows with her primary care provider as I do believe something more systemic is at play. Review of Systems All systems reviewed & are unremarkable except as noted in HPI and below PFSH Medical History Anxiety Anxiety Bipolar 1 disorder Chronic pain disorder Chronic pain syndrome (11/27/11) Cystocele and rectocele with incomplete uterovaginal prolapse 05/06/2018. A&P repair hysterectomy postop recovery going well advised to increase activity slowly small granuloma at vaginal cuff cauterized with silver nitrite Depressive disorder Essential hypertension (02/22/13) Fibromyalgia Grade II hemorrhoids History of revision of total replacement of left knee joint (09/19/20) Hypertension Hypokalemia (03/11/12) Lumbago Migraine Migraine Pancolonic diverticulosis (02/04/14) Primary fibromyalgia syndrome Restless leg syndrome Spinal stenosis Spinal stenosis L4-5 Surgical History Abdominal hysterectomy Bilateral salpingectomy with oophorectomy Cholecystectomy (06/14/10) Colonoscopy - MAC (2013) EGD - MAC () EGD - MAC (10/31/17) H/O hemorrhoidectomy (02/10/18) Banding, Dr Garcia History of colonoscopy (12/23/17) Dr Garcia History of esophagogastroduodenoscopy History of knee replacement Bilateral History of repair of rectocele Tonsillectomy and adenoidectomy Family History Mother , 51 Diabetes Breast cancer Heart disease Father , 77 Diabetes Essential hypertension Alcohol abuse Heart disease Hyperlipidemia Sister Diabetes Cancer of neck Depression Paternal Grandfather , 85 Essential hypertension Heart disease Stroke Paternal Grandmother , 62 Diabetes Essential hypertension Stroke Maternal Grandfather , 82 No problems noted. Maternal Grandmother , 34 No problems noted. Sister Ovarian cancer Sister Alcohol abuse Depression Substance abuse Sister Throat cancer Depression Sister Alcohol abuse Depression Substance abuse Sister No problems noted. 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 Pets and animals: Yes Pets and animals: dog(s) Sexually active: Yes Do you think of yourself as: straight/heterosexual Current gender identity: female What is your relationship status?: living with partner How often do you talk on the phone with friends or family?: three or more times per week How often do you get together with friends or relatives?: once per week How often do you attend anabaptist or nondenominational services?: 4 or more times per year Do you belong to any clubs or organized social groups?: no Panel score (0-1 are the most socially isolated patients): 3 What type of physical activity do you participate in: walking and other Details: Eliptical, exercise bike Duration: 30-45 minutes/day Frequency: 3-4 times per week Catalina/Yazdanism: Yazidism Special catalina needs: No Seatbelt use: always Helmet use: Yes Drive intox or ride w/intox 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 No acute distress. Alert and orient x3. Evaluation of the left knee shows a well-healed knee wound. There is some mild erythema seen over the central portion of the wound with some slight excoriation of only few millimeters. There is no area of fluctuance on palpation. There is no defect. There is no drainage. In general, the remainder of the knee is not erythematous. It is mildly warm. There is no significant effusion palpable. There is a clicking sensation with mobilization of the left patella. I have a hard time detecting any significant defect of the medial retinaculum or of the quadriceps insertion. However, she is unable to perform a straight leg raise. She really has difficulty with trying activate quadriceps mechanism at all. Results Last Vital Signs Temp 36.7 C 10/25/20 10:44 Pulse 92 H 10/25/20 10:44 Resp 18 10/25/20 10:44 BP 145/64 H 10/25/20 10:44 Pulse Ox 97 10/25/20 10:44 Labs Result diagrams: 10/25/20 11:05 10/25/20 11:05 Labs: Laboratory Results WBC 9.32 10^3/uL (4.4-10.8) 10/25/20 11:05 RBC 4.63 10^6/uL (3.93-5.22) 10/25/20 11:05 Hgb 12.6 g/dL (11.2-15.7) 10/25/20 11:05 Hct 39.1 % (36.0-46.0) 10/25/20 11:05 MCV 84.4 fL (80-95) 10/25/20 11:05 MCH 27.2 pg (27.0-33.0) 10/25/20 11:05 MCHC 32.2 % (32.0-36.0) 10/25/20 11:05 RDW 13.6 % (11.7-14.6) 10/25/20 11:05 Plt Count 434 10^3/uL (130-400) H 10/25/20 11:05 MPV 10.3 fL (8.0-11.0) 10/25/20 11:05 Immature Gran % 0.3 10/25/20 11:05 Neutrophils % 63.9 10/25/20 11:05 Lymphocytes % 22.4 10/25/20 11:05 Monocytes % 11.1 10/25/20 11:05 Eosinophils % 1.7 10/25/20 11:05 Basophils % 0.6 10/25/20 11:05 Nucleated RBC % 0 % 10/25/20 11:05 Absolute Neutrophils 5.95 10^3/uL (1.2-6.7) 10/25/20 11:05 Absolute Lymphocytes 2.09 10^3/uL (1.2-3.4) 10/25/20 11:05 Absolute Monocytes 1.03 10^3/uL (0.1-0.8) H 10/25/20 11:05 Absolute Eosinophils 0.16 10^3/uL (0.0-0.7) 10/25/20 11:05 Absolute Basophils 0.06 10^3/uL (0.0-0.2) 10/25/20 11:05 ESR 36 mm/hr (0-30) H 10/25/20 11:05 Sodium 139 mmol/L (136-145) 10/25/20 11:05 Potassium 2.7 mmol/L (3.5-5.1) L* 10/25/20 11:05 Chloride 97 mmol/L (98-107) L 10/25/20 11:05 Carbon Dioxide 33.7 mmol/L (21.0-32.0) H 10/25/20 11:05 Anion Gap 8.3 mmol/L (3-11) 10/25/20 11:05 BUN 16 mg/dL (7-18) 10/25/20 11:05 Creatinine 1.2 mg/dL (0.55-1.02) H 10/25/20 11:05 Estimated GFR/1.73 m2 45.52 (mL/min/1.73m2) 10/25/20 11:05 Glucose 176 mg/dL (74-106) H 10/25/20 11:05 Calcium 9.1 mg/dL (8.5-10.1) 10/25/20 11:05 Magnesium 1.8 mg/dL (1.8-2.4) 10/25/20 11:05 Total Bilirubin 0.4 mg/dL (0.2-1.0) 10/25/20 11:05 AST 14 U/L (15-37) L 10/25/20 11:05 ALT 16 U/L (14-59) 10/25/20 11:05 Alkaline Phosphatase 158 U/L (46-116) H 10/25/20 11:05 C-Reactive Protein 8.31 mg/dL (0.0-0.3) H 10/25/20 11:05 Total Protein 7.7 g/dL (6.4-8.2) 10/25/20 11:05 Albumin 3.6 g/dL (3.4-5.0) 10/25/20 11:05 Fluid Source L Knee 10/25/20 11:05 Fluid Color Yellow 10/25/20 11:05 Fluid Clarity Cloudy 10/25/20 11:05 Fluid WBC 1325 uL (0) 10/25/20 11:05 Fld Polynuclear WBCs % 25 % 10/25/20 11:05 Fluid Mononuclear Cell 75 % 10/25/20 11:05 Procedures Joint Aspiration/Injection Joint Asp./Inject. 1: Time out performed: Yes Side of body: left Joint aspirated: knee Ultrasound guidance: No Skin prep: Chlorhexidine Needle size used: 18G Fluid obtained: turbid (Somewhat hazy but not grossly purulent and not significantly viscous with a small amount of particulate) Total fluid obtained (ml): 15 Patient tolerated procedure: well Complications: none Additional comments: Fluid was sent for cell count and culture
--- NOTE | 2020-10-25 11:30 | RT.EKG_ITS ---
APPROVED REPORT Exam: Resting ECG Reason for Exam: hypokalemia Patient Location: E HR:80 bpm ECG Measurements Heart Rate 80 AXIS NJ 183 P 61 QRSd 101 QRS 6 QT 394 T 62 QTc 454 Conclusion Sinus rhythm...normal P axis, V-rate 60- 99. No STEMI. I have reviewed and interpreted ECG and agree with software generated interpretation.
[2020-10-25 11:31] LABS: ALT 16 U/L (14-59); AST 14 U/L (15-37); Albumin 3.6 g/dL (3.4-5.0); Alkaline Phosphatase 158 U/L (46-116); Anion Gap 8.3 mmol/L (3-11); BUN 16 mg/dL (7-18); Bilirubin, Total 0.4 mg/dL (0.2-1.0); C-Reactive Protein 8.31 mg/dL (0.0-0.3); CO2 33.7 mmol/L (21.0-32.0); CREATININE 1.2 mg/dL (0.55-1.02); Calcium 9.1 mg/dL (8.5-10.1); Chloride 97 mmol/L (98-107); Estimated GFR 45.52 (mL/min/1.73m2); Glucose 176 mg/dL (74-106); Sodium 139 mmol/L (136-145); Total Protein 7.7 g/dL (6.4-8.2)
[2020-10-25 11:32] LABS: Potassium 2.7 mmol/L (3.5-5.1)
[2020-10-25] MEDS: Potassium Chloride 20 MEQ TABCR 40 MEQ PO (11:39)
[2020-10-25 11:42] LABS: Magnesium 1.8 mg/dL (1.8-2.4)
[2020-10-25 11:52] LABS: Clarity Cloudy; Nucleated Cells 1325 uL (0); Polynuclear Cells 25 %
[2020-10-25 11:53] LABS: Mononuclear Cells 75 %
--- NOTE | 2020-10-25 13:05 | DI.RAD_ITS ---
Exam(s) XR CHEST 2V PA LATERAL EXAM: XR CHEST 2V PA LATERAL CLINICAL HISTORY: malaise. TECHNIQUE: 2D digital imaging was performed. COMPARISON: CR,XR XR PORTABLE CHEST AP from 06/22/2020 FINDINGS: Heart size is normal. The mediastinum is not widened. Lungs are clear. No infiltrates nor pleural effusions. IMPRESSION: No acute pulmonary findings. DATA REPOSITORY: RADIATION DOSE DELIVERED:
[2020-10-26 10:15] LABS: Lyme Ab w Rflx to Lyme Confirm Negative (Negative)
[2020-10-27 16:07] LABS: Anaplasma phagocytophilum Negative (Negative); B. miyamotoi PCR Negative (Negative); Babesia divergens/MO-1 Negative (Negative); Babesia duncani Negative (Negative); Babesia microti Negative (Negative); Ehrlichia chaffeensis Negative (Negative); Ehrlichia ewingii/canis Negative (Negative); Ehrlichia muris eauclairensis Negative (Negative)
== END 2020-10-25 14:15 | disposition home or self-care (01) ==
PROVIDERS: Emergency Provider Physician Assistant; PCP Nurse Practitioner Family
DX: M25.562 Pain in left knee (principal); E87.6 Hypokalemia
CPT/HCPCS: 20610; 80053; 85652; 87798; 93005; 96365; 99285; 71046; 73700; 83735; 85025; 86140; 86618; 87070; 87205; 89051; 93010; 99284; J0131

== ENCOUNTER 2020-11-21 03:12 | Outpatient (CLI) | payer MEDICAID, SELFPAY ==
[2020-11-21 12:21] LABS: Abs Immature Grans 0.03 10^3/uL (0.0-0.06); Absolute Basophil Count 0.03 10^3/uL (0.0-0.2); Absolute Eosinophil Count 0.32 10^3/uL (0.0-0.7); Absolute Lymphocyte Count 1.63 10^3/uL (1.2-3.4); Absolute Monocyte Count 0.46 10^3/uL (0.1-0.8); Absolute Neutrophil Count 4.45 10^3/uL (1.2-6.7); Basophils % 0.4; ESR 6 mm/hr (0-30); Eosinophils % 4.6; HCT 37.9 % (36.0-46.0); HGB 11.9 g/dL (11.2-15.7); Immature Grans % 0.4; Lymphocytes % 23.6; MCH 26.7 pg (27.0-33.0); MCHC 31.4 % (32.0-36.0); MPV 10.8 fL (8.0-11.0); Monocytes % 6.6; Neutrophils % 64.4; Nucleated RBC 0 %; Platelet Count 410 10^3/uL (130-400); RBC 4.46 10^6/uL (3.93-5.22); RDW 14.7 % (11.7-14.6); RDW-SD 45.3 fL; WBC 6.92 10^3/uL (4.4-10.8)
[2020-11-21 12:59] LABS: ALT 22 U/L (14-59); AST 17 U/L (15-37); Albumin 3.8 g/dL (3.4-5.0); Alkaline Phosphatase 133 U/L (46-116); Anion Gap 8.1 mmol/L (3-11); BUN 18 mg/dL (7-18); Bilirubin, Total 0.3 mg/dL (0.2-1.0); C-Reactive Protein 0.37 mg/dL (0.0-0.3); CO2 27.9 mmol/L (21.0-32.0); Calcium 8.9 mg/dL (8.5-10.1); Chloride 105 mmol/L (98-107); Estimated GFR 56.18 (mL/min/1.73m2); Glucose 153 mg/dL (74-106); Potassium 4.3 mmol/L (3.5-5.1); Sodium 141 mmol/L (136-145); Total Protein 6.8 g/dL (6.4-8.2)
[2020-11-21 16:24] LABS: Rheumatoid Factor <8.6 IU/mL (<12.0)
[2020-11-22 13:55] LABS: ANA Interpretation Positive (Negative); ANA Titer Pattern 1:320 Speckled
== END 2020-11-21 03:13 | disposition home or self-care (01) ==
PROVIDERS: PCP Nurse Practitioner Family; Visit Provider Nurse Practitioner Family
DX: R70.0 Elevated erythrocyte sedimentation rate (principal); T84.84XA Pain due to internal orthopedic prosthetic devices, implants and grafts, initial encounter; Z96.652 Presence of left artificial knee joint
CPT/HCPCS: 36415; 80053; 85652; 85025; 86038; 86140; 86431

== ENCOUNTER 2020-12-19 03:40 | Outpatient (CLI) | payer MEDICAID, SELFPAY ==
[2020-12-19 12:29] LABS: Source Nasal/Nares
[2020-12-19 17:29] LABS: COVID-19 PCR Negative (Negative)
== END 2020-12-19 03:41 | disposition home or self-care (01) ==
LOC: LBO 03:40
PROVIDERS: PCP Nurse Practitioner Family; Visit Provider Student in an Organized Health Care Education/Training Program
DX: Z20.822 Contact with and (suspected) exposure to COVID-19 (principal); Z01.818 Encounter for other preprocedural examination
CPT/HCPCS: 87635

== ENCOUNTER 2020-12-19 04:45 | Outpatient (CLI) | payer MEDICAID, SELFPAY ==
[2020-12-19 10:09] LABS: Hemoglobin A1C 6.3 % (<5.7)
[2020-12-19 10:58] LABS: Magnesium 1.5 mg/dL (1.8-2.4)
[2020-12-19 11:03] LABS: ALT 21 U/L (14-59); AST 18 U/L (15-37); Albumin 3.7 g/dL (3.4-5.0); Alkaline Phosphatase 143 U/L (46-116); Anion Gap 9.7 mmol/L (3-11); BUN 22 mg/dL (7-18); Bilirubin, Total 0.2 mg/dL (0.2-1.0); CO2 27.3 mmol/L (21.0-32.0); CREATININE 1.1 mg/dL (0.55-1.02); Calcium 8.7 mg/dL (8.5-10.1); Chloride 107 mmol/L (98-107); Estimated GFR 50.33 (mL/min/1.73m2); Glucose 137 mg/dL (74-106); Potassium 4.1 mmol/L (3.5-5.1); Sodium 144 mmol/L (136-145); Total Protein 6.9 g/dL (6.4-8.2)
[2020-12-19 11:25] LABS: Calculated LDL 152 mg/dL (<100); Cholesterol 233 mg/dL (<200); GGT 39 U/L (5-55); HDL Cholesterol 55 mg/dL (40-60); Triglyceride 133 mg/dL (<150)
[2020-12-21 01:37] LABS: Vitamin D 25 Total 10.3 ng/mL (30-100)
== END 2020-12-19 04:46 | disposition home or self-care (01) ==
LOC: LBO 04:45
PROVIDERS: PCP Nurse Practitioner Family; Visit Provider Nurse Practitioner Family
DX: R73.03 Prediabetes (principal); E78.5 Hyperlipidemia, unspecified; E83.42 Hypomagnesemia; R74.8 Abnormal levels of other serum enzymes
CPT/HCPCS: 36415; 80053; 80061; 82306; 82977; 83036; 83735

== ENCOUNTER 2020-12-20 07:42 | Day surgery (SDC) | payer MEDICAID, SELFPAY ==
[2020-12-20] VITALS (10 sets, daily range): BP systolic 111–144; BP diastolic 53–88; PULSE 82–92; RESP 7–17; TEMP 36.1–36.5; O2SAT 94–100; BMI 33.5
[2020-12-20] MEDS: Acetaminophen 500 MG TAB 1000 MG PO (08:28)
[2020-12-20] MEDS: Celecoxib 200 MG CAP 400 MG PO (08:28)
[2020-12-20] MEDS: Gabapentin 300 MG CAP PO (08:28)
[2020-12-20] MEDS: Lactated Ringers 1,000 ML 80 ML IV (08:40)
--- NOTE | 2020-12-20 08:46 | W.ANESPRE ---
General Info Date of Service Date Performed: 12/20/20 Height: 5 ft 2.5 in Weight: 84.4 kg Body Mass Index (BMI): 33.5 Surgical Procedure: Operation Date: 12/20/20 09:55 Proposed Procedures Side Surgeon p EXTENSOR MECHANISM RECONSTRUCTION, DELAYED QUADRICEPS REPAIR WITH MESH Left Milton Esquivel MD Meds Allergies and Home Medications Allergies Allergy/AdvReac Type Severity Reaction Status Date / Time cephalexin monohydrate Allergy Severe Hives, Verified 12/20/20 08:05 [From Keflex] rash and swelling Penicillins Allergy Intermediate SKIN RASH; Verified 12/20/20 08:05 VOMITING cyclobenzaprine AdvReac Severe Lethargy Verified 12/20/20 08:05 and confusion fentanyl AdvReac Severe pt states Verified 12/20/20 08:05 she passes out methadone AdvReac Severe HALLUCINATIONS Verified 12/20/20 08:05 OUT OF LIFE promethazine AdvReac Severe dystonic Verified 12/20/20 08:05 reaction amitriptyline AdvReac Intermediate CONFUSION Verified 12/20/20 08:05 azithromycin AdvReac Intermediate Psychosis Verified 12/20/20 08:05 lithium AdvReac Intermediate GI bleed Verified 12/20/20 08:05 nortriptyline AdvReac Intermediate INSOMNIA Verified 12/20/20 08:05 vancomycin AdvReac Intermediate RED FACE Verified 12/20/20 08:05 imipramine AdvReac pt. states Verified 12/20/20 08:05 i pass out and loose all control pregabalin AdvReac FACIAL Verified 12/20/20 08:05 NUMBNESS Home Medication Medication Instructions Recorded Multivitamin 50 Plus 1 tab PO DAILY 04/28/18 potassium chloride 10 mEq 10 meq PO DAILY #90 cap 05/22/20 capsule,extended release duloxetine 30 mg capsule,delayed 30 mg PO BID 08/24/20 release naloxone 4 mg/actuation nasal spray 4 mg INTRANASAL Q2-3M PRN #2 ea 09/20/20 lurasidone 20 mg tablet 20 mg PO DAILY 11/10/20 venlafaxine 150 mg 150 mg PO BID cap 11/10/20 capsule,extended release 24 hr omeprazole 40 mg capsule,delayed 40 mg PO DAILY #90 cap 12/13/20 release docusate sodium [Colace] 100 mg PO DAILY 12/15/20 acetaminophen [Tylenol Extra 1,000 mg PO QID PRN 09/08/21 Strength] ibuprofen [Advil] 400 mg PO Q6H PRN 12/20/20 magnesium 200 mg PO DAILY 12/20/20 Current Visit Medications: Current Medications Generic Name Dose Route Start Last Admin Trade Name Davonte PRN Reason Stop Dose Admin Acetaminophen 1,000 mg 12/20/20 06:00 12/20/20 08:28 Acetaminophen 500 Mg Tab PO 12/20/20 23:59 1,000 mg PREOP BRYAN Administration Celecoxib 400 mg 12/20/20 06:00 12/20/20 08:28 Celecoxib 200 Mg Cap PO 12/20/20 23:59 400 mg PREOP BRYAN Administration Gabapentin 300 mg 12/20/20 06:00 12/20/20 08:28 Gabapentin 300 Mg Cap PO 12/20/20 23:59 300 mg PREOP BRYAN Administration Tranexamic Acid 1,000 mg/ 60 mls @ 360 mls/hr 12/20/20 06:00 Sodium Chloride IVPB 12/20/20 23:59 PREOP BRYAN Ringer's Solution 1,000 mls @ 80 mls/hr 12/20/20 06:00 IV 01/18/21 23:59 INFUSION BRYAN Cefazolin Sodium 2,000 mg/ 100 mls @ 200 mls/hr 12/20/20 06:00 Sodium Chloride IV 12/20/20 23:59 PREOP BRYAN IV Miscellaneous Supplies 1 each 12/20/20 06:00 Iv Access IV 01/18/21 23:59 DIRECTED BRYAN Sodium Chloride 0 ml 12/20/20 06:00 Normal Saline Flush 10 Ml Syr IV 01/18/21 23:59 PRN PRN Sodium Chloride 0 ml 12/20/20 06:00 Normal Saline 10 Ml Vial IJ 01/18/21 23:59 DIRECTED PRN Sterile Water 0 ml 12/20/20 06:00 Water,Injection,Sterile 10 Ml Vial IJ 01/18/21 23:59 DIRECTED PRN PFSH Active Problems Active Problems: Problem Status Onset Code Obstructive sleep apnea G47.33 Hyperlipidemia E78.5 Prediabetes R73.03 Bipolar 1 disorder Depressive disorder F32.9 Painful total knee replacement, left T84.84XA, Z96.652 History of revision of total replacement of left knee joint 09/19/20 Z96.652 Right carpal tunnel syndrome G56.01 Generalized anxiety disorder F41.1 Spondylosis of lumbar region without myelopathy or radiculopathy M47.816 Essential tremor G25.0 Restless leg syndrome G25.81 Primary fibromyalgia syndrome M79.7 Migraine G43.909 Pancolonic diverticulosis K57.30 Medical History Medical History Bipolar 1 disorder Depressive disorder Essential hypertension Generalized anxiety disorder Grade II hemorrhoids Hyperlipidemia Migraine Obstructive sleep apnea Pancolonic diverticulosis Prediabetes Primary fibromyalgia syndrome Restless leg syndrome Right carpal tunnel syndrome Surgical History Surgical History H/O hemorrhoidectomy (02/10/18) Dr Jose Mcgarry History of repair of rectocele Hx of esophagogastroduodenoscopy S/P anterior colporrhaphy (05/06/18) Anterior and posterior colporrhaphy for cystocele and rectocele S/P appendectomy S/P cholecystectomy S/P colonoscopy (12/23/17) S/P left knee arthroscopy S/P FLAQUITO-BSO S/P tonsillectomy Status post left knee replacement Status post revision of total replacement of left knee (09/19/20) Status post total knee replacement, right (~2005) Revision of patellar component, right knee, and soft tissue realignment of the patella to correct maltracking in 2019 Tobacco Smoking/Tobacco Use Status: Never Alcohol Alcohol Intake: never Substance Use Substance use: Never Substance use type: does not use Prental History History 5 Para 4 Hx # Term Pregnancies Multiple births Hx # Pregnancies Ectopic pregnancies AB induced Hx Number of Living Children 4 AB spontaneous 1 Vital Signs and Lab Results Vital Signs Most Recent Vital Signs in EMR: Most Recent Vital Signs Temp Pulse Resp BP Pulse Ox 36.5 C 85 16 144/72 H 97 12/20/20 08:18 12/20/20 08:18 12/20/20 08:18 12/20/20 08:18 12/20/20 08:18 Lab Results Blood Type / Crossmatch: No Data to Display Complete Blood Count: White Blood Count 6.92 10^3/uL (4.4-10.8) 11/21/20 09:43 11/21/20 Red Blood Count 4.46 10^6/uL (3.93-5.22) 11/21/20 09:43 11/21/20 Hemoglobin 11.9 g/dL (11.2-15.7) 11/21/20 09:43 11/21/20 Hematocrit 37.9 % (36.0-46.0) 11/21/20 09:43 11/21/20 Platelet Count 410 10^3/uL (130-400) H 11/21/20 09:43 11/21/20 Complete Metabolic Panel: Sodium Level 144 mmol/L (136-145) 12/19/20 09:46 12/19/20 Potassium Level 4.1 mmol/L (3.5-5.1) 12/19/20 09:46 12/19/20 Chloride Level 107 mmol/L (98-107) 12/19/20 09:46 12/19/20 Carbon Dioxide Level 27.3 mmol/L (21.0-32.0) 12/19/20 09:46 12/19/20 Blood Urea Nitrogen 22 mg/dL (7-18) H 12/19/20 09:46 12/19/20 Creatinine 1.1 mg/dL (0.55-1.02) H 12/19/20 09:46 12/19/20 Estimated GFR/1.73 m2 50.33 (mL/min/1.73m2) 12/19/20 09:46 12/19/20 Magnesium Level 1.5 mg/dL (1.8-2.4) L 12/19/20 09:46 12/19/20 Calcium Level 8.7 mg/dL (8.5-10.1) 12/19/20 09:46 12/19/20 Albumin 3.7 g/dL (3.4-5.0) 12/19/20 09:46 12/19/20 Glucose Level 137 mg/dL (74-106) H 12/19/20 09:46 12/19/20 Hemoglobin A1c 6.3 % (<5.7) H 12/19/20 09:46 12/19/20 C-Reactive Protein 0.37 mg/dL (0.0-0.3) H 11/21/20 09:43 11/21/20 Liver Function Panel: Alanine Aminotransferase (ALT/SGPT) 21 U/L (14-59) 12/19/20 09:46 12/19/20 Aspartate Amino Transf (AST/SGOT) 18 U/L (15-37) 12/19/20 09:46 12/19/20 Gamma Glutamyl Transpeptidase 39 U/L (5-55) 12/19/20 09:46 12/19/20 Coagulation Panel: No Data to Display Cardiac Panel: No Data to Display Arterial Blood Gas: No Data to Display Venous Blood Gas: No Data to Display Pancreas Panel: No Data to Display Thyroid Panel: No Data to Display Infectious Disease: Coronavirus (COVID-19)(PCR) Negative (Negative) 12/19/20 09:50 12/19/20 Coronavirus 2019 Source Nasal/Nares 12/19/20 09:50 12/19/20 Blood Cultures: No Data to Display Toxicology Panel: No Data to Display Imaging and Studies Imaging and Studies EKG Summary: Conclusion Sinus rhythm...normal P axis, V-rate 60- 99. 10/25/20 Anesthesia Assessment and Plan Anesthesia History Personal History: No History of Anesthesia Complications Family History: No Family History of Anesthesia Complications Exercise Tolerance Exercise Tolerance: Metabolic Equivalents>4 Pertinent Negatives Pertinent Negatives: No Symptoms of GERD (Controlled with meds), No Major Cardiovascular Symptoms or Complaints, No Major Pulmonary Symptoms or Complaints and No History of CVA/TIA Cardiac & Pulmonary Exam Cardiac Exam: Normal S1/S2 Heart Sounds Pulmonary Exam: Clear Bilateral Breath Sounds Airway Exam Known Difficult Airway: No Mallampati Class: 2 Mouth Opening: Narrow (< 3cm) Thyromental Distance: Greater than 3 cm Neck Range of Motion: Full ROM Neck Circumference: Thick Teeth Condition: Edentulous ASA Classification ASA Score: ASA 2 Emergency Case?: No NPO Status NPO Status: NPO Clears >2 hours, Solids >8 hours Anesthesia Plan Resuscitation Status: Full Code Anesthesia Technique: General Anesthesia Airway Planned: Endotracheal Tube Pain Management: Surgeon and patient request nerve block (Left femoral nerve block) and Intrathecal Analgesia Monitors Used: Standard Monitors and Central Line
--- NOTE | 2020-12-20 09:21 | W.PM.DSUDISC ---
Documented by User: RADHA Pereyra 12/20/20 09:29 Discharge Plan Disposition Patient Disposition: HOME Condition: Good Discharge Details Reason For Visit: L quad repair Attending Provider: Milton Esquivel Primary Care Provider: Cheryl Gordillo Home Meds and New Rx's Prescriptions: New acetaminophen 500 mg capsule 1,000 mg PO Q8H PRN PRNQty: 90 RF: 0 aspirin 81 mg tablet,delayed release (DR/EC) 81 mg PO BID Qty: 60 RF: 0 celecoxib 200 mg capsule 200 mg PO BID Qty: 60 RF: 0 oxycodone 5 mg tablet 5 mg PO Q8H MDD 15mg PRN (Reason: pain) Qty: 10 RF: 0 Continued duloxetine 30 mg capsule,delayed release(DR/EC) 30 mg PO BID RF: 0 omeprazole 40 mg capsule,delayed release(DR/EC) 40 mg PO DAILY Qty: 90 RF: 4 venlafaxine [Effexor XR] 150 mg capsule,extended release 24hr 150 mg PO BID RF: 0 Latuda 20 mg tablet 20 mg PO DAILY RF: 0 potassium chloride 10 mEq capsule, extended release 10 meq PO DAILY Qty: 90 RF: 3 Narcan 4 mg/actuation spray,non-aerosol 4 mg intranasal Q2-3M PRN (Reason: opioid overdose) Qty: 2 RF: 0 docusate sodium [Colace] 100 mg Capsule 100 mg PO DAILY RF: 0 magnesium 200 mg Tablet 200 mg PO DAILY RF: 0 Multivitamin 50 Plus Tablet 1 tab PO DAILY RF: 0 Discontinued ibuprofen [Advil] 200 mg Tablet 400 mg PO Q6H PRNRF: 0 acetaminophen [Tylenol Extra Strength] 500 mg Capsule 1,000 mg PO QID PRNRF: 0 Discharge Instructions Additional Instructions: Quad Repair Discharge Instructions Activity: You may bear weight as tolerated on the leg as long as the immobilizer is on and you are using crutches/walker for support. You should keep the immobilizer on at all times until your follow-up. You may remove it when resting and keeping your leg straight but do not bend the knee until further instructions. You should use crutches/walker to support the knee. You may move your ankle and toes as needed. Dressing: You should keep the knee dressing in place until your follow-up appointment. Medications: - You should take Tylenol and Celebrex around the clock for the first days-weeks. This will cover baseline pain control. - You have been prescribed a stronger medication if needed. If this is necessary, and you need a refill, please call the office at [phone]. Referrals: Milton Esquivel MD [ [facility] STAFF PHYSICIAN] - Equipment/Supplies: Partial Weight Bearing Crutches Activity:: Activity as Tolerated Remove Dressings/Wound Care:: Do Not Remove Shower/Bathe:: 72 hours Diet:: As Tolerated Discharge Orders Discharge Orders: Discharge Order (Routine); Ordered 12/20/20 Ordered By: Too Can DS: Diagnosis Discharge Diagnosis (1) History of revision of total replacement of left knee joint: Status: Acute Documented by User: Milton Esquivel MD 12/20/20 11:00 Discharge Plan Disposition Patient Disposition: HOME Condition: Good Discharge Details Reason For Visit: L quad repair Attending Provider: Mliton Esquivel Primary Care Provider: Cheryl Gordillo Home Meds and New Rx's Prescriptions: New acetaminophen 500 mg capsule 1,000 mg PO Q8H PRN PRNQty: 90 RF: 0 aspirin 81 mg tablet,delayed release (DR/EC) 81 mg PO BID Qty: 60 RF: 0 celecoxib 200 mg capsule 200 mg PO BID Qty: 60 RF: 0 oxycodone 5 mg tablet 5 mg PO Q8H MDD 15mg PRN (Reason: pain) Qty: 10 RF: 0 Continued duloxetine 30 mg capsule,delayed release(DR/EC) 30 mg PO BID RF: 0 omeprazole 40 mg capsule,delayed release(DR/EC) 40 mg PO DAILY Qty: 90 RF: 4 venlafaxine [Effexor XR] 150 mg capsule,extended release 24hr 150 mg PO BID RF: 0 Latuda 20 mg tablet 20 mg PO DAILY RF: 0 potassium chloride 10 mEq capsule, extended release 10 meq PO DAILY Qty: 90 RF: 3 Narcan 4 mg/actuation spray,non-aerosol 4 mg intranasal Q2-3M PRN (Reason: opioid overdose) Qty: 2 RF: 0 docusate sodium [Colace] 100 mg Capsule 100 mg PO DAILY RF: 0 magnesium 200 mg Tablet 200 mg PO DAILY RF: 0 Multivitamin 50 Plus Tablet 1 tab PO DAILY RF: 0 Discontinued ibuprofen [Advil] 200 mg Tablet 400 mg PO Q6H PRNRF: 0 acetaminophen [Tylenol Extra Strength] 500 mg Capsule 1,000 mg PO QID PRNRF: 0 Discharge Instructions Additional Instructions: Quad Repair Discharge Instructions Activity: You may bear weight as tolerated on the leg as long as the immobilizer is on and you are using crutches/walker for support. You should keep the immobilizer on at all times until your follow-up. You may remove it when resting and keeping your leg straight but do not bend the knee until further instructions. You should use crutches/walker to support the knee. You may move your ankle and toes as needed. Dressing: You should keep the knee dressing in place until your follow-up appointment. Medications: - You should take Tylenol and Celebrex around the clock for the first days-weeks. This will cover baseline pain control. - You have been prescribed a stronger medication if needed. If this is necessary, and you need a refill, please call the office at [phone]. Referrals: Milton Esquivel MD [ [facility] STAFF PHYSICIAN] - Equipment/Supplies: Partial Weight Bearing Crutches Activity:: Activity as Tolerated Remove Dressings/Wound Care:: Do Not Remove Shower/Bathe:: 72 hours Diet:: As Tolerated Discharge Orders Discharge Orders: Discharge Order (Routine); Ordered 12/20/20 Ordered By: Too Can
[2020-12-20] MEDS: CLINDAMYCIN 900 MG/50 ML BAG 50 MG IVPB (09:36)
[2020-12-20] MEDS: Bupivacaine 0.25% Pres-Free 30 ML VIAL (09:54)
[2020-12-20] MEDS: Bupivacaine LIPOSOME/PF 133 MG/10 ML VIAL IJ (09:55)
[2020-12-20] MEDS: Ketorolac 30 MG/ML VIAL (09:56)
--- NOTE | 2020-12-20 10:16 | W.ANESNERVE ---
Nerve Block Single Injection Procedure Date and Time Date Performed: 12/20/20 Procedure Start: 09:12 Location Where Procedure Performed Procedure Location: PACU Reason Performed: Postoperative Analgesia Requesting Provider: Milton Esquivel Timeout Performed Timeout Performed: Yes Monitoring Used ECG, Blood Pressure, SpO2 and See EMR for corresponding vital signs Sterility Sterility: Hand Hygiene, Surgical Cap, Surgical Mask, Sterile Gloves and Chlorhexidine Sedation Given During Procedure Sedation Given (Indicate Dose Given): Versed IV Dose:: 2 mg and Ketamine IV Dose:: 20 mg Patient Mental Status Patient Mental Status: Sedate with meaningful communication Nerve Block 1st Nerve Block: Laterality: Left Block Type: Femoral Needle / Catheter Used: 100mm SonoPlex II Local Anesthetic Bolus (Indicate Dose Given): Lidocaine used for local infiltration of skin, Injected in 3-5ml increments after negative blood aspiration, Bupivacaine 0.25% Dose:: 20 ml and Exparel Dose:: 10 ml Additives (Indicate Dose Given): None Ultrasound: Sterile probe cover and gel used Ultrasound Image Saved?: Yes Nerve Stimulator: Not Used Paresthesia: None Procedure Tolerated: No Complications and Patient tolerated well Procedure Outcome: Successful Performed By: Amie Harris Supervised By: Lucinda Singh
[2020-12-20] MEDS: Droperidol 5 MG/2 ML VIAL 0.625 MG IVP (11:30)
--- NOTE | 2020-12-20 13:34 | W.ANESPOSTOP ---
Postoperative Evaluation Date, Time and Location Date Performed: 12/20/20 Time Performed: 13:34 Patient Location: Day Surgery Unit Vital Signs Most Recent Imported Vital Signs: Most Recent Vital Signs Temp Pulse Resp BP Pulse Ox 36.4 C L 92 H 16 128/80 98 12/20/20 12:55 12/20/20 12:55 12/20/20 12:55 12/20/20 12:02 12/20/20 12:55 Pain Score Most Recent Pain Score: Most Recent Pain Score Pain Level 0 12/20/20 12:55 Assessment Mental Status: Awake (Alert & Oriented to Patient Baseline) Airway and Respiratory Function: Patent airway with normal (patient baseline) respiratory exam Cardiovascular Function: Hemodynamically Stable Hydration Status: Adequately Hydrated Nausea & Vomiting: No Nausea or Vomiting Pain: Pt. Denies Any Pain Peripheral Nerve Block: Regional nerve block not resolved at time of post operative discharge
--- NOTE | 2020-12-20 21:40 | W.PM.OP ---
Date of service: 12/20/20 Time of Service: 10:41 Operative Note Operative Note DATE OF PROCEDURE: 12/20/20 PRE-OP DIAGNOSIS: Chronic Quadriceps Deficiency, Left Knee Replacement POST-OP DIAGNOSIS: same PROCEDURE: Left Knee Quadriceps Reconstruction SURGEON: Milton Esquivel DEPUTY BUILDING GUARD: Too Can ANESTHESIA TYPE: General LMA/ETT Refer to Anesthesia Record ESTIMATED BLOOD LOSS: 50 PATHOLOGY: none sent TOURNIQUET TIME: 0 COMPLICATIONS: None Patient was transported to: PACU Patient's condition: stable Indications: I have seen Olamide in clinic for weakness and pain after revision knee replacement. She had difficulty with rehabilitation and had several falls. Olamide had continued and worsening weakness and pain with an obvious defect of the medial aspect of her knee. She has exhausted nonoperative methods and was having significant limitations in daily function and desired better function and less pain. I discussed the technical details of the procedure to explore and hopefully repair the extensor (quad) mechanism. I explained the risks of the procedure to include, but not limited to, bleeding, infection, pain, stiffness, weakness, damage to nerves and vessels, need for repeat procedure, blood clot and cardiopulmonary demise. Despite these risks, Olamide elected to proceed. Findings: There was deficiency of the quadriceps tendon with a wide pseudo-tendon which may have represented some chronic delamination. The edge of the VMO was identified and mobilized. The edges of the quadriceps tendon was overlapped and secured with three rows of Fiberwire suture. Procedure Description: Olamide was greeted in the preoperative holding area where the correct side was identified and marked. The consent was reviewed with the patient and signed. The history and physical was updated. All questions were answered. Preoperative mediacations were administered: Acetaminophen 1000mg, Celebrex 400mg, and Gabapentin 300mg. A femoral nerve block was then administered by the anesthesia team in the PACU. Olamide was taken back to the operating room. A general anesthetic was then administered. The patient was placed into the supine position on the operating room table. Posts were placed for positioning during the procedure. All bony prominences were well padded. Prophylactic antibiotics in the form of clindamycin were administered. 1g of Tranxemic Acid was given intravenously within 30 minutes of incision. The left leg was then prepped with Chloraprep and draped in a standard fashion with impervious stockinette and extremity drape with significant proximal exposure. A second prep with Chloraprep was performed prior to placing Ioband. A timeout to confirm correct identity, side and site, procedure, allergies, anesthesia, and medical concerns was performed. With the knee in some flexion, the previous midline incision was incised from the joint line to well proximal of the knee. Full thickness skin flaps were raised once the extensor mechanism was encountered. These were raised medially and laterally. Any bleeding was controlled with electrocautery. With the knee now exposed, time was taken to identify anatomy about the knee. There is a palpable defect over the central medial portions of the patella with a portion of quad tendon still attached to the superior superior lateral aspect of patella. However, there was no visual defect and there was a thin layer of tissue still bridging the space over the superior and superior medial aspect of the patella. Further dissection I was able to identify the vastus medialis oblique is musculature which was slightly more proximal medial than I was expecting. Within this area and on its border laterally there was a thickened piece which appeared to be the actual remnant medial tendon and medial border of muscle insertion. Using the palpable lateral base tendon as a reference points and then incised this pseudotendon. Joint fluid was encountered which was removed. There is no abnormality seen within the knee itself. This incision of the pseudotendon was carried out proximally until there is no lateral based tendon remaining. Using palpation both internally of the capsule and externally I then continued some of the release to the superomedial border of the patella. Interestingly, the medial retinacular tissues were quite densely adherent to the patella and therefore did not want to destabilize the patella in this region and so I did not continue the medial parapatellar arthrotomy around the medial patella. With this bimanual approach to palpation the true border of the vastus medialis oblique is and the medial portion of the quadriceps tendon was palpable. I released adhesions from the muscle and its suprafascial covering as well as the underlying femur. These releases were carried up the femur approximately and around the medial aspect of the distal femur such that the vastus medialis was quite mobile. The same was done for the vastus lateralis although with much less extension as it was already appropriately attached to the patella. It did appear that the quadriceps split exited laterally quite proximally within the tendon and my suspicion by looking at this was that there was already some quad deficiency when I did the revision knee replacement and I simply repaired the pseudotendon back down. It was hard to identify a true tendon edge and there was some some suspicion that there could be a laminar type split of the tendon. Nevertheless I was able to identify a firm bulk of tissue which appeared to be the medial base of tendon. Using Allis clamp I was able to mobilize this tissue over to the patella and on top of the lateral tendon and vastus lateralis. This tissue actually appeared quite healthy and a test suture was placed with excellent ability to pull tissue without any pullout. Therefore, I decided not to use any mesh since there was good connection of the lateral tendon and vastus lateralis to the patella and the tissue was of good quality. The joint was thoroughly irrigated at this point prior to the beginning of closing and reconstructing the extensor mechanism. I then started placing sutures using #2 FiberWire. The sutures were placed first through the tendinous portion and insertion of the vastus medialis and the medial quadriceps tendon exiting through the inferior surface of this and then entering from the superior surface of the medial aspect of the lateral quadriceps tendon and vastus lateralis. This was done such that the medial tendon and vastus medialis insertion would be laying on top of and adjacent to the lateral tendon and muscle. 4 of these type sutures were placed before tying to make sure is appropriately reducing. Even with the knee in some flexion I was able to palpate both superficially and deep that the edge of the vastus medialis and the medial tendon was now adjacent to the lateral portion. This also appropriately brought the muscle fibers of the vastus medialis into view adjacent to the new tendon region and the superomedial border of the patella as to be expected in a more normal anatomical situation. Continue to mobilize this true border of the VMO and the medial quad over to the lateral quadriceps tendon remnant and the vastus lateralis. Once the sutures were placed I then began to tie them. Once again, the tissue was actually of great quality and was able to hold the sutures well with reapproximation of the tissue. The knee was tested at 90 degrees and showed no pullout and no gapping. I then continued reinforcing this repair by utilizing the pseudotendon and tying it over the top of the lateral quadriceps tendon and vastus lateralis. This was done with 2 additional rows of sutures, 1 adjacent to the previous plate suture placed in a through and through technique from the superior surface of the medial tissue out the inferior surface and then through the superior surface of the lateral tissue and then back up and through again tying over the top of the medial tissue. This was done as a second row adjacent to the previous placed sutures. I then placed simple sutures over the free edge laterally to help contour this tissue back down on the surface creating a 3 suture row type construct overlapping the tissue. There was some dogear of the medial patella but I accepted this as it seemed to be more healthy tissue and I do not want to destabilize the medial patellar attachments. At this point, there is a central thickened portion of tendon which was palpable for nearly 12 cm proximal to the patella. Adjacent to this tissue was fibers of the vastus medialis and vastus lateralis. While there was significant bulk within the central portion it appeared to be a more normal appearance of the orientation of the muscles and in this position the medial quadriceps portion was adjacent to the vastus lateralis and lateral quadriceps portion. The knee was once again irrigated with normal saline as well as irrisept chlorhexidine solution. The tissues about the knee were injected with a mixture of 0.25% bupivacaine, 10 cc of Exparel, and 30 mg of ketorolac. Deep tissues were then reapproximated with 0 Vicryl and 2-0 Vicryl. The skin was closed with a running 3-0 Monocryl in a subcuticular fashion. This was reinforced with skin glue. A Mepilex silver dressing was applied along with a [id number] GLENN wrap. The knee was placed into a knee in immobilizer. Olamide was transferred to the hospital stretcher without difficulty and suffering no apparent complication. Olamide has a guarded prognosis. She will remain in the knee immobilizer for 6 weeks. She may be weightbearing as tolerated in the knee immobilizer. She may loosen or unwrap the knee immobilizer when she is laying with the leg completely straight. I will see her back in 2 weeks for a wound check and at that point begin some isometric exercises but no active flexion for 6 weeks. Aspirin 81mg BID will be used for DVT prophylaxis.
== END 2020-12-20 14:10 | disposition home or self-care (01) ==
PROVIDERS: PCP Nurse Practitioner Family; Visit Provider Student in an Organized Health Care Education/Training Program
PROC: (CPT 27386; principal; 2020-12-20 09:45)
DX: T84.84XA Pain due to internal orthopedic prosthetic devices, implants and grafts, initial encounter (principal); M67.864 Other specified disorders of tendon, left knee; R29.6 Repeated falls; Z96.652 Presence of left artificial knee joint; R73.03 Prediabetes; M79.7 Fibromyalgia; G47.33 Obstructive sleep apnea (adult) (pediatric)
CPT/HCPCS: 27386; J1100; J1790; J1885; J2001; J2250; J2370; J2405; J2704

== ENCOUNTER 2021-04-05 02:14 | Outpatient (CLI) | payer MEDICAID, SELFPAY ==
--- NOTE | 2021-04-05 07:15 | DI.DEXA_ITS ---
Exam(s) XR DEXA BONE DENSITY W/WO JAKI EXAM: XR DEXA BONE DENSITY W/WO JAKI CLINICAL HISTORY: Osteoporosis screening IN POSTMENOPAUSAL WOMAN,Z78.0 TECHNIQUE: [employer] C densitometer COMPARISON: No exams were available for comparison FINDINGS: Lateral view of the thoracic and lumbar spine shows no evidence of compression fractures. Bone mineral density measurements of the lumbar spine correspond to a total T-score of -0.4, in the normal range. Bone mineral density measurements of the left hip correspond to a total T-score of -1.4. The femora l neck T-score is -2.0, in the osteopenic range.. The left forearm bone mineral density measurements correspond to a T-score of the distal 3rd of -0.8 , in the normal range.. IMPRESSION: Normal bone mineral density of the lumbar spine and left forearm. Osteopenia of the left hip.
== END 2021-04-05 02:34 ==
PROVIDERS: PCP Nurse Practitioner Family; Visit Provider Nurse Practitioner Family
DX: M85.88 Other specified disorders of bone density and structure, other site (principal); Z78.0 Asymptomatic menopausal state
CPT/HCPCS: 77080

== ENCOUNTER 2021-05-18 00:16 | Outpatient (CLI) | payer MEDICAID, SELFPAY | END 2021-05-18 00:36 | PROVIDERS: PCP Nurse Practitioner Family; Visit Provider Student in an Organized Health Care Education/Training Program ==

== ENCOUNTER 2021-06-19 04:19 | Outpatient (CLI) | payer MEDICAID, SELFPAY ==
[2021-06-19 11:38] LABS: Anion Gap 10.5 mmol/L (3-11); BUN 25 mg/dL (7-18); CO2 27.5 mmol/L (21.0-32.0); CREATININE 1.3 mg/dL (0.55-1.02); Calcium 9.4 mg/dL (8.5-10.1); Chloride 105 mmol/L (98-107); Estimated GFR 41.37 (mL/min/1.73m2); Glucose 126 mg/dL (74-106); Magnesium 1.7 mg/dL (1.8-2.4); Sodium 143 mmol/L (136-145)
[2021-06-21 04:49] LABS: Vitamin D 25 Total 7.6 ng/mL (30-100)
== END 2021-06-19 04:20 | disposition home or self-care (01) ==
LOC: LBO 04:19
PROVIDERS: PCP Nurse Practitioner Family; Visit Provider Nurse Practitioner Family
DX: E83.42 Hypomagnesemia (principal); E55.9 Vitamin D deficiency, unspecified
CPT/HCPCS: 36415; 80048; 82306; 83735

== ENCOUNTER 2021-08-08 13:43 | Outpatient (CLI) | payer MEDICAID, SELFPAY ==
--- NOTE | 2021-08-08 06:00 | DI.RAD_ITS ---
Exam(s) XR PAIN CLINIC LUMBAR SP 2V EXAM: XR PAIN CLINIC LUMBAR SP 2V CLINICAL HISTORY: Dx: Lumbar Spondylosis. TECHNIQUE: Fluoroscopy was provided for the referring physician for guidance with performing injecti on procedure. COMPARISON: No exams were available for comparison FINDINGS: Please see procedure note for details. Fluoro time: 68 seconds RADIATION DOSE DELIVERED: ivet Valdivia=19.81 mGy
[2021-08-08 13:53] VITALS: BP 126/84; PULSE 82; RESP 20; TEMP 36.6; O2SAT 97
--- NOTE | 2021-08-08 14:34 | PDOC.PAIN ---
Pain Clinic Procedure Note Procedure Note Procedure Note: Lumbar/Sacral Medial Branch Blocks Olamide Gillespie has been referred to the [facility] for lumbar/sacral medial branch blocks. COMMENTS: This is a confirmatory block. She had her last bilateral L3-L5 RFA in 2019 and had >12 months of relief. Her pre-procedure pain VAS was 5/10. Dx: Lumbosacral spondylosis without myelopathy. Patient was interviewed and the medical record reviewed. There were no medical, pharmacologic, radiographic or other structural contraindications to attempting fluoroscopically guided local anesthetic lumbar/sacral medial branch blocks. Risks and expected side effects as well as potential benefit of the procedure were reviewed and voiced concerns addressed. The printed consent form was signed and witnessed. Standard time-out procedure was performed. Patient was placed in the prone position on the fluoroscopy table and automated blood pressure cuff and pulse oximeter applied. The skin entry points for approaching the anatomic target points of the segmental medial branches of the bilateral L3-L5 were identified with anfluoroscopy and marked. Following thorough Chlorhexadine preparation of the skin and draping and 1% lidocaine infiltration of the skin entry points and subcutaneous tissues, a 22 gauge spinal needle was placed under fluoroscopic guidance down on to the target point for each respective segmental medial branch.Position was confirmed in A/P, oblique and lateral views with 0.25ml of omnipaque 240. Coult be this method .5ml 0.5% Bupivacaine was injected or 1% Lidocaine. Vital signs were stable throughout the procedure and were as recorded in the docflowsheet by the nursing staff. Follow up plans and appointments were discussed and was instructed to keep careful note of how the usual pain was modified by these injections. Specifically was asked to keep a pain diary for the next 24 hours using a numeric pain scale of 0-10 and report these results at the follow-up visit. Post procedure instruction was given as documented in the nursing documentation and having met discharge criteria. Patient was discharged from the [facility]. Based on the medial branches blocked today, if the patient has adequate relief and we are able to proceed to radiofrequency ablation, the treatment should result in the denervation of the bilateral L4-L5 and L5-S1 FACET JOINTS. We would expect to denervate a total of 4 facets during the radiofrequency ablation. COMMENTS: Post-procedure pain VAS was 3/10. Kike Flanagan DO, MPH [facility]-Pain Management [facility] CC: ERIC Rivera
[2021-08-08] MEDS: Omnipaque 240 MG/ML 50 ML BTL IJ (14:43)
[2021-08-08] MEDS: Lidocaine 2% Pres-Free 5 ML VIAL IJ (14:57)
[2021-08-08 14:58] VITALS: BP 153/86; PULSE 82; RESP 14; O2SAT 99
== END 2021-08-08 13:44 | disposition home or self-care (01) ==
LOC: PC 13:43
PROVIDERS: PCP Nurse Practitioner Family; Visit Provider Preventive Medicine Occupational Medicine
DX: M47.817 Spondylosis without myelopathy or radiculopathy, lumbosacral region (principal)
CPT/HCPCS: 64493; 64494; 72100; Q9967

== ENCOUNTER 2021-08-22 00:04 | Outpatient (CLI) | payer MEDICAID, SELFPAY ==
--- NOTE | 2021-08-22 07:15 | DI.MAMMO_ITS ---
Exam(s) MAMMO SCREENING EXAM: MAMMO SCREENING CLINICAL HISTORY: screening,z12.39 TECHNIQUE: Mammograms were interpreted according to the usual protocol including computer analysis w [employer] CAD system, tomosynthesis and C-view imaging. COMPARISON: 2011 and 2015 FINDINGS: The breasts are composed of scattered fibroglandular densities, Breast Density category B. A biopsy clip is again noted in the central right breast. No suspicious masses or suspicious microca lcifications are seen. No skin thickening or abnormal axillary lymph nodes are seen. There has been no significant change from prior exams. IMPRESSION: BI-RADS Category 1, Negative mammogram Yearly screening mammography is recommended. Breast Density - Category B, scattered fibroglandular densities. A negative radiographic report should not delay biopsy if a dominant or clinically suspicious mass is present. Up to ten percent of cancers are not identified on mammography. A negative report may reinforce clinical impression. Adenosis and dense breasts may obscure an underlying neoplasm. False positive reports average 6 to 10%. Patient will receive a letter notifying them of these results.
== END 2021-08-22 00:24 ==
PROVIDERS: PCP Nurse Practitioner Family; Visit Provider Nurse Practitioner Family
DX: Z12.31 Encounter for screening mammogram for malignant neoplasm of breast (principal)
CPT/HCPCS: 77063; 77067

== ENCOUNTER 2021-08-30 08:38 | Outpatient (CLI) | payer MEDICAID, SELFPAY ==
[2021-08-30 08:47] VITALS: BP 113/73; PULSE 84; RESP 20; TEMP 36.6; O2SAT 97
[2021-08-30] MEDS: Midazolam 2 MG/2 ML VIAL IVP (09:39)
--- NOTE | 2021-08-30 10:14 | DI.RAD_ITS ---
Exam(s) XR PAIN CLINIC LUMBAR SP 2V EXAM: XR PAIN CLINIC LUMBAR SP 2V CLINICAL HISTORY: lumbar spondylosis TECHNIQUE: 2D and realtime digital imaging was performed. CONTRAST MATERIAL: Refer to procedure report. COMPARISON: No exams were available for comparison FINDINGS: Fluoroscopy was provided for Dr. Flanagan during the performance of a bilateral lumbar radiofrequency ab lation. Please refer to the procedure report for complete details. Ka,r=25.5 mGy IMPRESSION:
[2021-08-30 10:15] VITALS: BP 107/47; PULSE 83; RESP 18; O2SAT 98
--- NOTE | 2021-08-30 10:29 | PDOC.PAIN ---
Pain Clinic Procedure Note Procedure Note Procedure Note: Bilateral Lumbar Radiofrequency with Coolief Machine PROCEDURE NOTE Date of Service: August 30, 2021 Patient: Olamide Gillespie Provider: Kike Flanagan DO, MPH Pre Operative Diagnosis: Lumbosacral Spondylosis without Myelopathy Post Operative Diagnosis: Same Post procedure pain; VAS= 8/10 PROCEDURE: Radiofrequency Ablation of medial branches - Bilateral L3 L4 L5 and lateral branches of bilateral S1. Olamide Gillespie was brought into the fluoroscopy suite and positioned into the prone position on the fluoroscopy table and allowed to adjust to a position of comfort. A grounding pad was placed on the [right/left] thigh. The lumbar region was widely prepped with a chloraprep solution, allowed to air dry and draped in standard sterile surgical fashion. Local anesthesia was provided by 5 mL of 2% Lidocaine delivered with a 25g needle. A 17g 100 mm radiofrequency introducer needle was placed to the planned anatomic targets guided with intermittent fluoroscopy with a perpendicular approach to terminally place at the junction of the superior articular process and the transverse process of the bilateral L4 L5, the base of the sacral ala bilaterally for the L5 medial branch nerve and the area between base of the sacral ala to the S1 foramen bilaterally. The stylets were removed and radiofrequency probes with a 4mm active tip were then inserted. Needle tip position of the probes was verified in the AP, oblique, and lateral views. At each site, the medial branch nerve was stimulated at 2 Hz to a maximum 1-2 volts determined to finalize safe needle and electrode placement. The patient was awake and responsive during this portion of the procedure. Each target was anesthetized with 1-2 mL of 2% Lidocaine for anesthesia for lesioning and then each target was lesioned at 80 degrees Celsius for 2 minutes and 30 seconds. Tissue impedences were noted to be between 250 and 500 Ohms. Electrodes and needles were then removed and bandages placed over the needle placement sites, the patient then returned to the supine position on a stretcher and transported to the recovery room without hemodynamic, neurologic, or allergic reactions. Fluoroscopic images were printed for hard copy recording and digitally archived. POST PROCEDURE EVALUATION: IMPRESSION: 1. Summary of procedure. Medication given is documented in the MAR. 2. The patient will be contacted in 1-3 weeks 3. Estimated Blood Loss: <5 mls 4. Fluoroscopy time: Documented in the EMR. Follow up plans and appointments were discussed with the Olamide . Post procedure instruction was given as documented in nursing documentation and having met discharge criteria, [facility] was [facility]. COMMENTS: No apparent complications. Post-procedure pain: VAS= 1/10. F/U with our office as needed. I personally performed this entire procedure. Kike Flanagan DO, MPH Attending Physician Pain Management
[2021-08-30] MEDS: Lidocaine 2% Pres-Free 5 ML VIAL IJ (10:37)
[2021-08-30] MEDS: methylPREDNISolone ACETATE 40 MG/ML VIAL IJ (10:39)
[2021-08-30] MEDS: Bupivacaine 0.5% Pres-Free 10 ML VIAL IJ (10:40)
[2021-08-30] MEDS: Lactated Ringers 500 ML 30 ML IV (10:59)
== END 2021-08-30 08:39 | disposition home or self-care (01) ==
LOC: PC 08:38
PROVIDERS: PCP Nurse Practitioner Family; Visit Provider Preventive Medicine Occupational Medicine
DX: M47.817 Spondylosis without myelopathy or radiculopathy, lumbosacral region (principal)
CPT/HCPCS: 64635; 64636; 72100; J1030; J2250

== ENCOUNTER 2022-06-05 13:25 | Outpatient (CLI) | payer MEDICAID, SELFPAY ==
--- NOTE | 2022-06-05 13:00 | DI.RAD_ITS ---
Exam(s) XR SHOULDER LT COMPLETE 2+V EXAM: XR SHOULDER LT COMPLETE 2+V CLINICAL HISTORY: shoulder pain. TECHNIQUE: 2D digital imaging was performed of the left shoulder. Two images were obtained. AP and axillary views were obtained. COMPARISON: CR,XR XR PORTABLE CHEST AP from 06/22/2020 FINDINGS: BONES: No acute fracture is present. No bony destructive lesion is seen. There is an old left 4th rib fracture deformity. JOINTS: No dislocation present. Mild degenerative changes are seen at both the acromioclavicular and glenohumeral joints. SOFT TISSUE: Normal. IMPRESSION: Mild degenerative changes of the shoulder. DATA REPOSITORY: RADIATION DOSE DELIVERED:
== END 2022-06-05 13:26 | disposition home or self-care (01) ==
LOC: DIORS 13:25
PROVIDERS: PCP Nurse Practitioner Family; Referring Provider Nurse Practitioner Family; Visit Provider Student in an Organized Health Care Education/Training Program
DX: M25.512 Pain in left shoulder (principal); M19.012 Primary osteoarthritis, left shoulder
CPT/HCPCS: 73030

== ENCOUNTER 2022-06-17 03:29 | Outpatient (CLI) | payer MEDICAID, SELFPAY ==
[2022-06-17 12:19] LABS: Abs Immature Grans 0.03 10^3/uL (0.0-0.06); Absolute Basophil Count 0.06 10^3/uL (0.0-0.2); Absolute Eosinophil Count 0.21 10^3/uL (0.0-0.7); Absolute Lymphocyte Count 2.63 10^3/uL (1.2-3.4); Absolute Monocyte Count 0.79 10^3/uL (0.1-0.8); Basophils % 0.6; Eosinophils % 2.2; HGB 14.4 g/dL (11.2-15.7); Immature Grans % 0.3; Lymphocytes % 27.6; MCH 26.3 pg (27.0-33.0); MCV 82 fL (80-95); MPV 10.5 fL (8.0-11.0); Monocytes % 8.3; Platelet Count 439 10^3/uL (130-400); RBC 5.47 10^6/uL (3.93-5.22); WBC 9.52 10^3/uL (4.4-10.8)
[2022-06-17 12:40] LABS: ALT 22 U/L (14-59); AST 29 U/L (15-37); Albumin 4.1 g/dL (3.4-5.0); Alkaline Phosphatase 102 U/L (46-116); Anion Gap 12.8 mmol/L (3-11); BUN 23 mg/dL (7-18); Bilirubin, Total 0.5 mg/dL (0.2-1.0); CO2 31.2 mmol/L (21.0-32.0); CREATININE 1.6 mg/dL (0.55-1.02); Calculated LDL 149 mg/dL (<100); Chloride 97 mmol/L (98-107); Cholesterol 240 mg/dL (<200); Estimated GFR 35.79 (mL/min/1.73m2); Glucose 162 mg/dL (74-106); HDL Cholesterol 62 mg/dL (40-60); Sodium 141 mmol/L (136-145); TSH (W/Ref FT4) 3.74 uIU/mL (0.36-3.74); Total Protein 8.2 g/dL (6.4-8.2); Triglyceride 145 mg/dL (<150)
[2022-06-17 13:19] LABS: Potassium 2.5 mmol/L (3.5-5.1)
[2022-06-17 13:38] LABS: Hemoglobin A1C 6.2 % (<5.7)
[2022-06-17 13:58] LABS: Vitamin D 25 Total 26.6 ng/mL (30-100)
[2022-06-18 09:50] LABS: HIV-1/2 Ag & Ab Screen Negative (Negative)
[2022-06-18 10:00] LABS: Hepatitis C Ab w Rflx HCV PCR Negative (Negative)
== END 2022-06-17 03:30 | disposition home or self-care (01) ==
LOC: LOS 03:29
PROVIDERS: PCP Nurse Practitioner Family; Visit Provider Nurse Practitioner Family
DX: E78.5 Hyperlipidemia, unspecified (principal); E55.9 Vitamin D deficiency, unspecified; R73.03 Prediabetes; I10 Essential (primary) hypertension; R63.4 Abnormal weight loss; Z11.4 Encounter for screening for human immunodeficiency virus [HIV]; Z11.59 Encounter for screening for other viral diseases
CPT/HCPCS: 36415; 80053; 80061; 82306; 86803; 87389; 83036; 84443; 85025

== ENCOUNTER 2022-06-17 15:15 | Emergency (ER) | payer MEDICAID, SELFPAY ==
--- NOTE | 2022-06-17 15:30 | RT.EKG_ITS ---
APPROVED REPORT Exam: Resting ECG Reason for Exam: low potassium arm pain Patient Location: E HR:86 bpm ECG Measurements Heart Rate 86 AXIS AZ 173 P 52 QRSd 103 QRS -9 QT 382 T 78 QTc 457 Conclusion Sinus rhythm...normal P axis, V-rate 60- 99. Sinus. Normal axis. Less than 1mm St depression in inferior and anterior leads. Appears slightly more pronounced compared to previous. No STEMI. I have reviewed and interpreted ECG and agree with software generated interpretation.
[2022-06-17 15:35] VITALS: BP 117/92; PULSE 93; RESP 20; TEMP 36.7; O2SAT 96
--- NOTE | 2022-06-17 15:45 | DI.RAD_ITS ---
Exam(s) XR CHEST 2V PA LATERAL EXAM: XR CHEST 2V PA LATERAL CLINICAL HISTORY: occasional palpitations, r/o acute disease TECHNIQUE: 2D digital imaging was performed. COMPARISON: CR XR CHEST 2V PA LATERAL from 10/25/2020 FINDINGS: HEART: Normal size. Aorta: Not dilated. PULMONARY VASCULATURE: Normal. LUNGS: Clear. PLEURAL SPACE: No pleural effusion or pneumothorax. BONE:Unremarkable for age. IMPRESSION: No acute abnormality. DATA REPOSITORY: RADIATION DOSE DELIVERED:
--- NOTE | 2022-06-17 15:47 | W.ED.GENAD ---
Discharge Plan Disposition Patient Disposition: Home Condition: Stable Discharge Details Clinical Impression: Hypokalemia, Chronic left shoulder pain Primary Care Provider: Cheryl Gordillo ED Provider: Paula Bonilla Home Meds and New Rx's Prescriptions: Continued naloxone [Narcan] 4 mg/actuation spray,non-aerosol 4 mg intranasal Q2-3M PRN (Reason: opioid overdose) Qty: 2 0RF Rx Instructions: spray 1 dose into ONE nostril; alternate nostrils w each dose until help arrives alprazolam [Xanax] 0.5 mg tablet 0.5 mg PO QHS PRN zolpidem 5 mg tablet 5 mg PO QHS PRN lidocaine 4 % adhesive patch,medicated 1 patch topical DAILY PRN (Reason: pain) Qty: 60 3RF Rx Instructions: Apply patch to most painful area, may leave on for up to 12 hrs lurasidone [Latuda] 20 mg tablet 60 mg PO DAILY Rx Instructions: must administer with food (at least 350 calories) topiramate 50 mg tablet 75 mg PO DAILY Qty: 135 3RF omeprazole 20 mg capsule,delayed release(DR/EC) 20 mg PO BID Qty: 180 3RF hydrochlorothiazide 25 mg tablet 25 mg PO DAILY Qty: 90 3RF sertraline 25 mg tablet 75 mg PO DAILY betamethasone, augmented 0.05 % cream 1 applic topical DAILY PRN (Reason: scalp psoriasis) Qty: 50 0RF magnesium oxide 500 mg capsule 500 mg PO DAILY Qty: 90 3RF potassium chloride 10 mEq capsule, extended release 10 meq PO DAILY Qty: 90 3RF ondansetron HCl 8 mg tablet 8 mg PO Q8H PRN (Reason: nausea and vomiting) Qty: 12 0RF sumatriptan 20 mg/actuation spray,non-aerosol 20 mg intranasal ONCE PRN (Reason: migraine headache) Qty: 6 2RF Rx Instructions: into one nostril; if headache remains, may repeat dose into other nostril once after at least 2 hours docusate sodium [Colace] 100 mg capsule 100 mg PO DAILY PRN (Reason: constipation) Qty: 90 1RF cholecalciferol (vitamin D3) 50 mcg (2,000 unit) capsule 2,000 unit PO DAILY Qty: 90 3RF acetaminophen 500 mg capsule 1,000 mg PO Q8H PRN PRNQty: 90 0RF Discharge Instructions Instructions: Hypokalemia (ED) Additional Instructions: Your potassium was noted to be low today in the emergency department at 2.6. You were given IV and oral supplementation of potassium and your potassium is now near normal limits. Low potassium is often related to diet and medications. The medication called Hydrochlorothiazide that you take for your blood pressure is a diuretic and can cause low potassium. Increase your potassium chloride 10 mEq capsule to 2 tabs once daily for the next 3 days and then resume your 1 tab once daily after that. Call your primary care doctor's office tomorrow to schedule a follow-up appointment for reevaluation in the next week. Return immediately to the emergency department if you develop any worsening or new concerning symptoms. Discharge Data Discharge Physician: Paula Bonilla Medical Decision Making 1629 -- 62-year-old female with history of obesity, hypertension, hyperlipidemia, GERD, fibromyalgia, obstructive sleep apnea, anxiety, depression, migraine, restless leg syndrome, chronic kidney disease and remote ovarian cancer presents for hypokalemia noted on routine labs per PCP office. Patient denies any acute complaints. She states she is being followed by Dr. Hutchinson for left shoulder and upper arm pain and diagnosed with a frozen shoulder. He also states she has had intermittent butterflies or fluttering in her chest for the past 1 to 2 years which she attributes to anxiety. She denies any chest pain, shortness of breath, nausea, vomiting or dizziness at any time. EKG on arrival notes a rate of 86, sinus, normal axis. She has less than [address] depression in inferior and anterior leads. This appears more prominent compared to previous EKG. There is no STEMI. Her vitals are within normal limits. She appears comfortable and nontoxic. Her pain in her left shoulder and left upper arm is reproducible with range of motion and palpation. Her left upper arm is otherwise neurovascular intact. We will repeat screening labs to assess her potassium and replete as necessary. She denies any complaint of chest pain, history and presentation does not appear consistent with ACS, PE, dissection. Will obtain a cardiac work-up considering her age and history and slight EKG changes. 193 --repeat potassium 3.4. Repeat EKG notes some improvement of ST depressions noted and no acute change and no STEMI. Patient is hemodynamically stable. Patient would like to go home. Advised to increase her potassium 10 mEq capsule to 2 tabs daily for the next 3 days and then resume 1 tab daily after that. Advised to follow up with the primary care doctor for re-evaluation. Usual and customary return precautions given prior to discharge. Medical Records Medical records reviewed: Yes I reviewed the patient's medical records. Imaging Data Radiologic Study: Radiologist's impression: XR CHEST 2V PA ? LATERAL CLINICAL HISTORY:? occasional palpitations, r/o acute disease TECHNIQUE:? 2D digital imaging was performed. COMPARISON:? CR XR CHEST 2V PA ? LATERAL from 10/25/2020 FINDINGS: HEART: Normal size.? Aorta: Not dilated. PULMONARY VASCULATURE: Normal. LUNGS: Clear. ? PLEURAL SPACE: No pleural effusion or pneumothorax. BONE:Unremarkable for age.? IMPRESSION: No acute abnormality.? Lab Data Lab results reviewed: Yes I reviewed the patient's lab results. Labs: Laboratory Tests Range/Units 06/17/22 06/17/22 06/17/22 15:46 15:46 18:48 WBC (4.4-10.8) 10^3/uL 12.01 H RBC (3.93-5.22) 10^6/uL 5.48 H Hgb (11.2-15.7) g/dL 15.0 Hct (36.0-46.0) % 44.7 MCV (80-95) fL 82 MCH (27.0-33.0) pg 27.4 MCHC (32.0-36.0) % 33.6 RDW (11.7-14.6) % 14.9 H Plt Count (130-400) 10^3/uL 476 H MPV (8.0-11.0) fL 10.3 Immature Gran % 0.3 Neutrophils % 62.3 Lymphocytes % 27.3 Monocytes % 8.2 Eosinophils % 1.2 Basophils % 0.7 Nucleated RBC % (0.0-0.3) % 0.0 Absolute Neutrophils (1.2-6.7) 10^3/uL 7.48 H Absolute Lymphocytes (1.2-3.4) 10^3/uL 3.28 Absolute Monocytes (0.1-0.8) 10^3/uL 0.98 H Absolute Eosinophils (0.0-0.7) 10^3/uL 0.14 Absolute Basophils (0.0-0.2) 10^3/uL 0.08 Sodium (136-145) mmol/L 140 141 Potassium (3.5-5.1) mmol/L 2.6 L* 3.4 L Chloride (98-107) mmol/L 96 L 99 Carbon Dioxide (21.0-32.0) mmol/L 34.5 H 33.2 H Anion Gap (3-11) mmol/L 9.5 8.8 BUN (7-18) mg/dL 19 H 19 H Creatinine (0.55-1.02) mg/dL 1.5 H 1.3 H Est GFR (CKD-EPI 2020) (mL/min/1.73m2) 38.67 45.92 Glucose (74-106) mg/dL 111 H 100 Calcium (8.5-10.1) mg/dL 9.9 9.4 Magnesium (1.8-2.4) mg/dL 2.1 Total Bilirubin (0.2-1.0) mg/dL 0.5 AST (15-37) U/L 31 ALT (14-59) U/L 26 Alkaline Phosphatase (46-116) U/L 104 Troponin I (<or=60) ng/L < 50 Total Protein (6.4-8.2) g/dL 8.7 H Albumin (3.4-5.0) g/dL 4.4 ECG Data Attestation: I personally reviewed and interpreted this ECG (s) as follows: Interpretation: #1 --Rate of 86, sinus, normal axis, less than [address] depression in lead II, V3 through V5. This appears slightly more prominent than previous EKG 2020. No STEMI. #2 --Rate of 79, sinus, normal axis, improvement in less than [address] depression in inferior and lateral leads. No STEMI. HPI General Mode of arrival: ambulatory. Date/Time Provider Initiated Documentation: 06/17/22 15:16. Limitations to Documentation: no limitations. Information obtained by: patient. HPI Narrative: Patient is a 62-year-old female with a history of obesity, hypertension, hyperlipidemia, GERD, fibromyalgia, sleep apnea, anxiety, depression, obstructive sleep apnea, restless leg syndrome, chronic kidney disease, migraines and remote ovarian cancer presents for hypokalemia noted on outpatient labs per PCP office. Patient states she was getting routine labs from her primary care doctor and was sent here for a potassium of 2.5. Patient states she was not having any symptoms at that these labs were drawn as part of a routine checkup. Per the triage note, patient had complained of left arm pain radiating to her neck and a chest cramp. Patient states that she was diagnosed with a frozen shoulder 1 month ago which is being followed by Dr. Hutchinson. She states her pain is now radiating from her left shoulder into her left upper arm for the past month. She states for the past year she has had intermittent sensation of butterflies or fluttering in her chest which she attributes to anxiety. She denies any chest pain, shortness of breath, nausea, vomiting or dizziness at any time. Related Data Home Medications Medication Instructions Recorded Confirmed acetaminophen 500 mg capsule 1,000 mg PO Q8H PRN PRN #90 caps 12/20/20 06/17/22 ondansetron HCl 8 mg tablet 8 mg PO Q8H PRN nausea and 12/25/20 06/17/22 vomiting #12 tabs sumatriptan 20 mg/actuation nasal 20 mg intranasal ONCE PRN migraine 01/26/21 06/17/22 spray headache #6 ea betamethasone, augmented 0.05 % 1 applic topical DAILY PRN scalp 04/19/21 06/17/22 topical cream psoriasis #50 grams lurasidone 20 mg tablet (Latuda) 60 mg PO DAILY 06/29/21 06/17/22 naloxone 4 mg/actuation nasal 4 mg intranasal Q2-3M PRN opioid 06/29/21 06/17/22 spray (Narcan) overdose #2 ea hydrochlorothiazide 25 mg tablet 25 mg PO DAILY #90 tab-caps 12/10/21 06/17/22 omeprazole 20 mg capsule,delayed 20 mg PO BID #180 caps 12/10/21 06/17/22 release sertraline 25 mg tablet 75 mg PO DAILY 12/10/21 06/17/22 topiramate 50 mg tablet 75 mg PO DAILY #135 tabs 12/10/21 06/17/22 magnesium oxide 500 mg capsule 500 mg PO DAILY #90 caps 02/15/22 06/17/22 potassium chloride 10 mEq 10 meq PO DAILY #90 caps 02/15/22 06/17/22 capsule,extended release cholecalciferol (vitamin D3) 50 2,000 unit PO DAILY #90 caps 02/19/22 06/17/22 mcg (2,000 unit) capsule docusate sodium 100 mg capsule 100 mg PO DAILY PRN constipation 02/19/22 06/17/22 (Colace) #90 caps alprazolam 0.5 mg tablet (Xanax) 0.5 mg PO QHS PRN 06/10/22 06/17/22 lidocaine 4 % topical patch 1 patch topical DAILY PRN pain #60 06/10/22 06/17/22 ea zolpidem 5 mg tablet 5 mg PO QHS PRN 06/10/22 06/17/22 Previous Rx's Medication Instructions Recorded acetaminophen 500 mg capsule 1,000 mg PO Q8H PRN PRN #90 caps 12/20/20 ondansetron HCl 8 mg tablet 8 mg PO Q8H PRN nausea and 12/25/20 vomiting #12 tabs sumatriptan 20 mg/actuation nasal 20 mg intranasal ONCE PRN migraine 01/26/21 spray headache #6 ea betamethasone, augmented 0.05 % 1 applic topical DAILY PRN scalp 04/19/21 topical cream psoriasis #50 grams naloxone 4 mg/actuation nasal 4 mg intranasal Q2-3M PRN opioid 06/29/21 spray (Narcan) overdose #2 ea hydrochlorothiazide 25 mg tablet 25 mg PO DAILY #90 tab-caps 12/10/21 omeprazole 20 mg capsule,delayed 20 mg PO BID #180 caps 12/10/21 release topiramate 50 mg tablet 75 mg PO DAILY #135 tabs 12/10/21 magnesium oxide 500 mg capsule 500 mg PO DAILY #90 caps 02/15/22 potassium chloride 10 mEq 10 meq PO DAILY #90 caps 02/15/22 capsule,extended release cholecalciferol (vitamin D3) 50 2,000 unit PO DAILY #90 caps 02/19/22 mcg (2,000 unit) capsule docusate sodium 100 mg capsule 100 mg PO DAILY PRN constipation 02/19/22 (Colace) #90 caps lidocaine 4 % topical patch 1 patch topical DAILY PRN pain #60 06/10/22 ea Allergies Allergy/AdvReac Type Severity Reaction Status Date / Time cephalexin monohydrate Allergy Severe Hives, Verified 06/17/22 15:39 [From Keflex] rash and swelling Penicillins Allergy Intermediate SKIN RASH; Verified 06/17/22 15:39 VOMITING cyclobenzaprine AdvReac Severe Lethargy Verified 06/17/22 15:39 and confusion fentanyl AdvReac Severe pt states Verified 06/17/22 15:39 she passes out methadone AdvReac Severe HALLUCINATIONS Verified 06/17/22 15:39 OUT OF LIFE promethazine AdvReac Severe dystonic Verified 06/17/22 15:39 reaction amitriptyline AdvReac Intermediate CONFUSION Verified 06/17/22 15:39 azithromycin AdvReac Intermediate Psychosis Verified 06/17/22 15:39 baclofen AdvReac Intermediate Visual Verified 06/17/22 15:39 Disturbances lithium AdvReac Intermediate GI bleed Verified 06/17/22 15:39 nortriptyline AdvReac Intermediate INSOMNIA Verified 06/17/22 15:39 vancomycin AdvReac Intermediate RED FACE Verified 06/17/22 15:39 imipramine AdvReac pt. states Verified 06/17/22 15:39 i pass out and loose all control pregabalin AdvReac FACIAL Verified 06/17/22 15:39 NUMBNESS General Stated Complaint: Chest Pain SETH: 2 Review of Systems All systems reviewed & are unremarkable except as noted in HPI and below Constitutional Constitutional: Reports as per HPI, Denies chills and Denies fever(s) Eyes Eyes: Denies blurry vision ENT Ears, Nose, Mouth, and Throat: Denies dizziness, Denies sore throat and Denies throat swelling Cardiovascular Cardiovascular: Denies chest pain, Reports palpitations (butterflies or fluttering in heart occasionally) and Denies dyspnea Respiratory Respiratory: Denies cough and Denies dyspnea Gastrointestinal Gastrointestinal: Denies abdominal pain, Denies diarrhea and Denies vomiting Genitourinary Genitourinary: Denies hematuria and Denies dysuria Musculoskeletal Musculoskeletal: Denies back pain and Denies numbness Comments: L shoulder and upper arm pain Integumentary/Breasts Skin/Breast: Denies lesions and Denies rash Neurologic Neurologic: Denies dizziness, Denies localized weakness and Denies numbness Endocrine Endocrine: Reports palpitations (butterflies or fluttering in heart occasionally) Allergic/Immunologic Allergic/Immunologic: Denies throat swelling PFSH All Active Problems (Updated 06/17/22 @ 19:57 by Paula Bonilla DO) Hypokalemia (Acute) Chronic left shoulder pain (Acute) Unintentional weight loss (Acute) Amplified musculoskeletal pain (Acute) Adhesive capsulitis of left shoulder (Acute) Prediabetes (Chronic) Osteopenia (Chronic) Dexa 2020 Right carpal tunnel syndrome (Chronic) Spondylosis of lumbar region without myelopathy or radiculopathy (Chronic) Pancolonic diverticulosis (Chronic) Chronic headaches (Chronic) Scalp psoriasis (Chronic) Vitamin D deficiency (Chronic) Obesity (Chronic) Medical History (Updated 06/17/22 @ 19:57 by Paula Bonilla DO) Bipolar 1 disorder Chronic kidney disease Depressive disorder Essential hypertension Essential tremor Generalized anxiety disorder GERD (gastroesophageal reflux disease) Grade II hemorrhoids Hyperlipidemia Migraine Obstructive sleep apnea Ovarian cancer (~1991) Primary fibromyalgia syndrome Restless leg syndrome Surgical History (Updated 12/11/21 @ 14:19 by Cheryl Gordillo NP) H/O hemorrhoidectomy (02/10/18) Zeferino, Dr Garcia History of repair of rectocele Hx of esophagogastroduodenoscopy S/P anterior colporrhaphy (05/06/18) Anterior and posterior colporrhaphy for cystocele and rectocele S/P appendectomy S/P cholecystectomy S/P colonoscopy (12/23/17) S/P left knee arthroscopy S/P FLAQUITO-BSO S/P tonsillectomy Status post left knee replacement Status post revision of total replacement of left knee (09/19/20) Status post total knee replacement, right (~2005) Revision of patellar component, right knee, and soft tissue realignment of the patella to correct maltracking in 2019 Family History Mother , 51 from ?heart failure Diabetes Breast cancer Heart disease Father , 77 Diabetes Essential hypertension Alcohol abuse Heart disease Hyperlipidemia Sister Diabetes Cancer of neck Depression Paternal Grandfather , 85 Essential hypertension Heart disease Stroke Paternal Grandmother , 62 Diabetes Essential hypertension Stroke Maternal Grandfather , 82 No problems noted. Maternal Grandmother , 34 No problems noted. Sister Ovarian cancer Sister Alcohol abuse Depression Substance abuse Sister Throat cancer Depression Sister Alcohol abuse Depression Substance abuse Sister No problems noted. Son Alcohol abuse Substance abuse Daughter Depression Substance abuse Daughter No problems noted. 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 Pets and animals: Yes Pets and animals: dog(s) Sexually active: Yes Do you think of yourself as: straight/heterosexual Current gender identity: female What is your relationship status?: living with partner How often do you talk on the phone with friends or family?: once per week How often do you get together with friends or relatives?: once per week How often do you attend hindu or oriental orthodox services?: 1-3 times per year Do you belong to any clubs or organized social groups?: no Panel score (0-1 are the most socially isolated patients): 1 What type of physical activity do you participate in: walking and other Details: Eliptical, exercise bike Duration: 15-30 minutes/day Frequency: 3-4 times per week Catalina/Pentecostalism: Christian Special catalina needs: No Seatbelt use: always Helmet use: Yes Drive intox or ride w/intox pick up driver: No Do you feel safe at home: Yes Do you feel safe in your relationship?: Yes History History 5 Para 4 Hx # Term Pregnancies Multiple births Hx # Pregnancies Ectopic pregnancies AB induced Hx Number of Living Children 4 AB spontaneous 1 Exam Const General: cooperative and no acute distress Orientation: alert, awake and oriented x3 HENMT Head: normal to inspection Face and sinus: normal facial exam Eyes General: appearance normal, both eyes and all related structures Pupils: PERRL EOM: EOM intact bilaterally Neck Neck: normal visual inspection and No submandibular swelling Lymphatic: no lymphadenopathy noted Chest Chest: normal inspection of the chest and no tenderness Resp Effort & Inspection: normal respiratory effort and able to speak in complete sentences Auscultation: clear to auscultation bilaterally Cardio Rate: regular rate Rhythm: regular rhythm GI Inspection: normal to inspection Palpation: soft, not firm, not rigid and nontender Auscultation: hypoactive bowel sounds Skin General skin exam: no rashes or lesions noted Neuro General: patient alert, patient awake and patient oriented x3 Cognition: normal cognition Speech: speech normal Motor: muscle tone normal throughout Sensory Exam: no sensory deficits noted Extrem General: full ROM and no edema Psych Appearance: grossly normal Mental Status: mental status grossly normal Speech and Movement: speech and movement normal Affect: normal affect Course Vital Signs Vital signs: Vital Signs Temperature 98.1 F 06/17/22 15:35 Pulse 93 H 06/17/22 15:35 Respiratory Rate 20 06/17/22 15:35 Blood Pressure 117/92 H 06/17/22 15:35 Pulse Oximetry 96 06/17/22 15:35 Temperature 98.1 F 06/17/22 15:35 Temperature Source Oral 06/17/22 15:35 Pulse 93 H 06/17/22 15:35 Respiratory Rate 20 06/17/22 15:35 Respiratory Effort Normal 06/17/22 15:38 Blood Pressure 117/92 H 06/17/22 15:35 Blood Pressure Position Sitting 06/17/22 15:35 Pulse Oximetry 96 06/17/22 15:35 Oxygen Delivery Method Room Air 06/17/22 15:35 Oxygen Flow Rate 0 06/17/22 15:35 Pain Level 5 06/17/22 15:35
[2022-06-17 15:49] VITALS: RESP 18
[2022-06-17 16:06] LABS: Abs Immature Grans 0.04 10^3/uL (0.0-0.06); Absolute Basophil Count 0.08 10^3/uL (0.0-0.2); Absolute Lymphocyte Count 3.28 10^3/uL (1.2-3.4); Basophils % 0.7; Eosinophils % 1.2; HCT 44.7 % (36.0-46.0); Immature Grans % 0.3; Lymphocytes % 27.3; MCH 27.4 pg (27.0-33.0); MCHC 33.6 % (32.0-36.0); MCV 82 fL (80-95); MPV 10.3 fL (8.0-11.0); Monocytes % 8.2; Neutrophils % 62.3; Platelet Count 476 10^3/uL (130-400); RBC 5.48 10^6/uL (3.93-5.22); RDW 14.9 % (11.7-14.6); WBC 12.01 10^3/uL (4.4-10.8)
[2022-06-17 16:14] LABS: Absolute Eosinophil Count 0.14 10^3/uL (0.0-0.7); Absolute Monocyte Count 0.98 10^3/uL (0.1-0.8); Absolute Neutrophil Count 7.48 10^3/uL (1.2-6.7)
[2022-06-17 16:22] LABS: ALT 26 U/L (14-59); AST 31 U/L (15-37); Albumin 4.4 g/dL (3.4-5.0); Alkaline Phosphatase 104 U/L (46-116); Anion Gap 9.5 mmol/L (3-11); BUN 19 mg/dL (7-18); Bilirubin, Total 0.5 mg/dL (0.2-1.0); CO2 34.5 mmol/L (21.0-32.0); CREATININE 1.5 mg/dL (0.55-1.02); Calcium 9.9 mg/dL (8.5-10.1); Chloride 96 mmol/L (98-107); Estimated GFR 38.67 (mL/min/1.73m2); Glucose 111 mg/dL (74-106); Magnesium 2.1 mg/dL (1.8-2.4); Sodium 140 mmol/L (136-145); Total Protein 8.7 g/dL (6.4-8.2); Troponin I < 50 ng/L (<or=60)
[2022-06-17 16:24] LABS: Potassium 2.6 mmol/L (3.5-5.1)
[2022-06-17] MEDS: POTASSIUM CHLORIDE 20 MEQ/100 ML BAG 50 MEQ IVPB (16:42)
[2022-06-17] MEDS: Potassium Chloride 20 MEQ TABCR 40 MEQ PO (16:42)
--- NOTE | 2022-06-17 18:45 | RT.EKG_ITS ---
APPROVED REPORT Exam: Resting ECG Reason for Exam: hypokalemia Patient Location: E HR:79 bpm ECG Measurements Heart Rate 79 AXIS NH 193 P 48 QRSd 100 QRS -4 QT 395 T 59 QTc 453 Conclusion Sinus rhythm...normal P axis, V-rate 60- 99. Sinus. Normal axis. Improvement in ST depressions noted in inferior and anterior leads. No STEMI. I have reviewed and interpreted ECG and agree with software generated interpretation.
[2022-06-17 19:18] LABS: Anion Gap 8.8 mmol/L (3-11); BUN 19 mg/dL (7-18); CO2 33.2 mmol/L (21.0-32.0); CREATININE 1.3 mg/dL (0.55-1.02); Calcium 9.4 mg/dL (8.5-10.1); Chloride 99 mmol/L (98-107); Estimated GFR 45.92 (mL/min/1.73m2); Glucose 100 mg/dL (74-106); Potassium 3.4 mmol/L (3.5-5.1); Sodium 141 mmol/L (136-145)
== END 2022-06-17 20:04 | disposition home or self-care (01) ==
PROVIDERS: Emergency Provider Physician Assistant; PCP Nurse Practitioner Family
DX: E87.6 Hypokalemia (principal); M25.512 Pain in left shoulder; G89.29 Other chronic pain; R00.2 Palpitations; I10 Essential (primary) hypertension; Z79.899 Other long term (current) drug therapy
CPT/HCPCS: 36415; 80048; 80053; 93005; 96365; 96366; 99284; 71046; 83735; 84484; 85025; 93010; J3480

== ENCOUNTER 2022-08-30 01:32 | Outpatient (CLI) | payer MEDICAID, SELFPAY ==
--- NOTE | 2022-08-30 09:00 | DI.US_ITS ---
Exam(s) US ABDOMEN EXAM: US ABDOMEN CLINICAL HISTORY: unintentional weight loss, ? pancreatic mass,R63.4 TECHNIQUE: Ultrasound abdomen performed using standard protocol. COMPARISON: US ABDOMEN ULTRASOUND (P) from 06/13/2010 US US OR ANESTHESIA from 11/23/[address] LUMBAR SPINE RECONS from 01/07/[address] CHEST/ABD/PEL W from 01/07/2020 US US OR ANESTHESIA from 12/20/2020 FINDINGS: ABDOMINAL AORTA AND IVC: Visualized portions normal caliber. PANCREAS: Normal where visualized. LIVER: There is increased echogenicity of the liver consistent with fatty infiltration. The liver me asures 13.7 cm long. Hepatopedal flow in the Portal Vein. GALLBLADDER:Status post cholecystectomy. BILIARY SYSTEM: Common bile duct measures 1.3. This is unchanged compared to the CT scan from 020. No intrahepatic biliary ductal dilatation. This likely reflects post cholecystectomy state. KIDNEYS: Kidneys are symmetric in size. No evidence of renal calculi. No evidence of hydronephrosis. No renal mass or cyst identified. SPLEEN: Not enlarged. ASCITES: None seen. Incidental note is made of a pericardial effusion. IMPRESSION: 1. Status post cholecystectomy. No intrahepatic biliary ductal dilatation. Stable side of the commo n bile duct. 2. Fatty infiltration of the liver. 3. Incidental note is made of a pericardial effusion. Unexpected findings DATA REPOSITORY:
== END 2022-08-30 01:52 ==
LOC: DI 01:33
PROVIDERS: PCP Nurse Practitioner Family; Visit Provider Nurse Practitioner Family
DX: R63.4 Abnormal weight loss (principal); N18.30 Chronic kidney disease, stage 3 unspecified; R93.2 Abnormal findings on diagnostic imaging of liver and biliary tract
CPT/HCPCS: 76700

== ENCOUNTER 2022-09-04 03:26 | Outpatient (CLI) | payer MEDICAID, SELFPAY ==
--- NOTE | 2022-09-04 07:35 | DI.RAD_ITS ---
Exam(s) XR CHEST 2V PA LATERAL EXAM: XR CHEST 2V PA LATERAL CLINICAL HISTORY: ?pericardial effusion seen on abd US,i31.39. TECHNIQUE: 2D digital imaging was performed. COMPARISON: CR XR CHEST 2V PA LATERAL from 06/17/2022 FINDINGS: 2 views: Heart size is normal. The mediastinum is not widened. Lungs are clear. No infiltrates nor pleural effusions. IMPRESSION: No acute pulmonary findings. DATA REPOSITORY: RADIATION DOSE DELIVERED:
== END 2022-09-04 03:46 ==
PROVIDERS: PCP Nurse Practitioner Family; Visit Provider Nurse Practitioner Family
DX: I31.39 Other pericardial effusion (noninflammatory) (principal)
CPT/HCPCS: 71046

== ENCOUNTER 2022-09-12 02:24 | Outpatient (CLI) | payer MEDICAID, SELFPAY ==
--- NOTE | 2022-09-12 07:45 | DI.US_ITS ---
APPROVED REPORT EXAM: Comprehensive 2D, Doppler, and color-flow Echocardiogram Patient Location: Out-Patient [employer] Operator: Baldev Smith RDMS, RVT Indications: pericardial effusion seen on abd US, sleep apnea, fatigue Other Information Study Quality: Adequate Conclusion Normal left ventricular wall thickness and chamber size. Ejection fraction is 55 to 60%. Wall motio n is normal Normal right ventricular size and systolic function Both atria are normal in size There is no structural or hemodynamically significant valvular disease Trivial pericardial effusion Wall motion Left Ventricle The left ventricle is normal size. The left ventricular systolic function is normal. The left ventric ular ejection fraction is within the normal range. There is normal left ventricular wall thickness. T here is normal LV segmental wall motion. There is no ventricular septal defect visualized. LVEF is 55 -60 %. Right Ventricle The right ventricle is normal size. The right ventricular systolic function is normal. Unable to asse ss PA pressure. Atria The left atrium size is normal. The right atrium size is normal. The interatrial septum is intact wit h no evidence for an atrial septal defect. Aortic Valve The aortic valve is normal in structure. Aortic valve is trileaflet. There is no aortic valvular sten osis. No aortic regurgitation is present. Mitral Valve The mitral valve is normal in structure. No evidence of mitral valve stenosis. Trace mitral regurgit ation. Tricuspid Valve The tricuspid valve is normal in structure. There is no tricuspid valve stenosis. Trace tricuspid reg urgitation. Pulmonic Valve The pulmonary valve is normal in structure. There is no pulmonic valvular stenosis. There is no pulmo belgica valvular regurgitation. Great Vessels The aortic root is normal in size. The ascending aorta is normal in size. Aortic arch is normal in ca liber. IVC is normal in size and collapses >50% with inspiration. Pericardium Trivial pericardial effusion. 2D Dimensions IVSD d PLAX 0.67 cm F: 0.6-1.0 LV Vol A2C d MOD 45.4 mL LVPW d PLAX 0.68 cm F: 0.6 - 1.0 LV Vol A4C d MOD 64.7 mL LVID d PLAX 3.76 cm F: 3.8 - 5.2 LA vol/ BSA A4C s A-L 19.0 mL/m2 LVDs 2.85 cm F: 2.2 - 3.5 LA Area A4C s MOD 14.00 cm2 Ao Root d 2.29 cm F: 2.7 - 3.3 LV EF A4C MOD 55.4 % Ao Asc Diam d 2.73 cm F: 2.3 - 3.1 LV EF A2C MOD 51.6 % LV EF Teichholz 47.3 % LV EF Biplane MOD 52.4 % LVEF (Pa's) 52.36 % F: 54 - 74 SV 28.44 mL LV Volume 42.46 mL F: 46 - 106 SV Index 16.02 mL/m2 LV Volume Index 23.85 mL/m2 F: 29 - 61 LV Vol Biplane MOD 54.3 mL FS 23.20 % M-Mode TAPSE 1.88 cm (M/F) >1.7 LV Diastology MV E' medial 0.087 (>0.07 m/s) E/A Ratio 0.9 LV E/e MED 8.00 (<14) MV E Vmax 0.70 (0.4-1.3 m/s) MV E' lateral 0.117 (>0.1 m/s) MV A Vmax 0.75 (0.4-1.3 m/s) LV E/e LAT 5.90 (<14) MV E/A Ratio 0.89 MV E/E' medial 8.00 MV E/E' lateral 5.94 Aortic Valve LVOT Area 2.86 cm2 AoV Area Vmax 2.30 cm2 LVOT Vmax 0.89 m/s AoV Area/ BSA (Vmax) 1.29 cm2/m2 LVOT Mean Obi. 0.56 m/s LAZARO Mean Obi. 2.07 cm2 LVOT Peak Grad 3.2 mmHg LAZARO Mean Obi. Index 1.17 cm2/m2 LVOT Mean Grad 1.5 mmHg LVOT VTI 0.205 m LVOT Diam s 1.90 cm AoV Vmax 1.10 m/s Velocity Ratio 0.81 AoV Mean Obi. 0.77 m/s AoV Peak Grad 4.9 mmHg LVOT SV 58.56 mL AoV Mean Grad 2.7 mmHg AoV VTI 0.240 m AoV Area VTI 2.44 cm2 AoV Area/ BSA (VTI) 1.38 cm/m2 Mitral Valve MV DT 182 (160-240 msec) MV PHT 53 msec MV Area PHT 4.16 cm2 MV VTI 0.217 m MV Area VTI 2.70 (4.0-6.0 cm2) Pulmonary Valve PV Vmax 0.72 (0.5-1.5 m/s) RVOT Peak Gr. 0.76 mmHg PV Peak Grad 2.1 mmHg RVOT Mean Gr. 0.40 mmHg PV Mean Grad 1.3 mmHg RVOT VTI 0.104 m PV VTI 0.147 m RVOT Vmax 0.44 m/s Tricuspid Valve RA Pressure 3.00 mmHg
== END 2022-09-12 02:44 ==
LOC: DI 02:24
PROVIDERS: PCP Nurse Practitioner Family; Visit Provider Nurse Practitioner Family
DX: G47.33 Obstructive sleep apnea (adult) (pediatric) (principal); I31.39 Other pericardial effusion (noninflammatory); R53.83 Other fatigue
CPT/HCPCS: 93306

== ENCOUNTER → 2022-12-04 01:36 | Outpatient (CLI) | payer MEDICAID, SELFPAY ==
--- NOTE | 2022-12-04 15:00 | DI.MRI_ITS ---
Exam(s) MR CERVICAL SPINE WO EXAM: MR CERVICAL SPINE WO CLINICAL HISTORY: ? myelopathy,BILAT HAND PARESTHESIAS,BALANCE PROBLEM,URINARY INCONTINENCE, TECHNIQUE: Multiplanar multisequence MRI of the cervical spine was performed without intravenous con trast. COMPARISON: No exams were available for comparison FINDINGS: BONES: Vertebral body heights are maintained. There is disc space narrowing at C6-C7. Alignment is no rmal. Degenerative endplate signal changes are seen at the cervical spine particularly at C3-4 and C6 -C7. CERVICAL CORD: Craniovertebral junction is unremarkable. The cervical cord is normal size and signal intensity. SOFT TISSUES: Unremarkable. C2-3: No disc herniation or bulge is identified. Degenerative changes of the left facets are noted ca using moderate left neural foraminal stenosis. No significant central spinal canal or right neural f oraminal stenosis is present. C3-4: There is marked prominence of the osteophyte disc complex effacing the anterior subarachnoid sp sher and flattening the anterior aspect of the spinal cord. There is normal signal within the spinal cord. The AP diameter of the spinal canal is 7 mm. Uncovertebral joint hypertrophy is noted, right greater than left. There is resultant moderate right neural foraminal stenosis without significant l eft neural foraminal stenosis. No significant central spinal canal or neural foraminal stenosis C4-5: No disc herniation or bulge is identified. There are degenerative changes seen at the uncoverte bral joints causing mild right neural foraminal narrowing. No significant central spinal canal or le ft neural foraminal stenosis is seen. C5-6: There is mild prominence of the osteophyte disc complex. There are degenerative changes of the right uncovertebral joint which causes moderate right neural foraminal stenosis. There is no signif icant central spinal canal stenosis or left neural foraminal stenosis. C6-7: There is prominence of the osteophyte disc complex at this level. It causes central spinal can al stenosis with an AP diameter of 8 mm. There is some flattening of the anterior aspect of the spin al cord however there is no abnormal signal within the spinal cord. Mild to moderate bilateral neura l foraminal narrowing is present. C7-T1: No disc herniation or bulge is identified. No significant central spinal canal or neural christine inal stenosis IMPRESSION: 1. Multilevel degenerative changes in the cervical spine as described above. 2. Prominence of the osteophyte disc complex causing moderate to severe central spinal canal stenosis at C3-C4. 3. Prominence of the osteophyte disc complex at C6-C7 causing [id number] central spinal canal s tenosis. 4. Normal signal in the spinal cord. 5. Multilevel bilateral neural foraminal stenosis as described. DATA REPOSITORY:
== END ==
PROVIDERS: PCP Nurse Practitioner Family; Visit Provider Nurse Practitioner Adult Health
DX: M99.61 Osseous and subluxation stenosis of intervertebral foramina of cervical region (principal); M48.02 Spinal stenosis, cervical region
CPT/HCPCS: 72141

== ENCOUNTER 2022-12-17 02:35 | Outpatient (CLI) | payer MEDICAID, SELFPAY ==
[2022-12-17 12:57] LABS: Abs Immature Grans 0.02 10^3/uL (0.0-0.06); Absolute Basophil Count 0.06 10^3/uL (0.0-0.2); Absolute Eosinophil Count 0.21 10^3/uL (0.0-0.7); Absolute Lymphocyte Count 2.35 10^3/uL (1.2-3.4); Absolute Monocyte Count 0.76 10^3/uL (0.1-0.8); Absolute Neutrophil Count 5.23 10^3/uL (1.2-6.7); Basophils % 0.7; Eosinophils % 2.4; HCT 44.1 % (36.0-46.0); HGB 14.9 g/dL (11.2-15.7); Immature Grans % 0.2; Lymphocytes % 27.2; MCH 27.9 pg (27.0-33.0); MCHC 33.8 % (32.0-36.0); MCV 83 fL (80-95); MPV 10.4 fL (8.0-11.0); Monocytes % 8.8; Neutrophils % 60.7; Platelet Count 425 10^3/uL (130-400); RBC 5.34 10^6/uL (3.93-5.22); RDW 14.1 % (11.7-14.6); RDW-SD 42.2 fL; WBC 8.63 10^3/uL (4.4-10.8)
[2022-12-17 13:27] LABS: ALT 30 U/L (14-59); AST 42 U/L (15-37); Albumin 4.2 g/dL (3.4-5.0); Alkaline Phosphatase 117 U/L (46-116); Anion Gap 8.5 mmol/L (3-11); BUN 18 mg/dL (7-18); Bilirubin, Total 0.5 mg/dL (0.2-1.0); CO2 30.5 mmol/L (21.0-32.0); CREATININE 1.3 mg/dL (0.55-1.02); Calcium 9.6 mg/dL (8.5-10.1); Calculated LDL 174 mg/dL (<100); Chloride 99 mmol/L (98-107); Cholesterol 266 mg/dL (<200); Estimated GFR 45.92 (mL/min/1.73m2); Glucose 122 mg/dL (74-106); HDL Cholesterol 63 mg/dL (40-60); Sodium 138 mmol/L (136-145); Total Protein 8.1 g/dL (6.4-8.2); Triglyceride 147 mg/dL (<150)
[2022-12-17 13:32] LABS: Potassium 2.8 mmol/L (3.5-5.1)
[2022-12-17 13:48] LABS: Hemoglobin A1C 5.7 % (<5.7)
== END 2022-12-17 02:36 | disposition home or self-care (01) ==
LOC: LOS 02:36
PROVIDERS: PCP Nurse Practitioner Family; Visit Provider Nurse Practitioner Family
DX: Z00.00 Encounter for general adult medical examination without abnormal findings (principal)
CPT/HCPCS: 36415; 80053; 80061; 83036; 85025

== ENCOUNTER 2022-12-24 08:03 | Outpatient (CLI) | payer MEDICAID, SELFPAY ==
--- NOTE | 2022-12-24 06:00 | DI.RAD_ITS ---
Exam(s) XR PAIN CLINIC LUMBAR SP 2V EXAM: XR PAIN CLINIC LUMBAR SP 2V CLINICAL HISTORY: Dx: Lumbar Spondylosis. TECHNIQUE: Fluoroscopy was provided for the referring physician for guidance with performing pain cl inic injection procedure. COMPARISON: No exams were available for comparison FINDINGS: Please see procedure note for details. Fluoro time: 73.0 seconds RADIATION DOSE DELIVERED: ivet Valdivia=14.39 mGy
[2022-12-24 08:18] VITALS: BP 103/69; PULSE 83; RESP 20; TEMP 36.5; O2SAT 96
[2022-12-24] MEDS: Midazolam 2 MG/2 ML VIAL IVP (09:15)
[2022-12-24] MEDS: Lactated Ringers 500 ML 80 ML IV (09:16)
--- NOTE | 2022-12-24 09:59 | PDOC.PAIN_ITS ---
Date of service: 12/24/22 Time of Service: 09:59 Pain Managment Procedure Note Procedure Note Procedure Note: PROCEDURE NOTE BILATERAL LUMBAR RADIOFREQUENCY ABLATION Date of Service: December 24, 2022 Patient:? Olamide Gillespie? Provider:? Kike Flanagan DO, MPH Olamide Gillespie [facility] Lumbar Radiofrequency Ablation with the [employer] Machine.? Pre Operative Diagnosis: Lumbosacral Spondylosis without Myelopathy Post Operative Diagnosis: Same Pre procedure pain; VAS= 9/10 Comments: She had this procedure on 08/30/2021 and had 99% relief for about one year. This pain has just about fully returned. She is allergic to Fentanyl, thus this medication will not be given. PROCEDURE: Radiofrequency Ablation of medial branches - bilateral L3, L4, L5 and lateral branches of bilateral S1. Olamide?was interviewed and the medical record was reviewed.? There were no medical, pharmacologic, radiographic or other structural contraindications to attempting fluoroscopically guided BILATERAL Lumbar Radiofrequency Ablation.?Risks and expected side effects as well as potential benefit of the procedure were reviewed with Olamide, and the patient's voiced concerns were addressed.? The printed consent form was signed.? Standard time-out procedure was performed. Olamide was brought into the fluoroscopy suite and positioned into the prone position on the fluoroscopy table and allowed to adjust to a position of comfort. A grounding pad was placed on the left abdomen. The sterile field was prepared using chlorhexidine preparation of the skin and sterile draping. Local anesthesia superficial and deep was provided by local infiltration of 2% lidocaine. A 17g 100 mm radiofrequency introducer needle was placed to the planned anatomic targets guided with intermittent fluoroscopy with a perpendicular approach to terminally place at the junction of the superior articular process and the transverse process of the bilateral L4, L5, the base of the sacral ala on the bilateral for the L5 medial branch nerve and the area between base of the sacral ala to the S1 foramen bilaterally. The stylets were removed and radiofrequency probes with a 4mm active tip were then inserted. Needle tip position of the probes was verified in the AP, oblique, and lateral views. At each site, the medial branch nerve was stimulated at 2 Hz to a maximum 1-2 volts determined to finalize safe needle and electrode placement. The patient was awake and responsive during this portion of the procedure. Each target was anesthetized with 1-2 mL of 2 % Lidocaine for anesthesia for lesioning and then each target was lesioned at 80 degrees Celsius for 2 minutes and 30 seconds. Tissue impedances were noted to be between 250 and 500 Ohms. There was no unusual discomfort expressed by Olamide. The needles were withdrawn without difficulty and bandages placed over the needle placement sites, the patient was observed and was without hemodynamic, neurologic, or allergic reactions. Fluoroscopic images were digitally archived. POST PROCEDURE EVALUATION: IMPRESSION: 1. Summary of procedure. Medication given is documented in the MAR. 2. Follow up plan: [facility]lamide to contact [facility] as needed.?This procedure may be repeated if the patient achieves at least 50% improvement in pain/function for at least 6 months. 3. Estimated Blood Loss: <5 mls 4. Fluoroscopy time: Documented in the EMR. Follow up plans and appointments were discussed with the Olamide. Post procedure instruction was given as documented in nursing documentation and having met discharge criteria, Olamide was discharged from the [facility]. COMMENTS: No apparent complications. Post-procedure pain: VAS= 0/10. I personally completed the entire procedure. KIKE FLANAGAN DO, MPH ABPM&R - Subspecialty board certification in Pain Medicine [facility] [facility]
[2022-12-24] MEDS: Lidocaine 2% Pres-Free 5 ML VIAL IJ (10:16)
[2022-12-24] MEDS: methylPREDNISolone ACETATE 40 MG/ML VIAL IJ (10:16)
[2022-12-24] MEDS: Bupivacaine 0.5% Pres-Free 10 ML VIAL IJ (10:16)
== END 2022-12-24 08:04 | disposition home or self-care (01) ==
LOC: PC 08:03
PROVIDERS: PCP Nurse Practitioner Family; Visit Provider Preventive Medicine Occupational Medicine
DX: M47.817 Spondylosis without myelopathy or radiculopathy, lumbosacral region (principal)
CPT/HCPCS: 64635; 64636; 72100; J1030; J2250

== ENCOUNTER → 2022-12-27 00:45 | Outpatient (CLI) | payer MEDICAID, SELFPAY ==
--- NOTE | 2022-12-27 08:30 | DI.MAMMO_ITS ---
Exam(s) MAMMO SCREENING EXAM: MAMMO SCREENING CLINICAL HISTORY: screening,z12.39 TECHNIQUE: Bilateral full field digital CC and MLO mammographic images were obtained with 3D tomosyn thesis and utilizing computer aided detection (CAD). COMPARISON: Available for comparison. FINDINGS: Masses/Architectural Distortion: There has been interval increase in the size of a nodule in the post erior medial right breast. This now measures 7 mm. It is located 9 cm from the nipple on the cranio caudad view. No areas of architectural distortion are seen. Microcalcifications: No suspicious pleomorphic-type are seen. Skin Thickening/Nipple Retraction: None. IMPRESSION: 1. Interval increase in size of a right breast nodule. 2. Further evaluation with a spot compression views requested. Right breast ultrasound is also reque sted at that time. BI-RADS Category 0 - Assessment Incomplete: Need additional imaging evaluation Breast Density - Category B - Scattered areas of fibroglandular density Breast density category C or D implies that the patient has dense breast tissue. Dense breast tissue is very common and is not abnormal but dense breast tissue can make it harder to find cancer on a ma mmogram. Also, dense breast tissue may increase their breast cancer risk. This information about the result of the mammogram report was provided to the patient to raise their awareness. Use this report when you speak with the patient about their risks for breast cancer, which includes their family hist ory. At that time, you may recommend for more screening tests (Ultrasound or MRI) as they might be us eful based on their risk. A negative radiographic report should not delay biopsy if a dominant or clinically suspicious mass is present. Up to ten percent of cancers are not identified on mammography. A negative report may reinforce clinical impression. Adenosis and dense breasts may obscure an underlying neoplasm. False positive reports average 6 to 10%. Patient will receive a letter notifying them of these results.
== END ==
PROVIDERS: PCP Nurse Practitioner Family; Visit Provider Nurse Practitioner Family
DX: Z12.31 Encounter for screening mammogram for malignant neoplasm of breast (principal)
CPT/HCPCS: 77063; 77067

== ENCOUNTER 2023-01-03 01:45 | Outpatient (CLI) | payer MEDICAID, SELFPAY ==
[2023-01-03 12:19] LABS: HCT 43.3 % (36.0-46.0); HGB 14.1 g/dL (11.2-15.7); MCH 28.2 pg (27.0-33.0); MCHC 32.6 % (32.0-36.0); MCV 87 fL (80-95); MPV 10.7 fL (8.0-11.0); Platelet Count 389 10^3/uL (130-400); RDW-SD 47.8 fL; WBC 8.29 10^3/uL (4.4-10.8)
[2023-01-03 12:36] LABS: ALT 17 U/L (14-59); AST 18 U/L (15-37); Albumin 3.9 g/dL (3.4-5.0); Alkaline Phosphatase 115 U/L (46-116); Anion Gap 7.6 mmol/L (3-11); BUN 21 mg/dL (7-18); Bilirubin, Total 0.2 mg/dL (0.2-1.0); CO2 27.4 mmol/L (21.0-32.0); CREATININE 1.3 mg/dL (0.55-1.02); Calcium 9.2 mg/dL (8.5-10.1); Chloride 105 mmol/L (98-107); Estimated GFR 45.92 (mL/min/1.73m2); Glucose 98 mg/dL (74-106); Potassium 4.3 mmol/L (3.5-5.1); Sodium 140 mmol/L (136-145); Total Protein 7.6 g/dL (6.4-8.2)
== END 2023-01-03 01:46 | disposition home or self-care (01) ==
LOC: LOS 01:45
PROVIDERS: PCP Nurse Practitioner Family; Visit Provider Nurse Practitioner Family
DX: D75.1 Secondary polycythemia (principal); N18.30 Chronic kidney disease, stage 3 unspecified; E87.6 Hypokalemia
CPT/HCPCS: 36415; 80053; 85027

== ENCOUNTER → 2023-01-06 00:32 | Outpatient (CLI) | payer MEDICAID, SELFPAY ==
--- NOTE | 2023-01-06 | DI.US_ITS ---
Exam(s) MG MAMMO SCREEN CALL BACK UNI US BREAST RT COMPLETE EXAM: MG MAMMO SCREEN CALL BACK UNI-RIGHT COMPLETE RIGHT BREAST ULTRASOUND CLINICAL HISTORY: F/U MAMMO, INTERVAL INCREASE RT BREAST NODULE. TECHNIQUE: Unilateral spot mammographic images obtained with 3D tomosynthesisand utilizing computer aided detection (CAD). . Complete RIGHT breast Ultrasound was also performed, including all 4 quadrants, the retroareolar cheo on, and the ipsilateral axilla. COMPARISON: Prior mammograms were reviewed. This additional imaging was performed due to findings described on the recent screening mammogram of 12/27/2022. FINDINGS: DIAGNOSTIC MAMMOGRAM: Additional mammographic views performed todaydo not dissipate the nodule. However, it has appearance of a probable benign intramammary lymph node. COMPLETE right BREAST ULTRASOUND: Ultrasound performed today reveals a 6 x 3 millimeter wider than taller lobulated nodule at the 1 o'c lock position with slightly increased through transmission. Has appearance of a probable benign fibr oadenoma. Probably does not correspond to the finding on the mammogram. At 9 o'clock position there is a centrally located 2 mm 9 microcyst Scanning of the ipsilateral axilla reveals no significant adenopathy. IMPRESSION: 1. Separate but benign-appearing findings on mammogram and ultrasound. Appropriate follow-up as discussed by myself with the patient today is repeat right breast mammogram and ultrasound in 6 months. The patient was informed of these findings and recommendations prior to leaving the department today. BI-RADS Category 3 - 6 month - Probably Benign Finding: Recommend follow-up mammography in 6 months Breast Density - Category B - Scattered areas of fibroglandular density Breast density Category C or D implies that the patient has dense breast tissue. Dense breast tissue can make it harder to find cancer on a mammogram. Dense breast tissue is also associated with an incr eased risk of breast cancer. This information about the result of the mammogram report was provided to the patient to raise their awareness. Use this report when you speak with the patient about their risks for breast cancer, which includes their family history. At that time, you may recommend additional screening tests (Ultrasoun d or MRI) as these tests may add significant information. A negative radiographic report should not delay biopsy if a dominant or clinically suspicious mass is present. Up to ten percent of cancers are not identified on mammography. A negative report may reinforce clinical impression. Adenosis and dense breasts may obscure an underlying neoplasm. False positive reports average 6 to 10%. Patient will receive a letter notifying them of these results.
== END ==
PROVIDERS: PCP Nurse Practitioner Family; Visit Provider Nurse Practitioner Family
DX: Z12.31 Encounter for screening mammogram for malignant neoplasm of breast (principal); N63.25 Unspecified lump in the left breast, overlapping quadrants
CPT/HCPCS: 76642; 77063; 77067

== ENCOUNTER → 2023-02-21 02:11 | Outpatient (CLI) | payer MEDICAID, SELFPAY ==
--- NOTE | 2023-02-21 08:00 | DI.CT_ITS ---
Exam(s) CT BRAIN NECK CTA EXAM: CT BRAIN NECK CTA CLINICAL HISTORY: DIZZINESS,PERSIST,RECURR,?CARDIAC OR VASCULAR CAUSE,OA C SPINE,M47.12,R42. TECHNIQUE: Imaging Protocol: Axial CT angiography was performed with multi-slice acquisition and mu lti-planar and 3D reconstructions. CONTRAST MATERIAL: Intravenous: Omnipaque 350 Contrast volume:100 ml COMPARISON: CT CT LUMBAR SPINE RECONS from 01/07/[address] HEAD WO from 06/22/2020 FINDINGS: CT Head W/O and W contrast: Ventricles and Extra axial spaces: Normal in size and morphology for the patient's age. Hemorrhage: None. Cerebral parenchyma: Mild atrophy. Midline shift: None. Brainstem/Cerebellum: Normal. Calvarium: Normal. Visualized Paranasal sinuses/Mastoids: Clear. Soft Tissues: Unremarkable. Enhancement: Normal. CTA Brain W: Internal Carotid Arteries: Petrous: Normal. Cavernous: Normal. Cerebral: Normal. Middle Cerebral Arteries: Right: No aneurysm, occlusion or significant stenosis. Left: No aneurysm, occlusion or significant stenosis. Anterior Cerebral Arteries: Right: No aneurysm, occlusion or significant stenosis. Left: No aneurysm, occlusion or significant stenosis. Posterior cerebral Arteries: Right: No aneurysm, occlusion or significant stenosis. Left: No aneurysm, occlusion or significant stenosis. Vertebral Arteries: Right: No aneurysm, occlusion or significant stenosis. Left: No aneurysm, occlusion or significant stenosis. Basilar Artery: No aneurysm, occlusion or significant stenosis. CTA Neck W: No visible plaque. Common Carotid: Right: No dissection, occlusion or significant stenosis. Left: No dissection, occlusion or significant stenosis. External Carotid: Right: No dissection, occlusion or significant stenosis. Left: No dissection, occlusion or significant stenosis. Internal Carotid: Right: No dissection, occlusion or significant stenosis. Left: No dissection, occlusion or significant stenosis. Vertebral Artery: Right: No dissection, occlusion or significant stenosis. Left: No dissection, occlusion or significant stenosis. Lung Apices: respiratory motion Bones: No acute abnormality. Degenerative changes. Soft Tissues: Normal. IMPRESSION: 1. Normal CTA examination of the [place]. 2. Unremarkable CT Head. 3. Normal CTA examination of the neck. RADIATION DOSE DELIVERED: Total DLP DATA REPOSITORY: All CT scans at this facility are submitted to the National Radiology Data Registry (NRDR) Dose Index Registry (DIR) with the [employer] (ACR). RADIATION OPTIMIZATION: All CT scans at this facility use at least one of these dose optimization te chniques: automated exposure control; mA and/or kV adjustment per patient size (includes targeted exa ms where dose is matched to clinical indication); or iterative reconstruction.
[2023-02-21 08:11] LABS: CREATININE 1.3 mg/dL (0.55-1.02); Estimated GFR 45.92 (mL/min/1.73m2)
[2023-02-21] MEDS: Omnipaque 350 MG/ML 500 ML BTL-Imaging package 85 ML IJ (08:51)
[2023-02-21] MEDS: Normal Saline - Diluent 50 ML VIAL IJ (08:54)
== END ==
PROVIDERS: PCP Nurse Practitioner Family; Visit Provider Neurological Surgery
DX: M47.12 Other spondylosis with myelopathy, cervical region (principal); R42 Dizziness and giddiness
CPT/HCPCS: 70496; 70498; 82565

== ENCOUNTER 2023-03-12 07:54 | Outpatient (CLI) | payer MEDICAID, SELFPAY ==
--- NOTE | 2023-03-12 07:45 | RT.EKG_ITS ---
APPROVED REPORT Exam: Resting ECG Reason for Exam: pre-op Patient Location: O HR:81 bpm ECG Measurements Heart Rate 81 AXIS SC 190 P 62 QRSd 100 QRS 11 QT 375 T 67 QTc 436 Conclusion Sinus rhythm...normal P axis, V-rate 50- 99 Abnormal R-wave progression, early transition...QRS area>0 in V2 Otherwise normal ECG
== END 2023-03-12 07:55 | disposition home or self-care (01) ==
LOC: DI.CM 07:55
PROVIDERS: PCP Nurse Practitioner Family; Visit Provider Nurse Practitioner Family
DX: Z01.818 Encounter for other preprocedural examination (principal)
CPT/HCPCS: 93010

== ENCOUNTER 2023-03-12 09:28 | Outpatient (CLI) | payer MEDICAID, SELFPAY ==
[2023-03-12 12:24] LABS: Abs Immature Grans 0.01 10^3/uL (0.0-0.06); Absolute Basophil Count 0.05 10^3/uL (0.0-0.2); Absolute Eosinophil Count 0.27 10^3/uL (0.0-0.7); Absolute Lymphocyte Count 2.12 10^3/uL (1.2-3.4); Absolute Neutrophil Count 3.53 10^3/uL (1.2-6.7); Basophils % 0.8; Eosinophils % 4.2; HCT 42.5 % (36.0-46.0); Immature Grans % 0.2; Lymphocytes % 32.7; MCH 28.8 pg (27.0-33.0); MCHC 32.9 % (32.0-36.0); MCV 87 fL (80-95); MPV 10.6 fL (8.0-11.0); Monocytes % 7.7; Neutrophils % 54.4; Platelet Count 375 10^3/uL (130-400); RBC 4.86 10^6/uL (3.93-5.22); RDW 14.9 % (11.7-14.6); RDW-SD 48.3 fL; WBC 6.48 10^3/uL (4.4-10.8)
[2023-03-12 12:38] LABS: INR 1.1 (0.9-1.1); PTT Activated 28.3 sec (23.6-32.8); Prothrombin Time 10.6 sec (9.1-11.1)
== END 2023-03-12 09:29 | disposition home or self-care (01) ==
LOC: LOS 09:28
PROVIDERS: PCP Nurse Practitioner Family; Referring Provider Nurse Practitioner Family; Visit Provider Nurse Practitioner Family
DX: Z01.818 Encounter for other preprocedural examination (principal)
CPT/HCPCS: 36415; 85025; 85610; 85730

== ENCOUNTER 2023-03-30 16:22 | Emergency (ER) | payer MEDICARE, MEDICAID, SELFPAY ==
[2023-03-30 16:36] VITALS: BP 107/68; PULSE 100; RESP 18; TEMP 36.5; O2SAT 98
--- NOTE | 2023-03-30 17:14 | ED.GENADUL_ITS ---
Discharge Plan Disposition Patient Disposition: Home Discharge Details Clinical Impression: Bilateral arm pain Primary Care Provider: Cheryl Gordillo ED Provider: Daniel Gordillo [place] Meds and New Rx's Prescriptions: New tizanidine 2 mg capsule 2 mg PO Q8H PRNQty: 14 0RF lidocaine [Lidoderm] 5 % adhesive patch,medicated 1 patch topical DAILY Qty: 15 0RF Rx Instructions: leave on most painful area for up to 12 hrs gabapentin 300 mg capsule 300 mg PO TID Qty: 30 0RF Continued naloxone [Narcan] 4 mg/actuation spray,non-aerosol 4 mg intranasal Q2-3M PRN (Reason: opioid overdose) Qty: 2 0RF Rx Instructions: spray 1 dose into ONE nostril; alternate nostrils w each dose until help arrives alprazolam [Xanax] 0.5 mg tablet 0.5 mg PO QHS PRN zolpidem 5 mg tablet 5 mg PO QHS PRN rosuvastatin 10 mg tablet 10 mg PO DAILY Qty: 90 3RF sertraline 25 mg tablet 75 mg PO DAILY topiramate 100 mg tablet 100 mg PO DAILY Qty: 90 3RF sumatriptan 20 mg/actuation spray,non-aerosol 20 mg intranasal ONCE PRN (Reason: migraine headache) Qty: 6 2RF Rx Instructions: into one nostril; if headache remains, may repeat dose into other nostril once after at least 2 hours docusate sodium [Colace] 100 mg capsule 100 mg PO DAILY PRN (Reason: constipation) Qty: 90 1RF ondansetron HCl 8 mg tablet 8 mg PO Q8H PRN (Reason: nausea and vomiting) Qty: 30 0RF omeprazole 40 mg capsule,delayed release(DR/EC) 40 mg PO DAILY Qty: 90 3RF potassium chloride 10 mEq capsule, extended release 10 meq PO DAILY Qty: 90 3RF magnesium oxide 500 mg capsule 500 mg PO DAILY Qty: 90 3RF acetaminophen 500 mg capsule 1,000 mg PO Q8H PRN PRNQty: 90 0RF Discharge Instructions Additional Instructions: You were seen in the emergency department for your arm pain. You are CAT scan showed no acute complications from your surgery. Neurosurgery has reviewed your CAT scan and they are planning on calling you to set you up for the next available appointment. Please return to the emergency department if you develop any weakness in your arms or legs, any difficulty walking, any drainage from your surgical incision, any loss of bowel or bladder control, or any fevers. Please take your home medications as previously prescribed. You are also receiving 2 other medicines which you should take as directed. For your pain please take medications as follows: 1. Take acetaminophen (Tylenol), 1,000 mg (two 500 mg tabs) every 6 hours HPI General Date/Time Provider Initiated Documentation: 03/30/23 17:14 . HPI Narrative: MDM This is an uncomfortable appearing mildly tachycardic but normothermic 63-year-old female 5 days status post cervical fusion at [facility] now with increasing pain and discomfort in her bilateral upper extremities. She has been following the dosing of her oxycodone acetaminophen and her diazepam. Based on her age and recent surgery will hold ibuprofen. She has had no fevers nor any paresthesias nor any objective weakness to suggest cervical complication. I did not take down her surgical dressing as it was under her cervical collar. Patient reports that it was examined yesterday by home health. Patient is having no pain out of proportion to suggest necrotizing soft tissue infection. She is not altered nor tachypneic and has a low risk qSOFA score so I did not treat for sepsis nor draw blood cultures. No focal neurological deficits to suggest CVA. No neck pain to suggest cervical dissection. No tonic-clonic activity to suggest EEG. No fevers so doubt meningitis and do not feel that the patient requires a lumbar puncture. Warm well-perfused hands with 2+ radial pulses bilaterally so not concern for critical limb ischemia so do not feel that the patient requires a CT angiogram. Will treat with 5 mg of oxycodone. No loss of bowel or bladder control. No difficulty walking. 6:45 PM I spoke with Dr. Ulsyses Richardson from [facility] neurosurgery who recommended CT. Will touch base again once CT has been completed. 8:35 PM I spoke again with Dr. Ulysses Richardson from [facility]. She reviewed the patient's scan and felt that there was no acute postsurgical complication. She advised patient continue her home oxycodone and diazepam in addition to 1 g acetaminophen every 6 hours. She also recommended prescriptions which I will write for tizanidine Lidoderm and gabapentin 300 mg 3 times daily. I touch base with the patient and explained these recommendations. Unfortunately we did not have tizanidine on formulary however I ordered the patient for gabapentin Lidoderm. Will also send prescription to her pharmacy. Patient and I discussed return for any upper or lower extremity weakness any difficulty walking any drainage from her surgical incision site or any fevers. Dr. Go will have the patient placed on a list for next available follow-up. Patient understood her return indications and was discharged with an empiric trial of expectant outpatient management.Tachycardia resolved in the ED. Chronic conditions affecting the care of the patient: Obesity bipolar depression History obtained from an outside historian: Patient's External record review: [facility] EMR Medications: Gabapentin diazepam acetaminophen oxycodone Lidoderm Social determinants of health affecting disposition: N/A Management discussed with: Neurosurgery [facility] Treatment/interventions considered: N/A Response to therapies provided: Mildly improved pain in the ED HPI This is a 63-year-old female with history of cervical stenosis now 5 days status post cervical fusion at [facility] and 2 days status post discharge with increasing pain. Patient reports that she has been taking her diazepam every 8 hours 5 mg last at 3 PM. She is also been taking her immediate release oxycodone 5 mg every 6 hours most recently at 3 PM. She is also been taking acetaminophen 1 g every 8 hours most recently at 3 PM. She has had no numbness. She denies weakness. She has had no fevers nor any foul-smelling drainage from her wound. No chest pain or shortness of breath. No falls. No difficulty walking. No loss of bowel or bladder control. No nausea nor vomiting. No fevers. Exam General: Uncomfortable-appearing in no acute distress speaking in complete sentences. Sitting in wheelchair Head: Normocephalic, atraumatic. Eye: Extraocular eye movements intact. No conjunctival injection. No scleral icterus. Ear, nose, mouth, throat: Grossly normal inspection. Normal voice, handling secretions normally. Neck: Trachea midline. Clean dry and intact Mepilex dressing to posterior neck. Patient wearing cervical collar Cardiovascular: Well-perfused distal extremities. Respiratory: Nonlabored respiration. Gastrointestinal: Nondistended abdomen. Musculoskeletal: No edema. Moving all 4 extremities spontaneously. Skin: Normal for age and race, grossly normal temperature and turgor. No acute rash. Neurologic: Alert and appropriate, no apparent acute deficits. 5 out of 5 bilateral upper motor strength on flexion and extension at the elbows. Patient is warm and well-perfused hands with 2+ bilateral radial pulses. Sensation and motor function intact in bilateral hands across the radial, median, and ulnar nerve distributions. Psychiatric: Mood and manner are appropriate. Grooming and personal hygiene are appropriate. Related Data Home Medications Medication Instructions Recorded Confirmed acetaminophen 500 mg capsule 1,000 mg (2 x 500 mg) PO Q8H PRN 12/20/20 03/30/23 PRN #90 caps sumatriptan 20 mg/actuation nasal 20 mg intranasal ONCE PRN migraine 01/26/21 03/30/23 spray headache #6 ea naloxone 4 mg/actuation nasal 4 mg intranasal Q2-3M PRN opioid 06/29/21 03/30/23 spray (Narcan) overdose #2 ea sertraline 25 mg tablet 75 mg PO DAILY 12/10/21 03/30/23 docusate sodium 100 mg capsule 100 mg PO DAILY PRN constipation 02/19/22 03/30/23 (Colace) #90 caps alprazolam 0.5 mg tablet (Xanax) 0.5 mg PO QHS PRN 06/10/22 03/30/23 zolpidem 5 mg tablet 5 mg PO QHS PRN 06/10/22 03/30/23 ondansetron HCl 8 mg tablet 8 mg PO Q8H PRN nausea and 06/19/22 03/30/23 vomiting #30 tabs omeprazole 40 mg capsule,delayed 40 mg PO DAILY #90 caps 08/08/22 03/30/23 release topiramate 100 mg tablet 100 mg PO DAILY #90 tabs 12/11/22 03/30/23 potassium chloride 10 mEq 10 meq PO DAILY #90 caps 01/29/23 03/30/23 capsule,extended release magnesium oxide 500 mg capsule 500 mg PO DAILY #90 caps 01/30/23 03/30/23 rosuvastatin 10 mg tablet 10 mg PO DAILY #90 tabs 03/12/23 03/30/23 gabapentin 300 mg capsule 300 mg PO TID #30 caps 03/30/23 lidocaine 5 % topical patch 1 patch topical DAILY #15 ea 03/30/23 (Lidoderm) tizanidine 2 mg capsule 2 mg PO Q8H PRN #14 caps 03/30/23 Previous Rx's Medication Instructions Recorded acetaminophen 500 mg capsule 1,000 mg (2 x 500 mg) PO Q8H PRN 12/20/20 PRN #90 caps sumatriptan 20 mg/actuation nasal 20 mg intranasal ONCE PRN migraine 01/26/21 spray headache #6 ea naloxone 4 mg/actuation nasal 4 mg intranasal Q2-3M PRN opioid 06/29/21 spray (Narcan) overdose #2 ea docusate sodium 100 mg capsule 100 mg PO DAILY PRN constipation 02/19/22 (Colace) #90 caps ondansetron HCl 8 mg tablet 8 mg PO Q8H PRN nausea and 06/19/22 vomiting #30 tabs omeprazole 40 mg capsule,delayed 40 mg PO DAILY #90 caps 08/08/22 release topiramate 100 mg tablet 100 mg PO DAILY #90 tabs 12/11/22 potassium chloride 10 mEq 10 meq PO DAILY #90 caps 01/29/23 capsule,extended release magnesium oxide 500 mg capsule 500 mg PO DAILY #90 caps 01/30/23 rosuvastatin 10 mg tablet 10 mg PO DAILY #90 tabs 03/12/23 gabapentin 300 mg capsule 300 mg PO TID #30 caps 03/30/23 lidocaine 5 % topical patch 1 patch topical DAILY #15 ea 03/30/23 (Lidoderm) tizanidine 2 mg capsule 2 mg PO Q8H PRN #14 caps 03/30/23 Allergies Allergy/AdvReac Type Severity Reaction Status Date / Time cephalexin monohydrate Allergy Severe Hives, Verified 03/30/23 16:44 [From Keflex] rash and swelling Penicillins Allergy Intermediate SKIN RASH; Verified 03/30/23 16:44 VOMITING cyclobenzaprine AdvReac Severe Lethargy Verified 03/30/23 16:44 and confusion fentanyl AdvReac Severe pt states Verified 03/30/23 16:44 she passes out methadone AdvReac Severe HALLUCINATIONS Verified 03/30/23 16:44 OUT OF LIFE promethazine AdvReac Severe dystonic Verified 03/30/23 16:44 reaction amitriptyline AdvReac Intermediate CONFUSION Verified 03/30/23 16:44 azithromycin AdvReac Intermediate Psychosis Verified 03/30/23 16:44 baclofen AdvReac Intermediate Visual Verified 03/30/23 16:44 Disturbances lithium AdvReac Intermediate GI bleed Verified 03/30/23 16:44 nortriptyline AdvReac Intermediate INSOMNIA Verified 03/30/23 16:44 vancomycin AdvReac Intermediate RED FACE Verified 03/30/23 16:44 imipramine AdvReac pt. states Verified 03/30/23 16:44 i pass out and loose all control pregabalin AdvReac FACIAL Verified 03/30/23 16:44 NUMBNESS General Stated Complaint: Nk/Back Pain SETH: 3 PFSH All Active Problems (Updated 03/30/23 @ 20:37 by Daniel Gordillo MD) Bilateral arm pain (Acute) Obstructive sleep apnea (Chronic) Not on CPAP CKD (chronic kidney disease) stage 3, GFR 30-59 ml/min (Chronic) Fatty liver disease, nonalcoholic (Chronic) Bipolar 1 disorder (Chronic) Depressive disorder (Chronic) Generalized anxiety disorder (Chronic) Essential hypertension (Chronic) Hyperlipidemia (Chronic) Prediabetes (Chronic) Painful total knee replacement, left (Chronic) S/P arthrotomy repair: 12/20/2020 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) Followed by [facility] Neurosurgery Primary fibromyalgia syndrome (Chronic) Right carpal tunnel syndrome (Chronic) Migraine (Chronic) Essential tremor (Chronic) Urinary and fecal incontinence (Chronic) Osteopenia (Chronic) Dexa 2020 GERD (gastroesophageal reflux disease) (Chronic) Restless leg syndrome (Chronic) IBS (irritable bowel syndrome) (Chronic) Grade II hemorrhoids (Chronic) Obesity (Chronic) Scalp psoriasis (Chronic) Vitamin D deficiency (Chronic) Pancolonic diverticulosis (Chronic) Medical History Ovarian cancer (~1991) Surgical History S/P appendectomy S/P FLAQUITO-BSO S/P anterior colporrhaphy (05/06/18) Anterior and posterior colporrhaphy for cystocele and rectocele Status post total knee replacement, right (~2005) Revision of patellar component, right knee, and soft tissue realignment of the patella to correct maltracking in 2019 S/P cholecystectomy S/P colonoscopy (12/23/17) Hx of esophagogastroduodenoscopy S/P tonsillectomy Status post left knee replacement Status post revision of total replacement of left knee (09/19/20) S/P left knee arthroscopy History of repair of rectocele H/O hemorrhoidectomy (02/10/18) Zeferino, Dr Garcia Family History Mother , 51 from ?heart failure Diabetes Breast cancer Heart disease Father , 77 Diabetes Essential hypertension Alcohol abuse Heart disease Hyperlipidemia Sister Diabetes Cancer of neck Depression Paternal Grandfather , 85 Essential hypertension Heart disease Stroke Paternal Grandmother , 62 Diabetes Essential hypertension Stroke Maternal Grandfather , 82 No problems noted. Maternal Grandmother , 34 No problems noted. Sister Ovarian cancer Sister Alcohol abuse Depression Substance abuse Sister Throat cancer Depression Sister Alcohol abuse Depression Substance abuse Sister No problems noted. Son Alcohol abuse Substance abuse Daughter Depression Substance abuse Daughter No problems noted. 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 Pets and animals: Yes Pets and animals: dog(s) Sexually active: Yes Do you think of yourself as: straight/heterosexual Current gender identity: female What is your relationship status?: living with partner How often do you talk on the phone with friends or family?: once per week How often do you get together with friends or relatives?: once per week How often do you attend worship or islam services?: 1-3 times per year Do you belong to any clubs or organized social groups?: no Panel score (0-1 are the most socially isolated patients): 1 What type of physical activity do you participate in: walking and other Details: Eliptical, exercise bike Duration: 15-30 minutes/day Frequency: 3-4 times per week Catalina/Shinto: Gnosticist Special catalina needs: No Seatbelt use: always Helmet use: Yes Drive intox or ride w/intox port cdl a driver: No Do you feel safe at home: Yes Do you feel safe in your relationship?: Yes History History 5 Para 4 Hx # Term Pregnancies Multiple births Hx # Pregnancies Ectopic pregnancies AB induced Hx Number of Living Children 4 AB spontaneous 1 Course Vital Signs Vital signs: Vital Signs Temperature 36.5 C 03/30/23 16:36 Pulse 100 H 03/30/23 16:36 Respiratory Rate 18 03/30/23 16:36 Blood Pressure 107/68 03/30/23 16:36 Pulse Oximetry 98 03/30/23 16:36 Temperature 36.5 C 03/30/23 16:36 Temperature Source Skin 03/30/23 16:36 Pulse 100 H 03/30/23 16:36 Respiratory Rate 18 03/30/23 16:36 Respiratory Effort Normal 03/30/23 16:40 Blood Pressure 107/68 03/30/23 16:36 Blood Pressure Position Sitting 03/30/23 16:36 Pulse Oximetry 98 03/30/23 16:36 Oxygen Delivery Method Room Air 03/30/23 16:36 Oxygen Flow Rate 0 03/30/23 16:36
[2023-03-30] MEDS: oxyCODONE 5 MG TAB PO (17:57)
--- NOTE | 2023-03-30 18:30 | DI.CT_ITS ---
Exam(s) CT CERVICAL SPINE WO EXAM: CT CERVICAL SPINE WO CLINICAL HISTORY: arm pain. TECHNIQUE: Imaging Protocol: Axial computed tomography images with coronal and sagittal reformatted images were created and reviewed COMPARISON: CT CT BRAIN NECK CTA from 02/21/2023 FINDINGS: Bones: No acute fracture or subluxation. Since the prior examination the patient has undergone C3 thr ough C6 laminectomies with posterior spinal rods in the facet joints at these levels. There is strai ghtening of the normal cervical lordosis. Degenerative changes are present throughout the cervical s pine with disc space narrowing and endplate osteophytes. Soft Tissues: There is limited visualization of the central spinal canal C3 through C6 secondary to a rtifact from the spinal surgery. There is multilevel neural foraminal stenosis seen from C3-4 throug h C5-C6. There is no significant central spinal canal stenosis above or below the spinal surgery leve ls. There is a fluid collection seen in the soft tissues posterior to the surgical changes. There i s a small amount of air seen within the fluid collection. The collection measures 4.8 AP by 1.8 pedraza sverse by 4.4 cm craniocaudad. Differential considerations include postoperative seroma, hematoma or abscess. Skin gavi are present posteriorly. Lung Apices: Clear. IMPRESSION: 1. Status post C3 through C6 laminectomy and posterior bilateral fusion hardware. 2. There is a fluid collection in the soft tissues posterior to the laminectomy changes measuring 4.8 AP by 1.8 transverse by 4.4 craniocaudad. Differential considerations include postoperative seroma, hematoma or abscess. 3. Multilevel degenerative changes in the spine cervical spine as described above. RADIATION DOSE DELIVERED: Total DLP Total DLP DATA REPOSITORY: All CT scans at this facility are submitted to the National Radiology Data Registry (NRDR) Dose Index Registry (DIR) with the [employer] (ACR). RADIATION OPTIMIZATION: All CT scans at this facility use at least one of these dose optimization te chniques: automated exposure control; mA and/or kV adjustment per patient size (includes targeted exa ms where dose is matched to clinical indication); or iterative reconstruction.
--- NOTE | 2023-03-30 19:53 | DI.VRAD_ITS ---
PROCEDURE INFORMATION: Exam: CT Cervical Spine Without Contrast Exam date and time: 03/30/2023 7:06 PM Age: 63 years old Clinical indication: Other: Arm pain; Prior surgery; Surgery date: 3-7 days post-operative; Surgery type: Cspine at [facility] TECHNIQUE: Imaging protocol: Computed tomography of the cervical spine without contrast. COMPARISON: MR CERVICAL SPINE WO 12/04/2022 2:26 PM FINDINGS: Bones/joints: Multilevel degenerative cervical spine change. Moderate degenerative disc disease at C3-C4. Severe degenerative disc disease at C5-C6 and C6-C7. Posterior laminectomies at C3, C4, C5, and C6. Bilateral fusion hardware C3 through C6. Bilateral foraminal stenosis changes C3-C4, C4-C5, and C5-C6. Severe C3-C4 and C5-C6. Moderate at C4-C5. Lungs: Lung apices are clear. Soft tissues: Posterior neck soft tissues with a fluid collection posterior to the laminectomy bed. This is 5 cm AP x 2.4 cm transversely. Cephalo caudal dimension 4.2 cm. Can not exclude an abscess. This could represent a resolving postoperative hematoma. There is some minor air within this collection on series 2: Image 185. There is also air within the posterior laminectomy bed at the level of C3. Series 2: Image 122. This also may be postoperative, but can not exclude infection. Posterior midline skin closure gavi consistent with a recent surgical procedure. IMPRESSION: 1. Postoperative from C3 through C6 cervical laminectomies and bilateral fusion. 2. Fluid collection along the inferior aspect of the operative bed measuring 5 x 2.4 x 4.2 cm. Small amount of air in this collection. This may represent an abscess. This could represent postoperative hematoma. There is also a small amount of air seen in the superior aspect of the laminectomy bed at the C3 level. Differential diagnosis of postoperative gas versus developing infection. 3. Posterior skin closure gavi. 4. Severe bilateral foraminal stenosis at C3-C4. Moderate bilateral foraminal stenosis at C4-C5. Severe bilateral foraminal stenosis at C5-C6. Dictated and Authenticated by: Steve Escamilla MD. Ordering:ALTAGRACIA Sanchez MD
[2023-03-30] MEDS: diazePAM 5 MG TAB PO (20:02)
[2023-03-30 20:13] VITALS: BP 128/77; PULSE 94; RESP 16; O2SAT 98
[2023-03-30] MEDS: Acetaminophen 500 MG TAB 1000 MG PO (20:48)
[2023-03-30] MEDS: Lidocaine 5% Patch 1 PATCH TP (20:49)
[2023-03-30] MEDS: Gabapentin 300 MG CAP PO (20:49)
== END 2023-03-30 20:51 | disposition home or self-care (01) ==
PROVIDERS: Emergency Provider Emergency Medicine; PCP Nurse Practitioner Family
DX: G89.18 Other acute postprocedural pain (principal); Z98.1 Arthrodesis status; M79.602 Pain in left arm; M79.601 Pain in right arm
CPT/HCPCS: 99283; 72125; 99284

== ENCOUNTER → 2023-06-18 12:17 | Outpatient (BNVA) | payer MEDICARE, MEDICAID, SELFPAY | PROVIDERS: PCP Nurse Practitioner Family; Visit Provider Psychiatry & Neurology Neurology | DX: G43.909 Migraine, unspecified, not intractable, without status migrainosus (principal); G43.E09 Chronic migraine with aura, not intractable, without status migrainosus; G89.29 Other chronic pain; G47.33 Obstructive sleep apnea (adult) (pediatric); M48.02 Spinal stenosis, cervical region | CPT/HCPCS: 99215 ==

== ENCOUNTER → 2023-07-04 00:02 | Outpatient (CLI) | payer MEDICARE, MEDICAID, SELFPAY ==
--- NOTE | 2023-07-04 07:30 | DI.US_ITS ---
Exam(s) MG MAMMO DIAGNOSTIC UNI US BREAST RT COMPLETE EXAM: MG MAMMO DIAGNOSTIC UNI RIGHT AND COMPLETE RIGHT BREAST ULTRASOUND CLINICAL HISTORY: 6 MO F/U, F/U MAMMO, RT SIDED FINDINGS. TECHNIQUE: Unilateral CC AND MLO mammographic images were obtained with 3D tomosynthesis technique a nd utilizing computer aided detection (CAD). ALSO performed spot compression view right breast. Also performed complete right breast ultrasound including all 4 quadrants and right axilla. COMPARISON: Prior mammograms were reviewed, as was prior ultrasound exam FINDINGS: DIAGNOSTIC RIGHT BREAST MAMMOGRAM: The previously described small benign-appearing nodule remains unchanged on the mammogram. There are no new focal findings on the mammogram. No new malignant-appearing microcalcification groups. No n ew architectural distortion or skin thickening-traction. COMPLETE RIGHT BREAST ULTRASOUND: Findings are unchanged from the ultrasound examination of 01/06/2023. At the 1 o'clock position there is again noted the previously described 6 x 3 millimeter wider than t aller slightly lobulated nodule which is unchanged in size and configuration and is most probably a s mall fibroadenoma. At the 9 o'clock position there is again noted a centrally located 2-3 mm benign microcyst. Scanning of the right axilla reveals a few benign-appearing lymph nodes. IMPRESSION: 1. Stable benign-appearing findings on mammography and ultrasound, as described above. Appropriate follow-up is to keep her on her yearly mammogram schedule applying there next bilateral m ammogram would be in December 2023. Repeat ultrasound examination of the right breast should be per formed at that time.. The patient was informed of the findings and follow-up recommendations by myself prior to leaving the department today. BI-RADS Category 3 - 6 month - Probably Benign Finding: Recommend follow-up mammography in 6 months Breast Density - Category B - Scattered areas of fibroglandular density Breast density Category C or D implies that the patient has dense breast tissue. Dense breast tissue can make it harder to find cancer on a mammogram. Dense breast tissue is also associated with an incr eased risk of breast cancer. This information about the result of the mammogram report was provided to the patient to raise their awareness. Use this report when you speak with the patient about their risks for breast cancer, which includes their family history. At that time, you may recommend additional screening tests (Ultrasoun d or MRI) as these tests may add significant information. A negative radiographic report should not delay biopsy if a dominant or clinically suspicious mass is present. Up to ten percent of cancers are not identified on mammography. A negative report may reinforce clinical impression. Adenosis and dense breasts may obscure an underlying neoplasm. False positive reports average 6 to 10%. Patient will receive a letter notifying them of these results.
== END ==
PROVIDERS: PCP Nurse Practitioner Family; Visit Provider Nurse Practitioner Family
DX: Z09 Encounter for follow-up examination after completed treatment for conditions other than malignant neoplasm (principal); R92.8 Other abnormal and inconclusive findings on diagnostic imaging of breast
CPT/HCPCS: 76642; 77061; 77065; G0279

== ENCOUNTER 2023-10-03 01:17 | Outpatient (CLI) | payer MEDICARE, MEDICAID, SELFPAY ==
[2023-10-03 13:17] LABS: Anion Gap 8.4 mmol/L (3-11); BUN 15 mg/dL (7-18); CO2 28.6 mmol/L (21.0-32.0); CREATININE 1.2 mg/dL (0.55-1.02); Calcium 9.3 mg/dL (8.5-10.1); Calculated LDL 61 mg/dL (<100); Chloride 106 mmol/L (98-107); Cholesterol 147 mg/dL (<200); Estimated GFR 50.23 (mL/min/1.73m2); Glucose 150 mg/dL (74-106); HDL Cholesterol 53 mg/dL (40-60); Sodium 143 mmol/L (136-145); Triglyceride 169 mg/dL (<150)
[2023-10-03 14:01] LABS: Hemoglobin A1C 6.1 % (<5.7)
== END 2023-10-03 01:18 | disposition home or self-care (01) ==
LOC: LOS 01:17
PROVIDERS: PCP Nurse Practitioner Family; Visit Provider Nurse Practitioner Family
DX: R73.03 Prediabetes (principal); I10 Essential (primary) hypertension
CPT/HCPCS: 36415; 80048; 80061; 83036

== ENCOUNTER 2024-01-06 01:13 | Outpatient (CLI) | payer MEDICARE, MEDICAID, SELFPAY ==
--- NOTE | 2024-01-06 13:30 | DI.MAMMO_ITS ---
Exam(s) US BREAST RT LIMITED MG MAMMO DIAGNOSTIC BI EXAM: MG MAMMO DIAGNOSTIC BI and U/S breast RT limited CLINICAL HISTORY: 6 month follow up,rt microcyst,due for bilat,r92.8,z09. TECHNIQUE: Craniocaudal and mediolateral oblique Full Field Digital Mammography views with Computer Aided Diagnosis followed by Tomosynthesis and right breast ultrasound. COMPARISON: Comparison is made with prior examinations. FINDINGS: Mammography/Tomosynthesis: Masses/Architectural Distortion: The ovoid nodule in the upper left breast is stable. There has been no change in the nodule in the central right breast. No new nodules are seen. No areas of architec tural distortion are present. Microcalcifictions: No suspicious pleomorphic-type are seen. Skin Thickening/Nipple Retraction: None. Limited right breast US: Echotexture: Normal appearance of the glandular tissue. Shadowing: No suspicious foci. Cyst: None. Solid lesions: The ovoid hypoechoic structure at the 1 o'clock 2 cm from the nipple is unchanged and may represent a fibroadenoma. There is also no change in appearance of the 2 mm well-circumscribed r ound lesion at the 9 o'clock position in the retroareolar soft tissues. Ductal dilation: None. IMPRESSION: 1. No evidence of malignancy is noted. 2. Unless there is more urgent need, follow-up screening mammography is recommended, as per [employer] [employer] guidelines. 3. The findings were discussed with the patient on the date of the examination. BI-RADS Category 2 - Benign Findings Breast Density - Category B - Scattered areas of fibroglandular density Breast density Category C or D implies that the patient has dense breast tissue. Dense breast tissue can make it harder to find cancer on a mammogram. Dense breast tissue is also associated with an incr eased risk of breast cancer. This information about the result of the mammogram report was provided to the patient to raise their awareness. Use this report when you speak with the patient about their risks for breast cancer, which includes their family history. At that time, you may recommend additional screening tests (Ultrasoun d or MRI) as these tests may add significant information. A negative radiographic report should not delay biopsy if a dominant or clinically suspicious mass is present. Up to ten percent of cancers are not identified on mammography. A negative report may reinforce clinical impression. Adenosis and dense breasts may obscure an underlying neoplasm. False positive reports average 6 to 10%. Patient will receive a letter notifying them of these results.
== END 2024-01-06 01:33 ==
LOC: DI 01:13
PROVIDERS: PCP Nurse Practitioner Family; Visit Provider Nurse Practitioner Family
DX: Z09 Encounter for follow-up examination after completed treatment for conditions other than malignant neoplasm (principal); R92.8 Other abnormal and inconclusive findings on diagnostic imaging of breast
CPT/HCPCS: 76642; 77062; 77066; G0279

== ENCOUNTER → 2024-02-11 14:19 | Outpatient (BNVA) | payer MEDICARE, MEDICAID, SELFPAY | PROVIDERS: PCP Nurse Practitioner Family; Referring Provider Nurse Practitioner Family; Visit Provider Psychiatry & Neurology Neurology | DX: M48.02 Spinal stenosis, cervical region (principal); M47.12 Other spondylosis with myelopathy, cervical region; G43.E09 Chronic migraine with aura, not intractable, without status migrainosus; G89.29 Other chronic pain; G47.33 Obstructive sleep apnea (adult) (pediatric) | CPT/HCPCS: 99214 ==

== ENCOUNTER 2024-02-12 07:32 | Outpatient (CLI) | payer MEDICARE, MEDICAID, SELFPAY ==
[2024-02-12] VITALS (12 sets, daily range): BP systolic 122–168; BP diastolic 84–120; PULSE 73–83; RESP 13–18; TEMP 36.6; O2SAT 97–100
--- NOTE | 2024-02-12 06:00 | DI.RAD_ITS ---
Exam(s) XR PAIN CLINIC LUMBAR SP 2V EXAM: XR PAIN CLINIC LUMBAR SP 2V CLINICAL HISTORY: DX: Lumbar Spondylosis. TECHNIQUE: Fluoroscopy was provided for the referring physician for guidance with performing pain cl inic injection procedure. COMPARISON: No exams were available for comparison FINDINGS: Please see procedure note for details. Fluoro time: 30.2 seconds RADIATION DOSE DELIVERED: ivet Valdivia=10.58 mGy
[2024-02-12] MEDS: Midazolam 2 MG/2 ML VIAL IVP (08:35)
--- NOTE | 2024-02-12 09:02 | PDOC.PAIN_ITS ---
Date of service: 02/12/24 Time of Service: 09:02 Pain Managment Procedure Note Procedure Note Procedure Note: PROCEDURE NOTE LEFT LUMBAR RADIOFREQUENCY ABLATION Date of Service: February 12, 2024 Patient:Olamide Prieto? Provider:? Kike Keith DO, MPH Olamide Gillespie [facility] Lumbar Radiofrequency Ablation with the [employer] Machine.? Pre Operative Diagnosis: Lumbosacral Spondylosis without Myelopathy ICD-10 M47.816 Post Operative Diagnosis: Same Pre procedure pain; VAS= 8/10 Comments: Her low back pain on the right has not returned, so we did not complete the right side. her left sided pain was improved by >50% for >9 months and has returned after her 12/24/22 RFA. PROCEDURE: Radiofrequency Ablation of medial branches - left L3, L4, L5 and lateral branches of the left S1. Olamide?was interviewed and the medical record was reviewed.? There were no medical, pharmacologic, radiographic or other structural contraindications to attempting fluoroscopically guided LEFT Lumbar Radiofrequency Ablation.?Risks and expected side effects as well as potential benefit of the procedure were reviewed with Olamide, and the patient's voiced concerns were addressed.? The printed consent form was signed.? Standard time-out procedure was performed. Olamide was brought into the fluoroscopy suite and positioned into the prone position on the fluoroscopy table and allowed to adjust to a position of comfort. A grounding pad was placed on the left abdomen. The sterile field was prepared using chlorhexidine preparation of the skin and sterile draping. Local anesthesia superficial and deep was provided by local infiltration of 2% lidocai ne. A 17g 100 mm radiofrequency introducer needle was placed to the planned anatomic targets guided with intermittent fluoroscopy with a perpendicular approach to terminally place at the junction of the superior articular process and the transverse process of the left L4, L5, the base of the sacral ala on the left for the L5 medial branch nerve and the area between base of the sacral ala to the S1 foramen on the left. The stylets were removed and radiofrequency probes with a 4mm active tip were then inserted. Needle tip position of the probes was verified in the AP, oblique, and lateral views. At each site, the medial branch nerve was stimulated at 2 Hz to a maximum 1-2 volts determined to finalize safe needle and electrode placement. The patient was awake and responsive during this portion of the procedure. Each target was anesthetized with 1-2 mL of 2 % Lidocaine for anesthesia for lesioning and then each target was lesioned at 80 degrees Celsius for 2 minutes and 30 seconds. Tissue impedances were noted to be between 250 and 500 Ohms. Next, I injected 1/4 cc of Depomedrol (40 mg/cc) followed by 1 cc of 0.5% Bupivacaine to each segmental sensory nerve. There was no unusual discomfort expressed by Olamide. The needles were withdrawn without difficulty and bandages placed over the needle placement sites, the patient was observed and was without hemodynamic, neurologic, or allergic reactions. Fluoroscopic images were digitally archived. POST PROCEDURE EVALUATION: IMPRESSION: 1. Summary of procedure. Medication given is documented in the MAR. 2. Follow up plan: Olaimde to contact [facility] as needed.?This procedure may be repeated if the patient achieves at least 50% improvement in pain/function for at least 6 months. 3. Estimated Blood Loss: <5 mls 4. Fluoroscopy time: Documented in the EMR. Follow up plans and appointments were discussed with the Olamide. Post procedure instruction was given as documented in nursing documentation and having met discharge criteria, Olamide was discharged from the [facility]. COMMENTS: No apparent complications. Post-procedure pain: VAS= 3/10. I personally completed the entire procedure. KIKE KEITH DO, MPH ABPM&R - Subspecialty board certification in Pain Medicine [facility]
[2024-02-12] MEDS: Bupivacaine 0.5% Pres-Free 10 ML VIAL IJ (09:09)
[2024-02-12] MEDS: methylPREDNISolone ACETATE 40 MG/ML VIAL IJ (09:10)
[2024-02-12] MEDS: Nerve Block Tray 1 EACH MC (09:10)
[2024-02-12] MEDS: Lidocaine 2% Multi-Dose 20 ML VIAL IJ (09:10)
== END 2024-02-12 07:33 | disposition home or self-care (01) ==
LOC: PC 07:32
PROVIDERS: PCP Nurse Practitioner Family; Visit Provider Preventive Medicine Occupational Medicine
DX: M54.50 Low back pain, unspecified (principal); M47.816 Spondylosis without myelopathy or radiculopathy, lumbar region
CPT/HCPCS: 64635; 64636; 72100; J0665; J1010; J2003; J2250

== ENCOUNTER 2024-03-04 02:06 | Outpatient (CLI) | payer MEDICARE, MEDICAID, SELFPAY ==
--- NOTE | 2024-03-04 06:30 | DI.MRI_ITS ---
Exam(s) MR CERVICAL SPINE WO EXAM: MR CERVICAL SPINE WO CLINICAL HISTORY: increasing neck pain and imbalance; prior surgery,oa c spine w myelopathy, TECHNIQUE: Multiplanar multisequence MRI of the cervical spine was performed without intravenous con trast. COMPARISON: MR MR CERVICAL SPINE WO from 12/04/[address] CERVICAL SPINE WO from 03/30/2023 FINDINGS: Patient is status post laminectomy C3 through C6 and posterior bilateral fusion hardware with posteri or fusion rods and bilateral for level intrapedicular screws.. SOFT TISSUES: Posteriorly to the left of center there is a deep subcutaneous collection at the C6-7 l evel, measuring 2.4 cm wide by 0.8 cm AP by 3 cm craniocaudal. This is posterior to the spinal canal in laminectomy regions and does not appear to be in communication with the spinal canal. CERVICOMEDULLARY JUNCTION: Intact with no evidence of cerebellar tonsillar ectopia. No obvious abnor mality of the odontoid process. No evidence of Chiari 1 malformation. CERVICAL SPINAL CORD: There is no abnormal signal in the cervical spinal cord and no evidence of foca l cord atrophy nor focal cord swelling. OSSEOUS:There are no cervical fractures evident. No significant osseous lesions in the cervical vert ebrae. INDIVIDUAL LEVELS: C2-3: Normal disc height. No disc herniation or central canal stenosis. There are degenerative doyle ges in the left facet joint again noted. Less so on the right side. Mild bilateral foraminal stenosis. C3-4: Decreased disc height. However, there is increased signal within the disc at this level, not p reviously present. No evidence of osteomyelitis.There is a small posterior subligamentous disc protr usion at this level although this appears smaller than on the previous study of 12/04/2022. This mil dly indents the thecal sac but not the spinal cord. Central canal dimensions are within normal limit s and significantly improved from the preoperative study of November 2022. Facet joints are somewhat o bscured by the hardware intrapedicular screws. Mild bilateral foraminal stenosis evident at this lev el. No abnormal signal seen in the spinal cord at this level. C4-5: Laminectomy level and hardware. Preserved disc height. No disc herniation or central canal st enosis. Hardware as above. No Luschka joint osteophytes. Mild bilateral foraminal stenosis. C5-6: Laminectomy level and hardware. Moderately decreased disc height and mild anterior osseous lip ping. There is no disc herniation nor central canal stenosis at this level. No abnormal signal in t he spinal cord. No significant foraminal stenosis evident at this level. C6-7: This is one level below the fusion and appears similar to previous with chronic advanced disc s pace narrowing and anterior osseous lipping. Posteriorly there is mild symmetrical annular bulging, similar to previous without a distinct focal disc herniation. Central canal dimensions are lower nor mal. No abnormal signal in the spinal cord at this level. There is small bilateral Luschka joint os teophytes. There is mild bilateral foraminal stenosis. Mild degenerative changes in both facet join ts appear there is no abnormal signal in the spinal cord at this level. C7-T1: No disc herniation nor central canal stenosis. Mild degenerative changes in the facet jointsno foraminal stenosis. No abnormal signal in the cord. IMPRESSION: 1. Compared to the prior MRI scan of 12/04/2022 there has been interval multilevel laminectomies and posterior fusion surgery from C3 through C6. 2. There has been improvement in the spinal canal stenosis which was evident at C 3-4 and C5-6 levels and there is presently no evidence of significant central spinal canal stenosis. There does not ariela ear to be evidence of focal cord swelling nor focal cord atrophy nor obvious myelitis signal in the c ervical spinal cord. There is mild multilevel foraminal stenosis. 3. There is a posterior fluid collection in the deep subcutaneous tissue posterior to the supraspinou s ligament left of center at the C6-C7 level, this well-defined fluid collection measuring 3 cm crani ocaudal lengthx 2.4 cm wide x 0.8 cm AP. It does not appear to be in communication with the spinal c anal. 4. There is abnormal increased high signal in the entire disc space of C3-4 not associated with endp late erosion nor evidence of osteomyelitis. There is, however, a small posterior disc protrusion at this level which slightly indents the anterior aspect of the thecal sac. Cannot exclude possibility of discitis here. There is no evidence of epidural collection. No evidence of paraspinal mass at th is level. Appropriate follow-up recommended. If clinically indicated follow-up MRI with contrast injection can be performed. DATA REPOSITORY:
== END 2024-03-04 02:26 ==
LOC: DI 02:06
PROVIDERS: PCP Nurse Practitioner Family; Visit Provider Psychiatry & Neurology Neurology
DX: M47.12 Other spondylosis with myelopathy, cervical region (principal)
CPT/HCPCS: 72141

== ENCOUNTER 2024-03-19 00:08 | Outpatient (CLI) | payer MEDICARE, MEDICAID, SELFPAY ==
--- NOTE | 2024-03-19 06:30 | DI.MRI_ITS ---
Exam(s) MR CERVICAL SPINE W EXAM: MR CERVICAL SPINE W 18 CLINICAL HISTORY: fluid collecion,? discitis,NECK PAIN,M54.2 TECHNIQUE: Multiplanar multisequence MRI of the cervical spine was performed. CONTRAST MATERIAL: IV Contrast: 18 ML of Dotarem contrast administered. COMPARISON: CT CT CERVICAL SPINE WO from 03/30/2023 MR MR CERVICAL SPINE WO from 03/04/2024 FINDINGS: The examination is limited secondary to artifact from posterior spinal rods and screws extending from C3 through C6. Examination is also limited by patient motion artifact. BONES: There again seen postsurgical changes of laminectomies from C3 through C6. CERVICAL CORD: Craniovertebral junction is unremarkable. The cervical cord appears grossly unremarkab le on this limited examination. C3-4: At C3-C4 there is mild hyperintense signal on the T1 images seen at the inferior endplate of C3 and the superior endplate of C4. This corresponds to mild hyperintense signal seen on the T2 weight ed images on the examination from 03/04/2024. No associated perispinal fluid collection is seen in t his region. There is no hyperintense signal seen in the paravertebral soft tissues. There is hyperi ntense signal seen within the disc at this level on the non fat suppressed images. The fat suppresse d images show hypointense signal this can be seen with fatty infiltration. Following contrast admini stration, there is no enhancement at the C3-C4 level. There is retention of the low signal cortex at C3 and C4. No findings to suggest discitis are seen. No findings to suggest osteomyelitis of the C 3 or C4 vertebral bodies are seen at this time. C6-7: The fluid collection posterior to the C6-C7 level is again present. It is unchanged in size. It appears slightly hyper intense on the fat-suppressed T1 weighted images. This may represent resol ving hematoma or seroma. This does correspond to a larger fluid collection in this region seen on th e CT scan from 03/30/2023. IMPRESSION: 1. No findings to suggest spondylo discitis in the cervical spine. 2. Interval decrease in size of the fluid collection posterior to the C6-C7 level since 03/30/2023. DATA REPOSITORY:
[2024-03-19] MEDS: Normal Saline Flush 10 ML SYR IVP (08:31)
[2024-03-19] MEDS: Gadoterate meglumine 20 ML VIAL 18 ML IVP (08:32)
== END 2024-03-19 00:28 ==
LOC: DI 00:08
PROVIDERS: PCP Nurse Practitioner Family; Visit Provider Psychiatry & Neurology Neurology
DX: M54.2 Cervicalgia (principal)
CPT/HCPCS: 72142

== ENCOUNTER 2024-05-03 14:58 | Outpatient (CLI) | payer MEDICARE, MEDICAID, SELFPAY ==
--- NOTE | 2024-05-03 12:30 | DI.RAD_ITS ---
Exam(s) XR CHEST 2V PA LATERAL EXAM: XR CHEST 2V PA LATERAL CLINICAL HISTORY: cough, crackles,r05.9 TECHNIQUE: 2D digital imaging was performed. Two views. COMPARISON: CR XR CHEST 2V PA LATERAL from 09/04/2022 FINDINGS: HEART: Normal size. Aorta: Not dilated. PULMONARY VASCULATURE: Normal. MEDIASTINUM: Unremarkable. LUNGS: Clear. PLEURAL SPACE: No pleural effusion or pneumothorax. BONE:Unremarkable for age. SOFT TISSUES: Unremarkable. IMPRESSION: No acute abnormality. DATA REPOSITORY: RADIATION DOSE DELIVERED:
--- NOTE | 2024-05-03 12:30 | DI.CT_ITS ---
Exam(s) CT HEAD CERVICAL SPINE WO EXAM: CT HEAD CERVICAL SPINE WO CLINICAL HISTORY: unsteady gait, h/o c spine fusiom,z98.1,r26.81. TECHNIQUE: Imaging Protocol: Axial computed tomography images with coronal and sagittal reformatted images were created and reviewed COMPARISON: CT CT BRAIN NECK CTA from 02/21/[address] CERVICAL SPINE WO from 03/30/2023 FINDINGS: Head CT Ventricles and Extra axial spaces: Normal in size and morphology for the patient's age. Hemorrhage: None. Cerebral parenchyma: No evidence of mass or acute infarct. Midline shift: None. Brainstem/Cerebellum: Normal. Calvarium: Normal. Visualized Paranasal sinuses/Mastoids: Clear. Soft tissues: Unremarkable. Cervical Spine CT BONES: Postsurgical changes laminectomies at C3 through C6 and posterior spinal rods. This creates a rtifact. Vertebral body heights are maintained. Alignment is normal. There is no evidence of acute f racture. Degenerative disc changes and facet degenerative changes are seen. No central canal stenosis. Bilat eral neural foraminal narrowing again noted from C3-4 through C5-6. SOFT TISSUES: No paraspinal hematoma. The airway appears intact. Previously noted posterior fluid co llection and air has resolved. No pneumothorax is seen at the lung apices. IMPRESSION: Head CT: No acute abnormality. C-spine CT: Postsurgical degenerative changes, no acute abnormality. RADIATION DOSE DELIVERED: Total DLP DATA REPOSITORY: All CT scans at this facility are submitted to the National Radiology Data Registry (NRDR) Dose Index Registry (DIR) with the [employer] (ACR). RADIATION OPTIMIZATION: All CT scans at this facility use at least one of these dose optimization te chniques: automated exposure control; mA and/or kV adjustment per patient size (includes targeted exa ms where dose is matched to clinical indication); or iterative reconstruction.
== END 2024-05-03 15:18 ==
LOC: DI 15:01
PROVIDERS: PCP Nurse Practitioner Family; Visit Provider Nurse Practitioner Family
DX: R05.9 Cough, unspecified (principal); R26.81 Unsteadiness on feet; Z98.1 Arthrodesis status
CPT/HCPCS: 36415; 80053; 70450; 71046; 72125; 82140; 83036; 83880; 85025

== ENCOUNTER 2024-05-03 15:07 | Outpatient (CLI) | payer MEDICARE, MEDICAID, SELFPAY ==
[2024-05-03 13:58] LABS: Abs Immature Grans 0.02 10^3/uL (0.0-0.06); Absolute Basophil Count 0.05 10^3/uL (0.0-0.2); Absolute Eosinophil Count 0.26 10^3/uL (0.0-0.7); Absolute Lymphocyte Count 2.32 10^3/uL (1.2-3.4); Absolute Monocyte Count 0.43 10^3/uL (0.1-0.8); Basophils % 0.7 %; Eosinophils % 3.6 %; HCT 42.4 % (36.0-46.0); HGB 13.5 g/dL (11.2-15.7); Immature Grans % 0.3 %; Lymphocytes % 32.3 %; MCH 27.6 pg (27.0-33.0); MCHC 31.8 % (32.0-36.0); MCV 87 fL (80-95); MPV 10.1 fL (8.0-11.0); Neutrophils % 57.1 %; Platelet Count 281 10^3/uL (130-400); RBC 4.89 10^6/uL (3.93-5.22); RDW 14.8 % (11.7-14.6); RDW-SD 47.2 fL; WBC 7.18 10^3/uL (4.4-10.8)
[2024-05-03 14:11] LABS: Hemoglobin A1C 6.1 % (<5.7)
[2024-05-03 14:13] LABS: Ammonia < 10 umol/L (11-32)
[2024-05-03 14:39] LABS: ALT 16 U/L (14-59); AST 23 U/L (15-37); Albumin 3.9 g/dL (3.4-5.0); Alkaline Phosphatase 114 U/L (46-116); Anion Gap 6.4 mmol/L (3-11); BUN 11 mg/dL (7-18); Bilirubin, Total 0.45 mg/dL (0.2-1.0); CO2 30.6 mmol/L (21.0-32.0); CREATININE 1.3 mg/dL (0.55-1.02); Chloride 108 mmol/L (98-107); Estimated GFR 45.35 (mL/min/1.73m2); Glucose 113 mg/dL (74-106); Potassium 3.4 mmol/L (3.5-5.1); Sodium 145 mmol/L (136-145); Total Protein 7.5 g/dL (6.4-8.2)
[2024-05-03 14:57] LABS: NT-proBNP 30 pg/mL (<300)
== END 2024-05-03 15:08 | disposition home or self-care (01) ==
LOC: LBO 15:08
PROVIDERS: PCP Nurse Practitioner Family; Visit Provider Nurse Practitioner Family
DX: R26.81 Unsteadiness on feet (principal); I50.9 Heart failure, unspecified; R05.9 Cough, unspecified; R73.03 Prediabetes
CPT/HCPCS: 36415; 80053; 82140; 83036; 83880; 85025

== ENCOUNTER → 2024-05-10 09:51 | Outpatient (BNVA) | payer MEDICARE, MEDICAID, SELFPAY | PROVIDERS: PCP Nurse Practitioner Family; Referring Provider Nurse Practitioner Family; Visit Provider Psychiatry & Neurology Neurology | DX: G20.C Parkinsonism, unspecified (principal); M48.02 Spinal stenosis, cervical region; G43.E09 Chronic migraine with aura, not intractable, without status migrainosus; G89.29 Other chronic pain; G47.33 Obstructive sleep apnea (adult) (pediatric); M47.12 Other spondylosis with myelopathy, cervical region; R42 Dizziness and giddiness | CPT/HCPCS: 99215 ==

== ENCOUNTER → 2024-09-09 12:16 | Outpatient (BNVA) | payer MEDICARE, MEDICAID, SELFPAY | PROVIDERS: PCP Nurse Practitioner Family; Referring Provider Nurse Practitioner Family; Visit Provider Psychiatry & Neurology Neurology | DX: M48.02 Spinal stenosis, cervical region (principal); G43.E09 Chronic migraine with aura, not intractable, without status migrainosus; G89.29 Other chronic pain; G47.33 Obstructive sleep apnea (adult) (pediatric); M47.12 Other spondylosis with myelopathy, cervical region; G20.C Parkinsonism, unspecified; R42 Dizziness and giddiness; I12.9 Hypertensive chronic kidney disease with stage 1 through stage 4 chronic kidney disease, or unspecified chronic kidney disease; N18.9 Chronic kidney disease, unspecified | CPT/HCPCS: 99215 ==

== ENCOUNTER 2024-09-22 11:44 | Outpatient (CLI) | payer MEDICARE, MEDICAID, SELFPAY ==
[2024-09-22] VITALS (18 sets, daily range): BP systolic 114–147; BP diastolic 54–112; PULSE 68–81; RESP 15–20; TEMP 36.7; O2SAT 96–98
--- NOTE | 2024-09-22 06:00 | DI.RAD_ITS ---
Exam(s) XR PAIN CLINIC LUMBAR SP 2V EXAM: XR PAIN CLINIC LUMBAR SP 2V CLINICAL HISTORY: Dx: Lumbar Spondylosis TECHNIQUE: 2D and realtime digital imaging was performed. CONTRAST MATERIAL: Refer to procedure report. COMPARISON: No exams were available for comparison FINDINGS: Fluoroscopy was provided for Dr. Flanagan during the performance of a lumbar radiofrequency ablation. P lease refer to the procedure report for complete details. Ka,r=18.9 mGy IMPRESSION: RADIATION DOSE DELIVERED: 0.0 0.0 0
[2024-09-22] MEDS: Midazolam 2 MG/2 ML VIAL IVP (12:50)
[2024-09-22] MEDS: Lactated Ringers 500 ML 80 ML IV (13:14)
[2024-09-22] MEDS: Lidocaine 2% Multi-Dose 20 ML VIAL IJ (13:35)
[2024-09-22] MEDS: Bupivacaine 0.5% Pres-Free 10 ML VIAL IJ (13:35)
[2024-09-22] MEDS: methylPREDNISolone ACETATE 40 MG/ML VIAL IJ (13:36)
[2024-09-22] MEDS: Nerve Block Tray 1 EACH MC (13:36)
--- NOTE | 2024-09-22 13:36 | PDOC.PAIN_ITS ---
Date of service: 09/22/24 Time of Service: 13:36 Pain Managment Procedure Note Procedure Note Procedure Note: PROCEDURE NOTE BILATERAL LUMBAR RADIOFREQUENCY ABLATION Date of Service: September 22, 2024 Patient:? Olamide Gillespie? Provider:? Kike Flanagan DO, MPH Olamide Gillespie [facility] Bilateral Lumbar Radiofrequency Ablation with the [employer] Machine.? Pre Operative Diagnosis: Lumbosacral Spondylosis without Myelopathy ICD-10 M47.816 Post Operative Diagnosis: Same Pre procedure pain; VAS= 8/10 Comments: Last had this procedure on 12/24/22 and had >12 months of >50% pain relief. PROCEDURE: Radiofrequency Ablation of medial branches - bilateral L3, L4, L5 and lateral branches of bilateral S1. Olamide?was interviewed and the medical record was reviewed.? There were no medical, pharmacologic, radiographic or other structural contraindications to attempting fluoroscopically guided BILATERAL Lumbar Radiofrequency Ablation.?Risks and expected side effects as well as potential benefit of the procedure were reviewed with Olamide, and the patient's voiced concerns were addressed.? The printed consent form was signed.? Standard time-out procedure was performed. Olamide was brought into the fluoroscopy suite and positioned into the prone pos ition on the fluoroscopy table and allowed to adjust to a position of comfort. A grounding pad was placed on the left abdomen. The sterile field was prepared using chlorhexidine preparation of the skin and sterile draping. Local anesthesia superficial and deep was provided by local infiltration of 2% lidocaine. A 17g 100 mm radiofrequency introducer needle was placed to the planned anatomic targets guided with intermittent fluoroscopy with a perpendicular approach to terminally place at the junction of the superior articular process and the transverse process of the bilateral L4, L5, the base of the sacral ala on the bilateral for the L5 medial branch nerve and the area between base of the sacral ala to the S1 foramen bilaterally. The stylets were removed and radiofrequency probes with a 4mm active tip were then inserted. Needle tip position of the probes was verified in the AP, oblique, and lateral views. At each site, the medial branch nerve was stimulated at 2 Hz to a maximum 1-2 volts determined to finalize safe needle and electrode placement. The patient was awake and responsive during this portion of the procedure. Each target was anesthetized with 1-2 mL of 2 % Lidocaine for anesthesia for lesioning and then each target was lesioned at 80 degrees Celsius for 2 minutes and 30 seconds. Tissue impedances were noted to be between 250 and 500 Ohms. Next, I injected 1/4 cc of Depomedrol (40 mg/cc) followed by 1 cc of 0.5% Bupivacaine. There was no unusual discomfort expressed by Olamide. The needles were withdrawn without difficulty and bandages placed over the needle placement sites, the patient was observed and was without hemodynamic, neurologic, or allergic reactions. Fluoroscopic images were digitally archived. POST PROCEDURE EVALUATION: IMPRESSION: 1. Summary of procedure. Medication given is documented in the MAR. 2. Follow up plan: Olamide to contact [facility].?This procedure may be repeated if the patient achieves at least 50% improvement in pain/function for at least 6 months. 3. Estimated Blood Loss: <5 mls 4. Fluoroscopy time: Documented in the EMR. Follow up plans and appointments were discussed with the Olamide. Post procedure instruction was given as documented in nursing documentation and having met discharge criteria, Olamide was discharged from the [facility]. This advanced procedure uses cooled radiofrequency energy to safely target the sensory nerves responsible for sending pain signals.1 A radiofrequency generator transmits a small current of Radiofrequency energy through an insulated electrode, or probe, placed within tissue. Ionic heating, produced by the friction of charged molecules, thermally deactivates the nerves responsible for sending pain signals to the brain. Radiofrequency energy heats and cools the tissue at the site of pain. Unlike other Radiofrequency procedures, Coolief circulates water through the device while heating nervous tissue to create a larger treatment area, increasing the opportunity to help with pain. This combination targets the pain- transmitting nerves without excessive heating, leading to pain relief. COMMENTS: No apparent complications. Post-procedure pain: VAS= 0/10. I personally completed the entire procedure. KIKE FLANAGAN DO, MPH ABPM&R - Subspecialty board certification in Pain Medicine [facility] Coding Conscious Sedation used for procedure: Yes CPT Codes: Single Facet Joint, Lumbar/Sacral cool - 31362B (21114P63~G) bilateral Single Facet Joint, Lumbar/Sacral cool each add'l - 71259T (31818M04~G) Additional Codes: Date of Service (68518) Date of service: 09/22/24
== END 2024-09-22 11:45 | disposition home or self-care (01) ==
PROVIDERS: PCP Nurse Practitioner Family; Visit Provider Preventive Medicine Occupational Medicine
DX: M54.50 Low back pain, unspecified (principal); M47.816 Spondylosis without myelopathy or radiculopathy, lumbar region
CPT/HCPCS: 64635; 64636; 72100; J0665; J1010; J2003; J2250

== ENCOUNTER → 2024-12-06 08:06 | Outpatient (BNVA) | payer MEDICARE, MEDICAID, SELFPAY | PROVIDERS: PCP Nurse Practitioner Family; Referring Provider Nurse Practitioner Family; Visit Provider Psychiatry & Neurology Neurology | DX: M48.02 Spinal stenosis, cervical region (principal); G43.E09 Chronic migraine with aura, not intractable, without status migrainosus; G47.33 Obstructive sleep apnea (adult) (pediatric); M47.12 Other spondylosis with myelopathy, cervical region; G20.C Parkinsonism, unspecified; R42 Dizziness and giddiness; R20.0 Anesthesia of skin; I12.9 Hypertensive chronic kidney disease with stage 1 through stage 4 chronic kidney disease, or unspecified chronic kidney disease; N18.9 Chronic kidney disease, unspecified | CPT/HCPCS: 99214 ==

== ENCOUNTER → 2025-01-20 15:07 | Outpatient (BNVA) | payer MEDICARE, MEDICAID, SELFPAY | PROVIDERS: PCP Nurse Practitioner Family; Referring Provider Nurse Practitioner Family; Visit Provider Psychiatry & Neurology Neurology | DX: G20.C Parkinsonism, unspecified (principal) | CPT/HCPCS: 11104; 11105 ==

== ENCOUNTER → 2025-03-07 12:54 | Outpatient (BNVA) | payer MEDICARE, MEDICAID, SELFPAY | PROVIDERS: PCP Nurse Practitioner Family; Referring Provider Nurse Practitioner Family; Visit Provider Psychiatry & Neurology Neurology | DX: M48.02 Spinal stenosis, cervical region (principal); G43.E09 Chronic migraine with aura, not intractable, without status migrainosus; G47.33 Obstructive sleep apnea (adult) (pediatric); M47.12 Other spondylosis with myelopathy, cervical region; G20.C Parkinsonism, unspecified; R42 Dizziness and giddiness; R20.0 Anesthesia of skin; I12.9 Hypertensive chronic kidney disease with stage 1 through stage 4 chronic kidney disease, or unspecified chronic kidney disease; N18.9 Chronic kidney disease, unspecified | CPT/HCPCS: 99214 ==